=== PATIENT | female | born 1955 | race Caucasian/White ===

== ENCOUNTER → 2017-11-23 10:21 | Outpatient (CLI) | payer BC, SELFPAY ==
--- NOTE | 2017-11-23 10:35 | CT_ITS ---
CT chest w con HISTORY: Follow-up adenopathy ITS.REASON: 6 MO FU ENLARGED LYMPH NODES ORDERING PHYSICIAN: Deniz Mathew PATIENT AGE: 61 years TECHNIQUE: Helical acquisition obtained following the bolus administration of 75 mL of Isovue 370 followed by a saline bolus. Axial, sagittal, and coronal reformatted images are generated and reviewed. COMPARISON: 02/21/2017 FINDINGS: There is gas present in the upper esophagus which may be seen with reflux. Pneumobilia also noted consistent with patent sphincter of the. Mildly enlarged mediastinal lymph nodes are once again noted and are somewhat less bulky compared to the previous study. Largest janet area is in the right anterior paratracheal region measuring approximately 1.7 x 1.2 cm previously 2 x 1.7 cm. No mediastinal or hilar mass evident. There are coronary artery calcifications. Normal heart size. No pericardial effusion. Centrilobular emphysema with scattered areas of pulmonary fibrosis along with obstructive chronic bronchitis once again noted. No suspicious pulmonary nodules. The previously noted 3 mm nodular opacity in the left upper lobe is less apparent. No effusions or infiltrates. Upper abdominal images show pneumobilia. Has the patient had an interval cholecystectomy or biliary intervention since previous exam? IMPRESSION: 1. Slight decrease in size in the mildly bulky mediastinal lymph nodes. 2. Centrilobular emphysema/COPD. 3. Pneumobilia
[2017-11-23 10:45] LABS: Blood Urea Nitrogen 14 mg/dL (7-18); Creatinine,Serum 0.55 mg/dL (0.55-1.02); Estimated Glomerular Filt Rate > 60 ml/min (>60); GFR (African American) > 60 ML/MIN (>60)
--- NOTE | 2017-11-23 12:51 | HMH.ITSHM ---
KATHY ZOCOR KIYA ASPIRIN
== END ==
PROVIDERS: Family Provider Family Medicine; PCP Family Medicine; Visit Provider Family Medicine
DX: R59.0 Localized enlarged lymph nodes (principal)
CPT/HCPCS: 36415; 71260; 82565; 84520; Q9967

== ENCOUNTER → 2018-04-03 12:39 | Outpatient (POV) | payer BC, SELFPAY | PROVIDERS: Family Provider Family Medicine; PCP Family Medicine; Visit Provider Internal Medicine | DX: Z00.00 Encounter for general adult medical examination without abnormal findings (principal) ==

== ENCOUNTER → 2018-05-07 09:41 | Outpatient (CLI) | payer BC, SELFPAY | PROVIDERS: Family Provider Family Medicine; PCP Family Medicine; Visit Provider Internal Medicine | DX: R59.0 Localized enlarged lymph nodes (principal) | CPT/HCPCS: 94010 ==

== ENCOUNTER → 2018-11-29 13:30 | Outpatient (CLI) | payer MEDICARE, SELFPAY ==
--- NOTE | 2018-11-29 13:33 | CT_ITS ---
CT chest wo con HISTORY: ITS.REASON: MULTIPLE LUNG NODULES, MEDIASTINAL ADENOPATHY ORDERING PHYSICIAN: Michael Hui MD PATIENT AGE: 63 years COMPARISON: 11/23/2017 Technique: Axial images obtained with sagittal and coronal reformats. All CT scans at the facility use one or more dose reduction, viz: automated exposure control, ma/kV adjustment per patient size (including targeted exams where dose is matched to indication, i.e. head), or iterative reconstruction technique. FINDINGS: There are scattered small mediastinal lymph nodes the largest in the precarinal region at 1.6 x 1.3 cm not significant changed. Coronary artery calcifications are present. There are small axillary nodes unchanged There are irregular opacities in both lung apices not significant changed on the right. Granular shaped opacity is present in the left apex medially somewhat more prominent on today's exam at 12 x 10 mm previously 9 x 9 mm. Atelectatic or fibrotic changes are present in the right middle lobe medially. No lobar consolidation or collapse. No acute bony abnormalities. IMPRESSION: 1. No significant change in the mild mediastinal and axillary adenopathy. 2. Biapical fibrotic change. The opacity in the left apex is somewhat more prominent compared to the previous exam and could be related to ongoing fibrosis. Consider 6 month follow-up to confirm stability.
== END ==
PROVIDERS: PCP Family Medicine; Visit Provider Internal Medicine
DX: R91.8 Other nonspecific abnormal finding of lung field (principal); R59.0 Localized enlarged lymph nodes
CPT/HCPCS: 71250

== ENCOUNTER → 2018-12-04 10:02 | Outpatient (POV) | payer MEDICARE, SELFPAY | PROVIDERS: Visit Provider Internal Medicine | DX: Z00.00 Encounter for general adult medical examination without abnormal findings (principal) ==

== ENCOUNTER → 2019-10-07 08:26 | Outpatient (CLI) | payer MEDICARE, SELFPAY ==
[2019-10-07 10:26] LABS: Alanine Aminotransferase 34 U/L (12-78); Aspartate Amino Transferase 20 U/L (15-37); Chol/HDL Ratio 2.8 (1-3.5); Cholesterol 133 mg/dL (140-200); HDL Cholesterol 48 mg/dL (29-89); LDL Cholesterol 74 mg/dL (0-130); Thyroid Stimulating Hormone 2.38 uIU/ml (0.358-3.740); Triglycerides 55 mg/dL (30-200); VLDL Cholesterol 11 mg/dL (0-40)
== END ==
PROVIDERS: Visit Provider Family Medicine
DX: E78.5 Hyperlipidemia, unspecified (principal)
CPT/HCPCS: 36415; 80061; 84439; 84443; 84450; 84460

== ENCOUNTER 2020-02-06 17:30 | Outpatient (RCR) | payer MEDICARE, SELFPAY | END 2020-02-06 17:35 | disposition home or self-care (01) | LOC: PT 17:30 | PROVIDERS: PCP Family Medicine | DX: G95.9 Disease of spinal cord, unspecified (principal) | CPT/HCPCS: 97010; 97014; 97035; 97110; 97140; 97163; G0283 ==

== ENCOUNTER → 2020-02-28 09:49 | Outpatient (CLI) | payer MEDICARE, SELFPAY ==
[2020-02-28 10:02] LABS: Microscopic, Urine URINE MICROSCOPIC (MICROSCOPIC)
[2020-02-28 11:04] LABS: Basophils % 0.5 % (0.1-2.0); Eosinophils # 0.1 K/mm3 (0.0-0.4); Eosinophils % 2.3 % (0.1-12.0); Hematocrit 42.1 % (37.0-47.0); Hemoglobin 13.3 g/dL (12.2-16.2); Lymphocytes # 1.4 K/mm3 (0.7-4.5); Lymphocytes % 22.7 % (10-50); Mean Corpuscular HGB Conc 31.5 g/dL (31.8-35.4); Mean Corpuscular Hemoglobin 29.3 pg (27.0-31.2); Mean Corpuscular Volume 93.1 fl (81-99); Mean Platelet Volume 7.6 fl (7.4-10.4); Monocytes # 0.4 K/mm3 (0.1-1.0); Monocytes % 6.1 % (1.7-9.3); Neutrophils # 4.1 K/mm3 (1.8-7.8); Neutrophils % 68.4 % (37.0-80.0); Platelet Count 264 K/mm3 (142-424); Red Blood Count 4.53 M/mm3 (4.20-5.40); Red Cell Distribution Width 13.6 % (11.5-17.5)
[2020-02-28 11:09] LABS: Appearance,Urine CLEAR (Clear); Bilirubin,Urine Negative (Negative); Blood, Urine Negative (Negative); Color,Urine YELLOW (Yellow); Glucose,Urine (UA) Negative (Negative); Ketones,Urine Negative (Negative); Leukocyte Esterase,Urine Negative (Negative); Nitrate,Urine Negative (Negative); PH,Urine 5.5 (5.0-8.5); Protein,Urine Negative (Negative); Specific Gravity, Urine >= 1.030 (1.005-1.030); Urobilinogen,Urine 0.2 EU/dl (0.2)
[2020-02-28 11:35] LABS: Erythrocyte Sedimentation Rate 13 mm/hr (0-30)
[2020-02-28 12:21] LABS: Chloride 106 mmol/L (98-107); Sodium 140 mmol/L (136-145)
[2020-02-28 12:22] LABS: Potassium 4.3 mmoL/L (3.5-5.1)
[2020-02-28 12:24] LABS: Alanine Aminotransferase 31 U/L (12-78); Alkaline Phosphatase 107 U/L (38-126); Anion Gap 11.3 mEq/L (5-15); Aspartate Amino Transferase 30 U/L (14-36); Bilirubin,Total 0.4 mg/dl (0.2-1.3); Blood Urea Nitrogen 11 mg/dl (7-17); Calcium 9.8 mg/dl (8.4-10.2); Carbon Dioxide 27 mmol/L (22.0-30.0); Cholesterol 130 mg/dl (140-200); Estimated Glomerular Filt Rate 100 ml/min (>60); GFR (African American) 121 ML/MIN (>60); Glucose 86 mg/dl (74-100); Triglycerides 50 mg/dl (30-150); VLDL Cholesterol 10 mg/dL (0-40)
[2020-02-28 12:25] LABS: Albumin Level 4.1 g/dl (3.5-5.0); Albumin/Globulin Ratio 1.6 (1.1-1.8); Chol/HDL Ratio 2.2 (1-3.5); Globulin 2.5 g/dL (1.3-3.2); HDL Cholesterol 60 mg/dl (40-60); Magnesium 2.1 mg/dl (1.6-2.3); Total Protein,Serum 6.6 g/dl (6.3-8.2)
[2020-02-28 12:36] LABS: Direct LDL Cholesterol 64.54 mg/dL (100-129)
[2020-02-28 12:41] LABS: Free T4 (Free Thyroxine) 1.07 ng/dl (0.78-2.19)
[2020-02-28 14:57] LABS: Bacteria,Urine Trace /lpf; RBC,Urine Occasional #/hpf (0-3); Squamous Epithelial Cell,Urine Occasional #/hpf (0-5)
[2020-02-29 08:18] LABS: Folate 10.9 ng/mL (>3.0); Vitamin B12 479 pg/mL (232-1245)
== END ==
PROVIDERS: Visit Provider Family Medicine
DX: Z00.00 Encounter for general adult medical examination without abnormal findings (principal); R53.83 Other fatigue; E78.5 Hyperlipidemia, unspecified; N39.0 Urinary tract infection, site not specified; R20.2 Paresthesia of skin; R25.2 Cramp and spasm
CPT/HCPCS: 36415; 80053; 80061; 81001; 82607; 82746; 83735; 84439; 84443; 85025; 85651

== ENCOUNTER → 2020-03-12 08:21 | Outpatient (CLI) | payer MEDICARE, SELFPAY ==
--- NOTE | 2020-03-12 08:26 | CT_ITS ---
PROCEDURE: CT LUNG SCREENING CLINICAL INDICATION: H/O NICOTINE DEPENDENCE COMPARISON: CHESTWO CT chest wo con from 11/29/2018 TECHNIQUE: The exam was performed on a GE Light Speed [address] scanner using 2.90 mGy CTDI. A low dose helical CT CHEST was performed on a multi-detector scanner. All CT scans at the facility use one or more dose reduction, viz: automated exposure control, ma/kV adjustment per patient size (including targeted exams where dose is matched to indication, i.e. head), or iterative reconstruction technique. The LDCT was performed in a facility that meets the criteria for the screening program. Data regarding this exam was submitted to ACR which is an approved registry. The order for this exam indicates that it came as a result of a lung cancer screening counseling shard decision-making visit that included all the elements required of such a visit including smoking cessation. The radiologist interpreting this exam meets the CMS criteria for the LDCT lung cancer screening program. The exam is reported using the Lung-RADS classification scale and reported to the ACR registry. NOTE: This study was performed for the specific purposes of lung cancer screening and is not an alternative to diagnostic chest CT. RADIATION DOSE: CTDI vol(CT dose Index-volume) = 2.90mG DLP (Dose Length Product) = 110.46 mGcm Lung Rads Category: FINDINGS: Changes of COPD with scattered areas of scarring 4 mm noncalcified nodule left upper lobe centrally image 37. 4 mm nodule left lower lobe laterally image 44. OTHER FINDINGS: Scattered small mediastinal and axillary lymph nodes measuring up to 1.4 x 1 cm in the precarinal region not significantly changed. Coronary artery calcifications. Pneumobilia is present. There has been prior cholecystectomy. Mild right hydronephrosis IMPRESSION: Lung rads category 3 probably benign. Recommend six-month CT follow-up Mild right hydronephrosis Coronary artery calcifications Dictated by: Link Saha MD 03/15/2020 12:50 Electronically signed by Link Saha MD in [place] 03/15/2020 12:50
--- NOTE | 2020-03-12 08:27 | MM_ITS ---
PROCEDURE: MM DIG SCREENING MAMM BI W/CAD Digital Breast Tomosynthesis Included CLINICAL INDICATION: SCREENING There is no personal or family history of breast cancer. COMPARISON: DIG MAMMO BILAT SCREENING from 01/21/2010 [facility] DIG MAMM-SCREEN DALI from 09/04/2014 [facility] DIG MAMM-SCREEN DALI W/CAD from 02/17/2017 TECHNIQUE: Standard CC and MLO images and 3D Tomosynthesis was obtained. R2 CAD reviewed. FINDINGS: Scattered fibroglandular densities are seen in each breast. There is faint arterial calcification in each breast. There is a stable small benign-appearing nodular density near the axillary tail right breast likely a low-lying node. There are 2 new benign-appearing nodular densities left breast which were present previously but are better seen on today's study with didier images. There is no suspicious lesion in either breast and no suspicious microcalcifications. IMPRESSION: Fibrofatty parenchyma with no suspicious lesions seen BI-RAD Category: 2 Benign Finding(s) FOLLOW-UP: 1YR 1 Year Follow-up (A letter has been sent to the patient regarding results of the study.) Dictated by: Dr. Walter Meza MD 03/27/2020 08:[address] Walter Meza MD in [place] 03/27/2020 08:49
== END ==
PROVIDERS: PCP Family Medicine; Visit Provider Family Medicine
DX: Z12.31 Encounter for screening mammogram for malignant neoplasm of breast (principal); Z87.891 Personal history of nicotine dependence; Z12.2 Encounter for screening for malignant neoplasm of respiratory organs
CPT/HCPCS: 77063; 77067

== ENCOUNTER → 2020-06-12 10:28 | Outpatient (CLI) | payer MEDICARE, SELFPAY ==
[2020-06-12 12:09] LABS: Anion Gap 13.5 mEq/L (5-15); Blood Urea Nitrogen 16 mg/dl (7-17); Calcium 9.9 mg/dl (8.4-10.2); Carbon Dioxide 27 mmol/L (22.0-30.0); Chloride 107 mmol/L (98-107); Estimated Glomerular Filt Rate 100 ml/min (>60); GFR (African American) 121 ML/MIN (>60); Glucose 88 mg/dl (74-100); Potassium 4.5 mmoL/L (3.5-5.1); Sodium 143 mmol/L (136-145)
== END ==
PROVIDERS: Visit Provider Family Medicine
DX: I10 Essential (primary) hypertension (principal)
CPT/HCPCS: 36415; 80048

== ENCOUNTER → 2021-03-24 12:45 | Outpatient (CLI) | payer MEDICARE, SELFPAY ==
--- NOTE | 2021-03-24 12:50 | MR_ITS ---
PROCEDURE: MR CERVICAL SPINE WO CON CLINICAL INDICATION: CERVICAL MYELOPATHY Pt c/o cervical myelopathy with lt arm pain, numbness, and tingling. Pt is s/p cervical fusion Aug 2020. COMPARISON: No exams were available for comparison TECHNIQUE: Standard multiplanar multiecho sequences are performed without contrast. 3-D MIP and myelographic images are also rendered and reviewed FINDINGS: The craniocervical junction has an unremarkable appearance. There is normal alignment. C2-C3: Unremarkable. C3-C4: There is mild asymmetric endplate hypertrophic change toward the left causing mild left lateral recess and foraminal narrowing. C4-C5: There has been anterior cervical disc fusion at C4-C5 and C6 with significant artifact. There does appear to be some endplate and uncovertebral hypertrophic change at C4-C5 with mild bilateral lateral recess and foraminal narrowing. C5-C6: Artifact from anterior bone plate and screws. There is endplate hypertrophic change and uncovertebral hypertrophy with bilateral lateral recess and foraminal narrowing greater on the left. Canal stenosis is present at this level at 10 mm. C6-C7: Degenerative disc disease. Mild left-sided foraminal narrowing. C7-T1: Degenerative disc disease. There is a small central disc protrusion very slightly eccentric toward the left causing narrowing of the canal at 10 mm but does not appear to be impinging upon the cord. IMPRESSION: 1. C3-C4: There is mild asymmetric endplate hypertrophic change toward the left causing mild left lateral recess and foraminal narrowing. 2. C4-C5: There has been anterior cervical disc fusion at C4-C5 and C6 with significant artifact. There does appear to be some endplate and uncovertebral hypertrophic change at C4-C5 with mild bilateral lateral recess and foraminal narrowing. 3. C5-C6: Artifact from anterior bone plate and screws. There is endplate hypertrophic change and uncovertebral hypertrophy with bilateral lateral recess and foraminal narrowing greater on the left. Canal stenosis is present at this level at 10 mm. 4. C6-C7: Degenerative disc disease. Mild left-sided foraminal narrowing. 5. C7-T1: Degenerative disc disease. There is a small central disc protrusion very slightly eccentric toward the left causing narrowing of the canal at 10 mm but does not appear to be impinging upon the cord Dictated by: Link Saha MD 03/25/2021 09:58 Link Saha MD in [place] 03/25/2021 09:58
== END ==
PROVIDERS: PCP Family Medicine; Visit Provider Neurological Surgery
DX: M54.12 Radiculopathy, cervical region (principal); G95.9 Disease of spinal cord, unspecified
CPT/HCPCS: 72141; 76376

== ENCOUNTER 2021-05-03 11:07 | Emergency (ER) | payer MEDICARE, SELFPAY ==
[2021-05-03 11:27] VITALS: BP 155/73; PULSE 69; RESP 16; TEMP 36.8; O2SAT 99; BMI 18.2
[2021-05-03 11:42] VITALS: BP 155/73; PULSE 69; RESP 16; TEMP 36.8; O2SAT 99
--- NOTE | 2021-05-03 11:42 | HMH.EDUTC ---
[facility] [place] Clinical Impression: UTI (urinary tract infection) Qualifiers: Urinary tract infection type: site unspecified Hematuria presence: with hematuria Qualified Code(s): N39.0 - Urinary tract infection, site not specified Disposition: Home, Self-Care Condition on Discharge: Good Instructions: DI for Urinary Tract Infection (UTI), DI for Urinary Tract Infection in Children Additional Instructions: Drink plenty of fluids. Take tylenol or ibuprofen for pain or fever. Take the medications as directed. Follow up with your regular doctor. GO TO THE ER FOR ANY WORSENING SYMPTOMS The pyridium will make your urine turn orange, this is an expected side effect. It will stain your clothes if it comes into contact with them. Prescriptions: Ondansetron [Zofran 4mg ODT] 4 mg PO Q8HP PRN #9 tab.rapdis PRN Reason: Nausea Transmission Status: Received by [facility] #[id number] Sulfamethoxazole/Trimethoprim [Bactrim DS tablet] 1 each PO BID 7 Days #14 tab Transmission Status: Received by [facility] #[id number] Phenazopyridine HCl [Pyridium 200mg Tablet] 200 pow PO TID #6 tab Transmission Status: Received by [facility] #[id number] Referrals: Deniz Mathew [Primary Care Provider] - Time of Disposition: 11:49 Medical Decision Making - Medical Records Medical records reviewed: No: I reviewed the patient's medical records. - Jose Inquiry Pt receiving controlled substance: No Vital Signs: 05/03/21 11:27 05/03/21 11:42 Temperature 98.2 F 98.2 F Temperature Source Oral Pulse Rate 69 Pulse Rate [Left] 69 Respiratory Rate 16 16 Blood Pressure 155/73 H Blood Pressure [Right Arm] 155/73 H Blood Pressure Mean [Right Arm] 100 02 Sat by Pulse Oximetry 99 - Lab Data Lab results reviewed: Yes: I reviewed the patient's lab results. Lab Results 05/03/21 11:41: Urine Color Yellow, Urine Appearance Clear, Urine pH 5.5, Ur Specific [place] 1.010, Urine Protein Negative, Urine Glucose (UA) Negative, Urine Ketones Negative, Urine Blood Negative, Urine Nitrate Positive A, Urine Bilirubin Negative, Urine Urobilinogen 0.2, Ur Leukocyte Esterase 1+ A Orders (Tests/Meds): ORDERS Category Date Time Status Urine Culture Stat Micro 05/03/21 11:20 Results [facility] [place] - General Stated complaint: possible UTI Time Seen by Provider: 05/03/21 11:42 Source of Information: Patient, Parent(s) Limitations: No Limitations Description of Symptoms (Recalled from Triage Doc. by RN): Pt states that she has had lower pelvic and back pain, urgency and burning while urinating for 3 days. HEENT Symptoms (Recalled from RN notes): No Resp Symptoms (Recalled from RN notes): No Skin Symptoms (Recalled from RN notes): No MS Symptoms (Recalled from RN notes): No Functional Status (Recalled from RN notes): wnl - History of Present Illness Provider Complaint: She states that she has had burning with urinating, low back pain and nausea for the past 2 days. She gets uti's kind of frequently and she thinks that she has one now. She denies any fever or chills. - Related Data Home Medications Medication Instructions Recorded Confirmed aspirin 81 mg tablet,delayed 81 mg PO DAILY 12/15/18 11/19/19 release Atorvastatin Calcium [Lipitor 40mg 80 mg PO HS 10/09/19 11/19/19 Tab] Clopidogrel Bisulfate [Plavix 75mg 75 mg PO DAILY 10/09/19 11/19/19 Tab] Zonisamide 50 mg PO DAILY 11/02/19 11/19/19 Previous Rx's Medication Instructions Recorded Cefdinir [Omnicef 300mg Capsule] 300 mg PO BID #20 cap 11/19/19 Promethazine/Dextromethorphan 5 ml PO Q6HP PRN #240 syrup 11/19/19 [Promethazine-Dm Syrup] methylPREDNISolone [Medrol] 4 mg PO DIRECTED 6 Days #21 11/19/19 tab.ds.pk Ciprofloxacin [Cipro 500mg/5ml 500 mg PO BID 7 Days #14 ml 12/30/19 Oral Susp] Ondansetron [Zofran 4mg ODT] 4 mg PO Q8HP PRN #10 tab.rapdis 12/30/19 Phenazopyridine HCl [Pyridium 200 pow PO TI
[2021-05-03 11:43] LABS: Apearance,Urine Clear (Clear); Color,Urine Yellow (Yellow)
[2021-05-03 11:44] LABS: Bilirubin,Urine Negative (Negative); Blood, Urine Negative (Negative); Glucose,Urine (UA) Negative (Negative); Ketones,Urine Negative (Negative); PH,Urine 5.5 (5.0-8.5); Protein,Urine Negative (Negative); Urobilinogen,Urine 0.2 EU/dl (0.2)
[2021-05-03 11:45] LABS: UTC Leukocyte Esterase,Urine 1+ (Negative); UTC Nitrate,Urine Positive (Negative)
== END 2021-05-03 11:53 | disposition home or self-care (01) ==
PROVIDERS: Emergency Provider Nurse Practitioner Family; PCP Family Medicine
DX: N30.00 Acute cystitis without hematuria (principal)
CPT/HCPCS: G0463; 81003; 87086; 87088; 87186; 99202

== ENCOUNTER → 2021-07-17 08:23 | Outpatient (CLI) | payer MEDICARE, SELFPAY ==
[2021-07-17 08:46] LABS: Microscopic, Urine URINE MICROSCOPIC (MICROSCOPIC)
[2021-07-17 11:17] LABS: Basophils % 0.5 % (0.1-2.0); Eosinophils # 0.2 K/mm3 (0.0-0.4); Hematocrit 42.8 % (37.0-47.0); Hemoglobin 13.7 g/dL (12.2-16.2); Lymphocytes # 1.7 K/mm3 (0.7-4.5); Lymphocytes % 28.4 % (10-50); Mean Corpuscular HGB Conc 31.9 g/dL (31.8-35.4); Mean Corpuscular Hemoglobin 30.3 pg (27.0-31.2); Mean Corpuscular Volume 94.9 fl (81-99); Mean Platelet Volume 8.3 fl (7.4-10.4); Monocytes # 0.4 K/mm3 (0.1-1.0); Monocytes % 6.3 % (1.7-9.3); Neutrophils # 3.6 K/mm3 (1.8-7.8); Neutrophils % 61.8 % (37.0-80.0); Platelet Count 312 K/mm3 (142-424); Red Blood Count 4.51 M/mm3 (4.20-5.40); Red Cell Distribution Width 13.6 % (11.5-17.5); White Blood Count 5.8 K/mm3 (4.8-10.8)
[2021-07-17 11:32] LABS: Appearance,Urine CLEAR (Clear); Bilirubin,Urine Negative (Negative); Blood, Urine Negative (Negative); Color,Urine YELLOW (Yellow); Glucose,Urine (UA) Negative (Negative); Ketones,Urine Negative (Negative); Leukocyte Esterase,Urine TRACE (Negative); Nitrate,Urine Negative (Negative); Protein,Urine Negative (Negative); Specific Gravity, Urine 1.025 (1.005-1.030); Urobilinogen,Urine 0.2 EU/dl (0.2)
[2021-07-17 12:48] LABS: Free T4 (Free Thyroxine) 0.95 ng/dl (0.78-2.19)
[2021-07-17 14:18] LABS: Chloride 105 mmol/L (98-107); Potassium 4.7 mmoL/L (3.5-5.1); Sodium 140 mmol/L (136-145)
[2021-07-17 14:21] LABS: Alanine Aminotransferase 23 U/L (12-78); Albumin/Globulin Ratio 1.4 (1.1-1.8); Alkaline Phosphatase 112 U/L (38-126); Anion Gap 13.7 mEq/L (5-15); Aspartate Amino Transferase 30 U/L (14-36); Bilirubin,Total 0.3 mg/dl (0.2-1.3); Blood Urea Nitrogen 12 mg/dl (7-17); Calcium 9.5 mg/dl (8.4-10.2); Carbon Dioxide 26 mmol/L (22.0-30.0); Cholesterol 173 mg/dl (140-200); Creatine Kinase 39 U/L (30-135); Estimated Glomerular Filt Rate 100 ml/min (>60); GFR (African American) 121 ML/MIN (>60); Globulin 2.8 g/dL (1.3-3.2); Glucose 81 mg/dl (74-100); Total Protein,Serum 6.8 g/dl (6.3-8.2); Triglycerides 61 mg/dl (30-150); VLDL Cholesterol 12 mg/dL (0-40)
[2021-07-17 14:22] LABS: Chol/HDL Ratio 2.3 (1-3.5); HDL Cholesterol 74 mg/dl (40-60)
[2021-07-17 14:28] LABS: C-Reactive Protein 0.4 mg/L (0-4)
[2021-07-17 14:29] LABS: Hemoglobin A1C 5.8 % (4.0-6.0)
[2021-07-17 14:33] LABS: Direct LDL Cholesterol 74.39 mg/dL (100-129)
[2021-07-17 14:47] LABS: Squamous Epithelial Cell,Urine Occasional #/hpf (0-5); WBC,Urine Occasional #/hpf (0-3)
[2021-07-17 14:52] LABS: Thyroid Stimulating Hormone 2.11 uIU/mL (0.465-4.68)
[2021-07-17 15:08] LABS: Uric Acid 2.4 mg/dl (2.5-6.2)
[2021-07-17 16:15] LABS: Vitamin B12 399 pg/mL (239-931)
[2021-07-17 16:24] LABS: Folate 8.52 ng/mL
[2021-07-17 20:20] LABS: Erythrocyte Sedimentation Rate 13 mm/hr (0-30)
[2021-07-18 14:33] LABS: Homocyst(e)ine 10.8 umol/L (0.0-17.2); RA Latex Turbid. <10.0 IU/mL (0.0-13.9)
[2021-07-19 18:47] LABS: Antinuclear Antibodies, IFA Positive (.)
[2021-07-20 19:34] LABS: Arsenic, Blood 3 ug/L (2-23); Lead, Blood 1 ug/dL (0-4); Mercury, Blood <1.0 ug/L (0.0-14.9); Methylmalonic Acid 180 nmol/L (0-378)
[2021-07-21 17:45] LABS: Vitamin B6 15.9 ug/L (2.0-32.8)
[2021-07-23 16:13] LABS: Vitamin B1 175.7 nmol/L (66.5-200.0)
[2021-07-29 11:00] LABS: Antinuclear Antibodies (ANA) Positive
== END ==
PROVIDERS: Visit Provider Family Medicine
DX: I10 Essential (primary) hypertension (principal); E78.5 Hyperlipidemia, unspecified; R53.83 Other fatigue; G62.9 Polyneuropathy, unspecified; Z79.899 Other long term (current) drug therapy
CPT/HCPCS: 36415; 80053; 80061; 81001; 82131; 82175; 82550; 82607; 82746; 83036; 83090; 83655; 83825; 84207; 84425; 84439; 84443; 84550; 85025; 85651; 86038; 86140; 86431

== ENCOUNTER 2021-07-29 17:13 | Emergency (ER) | payer MEDICARE, SELFPAY ==
[2021-07-29 19:06] VITALS: BP 130/78; PULSE 72; RESP 18; TEMP 36.8; O2SAT 96; BMI 18.2
--- NOTE | 2021-07-29 19:14 | HMH.EDUTC ---
[facility] [place] Impression: Exposure to COVID-19 virus Disposition: Home, Self-Care Condition on Discharge: Good Instructions: DI for COVID-19 (Suspected or Confirmed ), Preventing the Spread of Coronavirus Discharge Instructions Additional Instructions: *Monitor Temp, Over the counter Motrin or Tylenol as directed/as needed Tylenol every 4 hours and Motrin every 6 hours (as long as your family doctor has told you that you can take it) for fever or pain. and straight to ER if unable to lower temp less than 101.0 after medication given Follow up IMMEDIATELY for new or worsening symptoms or no Noticeable improvement over the next 48-72 hours. 911 for difficulty breathing or swallowing You were tested for today for COVID19 your test result should be back in the next 24-48 hours, you was given handout on [facility] portal where you can review your results if you do not have internet access you may call the [facility] You was given a handout with instructions for Self Quarantine and Self isolation for while you wait on test results and what to do if they are positive If you are positive the Health Dept will be contacting you also Make sure to take your Vitamins Vit. C Vit D and Zinc if you can take them Referrals: Deniz Mathew [Primary Care Provider] - As needed Forms: Work/School Release Medical Decision Making - Jose Inquiry Pt receiving controlled substance: No Jose was queried for this patient: No Vital Signs: 07/29/21 19:06 Temperature 98.2 F Temperature Source Oral Pulse Rate [Right] 72 Respiratory Rate 18 Blood Pressure [Right Arm] 130/78 Blood Pressure Mean [Right Arm] 95 Blood Pressure Source [Right Arm] Automatic Cuff Blood Pressure Position [Right Arm] Sitting 02 Sat by Pulse Oximetry 96 Oxygen Delivery Method Room Air Orders (Tests/Meds): ORDERS Category Date Time Status Covid-19 Nasal PCR ([facility]) Routine Lab 07/29/21 19:08 Ordered [facility] [place] - General Stated complaint: covid test Time Seen by Provider: 07/29/21 19:14 Mode of Arrival: Ambulatory Source of Information: Patient Limitations: No Limitations Description of Symptoms (Recalled from Triage Doc. by RN): COVID TEST D/T EXPOSURE, NO SYMPTOMS HEENT Symptoms (Recalled from RN notes): No Resp Symptoms (Recalled from RN notes): No Skin Symptoms (Recalled from RN notes): No MS Symptoms (Recalled from RN notes): No Functional Status (Recalled from RN notes): WNL - History of Present Illness Provider Complaint: Patient state that they was around someone on Monday that tested positive for COVID state that she is not having any symptoms but wanted to get tested due to exposure - Related Data Home Medications Medication Instructions Recorded Confirmed aspirin 81 mg tablet,delayed 81 mg PO DAILY 12/15/18 11/19/19 release Atorvastatin Calcium [Lipitor 40mg 80 mg PO HS 10/09/19 11/19/19 Tab] Clopidogrel Bisulfate [Plavix 75mg 75 mg PO DAILY 10/09/19 11/19/19 Tab] Zonisamide 50 mg PO DAILY 11/02/19 11/19/19 Previous Rx's Medication Instructions Recorded Cefdinir [Omnicef 300mg Capsule] 300 mg PO BID #20 cap 11/19/19 Promethazine/Dextromethorphan 5 ml PO Q6HP PRN #240 syrup 11/19/19 [Promethazine-Dm Syrup] methylPREDNISolone [Medrol] 4 mg PO DIRECTED 6 Days #21 11/19/19 tab.ds.pk Ciprofloxacin [Cipro 500mg/5ml 500 mg PO BID 7 Days #14 ml 12/30/19 Oral Susp] Ondansetron [Zofran 4mg ODT] 4 mg PO Q8HP PRN #10 tab.rapdis 12/30/19 Phenazopyridine HCl [Pyridium 200 pow PO TID #6 tab 12/30/19 200mg Tablet] Ondansetron [Zofran 4mg ODT] 4 mg PO Q8HP PRN #9 tab.rapdis 05/03/21 Phenazopyridine HCl [Pyridium 200 pow PO TID #6 tab 05/03/21 200mg Tablet] Sulfamethoxazole/Trimethoprim 1 each PO BID 7 Days #14 tab 05/03/21 [Bactrim DS tablet] Allergies Allergy/AdvReac Type Severity Reaction Status Date / Time No Known Allergies Allergy Verified 05/03/21 11:31 - Work
[2021-07-29 19:39] VITALS: BP 130/78; PULSE 72; RESP 18; TEMP 36.8; O2SAT 96
== END 2021-07-29 19:42 | disposition home or self-care (01) ==
PROVIDERS: Emergency Provider Nurse Practitioner; PCP Family Medicine
DX: Z20.822 Contact with and (suspected) exposure to COVID-19 (principal)
CPT/HCPCS: G0463; 99202; U0003

== ENCOUNTER → 2021-08-05 13:58 | Outpatient (CLI) | payer MEDICARE, SELFPAY ==
--- NOTE | 2021-08-05 | US_ITS ---
APPROVED REPORT Exam Type: Ankle to Brachial Index Post Acute Care Nurse: RT Dilip(R) Indications Claudication: Bilaterally Rest Pain: Bilaterally History of Smoking Risk Factors Hyperlipidemia TIA/CVA History Pressures/Indices Right Indices Left Indices Brachial 146.00 mmHg Brachial 145.00 mmHg Low Thigh 133.00 mmHg 0.91 Low Thigh 134.00 mmHg 0.92 Calf 137.00 mmHg 0.94 Calf 133.00 mmHg 0.91 Ankle(PT) 136.00 mmHg 0.93 Ankle(PT) 147.00 mmHg 1.01 Ankle(DP) 146.00 mmHg 1.00 Ankle(DP) 149.00 mmHg 1.02 Digit 102.00 mmHg 0.70 Digit 102.00 mmHg 0.70 Findings RT STEVAN=1.00 LT STEVAN=1.02 RT TBI=0.70 LT TBI=0.70 Normal pulses Normal waveforms Conclusion RT STEVAN=1.00 LT STEVAN=1.02 RT TBI=0.70 LT TBI=0.70 Normal pulses Normal waveforms Normal appearing resting noninvasive lower extremity arterial study. Electronically signed by : Link Saha MD 08/05/2021 15:57:16
--- NOTE | 2021-08-05 14:02 | CT_ITS ---
PROCEDURE: CT LUNG SCREENING CLINICAL INDICATION: 6MONTH FOLLOW UP COMPARISON: CT CT LUNG SCREENING from 03/12/2020 TECHNIQUE: The exam was performed on a GE Light Speed [address] scanner using 2.90 mGy CTDI. A low dose helical CT CHEST was performed on a multi-detector scanner. All CT scans at the facility use one or more dose reduction, viz: automated exposure control, ma/kV adjustment per patient size (including targeted exams where dose is matched to indication, i.e. head), or iterative reconstruction technique. The LDCT was performed in a facility that meets the criteria for the screening program. Data regarding this exam was submitted to ACR which is an approved registry. The order for this exam indicates that it came as a result of a lung cancer screening counseling shard decision-making visit that included all the elements required of such a visit including smoking cessation. The radiologist interpreting this exam meets the [facility] criteria for the LDCT lung cancer screening program. The exam is reported using the Lung-RADS classification scale and reported to the ACR registry. NOTE: This study was performed for the specific purposes of lung cancer screening and is not an alternative to diagnostic chest CT. RADIATION DOSE: CTDI vol(CT dose Index-volume) = 2.90mG DLP (Dose Length Product) = 106.3 mGcm FINDINGS: COPD changes with scattered areas of scarring. There is a 4 x 2 mm rectangular shaped nodule in the right upper lobe centrally series 3, image 36 not readily apparent on the previous exam. Scarring is present in the left upper lobe medially unchanged. There is a stable 4 mm nodule in left upper lobe anteriorly series 3, image 30 stable 3 mm left upper lobe nodule centrally series 3, image 42 OTHER FINDINGS: Scattered small nodes are present in the axilla and mediastinum not significantly changed. Coronary artery calcifications. Loop recorder device noted in the left precordial region. IMPRESSION: Lung-RADS Category 2 Benign Appearance or Behavior Follow-up: Continue annual screening with LDCT in 12 months Dictated by: Link Saha MD 08/21/2021 15:11 Link Saha MD in [place] 08/21/2021 15:11
--- NOTE | 2021-08-05 14:03 | MM_ITS ---
PROCEDURE: MM DIG SCREENING MAMM BI W/CAD Digital Breast Tomosynthesis Included CLINICAL INDICATION: SCREENING COMPARISON: MG [facility]MSB DIG MAMM-SCREEN DALI from 09/04/2014 MG [facility]MSB DIG MAMM-SCREEN DALI W/CAD from 02/17/2017 MG MM DIG SCREENING MAMM BI W/CAD from 03/12/2020 TECHNIQUE: Standard CC and MLO images and 3D Tomosynthesis was obtained. R2 CAD reviewed. FINDINGS: The breasts are heterogeneously dense which may obscure small masses. Bilateral benign-appearing calcification. Benign-appearing nodules left breast unchanged. No suspicious appearing mass, malignant-appearing microcalcification, architectural distortion, or skin thickening. No significant change in IMPRESSION: Benign findings. No evidence of malignancy BI-RAD Category: 2 Benign Finding FOLLOW-UP: 1 YR 1 Year Follow-up (A letter has been sent to the patient regarding results of the study.) Dictated by: Link Saha MD 08/23/2021 09:37 Link Saha MD in [place] 08/23/2021 09:37
== END ==
PROVIDERS: PCP Family Medicine; Visit Provider Family Medicine
DX: Z12.31 Encounter for screening mammogram for malignant neoplasm of breast (principal); Z87.891 Personal history of nicotine dependence; Z12.2 Encounter for screening for malignant neoplasm of respiratory organs; M79.605 Pain in left leg; M79.604 Pain in right leg; R09.89 Other specified symptoms and signs involving the circulatory and respiratory systems
CPT/HCPCS: 71271; 77063; 77067; 93923

== ENCOUNTER → 2021-08-10 09:34 | Outpatient (POV) | payer MEDICARE, SELFPAY | PROVIDERS: Visit Provider Otolaryngology | DX: Z00.00 Encounter for general adult medical examination without abnormal findings (principal) ==

== ENCOUNTER → 2021-08-25 08:40 | Outpatient (CLI) | payer MEDICARE, SELFPAY ==
--- NOTE | 2021-08-25 08:43 | FL_ITS ---
PROCEDURE: FL BARIUM SWALLOW CLINICAL INDICATION: DYSPHAGIA,LARYNGOPHARYNGEAL REFLUX COMPARISON: No exams were available for comparison FINDINGS: There is a bone plate anteriorly at the C5-C6 and C7 level. This does abut the posterior aspect of the esophagus without obvious indentation. No annular constricting lesions or filling defects evident. No hiatal hernia. There was some esophageal dysmotility. IMPRESSION: Mild esophageal dysmotility otherwise negative. The patient reports dysphagia with different types of food hanging in her throat. Perhaps a modified barium swallow would aid in further evaluation. Dictated by: Link Saha MD 08/25/2021 10:09 Link Saha MD in [place] 08/25/2021 10:09
== END ==
PROVIDERS: PCP Family Medicine; Visit Provider Otolaryngology
DX: R13.10 Dysphagia, unspecified (principal); J38.7 Other diseases of larynx
CPT/HCPCS: 74220

== ENCOUNTER 2021-10-06 14:45 | Outpatient (RCR) | payer MEDICARE, SELFPAY ==
--- NOTE | 2021-10-06 16:45 | HMH.SLDYSPHA ---
Speech & Language Evaluation Speech/Language Dysphagia Evaluation Start: 10/06/21 15:59 Freq: ONCE Status: Active Protocol: Document 10/06/21 15:59 CMAY (Rec: 10/06/21 16:44 CMAY [id number]) Dysphagia Assess/Goals/Plan Assessment Date of Evaluation: 10/06/21 Evaluation Type Initial Certification Assessment/Problems Dysphagia Does Patient Qualify for Service No Qualify/Failure Comment Based on the results of today' s evaluation, it is recommended that Mrs. Burrell receive a Modified Barium Swallow Study (MBSS) to rule out penetration or aspiration during intake. If the MBSS reveals penetration, aspiration, muscular weakness, etc. outpatient speech therapy services may be warranted. Recommendations PHYSICIAN CERTIFICATION: The specified therapy services are required, authorized, and reviewed every 30 days. Diet Recommendations Normal with modifications for grainy/sticky/dry foods Liquid Type Recommendations Normal/Thin SL Swallow Guidelines Alt bite w/sip thru meal, Standard Aspiration Prec.,Eat at slow rate,Oral Care Education,Reflux precautions Crush Meds Crush all meds Dysphagia Swallow Precautions/Strategies Sitting Upright (90 deg), Double Swallow,Small Bites and Sips,Alternate Liquids/Solids Additional Consults Recommended Other Comment ST recommends a Modified Barium Swallow Study to further evaluate the swallow. Plan Pt/Guardian verbally ack understanding Yes of dx/prognosis/goals G -code Required No Education Instructions provided Education provided to patient regarding swallowing safety strategies to implement such as sitting upright during intake, sitting upright for at least 45 minutes following intake, taking small bites/ sips, alternating between bites/sips (liquid wash), taking extra time to eat, and adding gravy/sauces, etc. to sticky/grainy/dry consistencies before
== END 2021-10-06 14:50 | disposition home or self-care (01) ==
LOC: ST 14:45
PROVIDERS: PCP Family Medicine; Visit Provider Family Medicine
DX: R13.10 Dysphagia, unspecified (principal)
CPT/HCPCS: 92610

== ENCOUNTER 2021-10-19 16:39 | Emergency (ER) | payer MEDICARE, SELFPAY ==
[2021-10-19 17:21] VITALS: BP 162/80; PULSE 80; RESP 19; TEMP 37.7; O2SAT 98; BMI 19.0
--- NOTE | 2021-10-19 17:51 | HMH.EDUTC ---
[facility] [place] Disposition Clinical Impression: COPD exacerbation, Exposure to COVID-19 virus Disposition: Home, Self-Care Condition on Discharge: Good Instructions: Chronic Obstructive Pulmonary Disease, Physical Activity for People with COPD, DI for COVID-19 (Suspected or Confirmed ) Additional Instructions: Drink plenty of fluids. Take tylenol or ibuprofen for pain or fever. Take the medications as directed. Follow up with your regular doctor. GO TO THE ER FOR ANY WORSENING SYMPTOMS Quarantine until you know the results of your covid-19 test. If it is positive, the health department should call you and give you further instructions about your length of Quarantine and other things. Notify your school or workplace of your results and follow their instructions regarding return to work/school. Prescriptions: Benzonatate [Benzonatate 100mg cap] 100 mg PO TIDP PRN #30 cap PRN Reason: Cough Transmission Status: Received by [facility] #[id number] methylPREDNISolone [Medrol] 4 mg PO DIRECTED 6 Days #21 packet Transmission Status: Received by [facility] # guaiFENesin [Mucinex 600mg tablet] 1 - 2 tab PO BIDP PRN #30 tab PRN Reason: Congestion Transmission Status: Received by [facility] # Azithromycin [Z-Juan José 250mg Tab*] 250 mg PO UD DOSE PK #6 tab Transmission Status: Received by [facility] #[id number] Referrals: Deniz Mathew [Primary Care Provider] - Time of Disposition: 18:13 Medical Decision Making - Medical Records Medical records reviewed: No: I reviewed the patient's medical records. - Jose Inquiry Pt receiving controlled substance: No Vital Signs: 10/19/21 17:21 10/19/21 18:14 Temperature 99.8 F H 99.8 F H Temperature Source Oral Pulse Rate 80 Pulse Rate [Left] 80 Respiratory Rate 19 19 Blood Pressure 162/80 H Blood Pressure [Right Arm] 162/80 H Blood Pressure Mean [Right Arm] 107 02 Sat by Pulse Oximetry 98 - Lab Data Lab results reviewed: Yes: I reviewed the patient's lab results. Orders (Tests/Meds): ORDERS Category Date Time Status Covid-19 Nasal PCR ([facility]) Routine Lab 10/19/21 17:24 Received [facility] [place] HPI - General Stated complaint: cough, runny nose, covid exp Time Seen by Provider: 10/19/21 17:51 Mode of Arrival: Ambulatory Source of Information: Patient Limitations: No Limitations Description of Symptoms (Recalled from Triage Doc. by RN): pt was exposed to covid on 10/15. pt c/o cough and sore throat. HEENT Symptoms (Recalled from RN notes): Yes (sore throat) Resp Symptoms (Recalled from RN notes): Yes (cough) Skin Symptoms (Recalled from RN notes): No MS Symptoms (Recalled from RN notes): No Functional Status (Recalled from RN notes): wnl - History of Present Illness Provider Complaint: She states that for the past 2 days she has had a worsening cough and chest congestion. She has a history of copd. She was exposed to covid-19 3 days ago. She denies any fever or chills. - Related Data Home Medications Medication Instructions Recorded Confirmed aspirin 81 mg tablet,delayed 81 mg PO DAILY 12/15/18 11/19/19 release Atorvastatin Calcium [Lipitor 40mg 80 mg PO HS 10/09/19 11/19/19 Tab] Clopidogrel Bisulfate [Plavix 75mg 75 mg PO DAILY 10/09/19 11/19/19 Tab] Zonisamide 50 mg PO DAILY 11/02/19 11/19/19 Previous Rx's Medication Instructions Recorded Cefdinir [Omnicef 300mg Capsule] 300 mg PO BID #20 cap 11/19/19 Promethazine/Dextromethorphan 5 ml PO Q6HP PRN #240 syrup 11/19/19 [Promethazine-Dm Syrup] methylPREDNISolone [Medrol] 4 mg PO DIRECTED 6 Days #21 11/19/19 tab.ds.pk Ciprofloxacin [Cipro 500mg/5ml 500 mg PO BID 7 Days #14 ml 12/30/19 Oral Susp] Ondansetron [Zofran 4mg ODT] 4 mg PO Q8HP PRN #10 tab.rapdis 12/30/19 Phenazopyridine HCl [Pyridium 200 pow PO TID #6 tab 12/30/19 200mg Tablet] Ondansetron [Zofran 4mg ODT] 4 mg PO Q8HP PRN #9 tab.rapdis 05/03
[2021-10-19 18:14] VITALS: BP 162/80; PULSE 80; RESP 19; TEMP 37.7
--- NOTE | 2021-10-20 10:47 | PC.NURSE ---
notified pt of positive covid swab result
--- NOTE | 2021-10-20 12:39 | PC.NURSE ---
notified pt of positive covid result at this time
== END 2021-10-19 18:21 | disposition home or self-care (01) ==
PROVIDERS: Emergency Provider Nurse Practitioner Family; PCP Family Medicine
DX: J44.1 Chronic obstructive pulmonary disease with (acute) exacerbation (principal); U07.1 COVID-19
CPT/HCPCS: G0463; 99202; C9803; U0003; U0005

== ENCOUNTER 2021-10-23 10:03 | Outpatient (CLI) | payer MEDICARE, SELFPAY ==
[2021-10-23] VITALS (9 sets, daily range): BP systolic 106–147; BP diastolic 62–77; PULSE 51–96; RESP 16; TEMP 36.6–36.9; O2SAT 94–98
== END 2021-10-23 13:05 | disposition home or self-care (01) ==
LOC: INF 10:05
PROVIDERS: PCP Family Medicine; Visit Provider Family Medicine
DX: U07.1 COVID-19 (principal); Z23 Encounter for immunization
CPT/HCPCS: 96365

== ENCOUNTER 2021-11-05 14:16 | Emergency (ER) | payer MEDICARE, SELFPAY ==
[2021-11-05 15:17] VITALS: BP 160/79; PULSE 67; RESP 18; TEMP 37.1; O2SAT 98; BMI 19.0
--- NOTE | 2021-11-05 15:43 | CA_ITS ---
APPROVED REPORT Right Lower Extremity Venous Study for DVT. S[employer] Stitcher: [facility] Indications Lower Extremity Pain: Right Unilateral leg swelling and pain x approximately 8 weeks. No known trauma or recent surgeries. Risk Factors HLD, loop recorder, hx of CVA Medications Plavix daily, lipitor daily. Vein Imaging CFV (R): compressive, spontaneous, phasic, augmentation FEM (R): compressive, spontaneous, phasic, augmentation POP (R): compressive, spontaneous, phasic, augmentation PTV (R): Compressible GSV (R): compressive, spontaneous, phasic, augmentation Peroneals (R):Compressible GAS (R): Compressible Findings No evidence of DVT or superficial thrombophlebitis in the veins scanned of the right lower extremity. Conclusion No evidence of DVT or superficial thrombophlebitis in the veins scanned of the right lower extremity. Electronically signed by : Link Saha MD 11/05/2021 16:57:00
--- NOTE | 2021-11-05 16:04 | PC.NURSE ---
pt is with vascular
--- NOTE | 2021-11-05 16:16 | PC.NURSE ---
Spoke with [employer] stated that she is negative.
[2021-11-05 18:30] LABS: Basophils % 0.7 % (0.1-2.0); Eosinophils # 0.1 K/mm3 (0.0-0.4); Eosinophils % 1.9 % (0.1-12.0); Hematocrit 36.1 % (37.0-47.0); Hemoglobin 11.9 g/dL (12.2-16.2); Lymphocytes # 1.7 K/mm3 (0.7-4.5); Lymphocytes % 32.4 % (10-50); Mean Corpuscular Hemoglobin 29.9 pg (27.0-31.2); Mean Corpuscular Volume 90.6 fl (81-99); Mean Platelet Volume 7.9 fl (7.4-10.4); Monocytes # 0.4 K/mm3 (0.1-1.0); Monocytes % 6.5 % (1.7-9.3); Neutrophils # 3.1 K/mm3 (1.8-7.8); Neutrophils % 58.5 % (37.0-80.0); Platelet Count 441 K/mm3 (142-424); Red Blood Count 3.99 M/mm3 (4.20-5.40); Red Cell Distribution Width 13.5 % (11.5-17.5); White Blood Count 5.3 K/mm3 (4.8-10.8)
[2021-11-05 18:44] LABS: Alanine Aminotransferase 14 U/L (12-78); Albumin Level 3.9 g/dl (3.5-5.0); Albumin/Globulin Ratio 1.3 (1.1-1.8); Alkaline Phosphatase 81 U/L (38-126); Anion Gap 12.1 mEq/L (5-15); Aspartate Amino Transferase 26 U/L (14-36); Bilirubin,Total 0.3 mg/dl (0.2-1.3); Blood Urea Nitrogen 14 mg/dl (7-17); Calcium 9.4 mg/dl (8.4-10.2); Carbon Dioxide 26 mmol/L (22.0-30.0); Chloride 108 mmol/L (98-107); Creatinine Clearance Estimated 49 mL/min (50-200); Estimated Glomerular Filt Rate 100 ml/min (>60); GFR (African American) 121 ML/MIN (>60); Globulin 3.1 g/dL (1.3-3.2); Glucose 95 mg/dl (74-100); Potassium 4.1 mmoL/L (3.5-5.1); Sodium 142 mmol/L (136-145)
[2021-11-05 18:49] LABS: C-Reactive Protein 3.5 mg/L (0-4)
[2021-11-05 19:02] LABS: Erythrocyte Sedimentation Rate 64 mm/hr (0-30)
--- NOTE | 2021-11-05 19:27 | XR_ITS ---
PROCEDURE INFORMATION: Exam: XR Right Knee Exam date and time: 11/05/2021 7:27 PM Age: 65 years old Clinical indication: Pain; Knee; Right; Additional info: Pain/swelling TECHNIQUE: Imaging protocol: XR Right knee. Views: 3 views. Total images: 3 COMPARISON: CA VENOUS DOPPLER LE RT 11/05/2021 3:57 PM FINDINGS: Bones/joints: Chondrocalcinosis suggesting possible CPPD. Osteopenia. No fracture. No blastic or lytic lesions. Moderate joint effusion distending the suprapatellar bursa. Mild joint space narrowing in the medial tibiofemoral compartment. Soft tissues: Moderate soft tissue swelling in the medial and posterior knee, nonspecific. No periostitis or osteolysis. No foreign bodies. Other findings: Normal alignment. IMPRESSION: 1. No acute osseous abnormalities. 2. Osteopenia. 3. Moderate joint effusion. 4. Chondrocalcinosis suggesting possible CPPD with mild osteoarthritic changes in the medial compartment. 5. Nonspecific soft tissue swelling in the medial and posterior knee.
--- NOTE | 2021-11-05 20:43 | HMH.EDGENADL ---
ED Disposition Clinical Impression: Swelling of right knee joint Disposition: Home, Self-Care Condition on Discharge: Good Additional Instructions: Please continue to monitor your symptoms at home. If your condition worsens or any other concerns arise, please return promptly to the emergency department for reevaluation. Please take 400 mg of ibuprofen 6 times a day along with Tylenol and use ice packs and elevate your extremity as much as possible. Please follow-up with Dr. Walsh next week. Please call his clinic on Monday to schedule an appointment Address: [address] [place] [address] [place] [address] Referrals: Deniz Mathew [Primary Care Provider] - - Critical Care Critical Care Time: No Attestation: On 11/05/21, the high probability of a clinically significant, sudden or life threatening deterioration of the following system(s) required my full and direct attention, intervention and personal management. The time I documented below is in addition to time spent performing reported procedures but includes the following listed in this critical care notation. Medical Decision Making - Medical Records Medical records reviewed: Yes: I reviewed the patient's medical records. - Jose Inquiry Pt receiving controlled substance: No Vital Signs: 11/05/21 15:17 Temperature 98.8 F Temperature Source Oral Pulse Rate [Left Radial] 67 Respiratory Rate 18 Blood Pressure [Right Arm] 160/79 H Blood Pressure Mean [Right Arm] 106 Blood Pressure Source [Right Arm] Automatic Cuff Blood Pressure Position [Right Arm] Sitting 02 Sat by Pulse Oximetry 98 Oxygen Delivery Method Room Air - Lab Data Lab Results 11/05/21 18:20: WBC 5.3, RBC 3.99 L, Hgb 11.9 L, Hct 36.1 L, MCV 90.6, MCH 29.9, MCHC 33.0, RDW 13.5, Plt Count 441 H, MPV 7.9, Neut % (Auto) 58.5, Lymph % (Auto) 32.4, Bell % (Auto) 6.5, Eos % (Auto) 1.9, Baso % (Auto) 0.7, Neut # (Auto) 3.1, Lymph # (Auto) 1.7, Bell # (Auto) 0.4, Eos # (Auto) 0.1, Baso # (Auto) 0.0, ESR 64 H 11/05/21 18:20: Sodium 142, Potassium 4.1, Chloride 108 H, Carbon Dioxide 26, Anion Gap 12.1, BUN 14, Creatinine 0.60, Estimated Creat Clear 49, Estimated GFR 100, Est GFR ( Amer) 121, Glucose 95, Calcium 9.4, Total Bilirubin 0.3, AST 26, ALT 14, Alkaline Phosphatase 81, C-Reactive Protein 3.5, Total Protein 7.0, Albumin 3.9, Globulin 3.1, Albumin/Globulin Ratio 1.3 Result diagrams: 11/05/21 18:20 11/05/21 18:20 Orders (Tests/Meds): ED MEDICATIONS Discontinued Medications Generic Name Dose Route Start Last Admin Trade Name Freq PRN Reason Stop Dose Admin Ibuprofen 400 mg 11/05/21 20:30 Ibuprofen 400 Mg Tablet PO 11/05/21 20:31 ONCE ONE ORDERS Category Date Time Status Cell Ct. Synovial w/ Crystals Routine Lab 11/05/21 20:32 Received Body Fluid Culture, Sterile Routine Micro 11/05/21 20:32 Received - Radiology Data #1 XR Right knee: IMPRESSION: 1. No acute osseous abnormalities. 2. Osteopenia. 3. Moderate joint effusion. 4. Chondrocalcinosis suggesting possible CPPD with mild osteoarthritic changes in the medial compartment. 5. Nonspecific soft tissue swelling in the medial and posterior knee. - US Data Findings Narrative: Venous Doppler US: Findings No evidence of DVT or superficial thrombophlebitis in the veins scanned of the right lower extremity. Conclusion No evidence of DVT or superficial thrombophlebitis in the veins scanned of the right lower extremity. Medical Decision Narrative: Patient is a 65-year-old female presenting with chief complaint of right knee and lower extremity swelling for 8 weeks. Initial exam, patient is hemodynamically stable nontoxic-appearing. Differential diagnosis includes, but is not limited to, DVT, septic arthritis, ruptured popliteal cyst, other. Exam is significant for right knee swelling and it is mildly warmer than the left knee. No erythema. Patient kim
[2021-11-05 21:28] VITALS: BP 151/78; PULSE 59; RESP 16; TEMP 36.6; O2SAT 99
[2021-11-08 13:25] LABS: Clarity,Fluid Hazy (Clear); Color,Fluid Straw (Yellow); Eosinophils,Fluid 0 % (Not Estab.); Lymphocytes,Fluid 9 % (Not Estab.); Macrophages,Fluid 5 % (Not Estab.); Nucleated cells, Syn. Fluid 1730 cells/uL (0-200); Polys,Fluid 86 % (Not Estab.); RBC,Fluid 2000 /uL (Not Estab.)
[2021-11-09 12:49] LABS: Glucose, Body Fluid 47 mg/dL (.); LD, Body Fluid 853 IU/L (.)
== END 2021-11-05 21:33 | disposition home or self-care (01) ==
PROVIDERS: Emergency Provider Emergency Medicine; PCP Family Medicine
DX: M25.461 Effusion, right knee (principal); E78.5 Hyperlipidemia, unspecified
CPT/HCPCS: 20610; 36415; 73562; 80053; 82945; 83615; 85025; 85651; 86140; 87070; 87205; 89051; 89060; 93971; 99283

== ENCOUNTER → 2022-08-25 14:50 | Outpatient (CLI) | payer MEDICARE, SELFPAY ==
--- NOTE | 2022-08-25 15:00 | CT_ITS ---
FINAL REPORT CLINICAL HISTORY: H/O NICOTINE DEPENDENCE, quit smoking 20 years ago, smoked for 20 years and smoked 1ppd COMPARISON: March 12, 2020; August 05, 2021 FINDINGS: Low-Dose Chest CT CTDI vol (mGy): 2.90 DLP (mGy-cm): 106.55 Axial images were obtained from the lung apex to the mid abdomen by computed tomography. Low-dose protocol was utilized. FINDINGS: CHEST: There is no axillary adenopathy. There are multiple mildly enlarged mediastinal lymph nodes that are stable and nonspecific. There is moderate coronary artery calcification. The heart is proper size. There is no pericardial or pleural effusion. Limited images of the upper abdomen are unremarkable. Lung window images demonstrate mild scarring. There are 2 small left upper lobe nodules measuring up to 3 mm on images 34 and 35 that are stable. A 2 mm right upper lobe nodule on image 38 is stable. There are several other small less than 5 mm pulmonary nodules that are stable. There is no new mass or pulmonary nodule. IMPRESSION: Lung RADS category 2. Recommend 12 month follow-up low-dose chest CT. Reviewed, Interpreted and Dictated by Presley Sanders III, MD Transcribed by Marck Castaneda Authenticated and [facility]
[2022-08-30 17:13] LABS: Pancreatic Elastase, Fecal 167 (>200)
== END ==
PROVIDERS: Internal Medicine Gastroenterology; PCP Family Medicine; Visit Provider Internal Medicine
DX: Z87.891 Personal history of nicotine dependence (principal); Z12.2 Encounter for screening for malignant neoplasm of respiratory organs; R10.11 Right upper quadrant pain
CPT/HCPCS: 71271; 82656

== ENCOUNTER 2022-10-14 11:17 | Emergency (ER) | payer MEDICARE, SELFPAY ==
[2022-10-14 14:35] VITALS: BP 119/80; PULSE 80; RESP 18; TEMP 36.7; O2SAT 98; BMI 22.9
--- NOTE | 2022-10-14 14:41 | EXP.UTC ---
Discharge Plan Disposition Patient Disposition: Home, Self-Care Condition: Good Prescriptions Prescriptions: New triamcinolone acetonide 0.025 % cream 1 applic topical DAILY Qty: 80 0RF methylprednisolone 4 mg Tablets,Dose Pack 4 mg PO DIRECTED Qty: 21 0RF No Action aspirin [Adult Low Dose Aspirin] 81 mg tablet,delayed release (DR/EC) 81 mg PO DAILY zonisamide 25 MG capsule 50 mg PO DAILY Label Comments: TAKE 1 CAPSULE BY MOUTH TWICE DAILY FOR 7 DAYS THEN INCREASE AND ...(REFER TO PRESCRIPTION NOTES). methylprednisolone 4 MG tablets,dose pack 4 mg PO DIRECTED 6 Days Qty: 21 0RF cefdinir 300 MG capsule 300 mg PO BID Qty: 20 0RF promethazine-DM 120 ML syrup 5 ml PO Q6HP PRN (Reason: Cough) Qty: 240 0RF phenazopyridine 200 MG tablet 200 pow PO TID Qty: 6 0RF sulfamethoxazole-trimethoprim 1 EACH tablet 1 each PO BID 7 Days Qty: 14 0RF ondansetron 4 MG tablet,disintegrating 4 mg PO Q8HP PRN (Reason: Nausea) Qty: 9 0RF atorvastatin 40 MG tablet 80 mg PO HS Label Comments: TAKE 1 TABLET BY MOUTH ONCE DAILY AT BEDTIME clopidogrel 75 MG tablet 75 mg PO DAILY ciprofloxacin 500 MG/5 ML suspension,microcapsule recon 500 mg PO BID 7 Days Qty: 14 0RF phenazopyridine 200 MG tablet 200 pow PO TID Qty: 6 0RF ondansetron 4 MG tablet,disintegrating 4 mg PO Q8HP PRN (Reason: Nausea) Qty: 10 0RF azithromycin 250 MG tablet 250 mg PO UD DOSE PK Qty: 6 0RF Rx Instructions: Take two (2) tablets today, then one (1) tablet days #2 thru #5 benzonatate 100 MG capsule 100 mg PO TIDP PRN (Reason: Cough) Qty: 30 0RF methylprednisolone 4 MG tablets,dose pack 4 mg PO DIRECTED 6 Days Qty: 21 0RF guaifenesin 600 MG tablet extended release 12hr 1 - 2 tab PO BIDP PRN (Reason: Congestion) Qty: 30 0RF Referrals Follow up/Referrals: Flavia Azar APRN [Primary Care Provider] - See instructions Activity Restrictions/Add. Instructions Additional Instructions/Restrictions: Try to identify and avoid contact with the offending substance. Don't start the oral steroids until tomorrow. Don't put the topical steroids (triamcinolone) on your face or your groin. Follow up with your regular doctor. GO TO THE ER FOR ANY WORSENING SYMPTOMS OR CONCERNS Clinical Impressions Clinical Impression: Contact dermatitis Instructions Patient Instructions: DI for Contact Dermatitis Discharge ED Provider: Michael Blanc [facility] [place] General Stated complaint: rash all over Time Seen by Provider: 10/14/22 14:41 History of Present Illness Provider Complaint: She states that for the past 2 days she has had itching and rash on her face and her most of her body. She was exposed to poison [id number] when she was bringing in fire wood. She denies any shortness of breath. Related Data Home Medications Medication Instructions Recorded Confirmed aspirin 81 mg tablet,delayed 81 mg PO DAILY Blood thinner 12/15/18 11/19/19 release (Adult Low Dose Aspirin) atorvastatin 40 mg tablet 80 mg PO HS Cholesterol 10/09/19 11/19/19 clopidogrel 75 mg tablet 75 mg PO DAILY Blood thinner 10/09/19 11/19/19 zonisamide 25 mg capsule 50 mg PO DAILY SEIZURES 11/02/19 11/19/19 Previous Rx's Medication Instructions Recorded cefdinir 300 mg capsule 300 mg PO BID #20 caps 11/19/19 methylprednisolone 4 mg tablets in 4 mg PO DIRECTED 6 days ##21 11/19/19 a dose pack promethazine-DM 6.25 mg-15 mg/5 mL 5 ml PO Q6HP PRN Cough ##240 11/19/19 oral syrup ciprofloxacin 500 mg/5 mL oral 500 mg (5 mL) PO BID 7 days #14 mL 12/30/19 suspension ondansetron 4 mg disintegrating 4 mg PO Q8HP PRN Nausea ##10 12/30/19 tablet phenazopyridine 200 mg tablet 200 pow PO TID #6 tabs 12/30/19 ondansetron 4 mg disintegrating 4 mg PO Q8HP PRN Nausea ##9 05/03/21 tablet phenazopyridine 200 mg tablet 200 pow PO TID #6 tabs 05/03/21 sulfamethoxazole 800 1 each P
[2022-10-14 14:54] VITALS: BP 119/80; PULSE 80; RESP 18; TEMP 36.7; O2SAT 98
== END 2022-10-14 14:59 | disposition home or self-care (01) ==
PROVIDERS: Emergency Provider Nurse Practitioner Family; PCP Nurse Practitioner
DX: L25.9 Unspecified contact dermatitis, unspecified cause (principal)
CPT/HCPCS: 96372; 99212; G0463

== ENCOUNTER 2022-11-04 08:14 | Emergency (ER) | payer MEDICARE, SELFPAY ==
[2022-11-04] VITALS (12 sets, daily range): BP systolic 127–179; BP diastolic 53–81; PULSE 51–80; RESP 16–20; TEMP -8.8–36.9; O2SAT 96–99; BMI 19.8
--- NOTE | 2022-11-04 08:20 | PC.NURSE ---
visual acuity L 20/25 R 20/40
--- NOTE | 2022-11-04 08:32 | HMH.EDGENADL ---
Discharge Plan Disposition Patient Disposition: Xfer Short-Term Hosp Chief Complaint: Eye Problems Prescriptions Prescriptions: No Action aspirin [Adult Low Dose Aspirin] 81 mg tablet,delayed release (DR/EC) 81 mg PO DAILY zonisamide 25 MG capsule 50 mg PO DAILY Label Comments: TAKE 1 CAPSULE BY MOUTH TWICE DAILY FOR 7 DAYS THEN INCREASE AND ...(REFER TO PRESCRIPTION NOTES). methylprednisolone 4 MG tablets,dose pack 4 mg PO DIRECTED 6 Days Qty: 21 0RF cefdinir 300 MG capsule 300 mg PO BID Qty: 20 0RF promethazine-DM 120 ML syrup 5 ml PO Q6HP PRN (Reason: Cough) Qty: 240 0RF phenazopyridine 200 MG tablet 200 pow PO TID Qty: 6 0RF sulfamethoxazole-trimethoprim 1 EACH tablet 1 each PO BID 7 Days Qty: 14 0RF ondansetron 4 MG tablet,disintegrating 4 mg PO Q8HP PRN (Reason: Nausea) Qty: 9 0RF atorvastatin 40 MG tablet 80 mg PO HS Label Comments: TAKE 1 TABLET BY MOUTH ONCE DAILY AT BEDTIME clopidogrel 75 MG tablet 75 mg PO DAILY ciprofloxacin 500 MG/5 ML suspension,microcapsule recon 500 mg PO BID 7 Days Qty: 14 0RF phenazopyridine 200 MG tablet 200 pow PO TID Qty: 6 0RF ondansetron 4 MG tablet,disintegrating 4 mg PO Q8HP PRN (Reason: Nausea) Qty: 10 0RF azithromycin 250 MG tablet 250 mg PO UD DOSE PK Qty: 6 0RF Rx Instructions: Take two (2) tablets today, then one (1) tablet days #2 thru #5 benzonatate 100 MG capsule 100 mg PO TIDP PRN (Reason: Cough) Qty: 30 0RF methylprednisolone 4 MG tablets,dose pack 4 mg PO DIRECTED 6 Days Qty: 21 0RF guaifenesin 600 MG tablet extended release 12hr 1 - 2 tab PO BIDP PRN (Reason: Congestion) Qty: 30 0RF triamcinolone acetonide 0.025 % cream 1 applic topical DAILY Qty: 80 0RF methylprednisolone 4 mg Tablets,Dose Pack 4 mg PO DIRECTED Qty: 21 0RF Referrals Follow up/Referrals: Flavia Azar, [employer] [Primary Care Provider] - See instructions Clinical Impressions Clinical Impression: Cellulitis of right orbit, Chemosis Discharge ED Provider: Jerald Munson General Adult HPI General Chief complaint: Eye Problems Stated complaint: RT eye pain redness w/ inflammation Time Seen by Provider: 11/04/22 08:33 History of Present Illness HPI narrative: Patient is a 66-year-old female with past medical history of CVA on Plavix without neuro residual, previous cataract surgery who presents emergency department for evaluation of eye pain. Onset was acute, occurring at 07 100 this morning. Patient was sitting still when she felt painful visual blurriness. No other acute complaints at this time. Symptoms are moderate in intensity. Patient does not wear glasses or contacts. Related Data Home Medications Medication Instructions Recorded Confirmed aspirin 81 mg tablet,delayed 81 mg PO DAILY Blood thinner 12/15/18 11/19/19 release (Adult Low Dose Aspirin) atorvastatin 40 mg tablet 80 mg PO HS Cholesterol 10/09/19 11/19/19 clopidogrel 75 mg tablet 75 mg PO DAILY Blood thinner 10/09/19 11/19/19 zonisamide 25 mg capsule 50 mg PO DAILY SEIZURES 11/02/19 11/19/19 Previous Rx's Medication Instructions Recorded cefdinir 300 mg capsule 300 mg PO BID #20 caps 11/19/19 methylprednisolone 4 mg tablets in 4 mg PO DIRECTED 6 days ##21 11/19/19 a dose pack promethazine-DM 6.25 mg-15 mg/5 mL 5 ml PO Q6HP PRN Cough ##240 11/19/19 oral syrup ciprofloxacin 500 mg/5 mL oral 500 mg (5 mL) PO BID 7 days #14 mL 12/30/19 suspension ondansetron 4 mg disintegrating 4 mg PO Q8HP PRN Nausea ##10 12/30/19 tablet phenazopyridine 200 mg tablet 200 pow PO TID #6 tabs 12/30/19 ondansetron 4 mg disintegrating 4 mg PO Q8HP PRN Nausea ##9 05/03/21 tablet phenazopyridine 200 mg tablet 200 pow PO TID #6 tabs 05/03/21 sulfamethoxazole 800 1 each PO BID 7 days #14 tabs 05/03/21 mg-trimethoprim 160 mg tablet azithromycin 250 mg tablet 250 mg PO UD DOSE PK #6 tabs 11
--- NOTE | 2022-11-04 08:39 | PC.NURSE ---
waiting technical professional back from Dr. Carpenter
--- NOTE | 2022-11-04 08:46 | PC.NURSE ---
[facility] called for opthamology
--- NOTE | 2022-11-04 09:27 | PC.NURSE ---
YARED CHAIDEZ speaking with Dr. Dunne at
--- NOTE | 2022-11-04 09:31 | CT_ITS ---
FINAL REPORT CLINICAL HISTORY: R retroocular pain. redness in right eye with blurred vision. COMPARISON: 10/14/2019 FINDINGS: Axial images of the head were obtained without contrast. Coronal reformatted images were also obtained.This study was performed with techniques to keep radiation doses as low as reasonably achievable (ALARA). Individualized dose reduction techniques using automated exposure control or adjustment of mA and/or kV according to the patient''s size were employed. There is no evidence of intracranial hemorrhage or mass. The ventricular size is within normal limits. There is no evidence of shift of the midline structures. No abnormal extra axial fluid collection is identified. No skull abnormality is seen on the bone window images. IMPRESSION: No acute intracranial abnormality. Reviewed, Interpreted and Dictated by Presley Sanders III, MD Transcribed by Roxane Osorio Authenticated and [facility]
--- NOTE | 2022-11-04 09:31 | CT_ITS ---
FINAL REPORT TECHNIQUE: Axial imaging of the orbits was obtained after the intravenous administration of contrast. Reformatted images were also obtained and reviewed. This study was performed with techniques to keep radiation doses as low as reasonably achievable (ALARA). Individualized dose reduction techniques using automated exposure control or adjustment of mA and/or kV according to the patient's size were employed. CLINICAL HISTORY: R retroocular pain. redness in right eye with blurred vision. FINDINGS: Globes are intact. There is no acute bony abnormality. Abnormal attenuation is seen lateral to the right globe measuring 12 x 5 mm in maximum axial dimension. The center of this demonstrates slight decreased attenuation within appearance worrisome for cellulitis and possible abscess. Neoplasm felt less likely but not entirely excluded. There is mild peripheral contrast enhancement. IMPRESSION: Abnormal attenuation lateral to the right globe with mild peripheral contrast enhancement and slight decreased attenuation at the center. Appearance is worrisome for cellulitis and possible abscess. Neoplasm felt less likely but not entirely excluded. Reviewed, Interpreted and Dictated by Presley Sanders III, MD Transcribed by Roxane Osorio Authenticated and [facility]
--- NOTE | 2022-11-04 09:59 | PC.NURSE ---
YARED CHAIDEZ Speaking with dr. mancini
[2022-11-04 10:04] LABS: Basophils % 0.6 % (0.1-2.0); Eosinophils # 0.1 K/mm3 (0.0-0.4); Eosinophils % 1.4 % (0.1-12.0); Hematocrit 39.7 % (37.0-47.0); Hemoglobin 12.7 g/dL (12.2-16.2); Lymphocytes # 1.1 K/mm3 (0.7-4.5); Lymphocytes % 18.3 % (10-50); Mean Corpuscular HGB Conc 32.1 g/dL (31.8-35.4); Mean Corpuscular Hemoglobin 29.1 pg (27.0-31.2); Mean Corpuscular Volume 90.7 fl (81-99); Monocytes # 0.2 K/mm3 (0.1-1.0); Monocytes % 4.1 % (1.7-9.3); Neutrophils # 4.4 K/mm3 (1.8-7.8); Neutrophils % 75.5 % (37.0-80.0); Platelet Count 273 K/mm3 (142-424); Red Blood Count 4.37 M/mm3 (4.20-5.40); Red Cell Distribution Width 14.2 % (11.5-17.5); White Blood Count 5.8 K/mm3 (4.8-10.8)
[2022-11-04 10:08] LABS: Chloride 107 mmol/L (98-107); Potassium 4.8 mmoL/L (3.5-5.1); Sodium 139 mmol/L (136-145)
[2022-11-04 10:11] LABS: Alanine Aminotransferase 18 U/L (12-78); Albumin Level 4.1 g/dl (3.5-5.0); Albumin/Globulin Ratio 1.5 (1.1-1.8); Alkaline Phosphatase 72 U/L (38-126); Anion Gap 10.8 mEq/L (5-15); Aspartate Amino Transferase 31 U/L (14-36); Bilirubin,Total 0.4 mg/dl (0.2-1.3); Blood Urea Nitrogen 11 mg/dl (7-17); Calcium 9.6 mg/dl (8.4-10.2); Carbon Dioxide 26 mmol/L (22.0-30.0); Creatinine Clearance Estimated 50 mL/min (50-200); Estimated Glomerular Filt Rate 123 ml/min (>60); GFR (African American) 148 ML/MIN (>60); Globulin 2.8 g/dL (1.3-3.2); Glucose 87 mg/dl (74-100); Total Protein,Serum 6.9 g/dl (6.3-8.2)
--- NOTE | 2022-11-04 12:52 | PC.NURSE ---
contacted [facility] per ER MD request
--- NOTE | 2022-11-04 12:53 | PC.NURSE ---
Notified pharmacy of vanc consult
--- NOTE | 2022-11-04 12:57 | EXP.PHA.CONS ---
Pharmacy Consult Date: 11/04/22 Time: 12:57 Referring provider: DR RODRIGUEZ Reason for Consult:: VANCOMYCIN DOSING CONSULT Allergies Allergy/AdvReac Type Severity Reaction Status Date / Time No Known Allergies Allergy Verified 05/03/21 11:31 Home Medications Medication Instructions Recorded Confirmed Type aspirin 81 mg tablet,delayed 81 mg PO DAILY Blood thinner 12/15/18 11/19/19 History release (Adult Low Dose Aspirin) atorvastatin 40 mg tablet 80 mg PO HS Cholesterol 10/09/19 11/19/19 History clopidogrel 75 mg tablet 75 mg PO DAILY Blood thinner 10/09/19 11/19/19 History zonisamide 25 mg capsule 50 mg PO DAILY SEIZURES 11/02/19 11/19/19 History cefdinir 300 mg capsule 300 mg PO BID #20 caps 11/19/19 Rx methylprednisolone 4 mg tablets in 4 mg PO DIRECTED 6 days ##21 11/19/19 Rx a dose pack promethazine-DM 6.25 mg-15 mg/5 mL 5 ml PO Q6HP PRN Cough ##240 11/19/19 Rx oral syrup ciprofloxacin 500 mg/5 mL oral 500 mg (5 mL) PO BID 7 days #14 mL 12/30/19 Rx suspension ondansetron 4 mg disintegrating 4 mg PO Q8HP PRN Nausea ##10 12/30/19 Rx tablet phenazopyridine 200 mg tablet 200 pow PO TID #6 tabs 12/30/19 Rx ondansetron 4 mg disintegrating 4 mg PO Q8HP PRN Nausea ##9 05/03/21 Rx tablet phenazopyridine 200 mg tablet 200 pow PO TID #6 tabs 05/03/21 Rx sulfamethoxazole 800 1 each PO BID 7 days #14 tabs 05/03/21 Rx mg-trimethoprim 160 mg tablet azithromycin 250 mg tablet 250 mg PO UD DOSE PK #6 tabs 10/19/21 Rx benzonatate 100 mg capsule 100 mg PO TIDP PRN Cough #30 caps 10/19/21 Rx guaifenesin 600 mg tablet, 1 - 2 tab PO BIDP PRN Congestion 10/19/21 Rx extended release 12 hr #30 tabs methylprednisolone 4 mg tablets in 4 mg PO DIRECTED 6 days #21 10/19/21 Rx a dose pack packets methylprednisolone 4 mg tablets in 4 mg PO DIRECTED #21 tabs 10/14/22 Rx a dose pack triamcinolone acetonide 0.025 % 1 applic topical DAILY #80 grams 10/14/22 Rx topical cream New Prescriptions to Start Prescriptions: Height: 1.73 m Weight: 58.967 kg Laboratory Results:: Laboratory Results - last 24 hr 11/04/22 09:25: WBC 5.8, RBC 4.37, Hgb 12.7, Hct 39.7, MCV 90.7, MCH 29.1, MCHC 32.1, RDW 14.2, Plt Count 273, MPV 8.0, Neut % (Auto) 75.5, Lymph % (Auto) 18.3, [place] % (Auto) 4.1, Eos % (Auto) 1.4, Baso % (Auto) 0.6, Neut # (Auto) 4.4, Lymph # (Auto) 1.1, [place] # (Auto) 0.2, Eos # (Auto) 0.1, Baso # (Auto) 0.0 11/04/22 09:25: Sodium 139, Potassium 4.8, Chloride 107, Carbon Dioxide 26, Anion Gap 10.8, BUN 11, Creatinine 0.50 L, Estimated Creat Clear 50, Estimated GFR 123, Est GFR ( Amer) 148, Glucose 87, Calcium 9.6, Total Bilirubin 0.4, AST 31, ALT 18, Alkaline Phosphatase 72, Total Protein 6.9, Albumin 4.1, Globulin 2.8, Albumin/Globulin Ratio 1.5 Medical History: Medical History (Updated 10/14/22 @ 14:49 by Nieves Torres RN) COPD (chronic obstructive pulmonary disease) History of stroke Hyperlipidemia Seizures Urinary tract infection Assessment and Plan Assessment and plan all Dx Assessment and Plan for all problems:: Pharmacokinetic dosing service Objective: Age: 66 yo Serum creatinine: 1.0 mg/dL Height: 68.0 Inches Weight (kg): 58.967 Assessment: IBW (kg): 63.90 Dosing wt(kg): 58.967 Estimated Creatinine clearance (ml/min): 50.1 CRCL method: Cockcroft and Gault using ibw(default). Drug selected: Vancomycin Loading dose (mg): Vd (liters): 41.3 (factor used: 0.7 L/kg) Max (hr-1): 0.046 Half life (hrs): 15.07 CLvanco=?? 1.900 L/hr Recommended dose: 1000 mg Interval: 24 hrs Infusion time (hrs): 2.0 Predicted peak (mcg/mL): 34.6 Predicted trough (mcg/mL): 12.58 Total body weight is being used for vancomycin dosing. Recommendations: Give Vancomycin 1000 mg q 24 h
--- NOTE | 2022-11-04 13:00 | PC.NURSE ---
YARED CHAIDEZ speaking with DR. Dunne at
--- NOTE | 2022-11-04 13:10 | PC.NURSE ---
contacted radiology for a disc pt accepted pt to ER per Dr. irby
[2022-11-04 13:28] LABS: Lactic Acid 0.6 mmol/L (0.7-2.1)
--- NOTE | 2022-11-04 13:31 | PC.NURSE ---
report called to Edilma Richard RN at ER at this time.
--- NOTE | 2022-11-04 13:37 | PC.NURSE ---
notified [facility] of transport needed to ER, per [facility] pt needs to have preauthorization
--- NOTE | 2022-11-04 13:40 | PC.NURSE ---
Called care management to complete PA for transfer
[2022-11-04 13:43] LABS: Erythrocyte Sedimentation Rate 18 mm/hr (0-30)
--- NOTE | 2022-11-04 13:51 | PC.NURSE ---
ER at discussion mode of transport with pt and
--- NOTE | 2022-11-04 14:00 | PC.NURSE ---
report given to [facility]
--- NOTE | 2022-11-04 14:05 | PC.NURSE ---
[facility] HERE FOR TRANSPORT TO [facility]
== END 2022-11-04 14:04 | disposition short-term general hospital (02) ==
PROVIDERS: Emergency Provider Emergency Medicine; PCP Nurse Practitioner
DX: H11.421 Conjunctival edema, right eye (principal); R42 Dizziness and giddiness; R05.9 Cough, unspecified; E78.5 Hyperlipidemia, unspecified; G40.909 Epilepsy, unspecified, not intractable, without status epilepticus; Z79.02 Long term (current) use of antithrombotics/antiplatelets; Z79.52 Long term (current) use of systemic steroids; Z79.82 Long term (current) use of aspirin; Z79.899 Other long term (current) drug therapy; Z86.73 Personal history of transient ischemic attack (TIA), and cerebral infarction without residual deficits
CPT/HCPCS: 70450; 70481; 80053; 83605; 85025; 85651; 87040; 96374; 96375; 99284; J0696; Q9967

== ENCOUNTER 2023-02-01 16:37 | Emergency (ER) | payer MEDICARE, SELFPAY ==
[2023-02-01 17:30] VITALS: BP 143/74; PULSE 63; RESP 20; TEMP 36.9; O2SAT 97; BMI 19.8
--- NOTE | 2023-02-01 17:42 | EXP.UTC ---
Discharge Plan Disposition Patient Disposition: Home, Self-Care Condition: Good Prescriptions Prescriptions: New amoxicillin [amoxicillin] 875 mg tablet 875 mg PO Q12H Qty: 20 0RF benzonatate [benzonatate] 100 mg capsule 100 mg PO TIDP PRN (Reason: Cough) Qty: 30 0RF methylprednisolone 4 mg Tablets,Dose Pack 4 mg PO DIRECTED Qty: 21 0RF No Action aspirin [Adult Low Dose Aspirin] 81 mg tablet,delayed release (DR/EC) 81 mg PO DAILY zonisamide 25 MG capsule 50 mg PO DAILY Label Comments: TAKE 1 CAPSULE BY MOUTH TWICE DAILY FOR 7 DAYS THEN INCREASE AND ...(REFER TO PRESCRIPTION NOTES). atorvastatin 40 MG tablet 80 mg PO HS Label Comments: TAKE 1 TABLET BY MOUTH ONCE DAILY AT BEDTIME clopidogrel 75 MG tablet 75 mg PO DAILY guaifenesin 600 MG tablet extended release 12hr 1 - 2 tab PO BIDP PRN (Reason: Congestion) Qty: 30 0RF triamcinolone acetonide 0.025 % cream 1 applic topical DAILY Qty: 80 0RF Referrals Follow up/Referrals: Provider,Referral, MD [Primary Care Provider] - See instructions Activity Restrictions/Add. Instructions Additional Instructions/Restrictions: Drink plenty of fluids. Take tylenol or ibuprofen for pain or fever. Take the medications as directed. Follow up with your regular doctor. GO TO THE ER FOR ANY WORSENING SYMPTOMS Clinical Impressions Clinical Impression: Sinusitis Instructions Patient Instructions: Sinusitis, DI for Sinusitis Discharge ED Provider: Michael Blanc [facility] General Stated complaint: sore throat,cough runny nose Mode of Arrival: Ambulatory Source of Information: Patient Limitations: No Limitations Time Seen by Provider: 02/01/23 17:42 Description of Symptoms (Recalled from Triage Doc. by RN): sinus/ cough HEENT Symptoms (Recalled from RN notes): Yes Resp Symptoms (Recalled from RN notes): No Skin Symptoms (Recalled from RN notes): No MS Symptoms (Recalled from RN notes): No Functional Status (Recalled from RN notes): n/a History of Present Illness Provider Complaint: She states that for the past 5 days she has had sinus congestion, chills, body aches and low grade fever. Related Data Home Medications Medication Instructions Recorded Confirmed aspirin 81 mg tablet,delayed 81 mg PO DAILY Blood thinner 12/15/18 11/19/19 release (Adult Low Dose Aspirin) atorvastatin 40 mg tablet 80 mg PO HS Cholesterol 10/09/19 11/19/19 clopidogrel 75 mg tablet 75 mg PO DAILY Blood thinner 10/09/19 02/01/23 zonisamide 25 mg capsule 50 mg PO DAILY SEIZURES 11/02/19 02/01/23 Previous Rx's Medication Instructions Recorded guaifenesin 600 mg tablet, 1 - 2 tab PO BIDP PRN Congestion 10/19/21 extended release 12 hr #30 tabs triamcinolone acetonide 0.025 % 1 applic topical DAILY #80 grams 10/14/22 topical cream amoxicillin 875 mg tablet 875 mg PO Q12H #20 tabs 02/01/23 benzonatate 100 mg capsule 100 mg PO TIDP PRN Cough #30 caps 02/01/23 methylprednisolone 4 mg tablets in 4 mg PO DIRECTED #21 tabs 02/01/23 a dose pack Allergies Allergy/AdvReac Type Severity Reaction Status Date / Time No Known Allergies Allergy Verified 02/01/23 17:40 Worker's Comp Is this a Worker's Comp case?: No [facility] Disclaimer: The information contained in this section may have been updated after the patient was seen, as this information can be updated by other users. Medical History COPD (chronic obstructive pulmonary disease) History of stroke Hyperlipidemia Seizures Urinary tract infection Surgical History History of cardiac catheterization Social History Smoking Status: Never smoker second hand exposure: No alcohol intake: never substance use type: denies use current occupational status: other Travel in the last 8 weeks:
[2023-02-01 18:09] VITALS: BP 143/74; PULSE 63; RESP 20; TEMP 36.9; O2SAT 97
== END 2023-02-01 18:08 | disposition home or self-care (01) ==
PROVIDERS: Emergency Provider Nurse Practitioner Family
DX: J01.90 Acute sinusitis, unspecified (principal); R05.1 Acute cough; R50.9 Fever, unspecified; J44.9 Chronic obstructive pulmonary disease, unspecified
CPT/HCPCS: 99212; 99214; G0463

== ENCOUNTER 2023-03-23 12:58 | Emergency (ER) | payer MEDICARE, SELFPAY ==
[2023-03-23 13:17] VITALS: BP 130/53; PULSE 59; RESP 14; TEMP 36.9; O2SAT 97; BMI 21.2
[2023-03-23 13:18] LABS: Apearance,Urine Clear (Clear); Bilirubin,Urine Negative (Negative); Blood, Urine Negative (Negative); Color,Urine Yellow (Yellow); Glucose,Urine (UA) Negative (Negative); Ketones,Urine Negative (Negative); Protein,Urine Negative (Negative); UTC Leukocyte Esterase,Urine Trace (Negative); UTC Nitrate,Urine Negative (Negative); Urobilinogen,Urine 0.2 EU/dl (0.2)
--- NOTE | 2023-03-23 13:21 | EXP.UTC ---
Discharge Plan Disposition Patient Disposition: Home, Self-Care Condition: Good Prescriptions Prescriptions: New nitrofurantoin monohyd/m-cryst [Macrobid] 100 mg capsule 100 mg PO Q12H 7 Days Qty: 14 0RF Rx Instructions: must administer with a meal/food phenazopyridine [Pyridium] 200 mg tablet 200 mg PO Q8H 2 Days Qty: 6 0RF ondansetron 4 mg tablet,disintegrating 4 mg PO Q8H PRN (Reason: nausea and vomiting) Qty: 10 0RF No Action aspirin [Adult Low Dose Aspirin] 81 mg tablet,delayed release (DR/EC) 81 mg PO DAILY zonisamide 25 MG capsule 50 mg PO DAILY Label Comments: TAKE 1 CAPSULE BY MOUTH TWICE DAILY FOR 7 DAYS THEN INCREASE AND ...(REFER TO PRESCRIPTION NOTES). amoxicillin [amoxicillin] 875 mg tablet 875 mg PO Q12H Qty: 20 0RF benzonatate [benzonatate] 100 mg capsule 100 mg PO TIDP PRN (Reason: Cough) Qty: 30 0RF methylprednisolone 4 mg Tablets,Dose Pack 4 mg PO DIRECTED Qty: 21 0RF atorvastatin 40 MG tablet 80 mg PO HS Label Comments: TAKE 1 TABLET BY MOUTH ONCE DAILY AT BEDTIME clopidogrel 75 MG tablet 75 mg PO DAILY guaifenesin 600 MG tablet extended release 12hr 1 - 2 tab PO BIDP PRN (Reason: Congestion) Qty: 30 0RF triamcinolone acetonide 0.025 % cream 1 applic topical DAILY Qty: 80 0RF Referrals Follow up/Referrals: Flavia Azar APRN [Primary Care Provider] - See instructions Activity Restrictions/Add. Instructions Additional Instructions/Restrictions: *Increase fluids. Water not Soda or Tea *Start antibiotic immediately and be sure to take as ordered for the FULL length of time although you should start to see improvement over the next 48 hours *Pyridium as needed Remember this medication will turn your urine . This is normal but it will stain what ever it gets on *You should not use Pyridium for more than 48 hours. If so , follow up with your primary physician to review urine culture and ensure that antibiotic is adequate for infection *Be SURE to follow up anytime for new or worsening symptoms with your family doctor. AND in 48 hours for urine culture results with your family doctor, if you do not have a doctor then you may call back to the [facility] for urine culture results and further treatment. We do recommend that you choose and establish care with a Primary Care Physician. ?AND follow up with them ?in 10-14 days to repeat UA to ensure infection is resolved and blood no longer present *Be sure to let your PCP know that we sent urine cultures from the [facility] so they can follow up to ensure that you area the on the correct antibiotic Call your doctor office and make appointment for 48 hours (2 days from today) ?to follow up and get the results of your urine culture and further treatment Clinical Impressions Clinical Impression: UTI (urinary tract infection) Instructions Patient Instructions: DI for Urinary Tract Infection (UTI), Urinary Tract Infection Discharge ED Provider: Marisela Sunshine [place] HPI General Stated complaint: Possible UTI Time Seen by Provider: 03/23/23 13:26 History of Present Illness Provider Complaint: Patient states that she feels like she has a UTI States that she has been having burning and pressure when she urinates States that she did have some nausea but she usually has it when she gets a UTI States that this feels like other UTI's she has had in the past so she came in to get something before it got too bad Related Data Home Medications Medication Instructions Recorded Confirmed aspirin 81 mg tablet,delayed 81 mg PO DAILY Blood thinner 12/15/18 11/19/19 release (Adult Low Dose Aspirin) atorvastatin 40 mg tablet 80 mg PO HS Cholesterol 10/09/19 11/19/19 clopidogrel 75 mg tablet 75 mg PO DAILY Blood thinner 10/09/19 02/01/23 zonisamide 25 mg capsule 50 mg PO DAILY SEIZURES 11/02/19 02/01/23 Previous Rx's Medication Instructions Recorded guaifenesin 600 mg tablet, 1 - 2 tab PO B
[2023-03-23 13:57] VITALS: BP 130/53; PULSE 59; RESP 14; TEMP 36.9
== END 2023-03-23 13:58 | disposition home or self-care (01) ==
PROVIDERS: Emergency Provider Nurse Practitioner; PCP Nurse Practitioner
DX: N39.0 Urinary tract infection, site not specified (principal); J44.9 Chronic obstructive pulmonary disease, unspecified; E78.5 Hyperlipidemia, unspecified; G40.909 Epilepsy, unspecified, not intractable, without status epilepticus; Z86.73 Personal history of transient ischemic attack (TIA), and cerebral infarction without residual deficits
CPT/HCPCS: 81003; 87086; 99212; 99214; G0463

== ENCOUNTER 2023-06-11 12:48 | Emergency (ER) | payer MEDICARE, SELFPAY ==
[2023-06-11 13:05] VITALS: BP 155/79; PULSE 62; RESP 20; TEMP 37; O2SAT 97; BMI 21.0
[2023-06-11 13:15] LABS: Microscopic, Urine URINE MICROSCOPIC (MICROSCOPIC)
[2023-06-11 13:20] LABS: Appearance,Urine CLEAR (Clear); Blood, Urine Negative (Negative); Color,Urine ORANGE (Yellow); Glucose,Urine (UA) TRACE (Negative); Ketones,Urine TRACE (Negative); Leukocyte Esterase,Urine 2+ (Negative); Nitrate,Urine POSITIVE (Negative); PH,Urine 6.5 (5.0-8.5); Protein,Urine 1+ (Negative)
--- NOTE | 2023-06-11 13:23 | EXP.UTC ---
Discharge Plan Disposition Patient Disposition: Home, Self-Care Condition: Good Prescriptions Prescriptions: New cefdinir 300 mg capsule 300 mg PO BID Qty: 20 0RF phenazopyridine [Pyridium] 200 mg tablet 200 mg PO Q8H 2 Days Qty: 6 0RF No Action aspirin [Adult Low Dose Aspirin] 81 mg tablet,delayed release (DR/EC) 81 mg PO DAILY zonisamide 25 MG capsule 50 mg PO DAILY Patient Comments: TAKE 1 CAPSULE BY MOUTH TWICE DAILY FOR 7 DAYS THEN INCREASE AND ...(REFER TO PRESCRIPTION NOTES). amoxicillin [amoxicillin] 875 mg tablet 875 mg PO Q12H Qty: 20 0RF benzonatate [benzonatate] 100 mg capsule 100 mg PO TIDP PRN (Reason: Cough) Qty: 30 0RF methylprednisolone 4 mg Tablets,Dose Pack 4 mg PO DIRECTED Qty: 21 0RF atorvastatin 40 MG tablet 80 mg PO HS Patient Comments: TAKE 1 TABLET BY MOUTH ONCE DAILY AT BEDTIME clopidogrel 75 MG tablet 75 mg PO DAILY guaifenesin 600 MG tablet extended release 12hr 1 - 2 tab PO BIDP PRN (Reason: Congestion) Qty: 30 0RF triamcinolone acetonide 0.025 % cream 1 applic topical DAILY Qty: 80 0RF nitrofurantoin monohyd/m-cryst [Macrobid] 100 mg capsule 100 mg PO Q12H 7 Days Qty: 14 0RF Rx Instructions: must administer with a meal/food phenazopyridine [Pyridium] 200 mg tablet 200 mg PO Q8H 2 Days Qty: 6 0RF ondansetron 4 mg tablet,disintegrating 4 mg PO Q8H PRN (Reason: nausea and vomiting) Qty: 10 0RF Referrals Follow up/Referrals: Provider,Referral, MD [Primary Care Provider] - See instructions Activity Restrictions/Add. Instructions Additional Instructions/Restrictions: *Increase fluids. Water not Soda or Tea *Start antibiotic immediately and be sure to take as ordered for the FULL length of time although you should start to see improvement over the next 48 hours *Pyridium as needed Remember this medication will turn your urine . This is normal but it will stain what ever it gets on *You should not use Pyridium for more than 48 hours. If so , follow up with your primary physician to review urine culture and ensure that antibiotic is adequate for infection *Be SURE to follow up anytime for new or worsening symptoms with your family doctor. AND in 48 hours for urine culture results with your family doctor, if you do not have a doctor then you may call back to the [facility] for urine culture results and further treatment. We do recommend that you choose and establish care with a Primary Care Physician. ?AND follow up with them ?in 10-14 days to repeat UA to ensure infection is resolved and blood no longer present *Be sure to let your PCP know that we sent urine cultures from the [facility] so they can follow up to ensure that you area the on the correct antibiotic Call your doctor office and make appointment for 48 hours (2 days from today) ?to follow up and get the results of your urine culture and further treatment GO straight to ER if any worsening of symptoms Clinical Impressions Clinical Impression: UTI (urinary tract infection) Qualifiers: Urinary tract infection type: site unspecified Hematuria presence: with hematuria Qualified Code(s): N39.0 - Urinary tract infection, site not specified; R31.9 - Hematuria, unspecified Instructions Patient Instructions: DI for Urinary Tract Infection (UTI), Urinary Tract Infection, Cefdinir Discharge ED Provider: Marisela Sunshine [facility] General Stated complaint: Possible UTI Mode of Arrival: Ambulatory Source of Information: Patient Limitations: No Limitations Time Seen by Provider: 06/11/23 13:23 Description of Symptoms (Recalled from Triage Doc. by RN): PATIENT C/O PELVIC PAIN, LOWER BACK PAIN, AND URINARY FREQUENCY/URGENCY HEENT Symptoms (Recalled from RN notes): No Resp Symptoms (Recalled from RN notes): No Skin Symptoms (Recalled from RN notes): No MS Symptoms (Recalled from RN notes): No Functional Status (Recalled from RN notes): WNL History of P
[2023-06-11 13:32] LABS: Bilirubin,Urine Negative (Negative)
[2023-06-11 13:50] VITALS: BP 155/79; PULSE 62; RESP 20; TEMP 37; O2SAT 97
[2023-06-11 14:32] LABS: Bacteria,Urine 1+ /lpf
== END 2023-06-11 14:28 | disposition home or self-care (01) ==
PROVIDERS: Emergency Provider Nurse Practitioner
DX: N39.0 Urinary tract infection, site not specified (principal); B96.89 Other specified bacterial agents as the cause of diseases classified elsewhere; R31.9 Hematuria, unspecified; M54.59 Other low back pain; J44.9 Chronic obstructive pulmonary disease, unspecified; E78.5 Hyperlipidemia, unspecified
CPT/HCPCS: 81001; 87086; 87088; 87186; 96372; 99212; 99214; G0463; J0696

== ENCOUNTER 2023-08-10 08:04 | Emergency (ER) | payer MEDICARE, SELFPAY ==
[2023-08-10 08:10] VITALS: BP 185/77; PULSE 60; RESP 21; TEMP 36.6; O2SAT 99; BMI 19.8
[2023-08-10 08:26] LABS: Microscopic, Urine URINE MICROSCOPIC (MICROSCOPIC)
--- NOTE | 2023-08-10 08:30 | EXP.UTC ---
Discharge Plan Disposition Patient Disposition: Home, Self-Care Condition: Good Prescriptions Prescriptions: New cephalexin 500 mg capsule 500 mg PO BID 7 Days Qty: 14 0RF phenazopyridine [Pyridium] 200 mg tablet 200 mg PO Q8H 2 Days Qty: 6 0RF ondansetron 4 mg tablet,disintegrating 4 mg PO Q8H PRN (Reason: nausea and vomiting) Qty: 10 0RF No Action zonisamide 25 MG capsule 50 mg PO DAILY Patient Comments: TAKE 1 CAPSULE BY MOUTH TWICE DAILY FOR 7 DAYS THEN INCREASE AND ...(REFER TO PRESCRIPTION NOTES). clopidogrel 75 MG tablet 75 mg PO DAILY Referrals Follow up/Referrals: Flavia Azar APRN [Primary Care Provider] - See instructions Activity Restrictions/Add. Instructions Additional Instructions/Restrictions: *Increase fluids. Water not Soda or Tea *Start antibiotic immediately and be sure to take as ordered for the FULL length of time although you should start to see improvement over the next 48 hours *Pyridium as needed Remember this medication will turn your urine . This is normal but it will stain what ever it gets on *You should not use Pyridium for more than 48 hours. If so , follow up with your primary physician to review urine culture and ensure that antibiotic is adequate for infection *Be SURE to follow up anytime for new or worsening symptoms with your family doctor. AND in 48 hours for urine culture results with your family doctor, if you do not have a doctor then you may call back to the [facility] for urine culture results and further treatment. We do recommend that you choose and establish care with a Primary Care Physician. ?AND follow up with them ?in 10-14 days to repeat UA to ensure infection is resolved and blood no longer present *Be sure to let your PCP know that we sent urine cultures from the [facility] so they can follow up to ensure that you area the on the correct antibiotic Call your doctor office and make appointment for 48 hours (2 days from today) ?to follow up and get the results of your urine culture and further treatment Clinical Impressions Clinical Impression: UTI (urinary tract infection) Qualifiers: Urinary tract infection type: site unspecified Hematuria presence: without hematuria Qualified Code(s): N39.0 - Urinary tract infection, site not specified Instructions Patient Instructions: Urinary Tract Infection, DI for Urinary Tract Infection (UTI) Discharge ED Provider: Marisela Sunshine [facility] HPI General Stated complaint: suspected UTI Mode of Arrival: Ambulatory Source of Information: Patient Limitations: No Limitations Time Seen by Provider: 08/10/23 08:30 Description of Symptoms (Recalled from Triage Doc. by RN): PATIENT C/O BURNING AND PRESSURE WITH URINATION SINCE MONDAY HEENT Symptoms (Recalled from RN notes): No Resp Symptoms (Recalled from RN notes): No Skin Symptoms (Recalled from RN notes): No MS Symptoms (Recalled from RN notes): No Functional Status (Recalled from RN notes): WNL History of Present Illness Provider Complaint: Patient states that she has been having burning with urination, pressure like feeling in her lower abdomen like she has to go all the time and feeling of urgency States that she has been getting UTI every few months it seems like and this one is like others she has had Related Data Home Medications Medication Instructions Recorded Confirmed clopidogrel 75 mg tablet 75 mg PO DAILY STROKE 10/09/19 08/10/23 zonisamide 25 mg capsule 50 mg PO DAILY SEIZURES 11/02/19 08/10/23 Previous Rx's Medication Instructions Recorded cephalexin 500 mg capsule 500 mg PO BID 7 days #14 caps 08/10/23 ondansetron 4 mg disintegrating 4 mg PO Q8H PRN nausea and 08/10/23 tablet vomiting #10 tabs phenazopyridine 200 mg tablet 200 mg PO Q8H pain 2 days #6 tabs 08/10/23 (Pyridium) Allergies Allergy/AdvReac Type Severity Reaction Status Date / Time No Known Allergies Allergy Verified 02/01/23 17:40 Worker's Comp Is
[2023-08-10 08:35] LABS: Appearance,Urine CLEAR (Clear); Bilirubin,Urine Negative (Negative); Blood, Urine Negative (Negative); Color,Urine YELLOW (Yellow); Glucose,Urine (UA) Negative (Negative); Ketones,Urine Negative (Negative); Leukocyte Esterase,Urine 1+ (Negative); Nitrate,Urine Negative (Negative); Protein,Urine Negative (Negative); Urobilinogen,Urine 0.2 EU/dl (0.2)
[2023-08-10 08:46] LABS: Bacteria,Urine Trace /lpf
[2023-08-10 08:50] VITALS: BP 185/77; PULSE 60; RESP 21; TEMP 36.6; O2SAT 99
== END 2023-08-10 08:54 | disposition home or self-care (01) ==
PROVIDERS: Emergency Provider Nurse Practitioner; PCP Nurse Practitioner
DX: N39.0 Urinary tract infection, site not specified (principal); B96.89 Other specified bacterial agents as the cause of diseases classified elsewhere; R10.30 Lower abdominal pain, unspecified; J44.9 Chronic obstructive pulmonary disease, unspecified; E78.5 Hyperlipidemia, unspecified; G40.909 Epilepsy, unspecified, not intractable, without status epilepticus
CPT/HCPCS: 81001; 87086; 87088; 87186; 99212; 99214; G0463

== ENCOUNTER 2023-08-27 21:14 | Emergency (ER) | payer MEDICARE, SELFPAY ==
[2023-08-27 21:16] VITALS: BP 174/72; PULSE 75; RESP 16; TEMP 36.6; O2SAT 96; BMI 20.9
--- NOTE | 2023-08-27 22:03 | HMH.EDGENADL ---
Discharge Plan Disposition Patient Disposition: Home, Self-Care Prescriptions Prescriptions: New sulfamethoxazole-trimethoprim [Bactrim DS] 800-160 mg tablet 1 tab PO BID 14 Days Qty: 28 0RF No Action zonisamide 25 MG capsule 50 mg PO DAILY Patient Comments: TAKE 1 CAPSULE BY MOUTH TWICE DAILY FOR 7 DAYS THEN INCREASE AND ...(REFER TO PRESCRIPTION NOTES). clopidogrel 75 MG tablet 75 mg PO DAILY cephalexin 500 mg capsule 500 mg PO BID 7 Days Qty: 14 0RF phenazopyridine [Pyridium] 200 mg tablet 200 mg PO Q8H 2 Days Qty: 6 0RF ondansetron 4 mg tablet,disintegrating 4 mg PO Q8H PRN (Reason: nausea and vomiting) Qty: 10 0RF Referrals Follow up/Referrals: Flavia Azar APRN [Primary Care Provider] - See instructions Activity Restrictions/Add. Instructions Additional Instructions/Restrictions: Given your chronic intermittent and recurrent urinary tract infections and the fact that you have been told you have anatomic abnormalities of your bladder in the past I would recommend that you follow-up with a urologist or a monorail charger operator/urologist. You may call make an appointment with your preferred urologist. Return with high fevers worsening abdominal pain or other concerns. Clinical Impressions Clinical Impression: Acute pyelonephritis Instructions Patient Instructions: DI for Urinary Tract Infection (UTI), DI for Urinary Tract Infection in Children Discharge ED Provider: Rishi Marr General Adult HPI General Chief complaint: Urogenital-Female Stated complaint: poss kidney inf, back pain Time Seen by Provider: 08/27/23 21:51 Mode of Arrival: Ambulatory Source of Information: Patient Limitations: No Limitations Description of Symptoms (Recalled from ER Triage Doc. by RN): pt reports issues with frequent UTIs, most recent 2 weeks ago. pt reports taking Keflex and seemed to get better. Pt reports that since this am, has had right flank pain that radiates to right lower abd. reports frequency and pain around bladder, spells of nausea and chills. History of Present Illness HPI narrative: Patient is a 67-year-old female here with what she believes is a urinary tract infection. States she is been dealing with these since she was 15 years old intermittently will have urinary tract infections which improved with oral antibiotics. Most recently 2 weeks ago she was seen in urgent treatment clinic was started on Keflex and did not have significant improvement. Her urine culture grew Enterobacter and was resistant to cefazolin. She denies any fevers she does have some back pain associated with this. No fevers or chills. She states she is now still having some dysuria urgency and frequency and some pressure. Additionally she states she saw urologist years ago and they told her that she had a herniated bladder where she had an anatomic abnormality that allowed some urinary stasis and she did not pursue any type of surgical intervention because she cannot take pain medicine she states. Related Data Home Medications Medication Instructions Recorded Confirmed clopidogrel 75 mg tablet 75 mg PO DAILY STROKE 10/09/19 08/10/23 zonisamide 25 mg capsule 50 mg PO DAILY SEIZURES 11/02/19 08/10/23 Previous Rx's Medication Instructions Recorded cephalexin 500 mg capsule 500 mg PO BID 7 days #14 caps 08/10/23 ondansetron 4 mg disintegrating 4 mg PO Q8H PRN nausea and 08/10/23 tablet vomiting #10 tabs phenazopyridine 200 mg tablet 200 mg PO Q8H pain 2 days #6 tabs 08/10/23 (Pyridium) sulfamethoxazole 800 1 tab PO BID 14 days #28 tabs 08/27/23 mg-trimethoprim 160 mg tablet (Bactrim DS) Allergies Allergy/AdvReac Type Severity Reaction Status Date / Time No Known Allergies Allergy Verified 02/01/23 17:40 [facility] Disclaimer: The information contained in this section may have been updated after the patient was seen, as this information can be updated by other users. [facility]
[2023-08-27 22:14] LABS: Microscopic, Urine URINE MICROSCOPIC (MICROSCOPIC)
[2023-08-27 22:24] LABS: Appearance,Urine CLEAR (Clear); Bilirubin,Urine Negative (Negative); Blood, Urine Negative (Negative); Color,Urine YELLOW (Yellow); Glucose,Urine (UA) Negative (Negative); Ketones,Urine Negative (Negative); Leukocyte Esterase,Urine 1+ (Negative); Nitrate,Urine Negative (Negative); PH,Urine 6.5 (5.0-8.5); Protein,Urine Negative (Negative); Specific Gravity, Urine 1.015 (1.005-1.030); Urobilinogen,Urine 0.2 EU/dl (0.2)
[2023-08-27 22:46] VITALS: BP 147/64; PULSE 54; RESP 16; TEMP 36.6; O2SAT 97
[2023-08-27 23:03] LABS: Squamous Epithelial Cell,Urine Occasional #/hpf (0-5)
== END 2023-08-27 22:47 | disposition home or self-care (01) ==
PROVIDERS: Emergency Provider Student in an Organized Health Care Education/Training Program; PCP Nurse Practitioner
DX: N10 Acute pyelonephritis (principal); M54.59 Other low back pain; J44.9 Chronic obstructive pulmonary disease, unspecified; E78.5 Hyperlipidemia, unspecified; G40.909 Epilepsy, unspecified, not intractable, without status epilepticus; Z86.73 Personal history of transient ischemic attack (TIA), and cerebral infarction without residual deficits
CPT/HCPCS: 81001; 87086; 99283

== ENCOUNTER 2023-09-01 01:49 | Emergency (ER) | payer MEDICARE, SELFPAY ==
[2023-09-01 01:52] VITALS: BP 172/86; PULSE 68; RESP 20; TEMP 36.8; O2SAT 98; BMI 20.9
--- NOTE | 2023-09-01 01:59 | ECG_ITS ---
APPROVED REPORT Exam: Resting ECG HR:68 bpm ECG Measurements Heart Rate 68 AXES OR 146 P 70 QRSd 102 QRS 66 QT 416 T 72 QTc 434 Conclusion SINUS RHYTHM INCOMPLETE RIGHT BUNDLE BRANCH BLOCK [90+ ms QRS DURATION, TERMINAL R IN V1/V2, 40+ ms S IN I/aVL/V4/V5/V6] BORDERLINE ECG UNCONFIRMED REPORT Electronically signed by : Rodrigo Bowman MD 09/02/2023 11:03:14
--- NOTE | 2023-09-01 02:17 | CT_ITS ---
PROCEDURE INFORMATION: Exam: CT Head Without Contrast Exam date and time: 09/01/2023 2:37 AM Age: 67 years old Clinical indication: Injury or trauma; Fall; Additional info: Fall on blood thinners 08/28, states she fit her head on the wall. C/O headache TECHNIQUE: Imaging protocol: Computed tomography of the head without contrast. Total images: 253 Radiation optimization: All CT scans at this facility use at least one of these dose optimization techniques: automated exposure control; mA and/or kV adjustment per patient size (includes targeted exams where dose is matched to clinical indication); or iterative reconstruction. REPORTING DATA: Count of CT and Cardiac NM exams in prior 12 months: This patient has received 2 known CTs and 0 known cardiac nuclear medicine studies in the 12 months prior to the current study. COMPARISON: CT HEAD/BRAIN WO CON 11/04/2022 10:48 AM FINDINGS: Brain: Age-appropriate cortical involution. No hemorrhage. Unremarkable white matter. No mass effect. The cox-white interface is maintained. Cerebral ventricles: No ventriculomegaly. Paranasal sinuses: Minor mucosal thickening ethmoid air cells. Mastoid air cells: Visualized mastoid air cells are well aerated. Orbital cavities: Status post bilateral orbital lens replacement. Bones/joints: Osteopenia. No skull fracture. No concerning bone lesions. Soft tissues: No scalp hematoma. Vasculature: Moderate calcifications bilateral intracranial internal carotid arteries. IMPRESSION: No acute intracranial process.
--- NOTE | 2023-09-01 02:17 | CT_ITS ---
PROCEDURE INFORMATION: Exam: CT Cervical Spine Without Contrast Exam date and time: 09/01/2023 2:37 AM Age: 67 years old Clinical indication: Injury or trauma; Prior surgery; Surgery date: 6+ months; Surgery type: Acdf x2 years; Patient HX: Fall 08/28, C/O tingling radiating down left arm; Additional info: Fall, left arm symptoms, prior cervical surgery TECHNIQUE: Imaging protocol: Computed tomography of the cervical spine without contrast. Total images: 183 Radiation optimization: All CT scans at this facility use at least one of these dose optimization techniques: automated exposure control; mA and/or kV adjustment per patient size (includes targeted exams where dose is matched to clinical indication); or iterative reconstruction. REPORTING DATA: Count of CT and Cardiac NM exams in prior 12 months: This patient has received 2 known CTs and 0 known cardiac nuclear medicine studies in the 12 months prior to the current study. COMPARISON: MR CERVICAL SPINE WO CON 03/24/2021 1:05 PM FINDINGS: Bones/joints: Status post anterior cervical fusion C4, C5, and C6 with fixation plate and screws. No hardware loosening or failure. Bones are osteopenic. Base of the dens and the C1 and C2 articulations are preserved with moderate degenerative changes. The cervicooccipital junction is intact. The facet joints are appropriately aligned with mild to moderate degenerative facet joint spondylosis greatest on the left. Moderate degenerative disc disease C3-C4 and C6-C7 with small posterior projecting disc osteophyte complex. Mild left neural foraminal encroachment C3-C4 and C6-C7. Mild degenerative disc disease C7-T1 and upper thoracic levels. Minor anterolisthesis C7-T1 most likely degenerative. No concerning bone lesions. Spinal canal contents obscured by metal artifact. No large disc herniations. Prevertebral and retropharyngeal spaces: No prevertebral soft tissue swelling. Lungs: Biapical pleuroparenchymal fibrotic scarring. Vasculature: Mild calcifications bilateral carotid artery bifurcations. Soft tissues: Unremarkable soft tissues of the neck. IMPRESSION: 1. No acute cervical fracture or traumatic subluxation. 2. Status post anterior cervical fusion C4 through C6. 3. Moderate degenerative disc disease C3-C4 and C6-C7.
[2023-09-01 02:30] LABS: Basophils % 0.7 % (0.1-2.0); Eosinophils # 0.2 K/mm3 (0.0-0.4); Hematocrit 42.2 % (37.0-47.0); Hemoglobin 13.9 g/dL (12.2-16.2); Lymphocytes # 3.3 K/mm3 (0.7-4.5); Lymphocytes % 49.3 % (10-50); Mean Corpuscular Hemoglobin 30.2 pg (27.0-31.2); Mean Corpuscular Volume 91.4 fl (81-99); Mean Platelet Volume 7.8 fl (7.4-10.4); Monocytes # 0.4 K/mm3 (0.1-1.0); Monocytes % 5.9 % (1.7-9.3); Neutrophils # 2.7 K/mm3 (1.8-7.8); Neutrophils % 41.1 % (37.0-80.0); Platelet Count 285 K/mm3 (142-424); Red Blood Count 4.62 M/mm3 (4.20-5.40); Red Cell Distribution Width 14.2 % (11.5-17.5); White Blood Count 6.6 K/mm3 (4.8-10.8)
[2023-09-01 02:33] LABS: Alanine Aminotransferase 27 U/L (12-78); Albumin Level 4.4 g/dl (3.5-5.0); Albumin/Globulin Ratio 1.3 (1.1-1.8); Alkaline Phosphatase 108 U/L (38-126); Anion Gap 12.1 mEq/L (5-15); Aspartate Amino Transferase 42 U/L (14-36); Bilirubin,Total 0.3 mg/dl (0.2-1.3); Blood Urea Nitrogen 16 mg/dl (7-17); Calcium 9.5 mg/dl (8.4-10.2); Carbon Dioxide 25 mmol/L (22.0-30.0); Chloride 107 mmol/L (98-107); Creatinine Clearance Estimated 52 mL/min (50-200); Estimated Glomerular Filt Rate 83 ml/min (>60); GFR (African American) 100 ML/MIN (>60); Globulin 3.4 g/dL (1.3-3.2); Glucose 104 mg/dl (74-100); Potassium 4.1 mmoL/L (3.5-5.1); Sodium 140 mmol/L (136-145); Total Protein,Serum 7.8 g/dl (6.3-8.2)
--- NOTE | 2023-09-01 02:33 | HMH.EDGENADL ---
Discharge Plan Disposition Patient Disposition: Home, Self-Care Prescriptions Prescriptions: No Action zonisamide 25 MG capsule 50 mg PO DAILY Patient Comments: TAKE 1 CAPSULE BY MOUTH TWICE DAILY FOR 7 DAYS THEN INCREASE AND ...(REFER TO PRESCRIPTION NOTES). sulfamethoxazole-trimethoprim [Bactrim DS] 800-160 mg tablet 1 tab PO BID 14 Days Qty: 28 0RF clopidogrel 75 MG tablet 75 mg PO DAILY Referrals Follow up/Referrals: Flavia Azar APRN [Primary Care Provider] - See instructions Activity Restrictions/Add. Instructions Additional Instructions/Restrictions: Please follow-up with your primary care provider. Please return to the emergency department if you develop any new or worsening symptoms or become concerned for your health. Clinical Impressions Clinical Impression: Abdominal pain, chronic, right upper quadrant, Fall, Tingling of left upper extremity Discharge ED Provider: Ronaldo Figueroa Adult HPI General Chief complaint: PAIN Stated complaint: nausea, tingling in left arm, dizziness Time Seen by Provider: 09/01/23 01:54 Mode of Arrival: Ambulatory Source of Information: Patient Limitations: No Limitations Description of Symptoms (Recalled from ER Triage Doc. by RN): Pt present to ED with complaints of intermittent left arm tingling, nausea, abdominal pain and headache. Pt reports she has not felt good over the past week after having some dental work done. Reported she felt dizzy and took a fall, no LOC and was taken to [place] [facility]. Dx with UTI has been on bactrium since monday. Hx of TIA in [facility] today 0 History of Present Illness HPI narrative: 67-year-old female, reported history of prior TIA, seizure activity on EEG currently on zonisamide, prior cholecystectomy, presents with multiple complaints. She reports that she is currently on Bactrim and being treated for UTI. She reports that she had a fall few days ago at the dentist office after having dental work done. She was seen at another hospital but was not CT scanned at that time. She reports that she felt dizzy at that time and fell, striking her left shoulder against the wall. Denies loss of consciousness. Has history of prior cervical surgery. She reports that she is having intermittent tingling of the left arm for the last few days, worse tonight prompting presentation. Denies any weakness. She reports that during her TIA in the past she had similar left upper extremity tingling. She has been dealing with this symptom on and off since 2019 . Patient also reports right upper quadrant pain. 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 She has had prior cholecystectomy. She has some nausea and abdominal pain that is worse than normal tonight. Patient also reports a chest warmth but denies specific chest pain or shortness of breath. When asked what changed/why she came tonight, she reports that she just feels off. Related Data Home Medications Medication Instructions Recorded Confirmed clopidogrel 75 mg tablet 75 mg PO DAILY STROKE 10/09/19 08/10/23 zonisamide 25 mg capsule 50 mg PO DAILY SEIZURES 11/02/19 08/10/23 Previous Rx's Medication Instructions Recorded sulfamethoxazole 800 1 tab PO BID 14 days #28 tabs 08/27/23 mg-trimethoprim 160 mg tablet (Bactrim DS) Allergies Allergy/AdvReac Type Severity Reaction Status Date / Time No Known Allergies Allergy Verified 02/01/23 17:40 [facility] Disclaimer: The information contained in this section may have been updated after the patient was seen, as this information can be updated by other users. Medical History COPD (chronic obstructive pulmonary disease) History of stroke Hyperlipidemia Seizures Urinary tract infection Surgical History History of cardiac catheterization Social History (Re
--- NOTE | 2023-09-01 02:39 | PC.NURSE ---
patient back in room from CT at this time.
[2023-09-01 02:41] VITALS: BP 142/62; PULSE 49; RESP 16; O2SAT 94
[2023-09-01 02:47] LABS: Troponin I < 0.01 ng/ml (0.00-0.034)
[2023-09-01 03:00] VITALS: BP 133/56; PULSE 60; RESP 20; O2SAT 96
[2023-09-01 03:02] LABS: Appearance,Urine CLEAR (Clear); Bilirubin,Urine Negative (Negative); Blood, Urine Negative (Negative); Color,Urine YELLOW (Yellow); Glucose,Urine (UA) Negative (Negative); Ketones,Urine Negative (Negative); Leukocyte Esterase,Urine TRACE (Negative); Microscopic, Urine URINE MICROSCOPIC (MICROSCOPIC); Nitrate,Urine Negative (Negative); PH,Urine 6.5 (5.0-8.5); Protein,Urine Negative (Negative); Urobilinogen,Urine 0.2 EU/dl (0.2)
[2023-09-01 03:04] LABS: Thyroid Stimulating Hormone 4.79 uIU/mL (0.465-4.68)
[2023-09-01 03:08] LABS: Squamous Epithelial Cell,Urine Occasional #/hpf (0-5); WBC,Urine Occasional #/hpf (0-3)
--- NOTE | 2023-09-01 03:21 | PC.NURSE ---
in room talking with patient at this time.
[2023-09-01 03:40] VITALS: BP 156/71; PULSE 63; RESP 16; TEMP 36.8; O2SAT 98
== END 2023-09-01 03:48 | disposition home or self-care (01) ==
PROVIDERS: Emergency Provider Emergency Medicine; PCP Nurse Practitioner
DX: R10.11 Right upper quadrant pain (principal); R20.2 Paresthesia of skin; J44.9 Chronic obstructive pulmonary disease, unspecified; G40.909 Epilepsy, unspecified, not intractable, without status epilepticus; E78.5 Hyperlipidemia, unspecified; Z86.73 Personal history of transient ischemic attack (TIA), and cerebral infarction without residual deficits; W19.XXXA Unspecified fall, initial encounter
CPT/HCPCS: 70450; 72125; 80053; 81001; 84443; 84484; 85025; 93005; 99284

== ENCOUNTER → 2023-11-16 08:57 | Outpatient (CLI) | payer MEDICARE, SELFPAY ==
--- NOTE | 2023-11-16 09:01 | MM_ITS ---
PROCEDURE INFORMATION: Exam: MG Bilateral Screening 3D Mammography Exam date and time: 11/16/2023 9:00 AM Age: 67 years old Clinical indication: Screening mammogram TECHNIQUE: Imaging protocol: Bilateral Screening tomosynthesis and 2D mammography including computer-aided detection (CAD) when performed. COMPARISON: 1. MG MM DIG SCREENING MAMM BI W/CAD 08/05/2021 2:07 PM 2. MG MM DIG SCREENING MAMM BI W/CAD 03/12/2020 8:37 AM 3. MG DMSB DIG MAMM-SCREEN DALI W/CAD 02/17/2017 10:30 AM 4. MG DMSB DIG MAMM-SCREEN DALI 09/04/2014 8:34 AM FINDINGS: MAMMOGRAPHY: Breast composition: There are scattered areas of fibroglandular density. Mass: Stable benign-appearing subcentimeter nodules are present in the left breast. No new or morphologically suspicious nodule has developed to suggest malignancy. Architectural distortion: No new or suspicious architectural distortion. Calcifications: No new or suspicious calcifications are present Asymmetric density: No new or suspicious asymmetric density is present Skin thickening: None. Axillary adenopathy: None. IMPRESSION: No mammographic evidence of malignancy. Recommend annual screening mammography unless otherwise clinically indicated. ASSESSMENT: BI-RADS category 2: Benign
--- NOTE | 2023-11-16 09:40 | XR_ITS ---
FINAL REPORT TECHNIQUE: Bone densitometry calculations of the lumbar spine and left hip were obtained. CLINICAL HISTORY: SCREENING FINDINGS: Using L1-4, the bone mineral density of the spine is 1.018 g/cm2, corresponding to T-score of -0.3 but may be artificially elevated secondary to hypertrophic changes. Using the left hip, the bone mineral density of the femoral neck is 0.598 g/cm2, corresponding to a T-score of -2.8. Using the right hip, the bone mineral density of the femoral neck is 0.582 g/cm2, corresponding to a T-score of -2.4. NOTE: T-score: Standard deviation compared with peak bone mass of young adult mean. *Following the recommendations of the International Society of Bone densitometry, classification of hip BMD is based on the lower of two T-scores; total hip or femoral neck. IMPRESSION: Diminished bone mineral density consistent with osteoporosis. FRAX was not reported because some of the T-scores are at or below -2.5 Reviewed, Interpreted and Dictated by Anibal Lyons MD Transcribed by Lilian Ramírez Authenticated and [facility]
== END ==
LOC: RAD 08:57
PROVIDERS: PCP Nurse Practitioner; Visit Provider Nurse Practitioner
DX: Z12.31 Encounter for screening mammogram for malignant neoplasm of breast; Z13.820 Encounter for screening for osteoporosis; Z78.0 Asymptomatic menopausal state
CPT/HCPCS: 77063; 77067; 77080

== ENCOUNTER 2024-01-16 14:52 | Emergency (ER) | payer MEDICARE, SELFPAY ==
[2024-01-16] VITALS (8 sets, daily range): BP systolic 126–170; BP diastolic 65–79; PULSE 51–66; RESP 15–21; TEMP 36.6–36.7; O2SAT 96–98; BMI 21.2
--- NOTE | 2024-01-16 14:53 | ECG_ITS ---
APPROVED REPORT Exam: Resting ECG HR:60 bpm ECG Measurements Heart Rate 60 AXES UT 151 P 70 QRSd 99 QRS 48 QT 437 T 70 QTc 437 Conclusion SINUS RHYTHM NORMAL ECG UNCONFIRMED REPORT Electronically signed by : Rodrigo Bowman MD 01/16/2024 19:01:41
--- NOTE | 2024-01-16 15:09 | CT_ITS ---
FINAL REPORT CLINICAL HISTORY: Headache, R facial numb/tingling, R facial pressure. r/o stroke FINDINGS: CTA NECK Thin section axial CT with contrast with multiplanar reconstruction NASCET criteria and technique was utilized during interpretation. Aortic arch: Arch shows no significant narrowing. Great vessel origins are widely patent . Right carotid: There is a very small amount of calcified plaque at the carotid bulb without evidence of stenosis. Left carotid: There is a very small amount of calcified plaque at the carotid bulb without evidence of stenosis. Vertebrals: The left vertebral artery is small throughout its entire course. At the level of the C1 vertebral body, the left vertebral artery appears occluded. This could be chronic the right vertebral artery is large and widely patent without stenosis. IMPRESSION: No evidence of carotid stenosis. 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 Reviewed, Interpreted and Dictated by Luann Chua MD Transcribed by Lilian Ramírez Authenticated and [facility]
--- NOTE | 2024-01-16 15:09 | CT_ITS ---
FINAL REPORT TECHNIQUE: Thin section axial images were obtained from skull base to vertex without contrast. Coronal reconstruction images were obtained from the axial data. Exam was performed using dose reduction technique. CLINICAL HISTORY: Headache, R facial numb/tingling, R facial pressur COMPARISON: 09/01/2023 FINDINGS: There is mild atrophy. There is no mass effect or midline shift. There is no hydrocephalus. There is no intracranial hemorrhage. The posterior fossa is without acute abnormality. The basilar cisterns are preserved. The soft tissues are without acute abnormality. No acute osseous abnormality is identified. IMPRESSION: No acute intracranial abnormality. Reviewed, Interpreted and Dictated by Luann Chua MD Transcribed by Lilian Ramírez Authenticated and [facility]
--- NOTE | 2024-01-16 15:09 | CT_ITS ---
FINAL REPORT TECHNIQUE: Thin section axial images are obtained through the brain after intravenous contrast injection. Multiplanar reconstructions were obtained from the axial data. Exam was performed using dose reduction technique per the ALARA principal. CLINICAL HISTORY: Headache, R facial numb/tingling, R facial pressur FINDINGS: The intracerebral portions of the carotid arteries are patent. The anterior and middle cerebral arteries are patent. The basilar and right vertebral arteries are patent. The posterior cerebral arteries arise from the basilar artery. [place] is intact. There is no significant stenosis, aneurysm, or AVM. IMPRESSION: No evidence of large vessel occlusion. Reviewed, Interpreted and Dictated by Luann Chua MD Transcribed by Lilian Ramírez Authenticated and [facility]
[2024-01-16 15:23] LABS: Basophils % 0.5 % (0.1-2.0); Eosinophils # 0.1 K/mm3 (0.0-0.4); Hematocrit 40.4 % (37.0-47.0); Hemoglobin 13.5 g/dL (12.2-16.2); Lymphocytes # 2.6 K/mm3 (0.7-4.5); Lymphocytes % 37.3 % (10-50); Mean Corpuscular HGB Conc 33.5 g/dL (31.8-35.4); Mean Corpuscular Hemoglobin 31.6 pg (27.0-31.2); Mean Corpuscular Volume 94.4 fl (81-99); Mean Platelet Volume 7.8 fl (7.4-10.4); Monocytes # 0.5 K/mm3 (0.1-1.0); Monocytes % 6.4 % (1.7-9.3); Neutrophils # 3.8 K/mm3 (1.8-7.8); Neutrophils % 53.8 % (37.0-80.0); Platelet Count 242 K/mm3 (142-424); Red Blood Count 4.28 M/mm3 (4.20-5.40); Red Cell Distribution Width 13.7 % (11.5-17.5); White Blood Count 7.1 K/mm3 (4.8-10.8)
--- NOTE | 2024-01-16 15:29 | ED_ITS ---
Discharge Plan Disposition Patient Disposition: Home, Self-Care Condition: Good Prescriptions Prescriptions: New aspirin 81 mg capsule 81 mg PO DAILY Qty: 30 0RF No Action zonisamide 25 MG capsule 50 mg PO DAILY Patient Comments: TAKE 1 CAPSULE BY MOUTH TWICE DAILY FOR 7 DAYS THEN INCREASE AND ...(REFER TO PRESCRIPTION NOTES). sulfamethoxazole-trimethoprim [Bactrim DS] 800-160 mg tablet 1 tab PO BID 14 Days Qty: 28 0RF clopidogrel 75 MG tablet 75 mg PO DAILY Referrals Follow up/Referrals: Provider,Referral, MD [Referring] - See instructions Activity Restrictions/Add. Instructions Additional Instructions/Restrictions: You were evaluated in the emergency department today. I recommend starting aspirin to optimize dual antiplatelet therapy. I have prescribed this for you. Follow-up with your primary care provider and your neurologist over the next 3 days. Return to the emergency department for any new or worsening symptoms. Clinical Impressions Clinical Impression: Migraine, Transient neurological symptoms Instructions Patient Instructions: DI for Migraine, DI for Transient Ischemic Attack Discharge ED Provider: Jacqueline Montejo General Adult HPI General Chief complaint: Weakness Stated complaint: neuro symptoms Time Seen by Provider: 01/16/24 15:02 Mode of Arrival: Ambulatory Source of Information: Patient Limitations: No Limitations Description of Symptoms (Recalled from ER Triage Doc. by RN): patient ambulatory to ED with complaints of oral tingling, pressure behind right eye, left are numbness/tingling, and weakness. Patient with hx of TIA and on plavix for prophylaxis. FSBS 87. NIH 0 on initial assessment. 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 History of Present Illness HPI narrative: This patient is a 68-year-old female with a history of prior CVA, TIA, hyperlipidemia, who was managed on Plavix and a statin presenting to the emergency department for evaluation with concern for right-sided facial pressure, headache, and left arm heaviness and numbness. Patient reports that this started approximately 2 hours ago and has been waxing and waning since. Last known normal effectively 1300. She notes that she has had a headache as well as pressure behind her right eye. She feels like the inside of her nose is numb on the right side, and she feels like her tongue and lips are thick and difficult to move. She also states that her left arm feels heavy and numb, but she has no motor deficits. She denies any visual changes, balance issues, gait abnormality, or other neurologic symptoms. She denies any recent trauma or infectious symptoms. She was well prior to onset of the symptoms. Related Data Home Medications Medication Instructions Recorded Confirmed clopidogrel 75 mg tablet 75 mg PO DAILY STROKE 10/09/19 08/10/23 zonisamide 25 mg capsule 50 mg PO DAILY SEIZURES 11/02/19 08/10/23 Previous Rx's Medication Instructions Recorded sulfamethoxazole 800 1 tab PO BID 14 days #28 tabs 08/27/23 mg-trimethoprim 160 mg tablet (Bactrim DS) aspirin 81 mg capsule 81 mg PO DAILY #30 caps 01/16/24 Allergies Allergy/AdvReac Type Severity Reaction Status Date / Time No Known Allergies Allergy Verified 02/01/23 17:40 [facility] Disclaimer: The information contained in this section may have been updated after the pat ient was seen, as this information can be updated by other users. Medical History COPD (chronic obstructive pulmonary disease) History of stroke Hyperlipidemia Seizures Urinary tract infection Surgical History History of cardiac catheterization Social History Smoking Status: Never smoker second hand exposure: No alcohol intake: never substance use type: denies use current occupational status: other Travel in the last 8 weeks: None household members: spouse housing: house ROS Obtained: Yes All systems reviewed & no additional complaints except as documented Physical Exam General General appearance: alert and in no apparent distress Head Head exam: atraumatic and normocephalic Eye Eye exam: Present normal appearance, PERRL and EOMI ENT ENT exam: Present normal exam, normal oropharynx, mucous membranes moist and normal external ear exam Neck Neck exam: Present normal inspection, full ROM and trachea midline; Absent tenderness Chest Chest inspection: Present normal inspection and symmetric chest wall rise; Absent tenderness Respiratory Respiratory exam: Present normal lung sounds bilaterally; Absent respiratory distress, wheezes, stridor or accessory muscle use Cardiovascular Cardiovascular exam: Present regular rate and normal rhythm Abdominal Exam Abdominal exam: Present soft; Absent distention, tenderness or guarding Extremities Exam Extremities exam: Present normal inspection, full ROM and normal capillary refill; Absent tenderness or edema Back Exam Back exam: Present normal inspection and full ROM; Absent tenderness Neurological Exam Neurological exam: Present alert, oriented X3, CN II-XII intact and normal gait; Absent motor sensory deficit Expanded Neurological Exam Patient oriented to: Present person, place and time Speech: Present fluid speech Cranial nerves: Normal: EOM function (II, III, IV, ), facial sensation (V), facial palsy (VII), spinal accessory function (XI) and tongue deviation (XII) Cerebellar function: Normal: finger to nose and heel to garcias Cerebellar function: normal gait Motor strength - LUE: 5/5 Motor strength - RUE: 5/5 Motor strength - LLE: 5/5 Motor strength - RLE: 5/5 Upper motor neuron exam: Normal: selene neglect and pronator drift Sensory exam upper extremity: Normal: light touch Sensory exam lower extremity: Normal: light touch Coma scale eye opening: Spontaneous Coma scale motor response: Obeys commands Coma scale verbal response: Oriented Coma scale total: 15 Psychiatric Psychiatric exam: Present normal affect and normal mood Skin Skin exam: Present warm and dry Medical Decision Making Medical Records Medical records reviewed: Yes I reviewed the patient's medical records. Jose Inquiry Pt receiving controlled substance: No Vital Signs: 01/16/24 14:52 01/16/24 15:00 01/16/24 15:30 Temperature 97.9 F Temperature Source Oral Pulse Rate 59 L 63 Pulse Rate [Left] 60 Respiratory Rate 21 21 20 Blood Pressure 162/77 H 170/79 H Blood Pressure [Right Arm] 162/77 H Blood Pressure Mean [Right Arm] 105 Blood Pressure Source [Right Arm] Automatic Cuff Blood Pressure Position [Right Arm] Sitting 02 Sat by Pulse Oximetry 97 98 96 Oxygen Delivery Method Room Air Room Air 01/16/24 15:44 01/16/24 16:01 01/16/24 17:48 Temperature 98.1 F Temperature Source Pulse Rate 66 59 L 51 L Pulse Rate [Left] Respiratory Rate 15 18 Blood Pressure 155/73 H 144/67 H 130/69 Blood Pressure [Right Arm] Blood Pressure Mean [Right Arm] Blood Pressure Source [Right Arm] Blood Pressure Position [Right Arm] 02 Sat by Pulse Oximetry 96 98 Oxygen Delivery Method Room Air Room Air 01/16/24 16:30 01/16/24 17:29 Temperature Temperature Source Pulse Rate 60 53 L Pulse Rate [Left] Respiratory Rate 17 Blood Pressure 133/65 126/70 Blood Pressure [Right Arm] Blood Pressure Mean [Right Arm] Blood Pressure Source [Right Arm] Blood Pressure Position [Right Arm] 02 Sat by Pulse Oximetry 97 Oxygen Delivery Method Lab Data Lab results reviewed: Yes I reviewed the patient's lab results. Lab Results 01/16/24 14:52: WBC 7.1, RBC 4.28, Hgb 13.5, Hct 40.4, MCV 94.4, MCH 31.6 H, MCHC 33.5, RDW 13.7, Plt Count 242, MPV 7.8, Neut % (Auto) 53.8, Lymph % (Auto) 37.3, [place] % (Auto) 6.4, Eos % (Auto) 2.0, Baso % (Auto) 0.5, Neut # (Auto) 3.8, Lymph # (Auto) 2.6, [place] # (Auto) 0.5, Eos # (Auto) 0.1, Baso # (Auto) 0.0, Sodium 139, Potassium 4.0, Chloride 104, Carbon Dioxide 28, Anion Gap 11.0, BUN 14, Creatinine 0.60, Estimated Creat Clear 52, Estimated GFR 99, Est GFR ( Amer) 120, Glucose 94, Calcium 10.0, Magnesium 2.0, Total Bilirubin 0.5, AST 42 H, ALT 30, Alkaline Phosphatase 105, Troponin I < 0.01, Total Protein 7.3, Albumin 4.3, Globulin 3.0, Albumin/Globulin Ratio 1.4, TSH 3.64, Thyroxine (T4) 9.5 01/16/24 14:52 01/16/24 14:52 Orders (Tests/Meds): ED MEDICATIONS Discontinued Medications Generic Name Dose Route Start Last Admin Trade Name Freq PRN Reason Stop Dose Admin Acetaminophen 1,000 mg 01/16/24 15:11 01/16/24 15:40 Acetaminophen 1,000mg/100ml Vial IV 01/16/24 15:12 1,000 mg ONCE ONE Administration Lactated Ringer's 1,000 mls @ 999 mls/hr 01/16/24 15:11 01/16/24 15:41 Lactated Ringer's 1000 Ml Bag IV 01/16/24 16:11 999 mls/hr .Q1H1M ONE Administration Iopamidol 100 ml 01/16/24 15:37 01/16/24 15:37 Iopamidol-370 (76%);100ml Bottle IV 01/16/24 15:38 100 ml ONCE ONE Administration Ketorolac Tromethamine 15 mg 01/16/24 15:11 01/16/24 15:40 Ketorolac 30mg/Ml Vial IV 01/16/24 15:12 15 mg ONCE ONE Administration Metoclopramide HCl 5 mg 01/16/24 15:11 01/16/24 15:40 Metoclopramide Hcl 10mg/2ml Vial IVP 01/16/24 15:12 5 mg ONCE ONE Administration Sodium Chloride 10 ml 01/16/24 15:37 01/16/24 15:37 Sodium Chloride 0.9% 10ml Syr (Rad Only) IV 01/16/24 15:38 10 ml ONCE ONE Administration Sodium Chloride 50 ml 01/16/24 15:37 01/16/24 15:37 0.9 % Sodium Chloride 50 Ml Vial IV 01/16/24 15:38 50 ml ONCE ONE Administration ORDERS Category Date Time Status CT angio head Stat Cat Scan 01/16/24 15:[address] angio neck Stat Cat Scan 01/16/24 15:[address] head/brain wo con Stat Cat Scan 01/16/24 15:09 Completed CBC w/Auto Diff [Complete Blood Count Auto Diff] Stat Lab 01/16/24 14:52 Completed Calcium, Ionized Stat Lab 01/16/24 15:40 Received Comprehensive Metabolic Panel Stat Lab 01/16/24 14:52 Completed Magnesium Stat Lab 01/16/24 14:52 Completed T4 (Thyroxine) Stat Lab 01/16/24 14:52 Completed Thyroid Stimulating Hormone Stat Lab 01/16/24 14:52 Completed Troponin I Stat Lab 01/16/24 14:52 Completed ECG initial Besson Routine Y 01/16/24 14:53 Completed ECG Data Tracing #1: I reviewed this ECG and interpreted as documented below: Normal sinus rhythm with a ventricular rate of [address] changes concerning for ischemia. Normal axis and intervals. ECG initial impression date: 01/16/24 ECG initial impression time: 14:55 Medical Decision Narrative: In summary, this patient is a 68 year old female presenting to the Emergency Department for evaluation of headache, right-sided facial pressure and numbness, and left-sided arm heaviness and numbness. Differential diagnoses considered include but are not limited to CVA, TIA, intracranial mass, intracranial hemorrhage, electrolyte derangements, ACS, complex migraine, other stroke mimic. Ruling out the most morbid conditions drove assessment. On exam, the patient is alert and neurologically intact. NIH stroke scale is effectively 0 as despite feeling the sensation of numbness and pressure, she has no sensory deficits on exam. Last known normal was 1300. Workup included str maulik protocol CT scans as well as labs including CBC, CMP, troponin, TSH, T4, magnesium, calcium, and an EKG. I independently interpreted CT scans prior to the radiologist read and noted obvious acute ischemic stroke or large vessel occlusion. Please see their read for final interpretation. I also had an interactive discussion with [facility] stroke intervention team who advised no large vessel occlusion. On reassessment, the patient had resolution of symptoms by 1630. She is completely neurologically intact with no persistent symptoms at this time. She states that they improved after migraine cocktail. Labs were obtained that demonstrated no acute concerning abnormalities. On reassessment, patient had great improvement after administration of migraine cocktail. She had complete resolution of symptoms and remained neurologically intact with an NIH stroke scale of 0. She was observed in the emergency department for an hour with no recurrence of symptoms. Given this, she was seen to be appropriate for discharge with close follow-up with her neurologist, who she is already established with, and her primary care provider. I did advise that I would initiate aspirin to optimize dual antiplatelet therapy given that she is already on Plavix. I prescribed her baby aspirin. She was discharged in stable condition after all questions were answered. Critical Care Critical Care Time Critical Care Time: No
[2024-01-16 15:33] LABS: Alanine Aminotransferase 30 U/L (12-78); Albumin Level 4.3 g/dl (3.5-5.0); Albumin/Globulin Ratio 1.4 (1.1-1.8); Alkaline Phosphatase 105 U/L (38-126); Aspartate Amino Transferase 42 U/L (14-36); Bilirubin,Total 0.5 mg/dl (0.2-1.3); Blood Urea Nitrogen 14 mg/dl (7-17); Carbon Dioxide 28 mmol/L (22.0-30.0); Chloride 104 mmol/L (98-107); Creatinine Clearance Estimated 52 mL/min (50-200); Estimated Glomerular Filt Rate 99 ml/min (>60); GFR (African American) 120 ML/MIN (>60); Glucose 94 mg/dl (74-100); Sodium 139 mmol/L (136-145); Total Protein,Serum 7.3 g/dl (6.3-8.2)
[2024-01-16] MEDS: SODIUM CHLORIDE 0.9% 10ML SYR (RAD ONLY) 10 ML IV (15:37)
[2024-01-16] MEDS: 0.9 % SODIUM CHLORIDE 50 ML VIAL IV (15:37)
[2024-01-16] MEDS: IOPAMIDOL-370 (76%);100ML BOTTLE 100 ML IV (15:37)
[2024-01-16] MEDS: ACETAMINOPHEN 1,000MG/100ML VIAL 1000 MG IV (15:40)
[2024-01-16] MEDS: METOCLOPRAMIDE HCL 10MG/2ML VIAL 5 MG IVP (15:40)
[2024-01-16] MEDS: KETOROLAC 30MG/ML VIAL 15 MG IV (15:40)
[2024-01-16] MEDS: LACTATED RINGERS 1000ML 1,000 ML 999 ML IV (15:41)
[2024-01-16 15:47] LABS: Troponin I < 0.01 ng/ml (0.00-0.034)
[2024-01-16 15:49] LABS: T4 (Thyroxine) 9.5 ug/dl (5.53-11.0)
[2024-01-16 16:03] LABS: Thyroid Stimulating Hormone 3.64 uIU/mL (0.465-4.68)
== END 2024-01-16 17:51 | disposition home or self-care (01) ==
PROVIDERS: Emergency Provider Emergency Medicine; PCP Nurse Practitioner
DX: G43.909 Migraine, unspecified, not intractable, without status migrainosus (principal); R20.0 Anesthesia of skin; R53.1 Weakness; E78.5 Hyperlipidemia, unspecified; J44.9 Chronic obstructive pulmonary disease, unspecified; Z86.73 Personal history of transient ischemic attack (TIA), and cerebral infarction without residual deficits
CPT/HCPCS: 70450; 70496; 70498; 80053; 82330; 83735; 84436; 84443; 84484; 85025; 93005; 96361; 96374; 96375; 99285; J0131; Q9967

== ENCOUNTER 2024-05-06 08:44 | Outpatient (CLI) | payer MEDICARE, SELFPAY ==
[2024-05-06 12:02] LABS: Alanine Aminotransferase 20 U/L (12-78); Albumin/Globulin Ratio 1.4 (1.1-1.8); Alkaline Phosphatase 80 U/L (38-126); Anion Gap 11.2 mEq/L (5-15); Aspartate Amino Transferase 28 U/L (14-36); Bilirubin,Total 0.5 mg/dl (0.2-1.3); Blood Urea Nitrogen 15 mg/dl (7-17); Calcium 9.4 mg/dl (8.4-10.2); Carbon Dioxide 27 mmol/L (22.0-30.0); Chloride 106 mmol/L (98-107); Chol/HDL Ratio 2.6 (1-3.5); Cholesterol 175 mg/dl (140-200); Direct LDL Cholesterol 77.63 mg/dL (100-129); Estimated Glomerular Filt Rate 99 ml/min (>60); GFR (African American) 120 ML/MIN (>60); Globulin 2.9 g/dL (1.3-3.2); Glucose 88 mg/dl (74-100); HDL Cholesterol 67 mg/dl (40-60); Potassium 4.2 mmoL/L (3.5-5.1); Sodium 140 mmol/L (136-145); Total Protein,Serum 6.9 g/dl (6.3-8.2); Triglycerides 53 mg/dl (30-150); VLDL Cholesterol 11 mg/dL (0-40)
== END 2024-05-06 23:59 | disposition home or self-care (01) ==
PROVIDERS: Nurse Practitioner Acute Care; PCP Nurse Practitioner; Visit Provider Internal Medicine
DX: R07.9 Chest pain, unspecified (principal); E78.5 Hyperlipidemia, unspecified
CPT/HCPCS: 36415; 80053; 80061

== ENCOUNTER 2024-07-25 10:40 | Emergency (ER) | payer MEDICARE, SELFPAY ==
[2024-07-25 11:00] VITALS: BP 163/77; PULSE 56; RESP 20; TEMP 36.4; O2SAT 98; BMI 22.8
[2024-07-25 11:04] LABS: Apearance,Urine Clear (Clear); Bilirubin,Urine Negative (Negative); Blood, Urine 3+ (Negative); Color,Urine Yellow (Yellow); Glucose,Urine (UA) Negative (Negative); Ketones,Urine Negative (Negative); Protein,Urine Negative (Negative); Specific Gravity, Urine 1.015 (1.005-1.030); UTC Leukocyte Esterase,Urine 3+ (Negative); UTC Nitrate,Urine Negative (Negative); Urobilinogen,Urine 0.2 EU/dl (0.2)
--- NOTE | 2024-07-25 11:19 | ED_ITS ---
Discharge Plan Disposition Patient Disposition: Home, Self-Care Prescriptions Prescriptions: New cefdinir 300 mg capsule 300 mg PO BID 10 Days Qty: 20 0RF phenazopyridine [Pyridium] 100 mg tablet 100 mg PO Q8H PRN (Reason: pain) Qty: 15 0RF cefdinir 300 mg capsule 300 mg PO BID 10 Days Qty: 20 0RF phenazopyridine [Pyridium] 100 mg tablet 100 mg PO TID PRN (Reason: pain) Qty: 14 0RF No Action clopidogrel 75 MG tablet 75 mg PO DAILY rosuvastatin 20 mg tablet 20 mg PO DAILY Referrals Follow up/Referrals: Flavia Azar APRN [Primary Care Provider] - See instructions Activity Restrictions/Add. Instructions Additional Instructions/Restrictions: Call your family doctor to establish care for this visit to the emergency department and schedule follow-up within 48 hours to ensure improvement. If you have any worsening of your condition or any other concerning signs or symptoms, return to the emergency department or your primary care doctor for further evaluation. Cefdinir twice daily for 10 days Clinical Impressions Clinical Impression: Acute pyelonephritis Instructions Patient Instructions: DI for Acute Abdominal Pain Print Language Print Language: Citizen Of [place] Discharge ED Provider: Brennon Raymundo [facility] [place] HPI General Chief complaint: Abdominal Pain Stated complaint: poss uti Mode of Arrival: Ambulatory Source of Information: Patient Limitations: No Limitations Time Seen by Provider: 07/25/24 11:19 Description of Symptoms (Recalled from Triage Doc. by RN): PATIENT C/O BLADDER PRESSURE AND RIGHT-SIDED BACK PAIN SINCE YESTERDAY HEENT Symptoms (Recalled from RN notes): No Resp Symptoms (Recalled from RN notes): No Skin Symptoms (Recalled from RN notes): No MS Symptoms (Recalled from RN notes): No Functional Status (Recalled from RN notes): WNL History of Present Illness Provider Complaint: Patient states that she has a history of recurring UTI's States she started yesterday with achy like feeling in her right kidney area that feels like it moving around her side into her lower abdomen, urinary frequency and urgency and feeling pressure like she has to go, states that she has has not had the achy like feeling in her side before with her previous UTI's, Denies fever, denies chills, Denies vomiting denies hx of kidney stones Related Data Home Medications ?Medication ?Instructions ?Recorded ?Confirmed clopidogrel 75 mg tablet 75 mg PO DAILY STROKE 10/09/19 07/25/24 rosuvastatin 20 mg tablet 20 mg PO DAILY 07/25/24 07/25/24 Previous Rx's ?Medication ?Instructions ?Recorded cefdinir 300 mg capsule 300 mg PO BID 10 days #20 caps 07/25/24 cefdinir 300 mg capsule 300 mg PO BID 10 days #20 caps 07/25/24 phenazopyridine 100 mg tablet 100 mg PO Q8H PRN pain 6 doses #15 07/25/24 (Pyridium) tabs phenazopyridine 100 mg tablet 100 mg PO TID PRN pain 6 doses #14 07/25/24 (Pyridium) tabs Allergies Allergy/AdvReac Type Severity Reaction Status Date / Time No Known Allergies Allergy Verified 02/01/23 17:40 Worker's Comp Is this a Worker's Comp case?: No [facility] Disclaimer: The information contained in this section may have been updated after the patient was seen, as this information can be updated by other users. Medical History COPD (chronic obstructive pulmonary disease) History of stroke Hyperlipidemia Seizures Urinary tract infection Surgical History History of cardiac catheterization Social History Smoking Status: Never smoker second hand exposure: No alcohol intake: never substance use type: denies use current occupational status: other Travel in the last 8 weeks: None household members: spouse housing: house ROS Obtained: Yes All systems reviewed & no additional complaints except as documented and Yes Systems reviewed as appropriate & no additional complaints except as documented Constitutional Constitutional: Reports system reviewed and no additional complaints, except as documented, Reports as per HPI, Denies body ache, Denies chills, Denies fever(s) and Denies headache(s) ENT Ears, Nose, Mouth, and Throat: Reports system reviewed and no additional complaints, except as documented, Reports as per HPI and Denies headache(s) Cardiovascular Cardiovascular: Reports system reviewed and no additional complaints, except as documented and Reports as per HPI Respiratory Respiratory: Reports system reviewed and no additional complaints, except as documented and Reports as per HPI Gastrointestinal Gastrointestingal: Reports system reviewed and no additional complaints, except as documented, as per HPI and other (report pressure like feeling in lower abdomen); Denies abdominal pain Genitourinary Female Genitourinary: Reports system reviewed and no additional complaints, except as documented, Reports as per HPI, Reports dysuria, Reports flank pain (right side radiating around side into lower abdomen), Reports urinary frequency and Reports urinary urgency Neurologic Neurologic: Denies headache(s) Physical Exam General General appearance: alert and in no apparent distress ENT ENT exam: Present mucous membranes moist Respiratory Respiratory exam: Present normal lung sounds bilaterally; Absent respiratory distress or wheezes Cardiovascular Cardiovascular exam: Present regular rate, normal rhythm and normal heart sounds Abdominal Exam Abdominal exam: Present soft and normal bowel sounds; Absent distention or tenderness Back Exam Back 1 view image: 2 1. reports achy like feeling in right flank area that radiates around right side into abdomen, denies hx of kidney stones Neurological Exam Neurological exam: Present alert, oriented X3 and normal gait Medical Decision Making Jose Inquiry Pt receiving controlled substance: No Jose was queried for this patient: No Vital Signs: 07/25/24 11:00 Temperature 97.5 F L Temperature Source Oral Pulse Rate [Left Brachial] 56 L Respiratory Rate 20 Blood Pressure [Left Arm] 163/77 H Blood Pressure Mean [Left Arm] 105 Blood Pressure Source [Left Arm] Automatic Cuff Blood Pressure Position [Left Arm] Sitting 02 Sat by Pulse Oximetry 98 Oxygen Delivery Method Room Air Lab Data Lab results reviewed: Yes I reviewed the patient's lab results. Lab Results 07/25/24 11:03: Urine Color Yellow, Urine Appearance Clear, Urine pH 6.0, Ur Specific [place] 1.015, Urine Protein Negative, Urine Glucose (UA) Negative, Urine Ketones Negative, Urine Blood 3+, Urine Nitrate Negative, Urine Bilirubin Negative, Urine Urobilinogen 0.2, Ur Leukocyte Esterase 3+ A 07/25/24 12:50 07/25/24 12:50 Orders (Tests/Meds): ORDERS Category Date Time Status Urine Culture Stat Micro 07/25/24 11:03 Ordered Medical Decision Narrative: Patient having right side flank pain has hx of recurring UTI's but advised she does not normally have flank pain that radiates around her side into her lower abdomen, states started last night, reports that she has still had good urine flow but concerned that she may have a Kidney stone or something 3+ blood noted in urine and her previous urinalysis was negative for blood discussed with patient and will transfer to the ED for furhter work up and evaluation and pateint agreed patient was moved to room 12
--- NOTE | 2024-07-25 12:09 | PC.NURSE ---
pt arrived to ed from [facility]
--- NOTE | 2024-07-25 12:16 | CT_ITS ---
FINAL REPORT CLINICAL HISTORY: concern for R sided stone vs other COMPARISON: None FINDINGS: CT OF THE ABDOMEN AND PELVIS WITH CONTRAST Axial CT images of the abdomen and pelvis were obtained after the administration of IV contrast. Coronal and sagittal reformatted images were also obtained and reviewed. This study was performed with techniques to keep radiation doses as low as reasonably achievable (ALARA). Individualized dose reduction techniques using automated exposure control or adjustment of mA and/or kV according to the patient's size were employed. Abdomen: Mild bibasilar atelectasis is present.. The heart is normal in size. The liver has an unremarkable appearance, without evidence of mass or biliary ductal dilatation. The gallbladder has been surgically resected. The spleen is unremarkable. No adrenal mass is present. The pancreas has an unremarkable appearance. There is mild right renal scarring present. There is a nonobstructing lower pole stone in the right kidney measuring 5 mm in size. The aorta is normal in caliber. There is no free fluid or adenopathy. No mass or abnormal fluid collection is seen. Pelvis: The appendix is normal in appearance. The urinary bladder is remarkable for diffuse wall thickening, likely inflammatory. There is a small umbilical hernia containing fat. There is no evidence of mass or adenopathy. There is no evidence of bowel obstruction. Prominent pelvic veins are present, that may represent pelvic congestion syndrome. IMPRESSION: 5 mm nonobstructing lower pole right renal stone. Diffuse bladder wall thickening, likely inflammatory. Prominent pelvic veins, that may represent pelvic congestion syndrome. Reviewed, Interpreted and Dictated by Presley Sanders III, MD Transcribed by Belinda Dawn Authenticated and [facility]
[2024-07-25 12:20] LABS: Microscopic, Urine URINE MICROSCOPIC (MICROSCOPIC)
[2024-07-25 12:22] VITALS: BP 174/61; PULSE 61; RESP 18; TEMP 36.9; O2SAT 99; BMI 22.8
[2024-07-25 12:23] LABS: Appearance,Urine CLEAR (Clear); Bilirubin,Urine Negative (Negative); Blood, Urine 3+ (Negative); Color,Urine YELLOW (Yellow); Glucose,Urine (UA) Negative (Negative); Ketones,Urine Negative (Negative); Leukocyte Esterase,Urine 3+ (Negative); Nitrate,Urine POSITIVE (Negative); Protein,Urine Negative (Negative); Urobilinogen,Urine 0.2 EU/dl (0.2)
[2024-07-25 12:45] LABS: Bacteria,Urine 1+ /lpf; WBC,Urine 50-100 #/hpf (0-3)
[2024-07-25 13:06] LABS: Basophils # 0.1 K/mm3 (0-0.2); Basophils % 0.5 % (0.1-2.0); Eosinophils # 0.1 K/mm3 (0.0-0.4); Eosinophils % 1.4 % (0.1-12.0); Hematocrit 43.5 % (37.0-47.0); Hemoglobin 13.7 g/dL (12.2-16.2); Lymphocytes # 1.6 K/mm3 (0.7-4.5); Lymphocytes % 17.7 % (10-50); Mean Corpuscular HGB Conc 31.5 g/dL (31.8-35.4); Mean Corpuscular Hemoglobin 29.2 pg (27.0-31.2); Mean Corpuscular Volume 92.7 fl (81-99); Mean Platelet Volume 7.9 fl (7.4-10.4); Monocytes # 0.4 K/mm3 (0.1-1.0); Monocytes % 4.6 % (1.7-9.3); Neutrophils # 6.9 K/mm3 (1.8-7.8); Neutrophils % 75.8 % (37.0-80.0); Platelet Count 272 K/mm3 (142-424); Red Blood Count 4.69 M/mm3 (4.20-5.40); Red Cell Distribution Width 14.7 % (11.5-17.5); White Blood Count 9.2 K/mm3 (4.8-10.8)
[2024-07-25 13:10] LABS: Albumin Level 4.5 g/dl (3.5-5.0); Chloride 108 mmol/L (98-107); Potassium 4.3 mmoL/L (3.5-5.1); Sodium 140 mmol/L (136-145)
[2024-07-25 13:12] LABS: Lactic Acid 0.7 mmol/L (0.7-2.1)
[2024-07-25 13:13] LABS: Alanine Aminotransferase 35 U/L (12-78); Albumin/Globulin Ratio 1.4 (1.1-1.8); Alkaline Phosphatase 115 U/L (38-126); Anion Gap 7.3 mEq/L (5-15); Aspartate Amino Transferase 40 U/L (14-36); Bilirubin,Total 0.7 mg/dl (0.2-1.3); Blood Urea Nitrogen 9 mg/dl (7-17); Calcium 9.5 mg/dl (8.4-10.2); Carbon Dioxide 29 mmol/L (22.0-30.0); Creatinine Clearance Estimated 56 mL/min (50-200); Estimated Glomerular Filt Rate 122 ml/min (>60); GFR (African American) 148 ML/MIN (>60); Globulin 3.3 g/dL (1.3-3.2); Glucose 88 mg/dl (74-100); Total Protein,Serum 7.8 g/dl (6.3-8.2)
[2024-07-25] MEDS: CEFTRIAXONE 1 GM 1 GM in 0.9 % SODIUM CHLORIDE 50 ML IV (13:31)
[2024-07-25] MEDS: SODIUM CHLORIDE 0.9% 10ML SYR (RAD ONLY) 10 ML IV (13:37)
[2024-07-25] MEDS: IOPAMIDOL-370 (76%);100ML BOTTLE 75 ML IV (13:37)
--- NOTE | 2024-07-25 13:45 | ED_ITS ---
Discharge Plan Disposition Patient Disposition: Home, Self-Care Prescriptions Prescriptions: New cefdinir 300 mg capsule 300 mg PO BID 10 Days Qty: 20 0RF No Action clopidogrel 75 MG tablet 75 mg PO DAILY rosuvastatin 20 mg tablet 20 mg PO DAILY Referrals Follow up/Referrals: Flavia Azar APRN [Primary Care Provider] - See instructions Activity Restrictions/Add. Instructions Additional Instructions/Restrictions: Call your family doctor to establish care for this visit to the emergency department and schedule follow-up within 48 hours to ensure improvement. If you have any worsening of your condition or any other concerning signs or symptoms, return to the emergency department or your primary care doctor for further evaluation. Cefdinir twice daily for 10 days Clinical Impressions Clinical Impression: Acute pyelonephritis Instructions Patient Instructions: DI for Acute Abdominal Pain Print Language Print Language: Botswan[place] Discharge ED Provider: Brennon Raymundo General Adult HPI General Chief complaint: Abdominal Pain Stated complaint: poss uti Time Seen by Provider: 07/25/24 11:19 Mode of Arrival: Ambulatory Source of Information: Patient Limitations: No Limitations Description of Symptoms (Recalled from ER Triage Doc. by RN): pt was brought over from the [facility], they dx her with a UTI and concern for a kidney stone. pt c/o R flank pain that is constant, 5/10, aches and dull. pt also reports some nausea. last normal BM 07/25. History of Present Illness HPI narrative: Please note that above description of symptoms, in this electronic medical record under categorization of recalled from ER triage doctor by RN are reflective of an initial nursing assessment, however, is not reflective of my full history and physical exam that was personally taken and clarified. Consequentially, this preceding description of symptoms, which may include the patient's categorized chief complaint in the EMR, do not reflect my personal clinical impression, and the ultimate description of history of present illness and patient stated complaints should be deferred to this section of the note. Unless stated otherwise or congruent with this section of the note, additional signs, symptoms, or incongruence should be interpreted as inaccurate with my clinical impression. Related Data Home Medications ?Medication ?Instructions ?Recorded ?Confirmed clopidogrel 75 mg tablet 75 mg PO DAILY STROKE 10/09/19 07/25/24 rosuvastatin 20 mg tablet 20 mg PO DAILY 07/25/24 07/25/24 Previous Rx's ?Medication ?Instructions ?Recorded cefdinir 300 mg capsule 300 mg PO BID 10 days #20 caps 07/25/24 Allergies Allergy/AdvReac Type Severity Reaction Status Date / Time No Known Allergies Allergy Verified 02/01/23 17:40 [facility] Disclaimer: The information contained in this section may have been updated after the patient was seen, as this information can be updated by other users. Medical History COPD (chronic obstructive pulmonary disease) History of stroke Hyperlipidemia Seizures Urinary tract infection Surgical History History of cardiac catheterization Social History Smoking Status: Never smoker second hand exposure: No alcohol intake: never substance use type: denies use current occupational status: other Travel in the last 8 weeks: None household members: spouse housing: house ROS Obtained: Yes All systems reviewed & no additional complaints except as documented Physical Exam General General appearance: alert and in no apparent distress Head Head exam: atraumatic and normocephalic Eye Eye exam: Present normal appearance, PERRL and EOMI Neck Neck exam: Present normal inspection, full ROM and trachea midline Respiratory Respiratory exam: Absent respiratory distress, wheezes, stridor, accessory muscle use or prolonged expiratory phase Cardiovascular Cardiovascular exam: Present other (Pulses equal symmetric in upper and lower extremities) Abdominal Exam Abdominal exam: Present soft; Absent distention, tenderness or pulsatile mass Extremities Exam Extremities exam: Absent edema Back Exam Back exam: Present CVA tenderness (R); Absent CVA tenderness (L) Neurological Exam Neurological exam: Present alert, oriented X3 and CN II-XII intact; Absent motor sensory deficit Skin Skin exam: Present warm and dry; Absent diaphoresis or erythema Medical Decision Making Medical Records Medical records reviewed: Yes I reviewed the patient's medical records. Jose Inquiry Pt receiving controlled substance: No Jose was queried for this patient: No Vital Signs: 07/25/24 11:00 07/25/24 12:22 07/25/24 13:57 Temperature 97.5 F L 98.4 F Temperature Source Oral Oral Pulse Rate 58 L Pulse Rate [Left Brachial] 56 L 61 Respiratory Rate 20 18 18 Blood Pressure 150/65 H Blood Pressure [Left Arm] 163/77 H 174/61 H Blood Pressure Mean [Left Arm] 105 98 Blood Pressure Source [Left Arm] Automatic Cuff Blood Pressure Position [Left Arm] Sitting 02 Sat by Pulse Oximetry 98 99 99 Oxygen Delivery Method Room Air Room Air Room Air Lab Data Lab Results 07/25/24 10:51: Urine Color Yellow, Urine Appearance Clear, Urine pH 6.0, Ur Specific [place] 1.010, Urine Protein Negative, Urine Glucose (UA) Negative, Urine Ketones Negative, Urine Blood 3+ A, Urine Nitrate Positive, Urine Bilirubin Negative, Urine Urobilinogen 0.2, Ur Leukocyte Esterase 3+ A, Urine RBC 10-20, Urine WBC 50-100, Ur Squamous Epith Cells 5-10, Urine Bacteria 1+ 07/25/24 11:03: Urine Color Yellow, Urine Appearance Clear, Urine pH 6.0, Ur Specific [place] 1.015, Urine Protein Negative, Urine Glucose (UA) Negative, Urine Ketones Negative, Urine Blood 3+, Urine Nitrate Negative, Urine Bilirubin Negative, Urine Urobilinogen 0.2, Ur Leukocyte Esterase 3+ A 07/25/24 12:50: WBC 9.2, RBC 4.69, Hgb 13.7, Hct 43.5, MCV 92.7, MCH 29.2, MCHC 31.5 L, RDW 14.7, Plt Count 272, MPV 7.9, Neut % (Auto) 75.8, Lymph % (Auto) 17.7, [place] % (Auto) 4.6, Eos % (Auto) 1.4, Baso % (Auto) 0.5, Neut # (Auto) 6.9, Lymph # (Auto) 1.6, [place] # (Auto) 0.4, Eos # (Auto) 0.1, Baso # (Auto) 0.1, Sodium 140, Potassium 4.3, Chloride 108 H, Carbon Dioxide 29, Anion Gap 7.3, BUN 9, Creatinine 0.50 L, Estimated Creat Clear 56, Estimated GFR 122, Est GFR ( Amer) 148, Glucose 88, Lactate 0.7, Calcium 9.5, Total Bilirubin 0.7, A ST 40 H, ALT 35, Alkaline Phosphatase 115, Total Protein 7.8, Albumin 4.5, G lobulin 3.3 H, Albumin/Globulin Ratio 1.4 07/25/24 12:50 07/25/24 12:50 Orders (Tests/Meds): ED MEDICATIONS Discontinued Medications Generic Name Dose Route Start Last Admin Trade Name Oswaldo PRN Reason Stop Dose Admin Ceftriaxone Sodium 1 gm/ 50 mls @ 100 mls/hr 07/25/24 13:30 07/25/24 13:31 Sodium Chloride IV 07/25/24 13:59 100 mls/hr ONCE ONE Administration Iopamidol 75 ml 07/25/24 13:36 07/25/24 13:37 Iopamidol-370 (76%);100ml Bottle IV 07/25/24 13:37 75 ml ONCE ONE Administration Ketorolac Tromethamine 15 mg 07/25/24 13:48 07/25/24 13:54 Ketorolac 30mg/Ml Vial IV 07/25/24 13:49 15 mg ONCE ONE Administration Ondansetron HCl 4 mg 07/25/24 13:48 07/25/24 13:54 Ondansetron 4mg/2ml Vial IV 07/25/24 13:49 4 mg ONCE ONE Administration Sodium Chloride 10 ml 07/25/24 13:36 07/25/24 13:37 Sodium Chloride 0.9% 10ml Syr (Rad Only) IV 07/25/24 13:37 10 ml ONCE ONE Administration ORDERS Category Date Time Status CT abdomen pelvis w con Stat Cat Scan 07/25/24 12:16 Completed CBC w/Auto Diff [Complete Blood Count Auto Diff] Stat Lab 07/25/24 12:50 Completed CMP [Comprehensive Metabolic Panel] Stat Lab 07/25/24 12:50 Completed Lactic Acid Stat Lab 07/25/24 12:50 Completed UA [Urinalysis and Microscopic] Stat Lab 07/25/24 10:51 Completed Urine Culture Stat Micro 07/25/24 10:51 Received Medical Decision Narrative: 68-year-old female no relevant medical history presenting with flank pain. Patient states that she thought she was having UTI starting yesterday, 07/24. She started having fullness in the right flank, lower pelvis. Had frequency, urgency without hematuria. No fevers or chills, nausea or vomiting. States that the last time she had this, it was a UTI. Pain is mild, starts in her right flank, radiates through into her right groin. No superficial skin tenderness or rash. History was obtained via conversation with patient. On arrival, patient hemodynamically stable, alert, oriented x4, appropriate, GCS 15, moving all extremities spontaneously, pupils equal and reactive to light. Full physical exam performed and significant for very well-appearing female who is in no acute distress. Right flank is red from being massaged, but no superficial skin tenderness concerning for developing zoster. Tender to percussion. Abdomen is soft, nontender, nondistended. Mildly hypertensive, nontachycardic and very well-appearing overall. Differential includes nephrolithiasis, pyelonephritis, pancreatitis, cholecystitis, colitis, mesenteric ischemia, among others. Patient placed on continuous cardiac monitoring and continuous pulse ox with initial blood pressure 162/77, heart rate 56, saturation 98% on room air. Patient was given fluids, Toradol, Zofran for symptomatic management and correction of underlying abnormalities. Workup independently interpreted and significant for nonactionable hematologic labs. Urinalysis concerning for pyelonephritis. On independent interpretation of imaging, patient has concern for pyelonephritis and cystitis. See radiology read for full review of final results. On reevaluation, patient states she is feel much better. Given patient presentation, workup, history, this most likely represents acute pyelonephritis. Because patient at baseline without signs or symptoms of clinical decompensation, deemed appropriate for discharge. Results were relayed to patient who voiced understanding and were agreeable to outpatient management and follow up. I discussed my clinical impression with patient and answered all questions. At this time, the evidence for any other entities in the differential is insufficient to warrant any further testing or ED observation. This was explained as well. Advisory was given that persistent or worsening symptoms require further evaluation. I confirmed the understanding of this discussion. Grinder Set Up Operator Centerless disclaimer Much of this encounter note is an electronic bottom turner spoken language to printed text. Electronic bottom turner of the spoken language may permit errors. Although I have reviewed the note, some errors may still exist. Critical Care Critical Care Time Critical Care Time: No
[2024-07-25] MEDS: ONDANSETRON 4MG/2ML VIAL 4 MG IV (13:54)
[2024-07-25] MEDS: KETOROLAC 30MG/ML VIAL 15 MG IV (13:54)
[2024-07-25 13:57] VITALS: BP 150/65; PULSE 58; RESP 18; O2SAT 99
--- NOTE | 2024-07-25 14:21 | PC.NURSE ---
Rounded on pt. No needs voiced at this time. Call light within reach.
[2024-07-25 15:11] VITALS: BP 144/77; PULSE 81; RESP 20; TEMP 36.7; O2SAT 96
--- NOTE | 2024-07-27 10:58 | PC.NURSE ---
REVIEWED URINE CULTURE RESULTS WITH Danielle ESQUIVEL APRN, NO CHANGE NEEDED AT THIS TIME
--- NOTE | 2024-07-29 13:02 | PC.NURSE ---
URINE CULTURE RESULTS REVIEWED BY Connie PAINTING APRN, NO CHANGES NEEDED AT THIS TIME
== END 2024-07-25 15:57 | disposition home or self-care (01) ==
LOC: UTC 10:44 → ER 12:08
PROVIDERS: Nurse Practitioner; Emergency Provider Emergency Medicine; PCP Nurse Practitioner
DX: N10 Acute pyelonephritis (principal); R11.0 Nausea; J44.9 Chronic obstructive pulmonary disease, unspecified; E78.5 Hyperlipidemia, unspecified
CPT/HCPCS: 74177; 80053; 81001; 81003; 83605; 85025; 87086; 87088; 87186; 96365; 96375; 99285; J0696; J1885; J2405; Q9967

== ENCOUNTER 2024-12-23 09:55 | Outpatient (CLI) | payer MEDICARE, SELFPAY ==
--- NOTE | 2024-12-23 | XR_ITS ---
FINAL REPORT TECHNIQUE: Four views CLINICAL HISTORY: CHRONIC RT-SIDE T-SPINE PAIN COMPARISON: None FINDINGS: THORACIC SPINE: 4 views of the thoracic spine were obtained. There is mild scoliosis present, with a 15 degree curvature, with the apex directed to the patient's right. A loop recording device is noted. There are mild multilevel anterior osteophytes noted in the mid and upper thoracic region. No acute bony abnormality is identified. IMPRESSION: Mild degenerative change as described, without acute bony abnormality. Reviewed, Interpreted and Dictated by Anibal Lyons MD Transcribed by Belinda Dawn Authenticated and . [facility]
--- NOTE | 2024-12-23 09:57 | CT_ITS ---
FINAL REPORT CLINICAL HISTORY: SCREENING former smoker quit 20 yrs ago 1 ppd x 15+ yrs DLP 99.25 COMPARISON: 08/25/2022 FINDINGS: CTDI vol (mGy): 2.90 DLP: 99.[address] images of the chest were obtained using the low-dose protocol for screening. There is a loop recorder device overlying the left anterior chest. A few scattered mediastinal lymph nodes are present. No axillary mass or adenopathy is identified. On the lung window images, no new mass or nodule is identified. Previously seen small nodules in the left upper lobe are not well-visualized. There is biapical pleural and parenchymal scarring. IMPRESSION: Previously seen nodules not well-visualized. No new mass or nodule. Lung RADS category 2. Recommend 12 month followup low-dose CT for further evaluation. Reviewed, Interpreted and Dictated by Anibal Lyons MD Transcribed by Roxane Osorio Authenticated and [facility]
== END 2024-12-23 23:59 | disposition home or self-care (01) ==
LOC: RAD 09:56
PROVIDERS: PCP Nurse Practitioner; Visit Provider Nurse Practitioner
DX: M54.6 Pain in thoracic spine (principal); G89.29 Other chronic pain; Z87.891 Personal history of nicotine dependence
CPT/HCPCS: 71271; 72072

== ENCOUNTER 2025-03-12 11:40 | Outpatient (CLI) | payer MEDICARE, SELFPAY ==
--- OUTSIDE RECORDS SUMMARY | 2025-03-13 09:50 | XMS_ITS | Data Portability ---
Author Organization [facility] IV[facility]T Clemens DONNELLSON CLOSED Address [address] [place] [address] Care Team Providers Care Mold Carpenter Name Role Phone BRAVO STROUD Primary Care Provider Assessment Encounter Date Assessment Date Assessment LastModified by Organization Details LastModified Time 08/31/2023 08/31/2023 We discussed UTI prevention with adequate hydration, timed and double voids, [id number] er suppressive medications such as cranberry tablets and d-mannose. Medical management lower urinary symptoms and UTI prevention with suppressive methenamine and treatment of atrophic vaginitis with topical vaginal estrogen creams. We discussed need for adequate hydration with timed and double voids. [email or web address] Not available 09/06/2023 19:10:05 Plan of Treatment Reminders Order Date Submit Date Provider Last Modified By Organization Details Last Modified Time Details Appointments None recorded. Lab urinalysis panel, auto 2022 023 [email or web address] 14 [facility], [address] [place] [address] [address], [place], [address], 14:55:59 culture, urine 2022 023 [facility] [[email or web address] Laboratory, [address], [place], [address], 11:46:28 Referral None recorded. Procedures None recorded. Surgeries None recorded. Imaging None recorded. Medication Orders estradiol 0.01% (0.1 mg/gram) vaginal cream 2022 023 ANA ROSA [id number], [address] [place] [place], [id number], 14:56:10 methenamine hippurate 1 gram tablet 2022 023 ANA ROSA [id number], [address] [place], [id number], 14:56:07 Patient TargetsNo targets recorded. Patient InstructionsNo instructions recorded. Reason for Referral None Reported. Results Created Date Observation Date Name Description Value Unit Range Abnormal Flag Note LastModifiedBy Organization Detail LastModifiedTime 08/31/2009/04/2023 URINE CULTU RE urine culture No growth day 4. Not Available [facility] [address] [place], [address], 09/04/2023 08:34:57 08/31/2008/31/2023 urina lysis panel , auto Unknown Analyte Clean Catch Not Available [facility] With [address], [place], [address], 08/31/2023 14:52:45 08/31/2008/31/2023 urina lysis panel , auto Unknown Analyte Yellow Not Available [facility] With [address], [place], [address], 08/31/2023 14:52:45 08/31/2008/31/2023 urina lysis panel , auto Unknown Analyte Clear Not Available [facility] With [address], [place], [address], 08/31/2023 14:52:45 08/31/2008/31/2023 urina lysis panel , auto Unknown Analyte 1.020 Not Available [facility] With [address], [place], [address], 08/31/2023 14:52:45 08/31/2008/31/2023 urina lysis panel , auto Unknown Analyte 1.003- 1.035 Not Available [facility] With [address], [place], [address], 08/31/2023 14:52:45 08/31/2008/31/2023 urina lysis panel , auto Unknown Analyte 6.0 Not Available [facility] With [address], [place], [address], 08/31/2023 14:52:45 08/31/2008/31/2023 urina lysis panel , auto Unknown Analyte 5.0-8. 0 Not Available [facility] With [address], [place], [address], 08/31/2023 14:52:45 08/31/2008/31/2023 urina lysis panel , auto Unknown Analyte 25 Ekaterina/ul Trace Not Available [facility] With [address], [place], [address], 08/31/2023 14:52:45 08/31/2008/31/2023 urina lysis panel , auto Unknown Analyte Negati ve Not Available [facility] With [address], [place], [address], 08/31/2023 14:52:45 08/31/2008/31/2023 urina lysis panel , auto Unknown Analyte Negati ve Not Available [facility] With [address], [place], [address], 08/31/2023 14:52:45 08/31/2008/31/2023 urina lysis panel , auto Unknown Analyte Negati ve Not Available [facility] With [address], [place], [address], 08/31/2023 14:52:45 08/31/2008/31/2023 urina lysis panel , auto Unknown Analyte Trace Not Available [facility] With [address] [place], [address], 08/31/2023 14:52:45 08/31/2008/31/2023 urina lysis panel , auto Unknown Analyte Negati ve Not Available [facility] With [address] [place], [address], 08/31/2023 14:52:45 08/31/2008/31/2023 urina lysis panel , auto Unknown Analyte Normal Not Available [facility] With [address] [place], [address], 08/31/2023 14:52:45 08/31/2008/31/2023 urina lysis panel , auto Unknown Analyte Normal Not Available [facility] With [address] [place], [address], 08/31/2023 14:52:45 08/31/2008/31/2023 urina lysis panel , auto Unknown Analyte 15 mg/dl (Sm) Not Available [facility] With [address] [place], [address], 08/31/2023 14:52:45 08/31/2008/31/2023 urina lysis panel , auto Unknown Analyte Negati ve Not Available [facility] With [address] [place], [address], 08/31/2023 14:52:45 08/31/2008/31/2023 urina lysis panel , auto Unknown Analyte 1 mg/dl Not Available [facility] With [address], [place], [address], 08/31/2023 14:52:45 08/31/2008/31/2023 urina lysis panel , auto Unknown Analyte Normal 1 mg/dl Not Available [facility] With [address], [place], [address], 08/31/2023 14:52:45 08/31/2008/31/2023 urina lysis panel , auto Unknown Analyte 1 mg/dl (+) Not Available [facility] With [address], [place], [address], 08/31/2023 14:52:45 08/31/2008/31/2023 urina lysis panel , auto Unknown Analyte Negati ve Not Available [facility] With [address], [place], [address], 08/31/2023 14:52:45 08/31/2008/31/2023 urina lysis panel , auto Unknown Analyte Negati ve Not Available [facility] With [address], [place], [address], 08/31/2023 14:52:45 08/31/2008/31/2023 urina lysis panel , auto Unknown Analyte Negati ve Not Available [facility] With [address], [place], [address], 08/31/2023 14:52:45 Result Notes None recorded. Medical Equipment None Reported. Allergies No known drug allergies Medications Name Sig Start Date Stop Date Status Note LastModified by Organization Details LastModified Time methenamine hippurate 1 gram tablet Take 1 tablet twice a day by oral route for 90 days. 2022 active Not Available Not Available Not Avai lable estradiol 0.01% (0.1 mg/gram) vaginal cream Apply fingertip amount to urethral meatus nightly 2022 active Not Available Not Available Not Avai lable Plavix active Not Available Not Availa ble Not Available Zonegran active Not Available Not Avai lable Not Available D3-2000 active Not Available Not Avail able Not Available zinc (glycinate) 20 mg capsule Take by oral route. active Not Available Not Available No t Available Vitals Date Recorded Body height Body mass index (BMI) Body weight Provider Name and Address Organization Details Last Updated DateTime 08/31/2023 172.72 cm 21 kg/m2 83615.75 g Batsheva Gutierrez [facility] 08/31/2023 14:39:06 Social History Question Answer Notes LastModified by Organizat ion Details LastModified Time Tobacco Smoking Status Former [facility] 14:50:21 What Is Your Level Of Alcohol Consumption? None Information not available 08/31/2023 What Was The Date Of Your Most Recent Tobacco Screening? 08/31/2023 Information not available 08/31/2023 Sex: Unknown Functional Status None recorded. Mental Status None recorded. Family History Relationship Description Onset Age of this Age Resolved Age Notes LastModified by Organization Details LastModified Time Brother Kidney disease Not available 2022 14:49:49 Sister Family history of malignant neoplasm Not available 2022 14:49:55 Medical History Condition Response Arthritis Y Seizures/Epilepsy Y Stroke Y Chronic Obstructive Pulmonary Disease Y High Cholesterol Y Gynecological HistoryNo gynecological history recorded. Obstetrics History GPAL:G 0 P 0 0 0 0 Past Encounters Encounter ID Performer Location Encounter Start Date Encounter Closed Date Diagnosis/Indication Diagnosis SNOMED-CT Code Diagnosis ICD10 Code Diagnosis Note [id number] MD [facility] [address] [place] [address] ,[address] [place] [address] 08/31/2023 13:48:34 08/31/2023 15:08:18 Urinary tract infectious disease 85670414 N39.0 Recurrent urinary tract infection 666421838 N39.0 Atrophic vaginitis 52529 000 N95.2 Health Concerns Section Related Observation LastModified by Organization Detai ls LastModified Time None Recorded Concern Status LastModified by Organization Details LastModified Time None Recorded Advance Directives Directive None Recorded Payers Encounter Date Sequence Insurance Name Policy Number Policy Landers Covered Member ID Landers Member ID Guarantor Name 08/31/2023 1 [facility] RE [facility] [id number] Howard Burrell [id number] Lisandra Indra Notes Date Note Type Note Provider Name and Address Organization Details Recorded Time 08/31/2023 text/html 67-year-old frank le in the office for my initial evaluation and for discussion of recurring urinary tract infections. She has dealt with this problem all of her life, but she reports is worsened after menopause. She has been having recurrent UTIs every few weeks since January.No hesitancy. Occasional urgency. Daytime frequency every hour. Nocturia 1-3 times. No gross hematuria. Occasional dysuria. She denies history of kidney stones. She states she was treated with Keflex approximately 3 weeks ago and Bactrim now. ANAYELI GOULD [place], [address], [facility] 09/06/2023 19:10:20 OBGyn Episode No OBEpisode recorded.
== END 2025-03-12 23:59 | disposition home or self-care (01) ==
LOC: LAB.DROPOF 03-13 09:48
PROVIDERS: PCP Student in an Organized Health Care Education/Training Program; Visit Provider Student in an Organized Health Care Education/Training Program
DX: R30.0 Dysuria (principal); N39.0 Urinary tract infection, site not specified; B96.20 Unspecified Escherichia coli [E. coli] as the cause of diseases classified elsewhere
CPT/HCPCS: 87086; 87088; 87186

== ENCOUNTER 2025-03-25 11:40 | Outpatient (CLI) | payer MEDICARE, SELFPAY ==
--- NOTE | 2025-03-25 11:45 | XR_ITS ---
FINAL REPORT CLINICAL HISTORY: cough hx of loop recorder COMPARISON: 09/26/2019 FINDINGS: PA and lateral views of the chest were obtained. The cardiac and mediastinal silhouettes are within normal limits. The lungs are clear. There is no pleural effusion or pneumothorax. No acute osseous abnormality is identified. IMPRESSION: No radiographic evidence of acute cardiac or pulmonary disease. Reviewed, Interpreted and Dictated by Luann Chua MD Transcribed by Belinda Dawn Authenticated and [facility]
== END 2025-03-25 23:59 | disposition home or self-care (01) ==
LOC: RAD 11:42
PROVIDERS: PCP Nurse Practitioner; Visit Provider Student in an Organized Health Care Education/Training Program
DX: R05.9 Cough, unspecified (principal)
CPT/HCPCS: 71046

== ENCOUNTER 2025-05-15 10:49 | Outpatient (CLI) | payer MEDICARE, SELFPAY ==
--- OUTSIDE RECORDS SUMMARY | 2025-04-22 13:00 | XMS_ITS | Encounter Summary ---
Author Organization [facility] Address [address] [place] [address] Care Team Providers Care Cra Name Role Phone Cherelle Mitchell MD Unavailable Flavia Azar APRN Primary Care Provider Paddy Morales MD Unavailable [phone] Reason for Visit * Reason Comments Follow-up Encounter Details Date Type Department Care Team (Late st Contact Info) Description 04/22/2025 1:00 PM EDT Office Visit [place] [facility] [address], [address] [place] [address] Paddy Morales MD [address] [place] [address] Status post cervical spinal fusion [...] Exam GCS(EMV): 465 Strength: Delt Bi Tri Cupola Liner Helper Intrinsics RUE: 5/5 5/5 5/5 5/5 5/5 [...] see her back in 1 year. Salima Faith MD Resident Physician, PGY-1 Department of Neurosurgery [facility]' [1] [2] [3] Cosigned by Paddy Morales [...] Visit [place] [facility] [address], [address] [place] [address] Paddy Morales MD [address] [place] [address] documented as of this encounter [...] on 04/22/2025 4:02 PM us Sonia Frazier CHASSIS DRIVER, DNP IMG XR PROCEDURES Jackie l Result [...] documented as of this encounter Care Teams Cra Relationship Specialty Start Date End Date Flavia Azar, CHASSIS DRIVER [address] [place] [address] PCP - General 10/28/22 Cherelle Mitchell MD [address] [address] Service Attending Neurology 03/02/22 Paddy Morales MD [address] [address] Surgeon Neurosurgery 10/28/22 documented as of this encounter
--- OUTSIDE RECORDS SUMMARY | 2025-04-22 13:03 | XMS_ITS | Encounter Summary ---
Author Organization [facility] Address [address] [place] [address] Care Team Providers Care Z Os Mainframe Systems Programmer Name Role Phone Cherelle Mitchell MD Unavailable [phone] Flavia Azar APRN Primary Care Provider [phone] Paddy Morales MD Unavailable [phone] Encounter Details Date Type Department Care Team (Latest Contact Info) Description 04/22/2025 1:03 PM EDT - 04/22/2025 11:59 PM EDT Hospital Encounter [place] [facility] [address] [place] [phone] Status post cervical spinal fusion Discharge Disposition: [...] mouth daily. 90 tablet 01/30/2025 sodium chloride ([place]) 0.65 % nasal spray Administer 1 spray [...] Visit [place] [facility] [address] [place] [address] Paddy Morales MD [address] [facility] [address] [place] [address] documented as of this encounter [...] on 04/22/2025 4:02 PM us Sonia Frazier IRONING WORKER, DNP IMG XR PROCEDURES Jackie l Result [...] documented as of this encounter Care Teams Z [employer] Mainframe Systems Programmer Relationship Specialty Start Date End Date Flavia Azar APRN [address] [place] [address] PCP - General 10/28/22 Cherelle Mitchell MD [address] [address] Service Attending Neurology 03/02/22 Paddy Morales MD [address] [address] Surgeon Neurosurgery 10/28/22 documented as of this encounter
--- NOTE | 2025-05-15 | CA_ITS ---
FINAL REPORT CLINICAL HISTORY: Left vertebral artery occlusion per CT COMPARISON: None FINDINGS: RIGHT CAROTID: CCA PSV -102 cm/sec ICA PSV -137 cm/sec ICA/CCA PSV ratio -1.4. Comments: Moderate plaque disease is noted. LEFTCAROTID: CCA PSV -112. cm/sec ICA PSV -124. cm/sec ICA/CCA PSV ratio -1.4. Comments: Moderate plaque disease is noted. Antegrade flow is seen within the right vertebral artery. No definite flow is seen in the left vertebral artery. IMPRESSION: Carotid stenosis classified less than 50% Antegrade flow is present in the right vertebral artery. No definite flow is visualized in the left vertebral artery, however this is better assessed with either CTA or MRA if relevant. Reviewed, Interpreted and Dictated by Jackie Camacho MD Transcribed by Belinda Dawn Authenticated and [facility]
--- OUTSIDE RECORDS SUMMARY | 2025-05-15 11:06 | XMS_ITS | Clinical Summary ---
Author Organization [facility] [employer] Address [address] [place] [address] Care Team Providers Care Edge Trimming Machine Operator Name Role Phone Flavia Azar NP Primary Care Provider [phone] Allergies Active Allergy Reactions Criticality Noted Date Comments Benzodiazepines Other (See Comments) Low 08/25/2020 excruciating pain and upset stomach Cyclobenzaprine Nausea Only,Other (S ee Comments) Low 08/11/2020 Other reaction(s): Myalgia, Unknown excruciating pain and nausea s/p gallbladder removal Lamotrigine Rash Low 11/01/2019 Other reaction(s): Unknown Other Low 09/10/2021 Other reaction(s): Other Controlled substances Medications zinc gluconate 100 mg Tab Active cholecalciferol (VITAMIN D3) 25 mcg (1,000 unit) tablet Active clopidogreL (PLAVIX) 75 mg tablet Take 1 tablet (75 mg total) by mouth daily. 02/24/2023 Active rosuvastatin (CRESTOR) 20 MG tablet Take 1 tablet (20 mg total) by mouth daily. Active Active Problems Problem Noted Date Diagnosed Date Encounter for general adult medical examination without abnormal findings 03/07/2023 Asymptomatic varicose veins of both lower extrem ities 10/18/2022 Overview (03/07/2023): Last Assessment & Plan: Patient with complaints of worsening spider veins particularly in her lower extremities below the knee. Denies any pain associated with these veins. Pulses palpable. Adequate cap refill on exam. Discussed use of compression hose and surgical intervention. We discussed that given she is asymptomatic use of compression hose would be the best option at this time Cerebral arterial aneurysm 10/18/2022 Overview (03/07/2023): Last Assessment & Plan: 2 mm involving supraclinoid segment of the left internal carotid artery; followed by Dr. Nolen, neurosurgeon at the [facility], with no recommendations for intervention Nocturnal leg movements 10/18/2022 Overview (03/07/2023): Last Assessment & Plan: She reports new onset leg cramping, generalized leg discomfort and calf fluttering for approximately one month now. She reports this sensation only from knee to foot, she has to get out of bed to walk and sometimes apply warm compress to achieve comfort. It is now disturbing her sleep to a point she is not well rested. -Check electrolytes, iron and folic acid -Will trial ropinerole as written -RTC 4 weeks for follow up Paresthesia of bilateral legs 10/18/2022 Overview (03/07/2023): Last Assessment & Plan: Paresthesias involving lower extremities. Etiology uncertain. Extensive investigations were undertaken with no specific etiology found for paresthesias. Abnormal EEG 11/30/2020 Status post placement of implantable loop record er 08/12/2020 Burning sensation of feet 03/23/2020 Tingling of both upper extremities 03/23/2020 Weakness of left arm 03/23/2020 Hypercoagulopathy 03/23/2020 Tingling of face 03/23/2020 Arthritis 01/10/2020 Spinal stenosis of cervical region 01/10/2020 Overview (03/07/2023): Last Assessment & Plan: Underwent C4-7 ACDF, 08/26/2020, Dr. Tolliver. Per patient, minimal improvement if any at all, with persisting left upper extremity paresthesias, fine motor incoordination. Patient did have a cervical MRI performed as ordered by Dr. 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 Hyperlipidemia 09/02/2019 Overview (03/07/2023): Last Assessment & Plan: Previously on lipitor changed to crestor by neurology due to ongoing myalgia Stroke 09/02/2019 Acid reflux 12/04/2018 Lung nodule, solitary 04/03/2018 Mediastinal adenopathy 04/03/2018 Immunizations Name Administration Dates Next Due Influenza Four-qiv Pf 08/24/2019 Influenza, Unspecified Pf 08/25/2017,10/03/2016 Pneumococcal Conjugate (Prevnar) 13-Valent 10/23 SHINGLES VARICELLA (ZOSTAVAX) ZOSTER 11/01/2015 Tdap 09/16/2018,08/20/2018 Social History Tobacco Use Types Packs/Day Years Used Date Smoking Tobacco: Former Cigarettes 1 20 1 983 - 2002 Smokeless Tobacco: Never Tobacco Cessation:Counseling Given: Not Answered Alcohol Use Standard Drinks/Week Comments Not Currently 0 (1 standard drink = 0.6 oz pur e alcohol) Interpersonal Safety Answer Date Record ed Family or friends hurt you Not on file 12/02 Family or friends insult you Not on file Family or friends threaten you Not on file 0 12/02/2023 Family or friends scream or curse at you Not on file 12/02/2023 Housing Stability Answer Date Recorded Living situation today Not on file Living situation problems Not on file 2023 Employment Answer Date Recorded Help finding and keeping a job Not on file 0 12/02/2023 Family and Community Support Answer Tremayne e Recorded Help with Day to Day Activities Not on file 12/02/2023 Feeling Lonely or Isolated Not on file 12/02 Educational Attainment Answer Date Jose Carlos rded Speak language other than Portuguese at home Not on file 12/02/2023 Want help with school or training Not on file 12/02/2023 Depression Answer Date Recorded PHQ-2 Risk Not on file 12/02/2023 Disabilities Answer Date Recorded Difficulty concentrating Not on file 024 Difficulty doing errands alone Not on file 0 12/02/2023 Substance Use Answer Date Recorded Used prescription meds for non-medical reasons N ot on file 12/02/2023 Used illegal drugs past 12 months Not on file 12/02/2023 Comments Unknown Sex and Gender Information Value Date Recorded Sex Assigned at Not on file Legal Sex Female 5:19 PM CDT Gender Identity Not on file Sexual Orientation Not on file Last Filed Vital Signs Vital Sign Reading Time Taken Comments Blood Pressure 122/68 11/07/2024 10:25 AM EST Pulse 67 11/07/2024 10:25 AM EST Temperature - - Respiratory Rate 16 05/07/2024 2:52 PM EDT Oxygen Saturation 98% 11/07/2024 10:25 AM EST Inhaled Oxygen Concentration - - Weight 68.9 kg (152 lb) 11/07/2024 10:25 AM EST Height 172.7 cm (5' 8 ) 11/07/2024 10:25 AM EST Body Mass Index 23.11 11/07/2024 10:25 AM EST Plan of Treatment Upcoming Encounters Date Type Department Care Team (Late st Contact Info) Description 06/18/2025 2:30 PM EDT Office Visit [facility] Cardiology [address] [place] [address] Janet Olvera, CASEWORK SPECIALIST [address] [facility] [address] [place] [address] Health Maintenance Due Date Last Done Comments CT Colonography 1955 Colonoscopy 1953 Colorectal Cancer Screening 1953 DXA SCAN 1953 FOBT/FIT 1953 Fit-DNA (Cologuard) 1955 Sigmoidoscopy 1953 Depression Screening (12+) 1965 Hepatitis C Screening 1971 Breast Cancer Screening 1993 Respiratory Syncytial Virus (RSV) Adult or (1 - Risk 60-74 years 1-dose series) 2013 Shingles Vaccine (Zoster) (2 of 2) 12/27/20152014 Pneumococcal 50+ years (2 of 2 - PPSV23) 10/23/2016 10/23/2015 Medicare Initial AWV [id number] 11/21/2022 COVID-19 VACCINE ( season) 2024 Tobacco Cessation Counseling and Screening (12+) 09/21/2024 09/21/2023 Falls Risk Screening 11/20/2024 Influenza Vaccine (Season Ended) 2025 DTAP/TDAP/TD VACCINES (3 - Td or Tdap) 09/16/2028, 08/20/2018 Insurance [employer] M[employer] ADV Care Teams Edge Trimming Machine Operator Relationship Specialty Start Date End Date Flavia Azar NP [address] [address] PCP - General Family Medicine 02/27/23
--- OUTSIDE RECORDS SUMMARY | 2025-05-15 11:06 | XMS_ITS | Encounter Summary ---
Author Organization [facility] Address [address] [place] [address] Care Team Providers Care Memory Care Program Director Name Role Phone Cherelle Mitchell MD Unavailable Flavia Azar APRN Primary Care Provider Paddy Morales MD Unavailable [phone] Reason for Visit * Reason Comments Med Refill Encounter Details Date Type Department Care Team (Late st Contact Info) Description 12/17/2023 Refill [place] [facility] [address] [place] [address] Cherelle Mitchell MD [address] [place] [address] Abnormal EEG Social History Tobacco Use Types Packs/Day Years [...] on file documented as of this encounter Functional Status * Calculated C-SSRS Risk Score (Lifetime/Recent) Answer Date of Assessment Author No Risk Indicated 12/17/2023 8:00 AM Lin Rothman RN * Question Answer Date of Assessment Author 1. Wish to be (Past 1 Month) No 12/17/2023 8:00 AM Lin Rothman RN 2. Non-Specific Active Suici zoe Thoughts (Past 1 Month) No 12/17/2023 8:00 AM Melissa Rothman RN 6. Suicidal Behavior (Lifetime) No 8:00 AM Lin Rothman RN documented as of this encounter Plan of Treatment Upcoming Encounters Date Type Department Care Team (Late st Contact Info) Description 05/05/2026 1:00 PM EDT Office Visit [place] [facility] [address] [place] [address] Paddy Morales MD [address] [address] documented as of this encounter Visit Diagnoses Diagnosis Abnormal EEG documented in this encounter Additional Health Concerns Assessment Noted Time A fall risk assessment has been complete d for the patient 04/25/2023 10:45 AM EDT A Body Mass Index follow-up plan has been documented for the patient 12/17/2023 12:35 PM EST documented as of this encounter Care Teams Memory Care Program Director Relationship Specialty Start Date End Date Flavia Azar APRN [address] [place] [address] PCP - General 10/28/22 Cherelle Mitchell MD [address] [facility] [address] [place] [address] Service Attending Neurology 03/02/22 Paddy Morales MD [address] [address] Surgeon Neurosurgery 10/28/22 documented as of this encounter
--- OUTSIDE RECORDS SUMMARY | 2025-05-15 11:06 | XMS_ITS | Referral Summary ---
Author Organization [facility] [employer] Address [address] [place] [address] Care Team Providers Care Category Director Name Role Phone Flavia Azar NP Primary Care Provider [phone] Allergies Active Allergy Reactions Criticality Noted Date [...] followed by Dr. Nolen, neurosurgeon at the [facility], with no recommendations for intervention Nocturnal [...] performed as ordered by Dr. Tolliver at [facility] for follow-up evaluation Anxiety 01/01/2020 [...] Jose Carlos rded Speak language other than Irish at home Not on file 12/02/2023 Want [...] Description 06/18/2025 2:30 PM EDT Office Visit [facility] Cardiology [address] [place] [address] Janet Olvera, JARRELL [address] [facility] [address] [place] [address] Insurance AETNA [facility] ADV Care Teams Category Director Relationship Specialty Start Date End Date Flavia Azar, INVENTORY PLANNER [address] [facility] [place] [address] PCP - General Family Medicine 02/27/23
--- OUTSIDE RECORDS SUMMARY | 2025-05-15 11:06 | XMS_ITS | Encounter Summary ---
Author Organization [facility] Address [address] [place] [address] Care Team Providers Care Structural Steel Worker Helper Name Role Phone Chreelle Mitchell MD Unavailable Flavia Azar APRN Primary Care Provider Paddy Morales MD Unavailable [phone] Reason for Visit * Reason Comments Med Refill Encounter Details Date Type Department Care Team (Late st Contact Info) Description 04/25/2025 Refill [place] [facility] [address], [address] [place] [address] Cherelle Mitchell MD [address] [place] [address] Social History Tobacco Use Types Packs/Day Years [...] on file documented as of this encounter Plan of Treatment Upcoming Encounters Date Type Department Care Team (Late st Contact Info) Description 05/05/2026 1:00 PM EDT Office Visit [place] [facility] [address] [place] [address] Paddy Morales MD [address] [place] [address] documented as of this encounter Visit Diagnoses Not on filedocumented in this encounter Additional Health Concerns Assessment Noted Time A fall risk assessment has been complete d for the patient 01/30/2025 8:26 AM EDT A Body Mass Index follow-up plan has been documented for the patient 04/24/2025 4:27 PM EDT documented as of this encounter Care Teams Structural Steel Worker Helper Relationship Specialty Start Date End Date Flavia Azar APRN [address] [phone] PCP - General 10/28/22 Cherelle Mitchell MD [address] [place] [address] Service Attending Neurology 03/02/22 Paddy Morales MD [address] [place] [address] Surgeon Neurosurgery 10/28/22 documented as of this encounter
--- OUTSIDE RECORDS SUMMARY | 2025-05-15 11:06 | XMS_ITS | Encounter Summary ---
Author Organization [facility] Address [address] [place] [address] Care Team Providers Care Unified Communications Engineer Name Role Phone Cherelle Mitchell MD Unavailable Flavia Azar APRN Primary Care Provider Paddy Morales MD Unavailable [phone] Encounter Details Date Type Department Care Team (Late st Contact Info) Description 11/04/2022 Ophth Exam [facility] [address] [place] [address] Brad Piña MD [address] [place], [place] [id number] Social History Tobacco Use Types Packs/Day Years Used Date Smoking Tobacco: Former Cigarettes Q uit: 08/20/2001 Smokeless Tobacco: Never Alcohol Use Standard Drinks/Week Comments No 0 (1 standard drink = 0.6 oz pur e alcohol) Comments Unknown Sex and Gender Information Value Date Recorded Sex Assigned at Not on file Legal Sex Female 8:52 PM EDT Gender Identity Not on file Sexual Orientation Not on file COVID-19 Exposure Response Date Recorded In the last 10 days, have yo u been in contact with someone who was confirmed or suspected to have Coronavirus/COVID-19? No / Unsure 11/04/2022 3:28 PM EST documented as of this encounter Functional Status * Calculated C-SSRS Risk Score (Lifetime/Recent) Answer Date of Assessment Author No Risk Indicated 11/04/2022 3:35 PM Bee Schafer, RN * Question Answer Date of Assessment Author 1. Wish to be (Past 1 Month) No 022 3:35 PM Bee Schafer, RN 2. Non-Specific Active Suici zoe Thoughts (Past 1 Month) No 11/04/2022 3:35 PM Bee Schafer , RN 6. Suicidal Behavior (Lifetime) No 3:35 PM Bee Schafer, RN documented as of this encounter Plan of Treatment Upcoming Encounters Date Type Department Care Team (Late st Contact Info) Description 05/05/2026 1:00 PM EDT Office Visit [facility] [address] [place] [address] Paddy Morales MD [address] [facility] [place] [address] documented as of this encounter Visit Diagnoses Not on filedocumented in this encounter Additional Health Concerns Assessment Noted Time A fall risk assessment has been complete d for the patient 10/28/2022 1:23 PM EST documented as of this encounter Care Teams Unified Communications Engineer Relationship Specialty Start Date End Date lFavia Azar APRN [address] [phone] PCP - General 10/28/22 Cherelle Mitchell MD [address] [place] [address] Service Attending Neurology 03/02/22 Paddy Morales MD [address] [place] [address] Surgeon Neurosurgery 10/28/22 documented as of this encounter
--- OUTSIDE RECORDS SUMMARY | 2025-05-15 11:06 | XMS_ITS | Clinical Summary ---
Author Organization [facility] Address [address] [place] [address] Care Team Providers Care Top Closer Name Role Phone Cherelle Mitchell MD Unavailable [phone] Flavia Azar APRN Primary Care Provider [phone] Paddy Morales MD Unavailable [phone]- [phone] Allergies Active Allergy Reactions Criticality Noted Date Comments Benzodiazepines Other - please document in the comment field,Unknown - Patient states they do not know rxn details Low 08/25/2020 excruciating pain and upset stomach excruciating pain and upset stomach gallbladder removal Cyclobenzaprine Nausea,Other - pleas e document in the comment field,Unknown - Patient states they do not know rxn details Low 08/11/2020 excruciating pain and nausea s/p gallbladder removal Other reaction(s): Myalgia, Unknown excruciating pain and nausea s/p gallbladder removal Lamotrigine Rash,Unknown - Patie nt states they do not know rxn details Low 11/01/2019 Other reaction(s): Unknown gallbladder removal Other Other - please document in the comment field Low 09/10/2021 Controlled substances gallbladder removal Medications cholecalciferol (Vitamin D-3) 25 MCG (1000 UT) tablet Take 1 tablet (1,000 Units) by mouth 1 (one) time each day. Active Zinc 100 MG tablet Active zinc gluconate 50 MG tablet Take 1 tablet (50 mg) by mouth 2 (two) times a day. Active loratadine (Claritin) 10 MG tablet Take 1 tablet (10 mg) by mouth 1 (one) time each day. 5 Active sodium chloride ([place]) 0.65 % nasal spray Administer 1 spray into affected nostril(s). 5 Active clopidogrel (Plavix) 75 MG tablet Take 1 tablet (75 mg) by mouth daily. 90 tablet 5 Active rosuvastatin (Crestor) 20 MG tablet Take 1 tablet (20 mg) by mouth daily. 90 tablet 5 01/31/20 26 Active phenazopyridine (Pyridium) 100 MG tablet TAKE 1 TABLET BY MOUTH 3 TIMES A DAY NEEDED FOR PAIN FOR 6 DOSES 5 Active Active Problems Problem Noted Date Diagnosed Date Alteration in sensory perception 12/15/2023 Cerebral arterial aneurysm 11/01/2022 Dysphagia 12/11/2020 Abnormal EEG 11/30/2020 Status post cervical spinal fusion 09/09/2020 Status post placement of implantable loop record er 08/12/2020 Muscle spasms of neck 07/08/2020 Burning sensation of feet 03/23/2020 Hypercoagulopathy 03/23/2020 Tingling of both upper extremities 03/23/2020 Tingling of face 03/23/2020 Weakness of left arm 03/23/2020 Arthritis 01/10/2020 Stenosis, cervical spine 01/10/2020 Anxiety 01/01/2020 Muscle spasms of lower extremity 01/01/2020 Stiffness of neck 01/01/2020 Seizure 01/01/2020 Sensation disturbance of skin 01/01/2020 Vertebral artery occlusion 01/01/2020 Stroke 09/02/2019 Hyperlipidemia 09/02/2019 Acid reflux 12/04/2018 Lung nodule, solitary 04/03/2018 Mediastinal adenopathy 04/03/2018 Encounters Date Type Department Care Team Description 04/25/2025 Refill [place] [facility] [address], [address] [place] [address] Cherelle Mitchell MD 04/22/2025 1:03 PM EDT - 04/22/2025 11:59 PM EDT [facility] [address], [address] [place] [address] Status post cervical spinal fusion Discharge Disposition: Home or Self Care 04/22/2025 1:00 PM EDT Office Visit [place] [facility] [address], [address] [place] [address] Paddy Morales MD Status post cervical spinal fusion (Primary Dx) 04/22/2025 Travel from Last 3 Months Immunizations Immunization Administration Dates Next Due Influenza Vaccine, Quadrivalent, Adjuvanted 01/2020 Influenza, Unspecified 08/24/2019 Influenza, injectable, quadrivalent, preservativ e free 08/24/2019,08/25/2017 Influenza, seasonal, injectable, preservative fr ee 10/03/2016 Pneumococcal Conjugate PCV 13 10/23/2015 Tdap 09/16/2018,08/20/2018 Zoster, live 11/01/2015 Family History Medical History Relation Name Comments Coronary artery disease Father Hypertension Father Diabetes Other Relation Name Status Comments Father Other Social History Tobacco Use Types Packs/Day Years Used Date Smoking Tobacco: Former Cigarettes Q uit: 08/20/2001 Passive Smoke Exposure: Past Smokeless Tobacco: Never Tobacco Cessation:Counseling Given: Not Answered Alcohol Use Standard Drinks/Week Comments No 0 [...] Pressure 157/77 04/22/2025 1:47 PM EDT Pulse 55 01/30/2025 8:26 AM EDT Temperature 36.7 C (98 F) 12/17/2023 7:28 AM EST Respiratory Rate 13 12/17/2023 7:28 AM EST Oxygen Saturation 95% 01/30/2025 8:26 AM EDT Inhaled Oxygen Concentration - - Weight 69.6 kg (153 lb 7 oz) 04/22/2025 1:47 PM EDT Height 172.7 cm (5' 8 ) 04/22/2025 1:47 PM EDT Body Mass Index 23.33 04/22/2025 1:47 PM EDT Plan of Treatment Upcoming Encounters Date Type Department Care Team (Late st Contact Info) Description 05/05/2026 1:00 PM EDT Office Visit [place] [facility] [address], [address] [place] [address] Paddy Morales MD [address] [place] [address] Health Maintenance Due Date Last Done Comments [facility]-Bone Density Scan 1955 [facility]-Depression Screening 1953 [facility]-/Child/Adol SDOH Screenings 1953 [facility]- SDOH Screenings 1971 [facility]-Adult SDOH Screenings 1971 CT Colonography 1998 Colonoscopy 1998 FIT-DNA 1998 FIT 1998 FOBT 1998 Sigmoidoscopy 1998 [facility]-Colorectal Cancer Screening 1998 [facility]-Breast Cancer Screening 2003 [facility]-Zoster Vaccines (2 of 3) 12/27/2015 11/01/2015 [facility]-Pneumococcal Vaccine: 50+ Years (2 of 2 - PPSV23) 10/23/2016 10/23/2015 [id number] Vaccine ( - season) 2024 [facility]-Medicare Annual Wellness (AWV) 09/13/2024 09/13/2023, 10/18/2022 [facility]-Influenza Vaccine (Season Ended) 2025 09/22/2020, 08/24/2019, 08/24/2019, Additional history exists [facility]-DTaP,Tdap,and Td Vaccines (3 - Td or Tdap) 09/16/2028 09/16/2018, 08/20/2018 [facility]-RSV Vaccine: 60+ Years or (1 - 1-dose 75+ series) 2028 [facility]-Diabetes: Hemoglobin A1C Discontinued 07/06/2020, 09/28/2019, 08/23/2019 [facility]-Hepatitis C Screening Completed 2022, 08/26/2020, 08/22/2019 HPV Vaccines Aged Out No longer eligi ble based on patient's age to complete this topic [facility]-HIB Vaccines Aged Out No longer e ligible based on patient's age to complete this topic [facility]-Hepatitis A Vaccines Aged Out No longer eligible based on patient's age to complete this topic [facility]-IPV Vaccines Aged Out No longer e ligible based on patient's age to complete this topic [facility]-Rotavirus Vaccines Aged Out No lo nger eligible based on patient's age to complete this topic Procedures Procedure Name Priority Date/Time Associated Diagnosis Comments XR CERVICAL SPINE COMPLETE 4 TO 5 VIEWS Routine 04/22/2025 1:14 PM EDT Status post cervical spinal fusion ACUTE HEPATITIS PANEL STAT 08/26/2020 12:29 PM EDT HEMOGLOBIN A1C Routine 07/06/2020 9:25 AM EDT from Last 3 Months or Most Recently Relevant to Health Maintenance Results * XR Cervical Spine Complete 4 [...] normal. Left carotid artery calcification. Procedure Note Grgeorio Nicholas MD - 04/22/2025 CLINICAL INDICATION: assess [...] Gregorio Nicholas MD on 04/22/2025 4:02 PM Sonia Frazier SHANK PINNER, DNP IMG XR PROCEDURES Jackie l Result * Acute Hepatitis Panel (08/26/2020 12:29 PM EDT) Pathologist [facility] Hepatitis B Surf Antigen NEGATIVE Reference Value: Negative [facility] Hepatitis C Antibody NEGATIVE Reference Range: Negative [facility] Hepatitis A Antibody IgM NEGATIVE Reference Value: Negative [facility] External Hepatitis B Core IgM (HBCM) NEGATIVE Reference Value: Negative [facility] 08/26/2020 12:2 9 PM EDT 08/26/2020 12:53 PM EDT Fidel Briones MD LAB BLOOD ORDERABLES Fi nal Result [facility] * Hemoglobin A1c (07/06/2020 9:25 AM EDT) Hemoglobin A1c 5.7 4.7 - 6.0 % [facility] Comment: Glycohemoglobin Reference Range, 0 years and up: 4.7 to 6.0% . HA1C Interpretive Data: Diagnosis of Diabetes: Diabetic > or = 6.5% Pre-diabetic 5.7 to 6.4% Non-diabetic < or = 5.6% . Glycemic Targets for Type I and Type II Diabetics: Non- Adults <7.0% Adults <6.0% Children and Adolescents <7.5% . Source: [place] [employer]. Standards of medical care in diabetes, 2017. Diabetes Care.2017:40 (suppl 1):S1-S135. . HbA1c assay performed by an ion-exchange chromatography method that is certified traceable to the DCCT. 07/06/2020 9:25 AM EDT 07/06/2020 12:32 PM EDT us Cherelle Mitchell MD LAB BLOOD ORDERABLES Final Re sult [facility] from Last 3 Months or Most Recently Relevant to Health Maintenance Insurance Advance Directives * Full Code (Latest Code Status on File) Date Activated Date Inactivated Comments 12/15/2023 9:23 AM 12/17/2023 2:51 PM Question Answer Comments Patient has decision-making capacity? Yes Care Teams Top Closer Relationship Specialty Start Date End Date Flavia Azar APRN [address] [phone] PCP - General 10/28/22 Cherelle Mitchell MD [address] [address] Service Attending Neurology 03/02/22 Paddy Morales MD [address] [address] Surgeon Neurosurgery 10/28/22
--- OUTSIDE RECORDS SUMMARY | 2025-05-15 11:06 | XMS_ITS | Data Portability ---
Author Organization [facility] BROOK [place] CLOSED Address [address] [facility] [address] [place] [address] Care Team Providers Care College Archivist Name Role Phone BRAVO STROUD Primary Care Provider Assessment Encounter Date Assessment Date Assessment LastModified by Organization Details LastModified Time 08/31/2023 08/31/2023 We discussed UTI prevention with adequate hydration, timed and double voids, [id number] er suppressive medications such as cranberry tablets and d-mannose. Medical management lower urinary symptoms and UTI prevention with suppressive methenamine and treatment of atrophic vaginitis with topical vaginal estrogen creams. We discussed need for adequate hydration with timed and double voids. [email or web address] Not available 09/06/2023 19:10:05 Plan of Treatment Reminders Order Date Submit Date Provider Last Modified By Organization Details Last Modified Time Details Appointments None recorded. Lab urinalysis panel, auto 2022 023 [email or web address] 14 [facility] [place] Extended Services With [facility], [address] [place] [address] Dr [address], [place], [address], 14:55:59 culture, urine [address], [address] [place], [address], 11:46:28 Referral None recorded. Procedures None recorded. Surgeries None recorded. Imaging None recorded. Medication Orders estradiol 0.01% (0.1 mg/gram) vaginal cream 2022 023 [id number], [address] [facility] [address] [place], [id number], 14:56:10 methenamine hippurate 1 gram tablet 2022 023 ANA ROSA [facility][id number], [address] [facility] [address] [place] [place], [id number], 14:56:07 Patient TargetsNo targets recorded. Patient InstructionsNo instructions recorded. Reason for Referral None Reported. Results Created Date Observation Date Name Description Value Unit Range Abnormal Flag Note LastModifiedBy Organization Detail LastModifiedTime 08/31/2009/04/2023 URINE CULTU RE urine culture No growth day 4. Not Available [facility] [address] [place], [address], 09/04/2023 08:34:57 08/31/2008/31/2023 urina lysis panel , auto Unknown Analyte Clean Catch Not Available [facility]rology [place] Extended Services With [address], [place], [address], 08/31/2023 14:52:45 08/31/2008/31/2023 urina lysis panel , auto Unknown Analyte Yellow Not Available [facility] Extended Services With [address] Franklin, [place], [address], 08/31/2023 14:52:45 08/31/2008/31/2023 urina lysis panel , auto Unknown Analyte Clear Not Available [facility] Urology [place] Extended Services With [address], [place], [address], 08/31/2023 14:52:45 08/31/2008/31/2023 urina lysis panel , auto Unknown Analyte 1.020 Not Available [facility]rology [place] Extended Services With [address], [place], [address], 08/31/2023 14:52:45 08/31/2008/31/2023 urina lysis panel , auto Unknown Analyte 1.003- 1.035 Not Available [facility] Extended Services With [address], [place], [address], 08/31/2023 14:52:45 08/31/2008/31/2023 urina lysis panel , auto Unknown Analyte 6.0 Not Available [facility] Extended Services With [address], [place], [address], 08/31/2023 14:52:45 08/31/2008/31/2023 urina lysis panel , auto Unknown Analyte 5.0-8. 0 Not Available [facility] Extended Services With [address], [place], [address], 08/31/2023 14:52:45 08/31/2008/31/2023 urina lysis panel , auto Unknown Analyte 25 Ekaterina/ul Trace Not Available [facility] Extended Services With [address] Franklin, [place], [address], 08/31/2023 14:52:45 08/31/2008/31/2023 urina lysis panel , auto Unknown Analyte Negati ve Not Available [facility] Extended Services With [address], [place], [address], 08/31/2023 14:52:45 08/31/2008/31/2023 urina lysis panel , auto Unknown Analyte Negati ve Not Available [facility] Extended Services With [address], [place], [address], 08/31/2023 14:52:45 08/31/2008/31/2023 urina lysis panel , auto Unknown Analyte Negati ve Not Available [facility] Extended Services With [address] Franklin, [place], [address], 08/31/2023 14:52:45 08/31/2008/31/2023 urina lysis panel , auto Unknown Analyte Trace Not Available [facility] Extended Services With [address] [place], [address], 08/31/2023 14:52:45 08/31/2008/31/2023 urina lysis panel , auto Unknown Analyte Negati ve Not Available [facility] Extended Services With [address] [place], [address], 08/31/2023 14:52:45 08/31/2008/31/2023 urina lysis panel , auto Unknown Analyte Normal Not Available [facility] Extended Services With [address] [place], [address], 08/31/2023 14:52:45 08/31/2008/31/2023 urina lysis panel , auto Unknown Analyte Normal Not Available [facility] Extended Services With [address] [place], [address], 08/31/2023 14:52:45 08/31/2008/31/2023 urina lysis panel , auto Unknown Analyte 15 mg/dl (Sm) Not Available [facility] Extended Services With [address] [place], [address], 08/31/2023 14:52:45 08/31/2008/31/2023 urina lysis panel , auto Unknown Analyte Negati ve Not Available [facility] Extended Services With [address] [place], [address], 08/31/2023 14:52:45 08/31/2008/31/2023 urina lysis panel , auto Unknown Analyte 1 mg/dl Not Available [facility] Extended Services With [address], [place], [address], 08/31/2023 14:52:45 08/31/2008/31/2023 urina lysis panel , auto Unknown Analyte Normal 1 mg/dl Not Available [facility] Extended Services With [address], [place], [address], 08/31/2023 14:52:45 08/31/2008/31/2023 urina lysis panel , auto Unknown Analyte 1 mg/dl (+) Not Available [facility] Extended Services With [address], [place], [address], 08/31/2023 14:52:45 08/31/2008/31/2023 urina lysis panel , auto Unknown Analyte Negati ve Not Available [facility] Extended Services With [address], [place], [address], 08/31/2023 14:52:45 08/31/2008/31/2023 urina lysis panel , auto Unknown Analyte Negati ve Not Available [facility] Extended Services With [address], [place], [address], 08/31/2023 14:52:45 08/31/2008/31/2023 urina lysis panel , auto Unknown Analyte Negati ve Not Available [facility] Extended Services With [address], [place], [address], 08/31/2023 14:52:45 Result Notes None recorded. Medical [...] Updated DateTime 08/31/2023 172.72 cm 21 kg/m2 30002.75 g Batsheva Gutierrez [facility] 08/31/2023 14:39:06 Social History Question Answer Notes LastModified by Organizat ion Details LastModified Time Tobacco Smoking Status Former Smoker Batsheva Gutierrez [facility] 08/31/2023 14:50:21 What Was The Date Of Your Most Recent Tobacco Screening? 08/31/2023 Information not available 08/31/2023 Sex: Unknown Functional Status Question Answer Note LastModified by Organization D etails LastModified Time What is your level of alcohol consumption? None Information not available 08/31/2023 Mental Status None recorded. Family History Relationship Description Onset Age of this Age Resolved Age Notes LastModified by Organization Details LastModified Time Brother Kidney disease Not available 2022 14:49:49 Sister Family history of malignant neoplasm Not available 2022 14:49:55 Medical History Condition Response Seizures/Epilepsy Y Arthritis Y Stroke Y Chronic Obstructive Pulmonary Disease Y High Cholesterol Y Gynecological HistoryNo gynecological history recorded. Obstetrics History GPAL:G 0 P 0 0 0 0 Past Encounters Encounter ID Performer Location Encounter Start Date Encounter Closed Date Diagnosis/Indication Diagnosis SNOMED-CT Code Diagnosis ICD10 Code Diagnosis Note [id number] ANAYELI GOULD MD [facility] EXTENDED SERVICES [address] [place] [address] ,[address] [place] [address] 08/31/2023 13:48:34 08/31/2023 15:08:18 Urinary tract infectious disease 48170082 N39.0 Recurrent urinary tract infection 573471815 N39.0 Atrophic vaginitis 45812 000 N95.2 Health Concerns Section Related Observation LastModified by Organization Detai ls LastModified Time None Recorded Concern Status LastModified by Organization Details LastModified Time None Recorded Advance Directives Directive None Recorded Payers Insurance Date Sequence Insurance Name Policy Number Policy Landers Covered Member ID Landers Member ID Guarantor Name 09/04/2023 1 [facility] [id number] Howard Indra [id number] Lisandra [place] 09/05/2023 GENERIC INSURANCE - MOVED-HOLD Lisandra [place]rell 10/23/2023 1 [employer] (MEDICARE REPLACEMENT /ADVANTAGE - PPO) [id number] Lisandra [place] [id number] Lisandra [place] Notes Date Note Type Note Provider Name and Address Organization Details Recorded Time 08/31/2023 text/html 67-year-old femjuan le in the office for my initial [...] ago and Bactrim now. ANAYELI GOULD MD [facility] [place], [address], [facility] 09/06/2023 19:10:20 OBGyn Episode No OBEpisode recorded.
--- OUTSIDE RECORDS SUMMARY | 2025-05-15 11:06 | XMS_ITS | Encounter Summary ---
Author Organization [facility] Address [address] [place] [address] Care Team Providers Care Unit Manager Convenience Stores Name Role Phone Deniz Mathew MD Primary Care Provider [phone] Cherelle Mitchell MD Unavailable [phone] Flavia Azar APRN Primary Care Provider [phone] Paddy Morales MD Unavailable + [phone] Encounter Details Date Type Department Care Team (Late st Contact Info) Description 06/08/2021 [facility]medicine [place] [facility] [address], [address] [place] [address] Willy Gonzalez [facility] [address] [place] [address] Social History Tobacco Use Types Packs/Day Years Used Date Smoking Tobacco: Former Smokeless Tobacco: Never Alcohol Use Standard Drinks/Week Comments No 0 (1 standard drink = 0.6 oz pur e alcohol) Comments Unknown Sex and Gender Information Value Date Recorded Sex Assigned at Not on file Legal Sex Female 8:52 PM EDT Gender Identity Not on file Sexual Orientation Not on file COVID-19 Exposure Response Date Recorded In the last month, have you been in contact with someone who was confirmed or suspected to have Coronavirus / COVID-19? No / Unsure 06/09/2021 10:49 AM EDT documented as of this encounter Last Filed Vital Signs Vital Sign Reading Time Taken Comments Blood Pressure - - Pulse - - Temperature - - Respiratory Rate - - Oxygen Saturation - - Inhaled Oxygen Concentration - - Weight 54.4 kg (120 lb) 06/08/2021 2:17 PM EDT Height 172.7 cm (5' 8 ) 06/08/2021 2:17 PM EDT Body Mass Index 18.25 06/08/2021 2:17 PM EDT documented in this encounter Plan of Treatment Upcoming Encounters Date Type Department Care Team (Late st Contact Info) Description 05/05/2026 1:00 PM EDT [facility] Visit [facility] [address], [address] [place] [address] Paddy Morales MD [address] [place] [address] documented as of this encounter Visit Diagnoses Not on filedocumented in this encounter Care Teams Unit Manager Convenience Stores Relationship Specialty Start Date End Date Deniz Mathew MD [address] [place] [address] PCP - General 04/02/21 10/27/22 Flavia Azar APRN [address] [place] [address] PCP - General 10/28/22 Cherelle Mitchell MD [address] [place] [address] Service Attending Neurology 03/02/22 Paddy Morales MD [address] [place] [address] Surgeon Neurosurgery 10/28/22 documented as of this encounter
--- OUTSIDE RECORDS SUMMARY | 2025-05-15 11:06 | XMS_ITS | Encounter Summary ---
Author Organization [facility] Address [address] [place] [address] Care Team Providers Care Web Development Manager Name Role Phone Cherelle Mitchell MD Unavailable [phone] Flavia Azar APRN Primary Care Provider [phone] Paddy Morales MD Unavailable [phone] Encounter Details Date Type Department Care Team (Latest Contact Info) Description 04/22/2025 Travel Social History Tobacco Use Types Packs/Day Years [...] [address], [address] [place] [address] Paddy Morales MD [address] [address] documented as of this encounter Visit Diagnoses Not on filedocumented in this encounter Additional Health Concerns Assessment Noted Time A fall risk assessment has been complete d for the patient 01/30/2025 8:26 AM EDT A Body Mass Index follow-up plan has been documented for the patient 04/24/2025 4:27 PM EDT documented as of this encounter Care Teams Web Development Manager Relationship Specialty Start Date End Date Flavia Azar APRN [address] [place], [place] [id number] PCP - General 10/28/22 Cherelle Mitchell MD [address] [address] Service Attending Neurology 03/02/22 Paddy Morales MD [address] [address] Surgeon Neurosurgery 10/28/22 documented as of this encounter
== END 2025-05-15 23:59 | disposition home or self-care (01) ==
LOC: RT 10:50
PROVIDERS: PCP Nurse Practitioner; Visit Provider Nurse Practitioner
DX: I65.23 Occlusion and stenosis of bilateral carotid arteries (principal); I65.02 Occlusion and stenosis of left vertebral artery; Z86.73 Personal history of transient ischemic attack (TIA), and cerebral infarction without residual deficits
CPT/HCPCS: 93880

== ENCOUNTER 2025-05-26 09:06 | Outpatient (CLI) | payer MEDICARE, SELFPAY ==
--- OUTSIDE RECORDS SUMMARY | 2025-04-22 13:00 | XMS_ITS | Encounter Summary ---
Author Organization [facility] Address [address] [place] [address] Care Team Providers Care Process Expert Name Role Phone Cherelle Mitchell MD Unavailable Flavia Azar APRN Primary Care Provider Paddy Morales MD Unavailable [phone] Reason for Visit * Reason Comments Follow-up Encounter Details Date Type Department Care Team (Late st Contact Info) Description 04/22/2025 1:00 PM EDT Office Visit [place] [facility] [address], [address] [place] [address] Paddy Morales MD [address] [place] [address] Status post cervical spinal fusion (Primary Dx) Social History Tobacco Use Types Packs/Day Years Used Date Smoking Tobacco: Former Cigarettes Q uit: 08/20/2001 Passive Smoke Exposure: Past Smokeless Tobacco: Never Alcohol Use Standard Drinks/Week Comments No 0 (1 standard drink = 0.6 oz pur e alcohol) AUDIT-C Answer Date Recorded Q1: How often do you have a drink containing alcohol? Never 12/15/2023 Q2: How many drinks containi ng alcohol do you have on a typical day when you are drinking? Patient does not drink Q3: How often do you have si x or more drinks on one occasion? Never 12/15/2023 Comments Unknown Sex and Gender Information Value Date Recorded Sex Assigned at Not on file Legal Sex Female 8:52 PM EDT Gender Identity Not on file Sexual Orientation Not on file documented as of this encounter Last Filed Vital Signs Vital Sign Reading Time Taken Comments Blood Pressure 157/77 04/22/2025 1:47 PM EDT Pulse - - Temperature - - Respiratory Rate - - Oxygen Saturation - - Inhaled Oxygen Concentration - - Weight 69.6 kg (153 lb 7 oz) 04/22/2025 1:47 PM EDT Height 172.7 cm (5' 8 ) 04/22/2025 1:47 PM EDT Body Mass Index 23.33 04/22/2025 1:47 PM EDT documented in this encounter Miscellaneous Notes * Progress Notes - Salima Faith MD - 04/22/2025 1:00 PM EDT We had the pleasure of seeing your patient in our clinic today for continued Neurosurgical evaluation. Chief Complaint: 1 yr postop fu History Of Present Illness: The patient is a pleasant 69-year-old woman who presents neurosurgery clinic today for follow-up regarding a C4-6 ACDF performed in August of 2020. She was subsequently lost to follow and last seen in 2021. She states she is doing well today and denies new pain, weakness, numbness, or other concerns. Social History, Medications, and Allergies reviewed and noted below or in HPI Current Scheduled Medications[1] Current Continuous Medications[2] Current PRN Medications[3] Benzodiazepines, Cyclobenzaprine, Lamotrigine, and Other Physical Exam GEN: well developed, no acute distress HEENT: normocephalic, atraumatic, no scleral icterus, oropharynx clear PULM: no increased work of breathing, normal effort CV: normal rate and regular rhythm ABD: non-distended MSK: no joint swelling SKIN: warm and dry, capillary refill <2 seconds PSYCH: normal mood and affect Neuro Exam GCS(EMV): 465 Strength: Delt Bi Tri Nuclear Plant Construction Worker Intrinsics RUE: 5/5 5/5 5/5 5/5 5/5 LUE: 5/5 5/5 5/5 5/5 5/5 HF KE KF DF EHL PF RLE: 5/5 5/5 5/5 5/5 5/5 5/5 LLE: 5/5 5/5 5/5 5/5 5/5 5/5 Sensation intact throughout bilateral upper and lower extremities Imaging I personally reviewed cervical flex ex demonstrating stable C4-6 instrumentation with fusion at these levels and without hardware complication Assessment and Plan The patient is a pleasant 69-year-old woman who presents neurosurgery clinic today for follow-up regarding a C4-6 ACDF performed in August of 2020. She was subsequently lost to follow and last seen in 2021. She is doing since last followup. We will plan to see her back in 1 year. Salima Fiath MD Resident Physician, PGY-1 Department of Neurosurgery [facility]' [1] [2] [3] Cosigned by Paddy Morales MD at 04/24/2025 4:27 PM EDT Associated attestation - Paddy Morales MD - 04/24/2025 4:27 PM EDT I saw and evaluated the patient with the resident/fellow. I discussed the case with the resident/fellow and agree with the findings and plan as documented. Quality of life indexes: VAS = /10 NDI/VALERIA = 2/50 mJOA = 15/18 EQ-5D = 0/20 documented in this encounter Plan of Treatment Upcoming Encounters Date Type Department Care Team (Late st Contact Info) Description 05/05/2026 1:00 PM EDT Office Visit [place] [facility] [address] [place] [address] Paddy Morales MD [address] [place] [address] documented as of this encounter Results * XR Cervical Spine Complete 4 To 5 Views (04/22/2025 1:14 PM EDT) Anatomical Region Laterality Modality Spine, C-spine Digital Radiogra phy Impressions 04/22/2025 4:02 PM EDT 1. Anterior cervical discectomy and fusion from C4 to C6 without complication. 2. Moderate degenerative disc changes at C3-C4 and C6-C7. CRITICAL RESULT: No. COMMUNICATION: Per this written report. Drafted by Gregorio Nicholas MD on 04/22/2025 4:00 PM Final report signed by Gregorio Nicholas MD on 04/22/2025 4:02 PM Narrative 04/22/2025 4:02 PM EDT CLINICAL INDICATION: assess hardware TECHNIQUE: XR CERVICAL SPINE COMPLETE 4 TO 5 VIEWS COMPARISON: October 28, 2022 FINDINGS: 4 views of the cervical spine show anterior cervical discectomy and fusion from C4 to C6. Moderate degenerative disc changes at C3-C4 and C6-C7. Vertebral alignment is normal. No instability in flexion or extension. No fracture or bone destruction. Prevertebral soft tissues and lung apices are normal. Left carotid artery calcification. Procedure Note Gregorio Nicholas MD - 04/22/2025 CLINICAL INDICATION: assess hardware TECHNIQUE: XR CERVICAL SPINE COMPLETE 4 TO 5 VIEWS COMPARISON: October 28, 2022 FINDINGS: 4 views of the cervical spine show anterior cervical discectomy and fusionfrom C4 to C6. Moderate degenerative disc changes at C3-C4 and C6-C7.Vertebral alignment is normal. No instability in flexion or extension. Nofracture or bone destruction. Prevertebral soft tissues and lung apicesare normal. Left carotid artery calcification. IMPRESSION: 1.Anterior cervical discectomy and fusion from C4 to C6 withoutcomplication. 2.Moderate degenerative disc changes at C3-C4 and C6-C7. CRITICAL RESULT: No. COMMUNICATION: Per this written report. Drafted by Gregorio Nicholas MD on 04/22/2025 4:00 PM Final report signed by Gregorio Nicholas MD on 04/22/2025 4:02 PM us Sonia Frazier CRANKSHAFT STRAIGHTENER, DNP IMG XR PROCEDURES Jackie l Result documented in this encounter Visit Diagnoses Diagnosis Status post cervical spinal fusion- Primary Arthrodesis status Status post cervical spinal fusion Arthrodesis status documented in this encounter Additional Health Concerns Assessment Noted Time A fall risk assessment has been complete d for the patient 01/30/2025 8:26 AM EDT A Body Mass Index follow-up plan has been documented for the patient 04/24/2025 4:27 PM EDT documented as of this encounter Care Teams Process Expert Relationship Specialty Start Date End Date Flavia Azar, CRANKSHAFT STRAIGHTENER [address] [place] [id number] PCP - General 10/28/22 Cherelle Mitchell MD [address] [address] Service Attending Neurology 03/02/22 Paddy Morales MD [address] [address] Surgeon Neurosurgery 10/28/22 documented as of this encounter
--- OUTSIDE RECORDS SUMMARY | 2025-04-22 13:03 | XMS_ITS | Encounter Summary ---
Author Organization [facility] Address [address] [place] [address] Care Team Providers Care Admissions Representative Name Role Phone Cherelle Mitchell MD Unavailable Flavia Azar APRN Primary Care Provider Paddy Morales MD Unavailable [phone] Encounter Details Date Type Department Care Team (Latest Contact Info) Description 04/22/2025 1:03 PM EDT - 04/22/2025 11:59 PM EDT Hospital Encounter [place] [facility] [address], [address] [place] [phone] Status post cervical spinal fusion Discharge Disposition: [...] mouth daily. 90 tablet 01/30/2025 sodium chloride ([place]) 0.65 % nasal spray Administer 1 spray [...] Visit [place] [facility] [address], [address] [place] [address] Paddy Morales MD [address] [facility] [address] [place] [address] documented as of this encounter [...] on 04/22/2025 4:02 PM us Sonia Frazier RETAIL ACCOUNT MANAGER, DNP IMG XR PROCEDURES Jackie l Result [...] documented as of this encounter Care Teams Admissions Representative Relationship Specialty Start Date End Date Flavia Azar APRN [address] [place] [address] PCP - General 10/28/22 Cherelle Mitchell MD [address] [address] Service Attending Neurology 03/02/22 Paddy Morales MD [address] [address] Surgeon Neurosurgery 10/28/22 documented as of this encounter
--- NOTE | 2025-05-26 09:09 | XR_ITS ---
FINAL REPORT CLINICAL HISTORY: SCREENING COMPARISON: 11/16/2023 FINDINGS: Using L1-4, the bone mineral density of the spine is 0.988 g/cm2, corresponding to T-score of -0.5, within normal limits but likely falsely elevated secondary to hypertrophic changes. Previously was 1.018 with a T-score of -0.3. Using the left hip, the bone mineral density of the femoral neck is 0.659 g/cm2, corresponding to a T-score of -2.3, consistent with osteopenia. Previously was 0.598 with a T-score of -2.8. Using the right hip, the bone mineral density of the femoral neck is 0.584 g/cm2, corresponding to a T-score of -2.4, consistent with osteopenia. Previously was 0.582 with a T-score of -2.4. FRAX 10 year fracture risk is 5.3% for a hip fracture and 21% for a major osteoporotic fracture. NOTE: T-score: Standard deviation compared with peak bone mass of young adult mean. *Following the recommendations of the International Society of Bone densitometry, classification of hip BMD is based on the lower of two T-scores; total hip or femoral neck. IMPRESSION: Diminished bone mineral density consistent with osteopenia. Reviewed, Interpreted and Dictated by Anibal Lyons MD Transcribed by Bee Kauffman Authenticated and [facility]
--- OUTSIDE RECORDS SUMMARY | 2025-05-26 09:12 | XMS_ITS | Referral Summary ---
Author Organization [employer] ([place], [place], [place], [place]) Address [address] [place] [address] Care Team Providers Care Axle Bearing Polisher Name Role Phone Flavia Azar NP Primary Care Provider [phone] Allergies Active Allergy Reactions Criticality Noted Date [...] followed by Dr. Nolen, neurosurgeon at the [facility], with no recommendations for intervention Nocturnal [...] performed as ordered by Dr. Tolliver at [facility] for follow-up evaluation Anxiety [...] drink = 0.6 oz pur e alcohol) Employment Answer Date Recorded Help finding and keeping a job Not on file 0 12/02/2023 Family and Community Support Answer Tremayne e Recorded Help with Day to Day Activities Not on file 12/02/2023 Feeling Lonely or Isolated Not on file 12/02 Educational Attainment Answer Date Jose Carlos rded Speak language other than Tuvaluan at home Not on file 12/02/2023 Want help with school or training Not on file 12/02/2023 Substance Use Answer Date Recorded Used [...] Description 06/18/2025 2:30 PM EDT Office Visit [facility] Cardiology [address] [place] [address] Janet Olvera, EYELET ROW MARKER [address] [facility] [address] [place] [address] Insurance [employer] [facility] AD[facility] Care Teams Axle Bearing Polisher Relationship Specialty Start Date End Date Flavia Azar NP [address] [facility] [address] [place] [address] PCP - General Family Medicine 02/27/23
--- OUTSIDE RECORDS SUMMARY | 2025-05-26 09:12 | XMS_ITS | Clinical Summary ---
Author Organization [employer] ([place], [place], [place], [place]) Address [address] [place] [address] Care Team Providers Care Gasoline Plant Operator Name Role Phone Flavia Azar NP Primary Care Provider [phone] Allergies Active Allergy Reactions Criticality Noted Date [...] followed by Dr. Nolen, neurosurgeon at the [facility], with no recommendations for intervention Nocturnal [...] performed as ordered by Dr. Tolliver at [facility] for follow-up evaluation Anxiety 01/01/2020 [...] Jose Carlos rded Speak language other than Bhutanese at home Not on file 12/02/2023 Want [...] Description 06/18/2025 2:30 PM EDT Office Visit [facility] Cardiology [address] [place] [address] Janet Olvera, DRAFTING LAYOUT WORKER [address] [facility] [address] [place] [phone] Health Maintenance Due Date Last Done Comments [...] Initial AWV [id number] 11/21/2022 COVID-19 VACCINE ( - season) 2024 Tobacco Cessation Counseling and Screening (12+) 09/21/2024 09/21/2023 Falls Risk Screening 11/20/2024 Influenza Vaccine (#1) 2025 DTAP/TDAP/TD VACCINES (3 - Td or Tdap) 09/16/2028, 08/20/2018 Insurance [employer] MCR ADV Care Teams Gasoline Plant Operator Relationship Specialty Start Date End Date Flavia Azar, TERENCE [address] [address] PCP - General Family Medicine 02/27/23
--- OUTSIDE RECORDS SUMMARY | 2025-05-26 09:12 | XMS_ITS | Encounter Summary ---
Author Organization [facility] Address [address] [place] [address] Care Team Providers Care Rolling Mill Plugger Name Role Phone Cherelle Mitchell MD Unavailable [phone] Flavia Azar APRN Primary Care Provider [phone] Paddy Morales MD Unavailable [phone] Reason for Visit * Reason Comments Med Refill Encounter Details Date Type Department Care Team (Late st Contact Info) Description 04/25/2025 Refill [place] [facility] [address], [address] [place] [address] Cherelle Mitchell MD [address] [place] [address] Social History Tobacco Use Types [...] Description 05/05/2026 1:00 PM EDT Office Visit [place] [facility] [address], [address] [place] [address] Paddy Morales MD [address] [place] [address] documented as of this encounter Visit Diagnoses Not on filedocumented in this encounter Additional Health Concerns Assessment Noted Time A fall risk assessment has been complete d for the patient 01/30/2025 8:26 AM EDT A Body Mass Index follow-up plan has been documented for the patient 04/24/2025 4:27 PM EDT documented as of this encounter Care Teams Rolling Mill Plugger Relationship Specialty Start Date End Date Flavia Azar APRN [address] [place] [id number] PCP - General 10/28/22 Cherelle Mitchell MD [address] [place] [address] Service Attending Neurology 03/02/22 Paddy Morales MD [address] [place] [address] Surgeon Neurosurgery 10/28/22 documented as of this encounter
--- OUTSIDE RECORDS SUMMARY | 2025-05-26 09:12 | XMS_ITS | Encounter Summary ---
Author Organization [facility] Address [address] [place] [address] Care Team Providers Care Power Shovel Mechanic Name Role Phone Cherelle Mitchell MD Unavailable Flavia Azar APRN Primary Care Provider Paddy Morales MD Unavailable [phone] Reason for Visit * Reason Comments Med Refill Encounter Details Date Type Department Care Team (Late st Contact Info) Description 12/17/2023 Refill [place] [facility] [address], [address] [place] [address] Cherelle Mitchell MD [address] [place] [address] Abnormal EEG Social History Tobacco [...] [facility] [address] [place] [address] Paddy Morales MD [address] [address] documented as of this encounter Visit Diagnoses Diagnosis Abnormal EEG documented in this encounter Additional Health Concerns Assessment Noted Time A fall risk assessment has been complete d for the patient 04/25/2023 10:45 AM EDT A Body Mass Index follow-up plan has been documented for the patient 12/17/2023 12:35 PM EST documented as of this encounter Care Teams Power Shovel Mechanic Relationship Specialty Start Date End Date Flavia Azar APRN [address] [place] [address] PCP - General 10/28/22 Cherelle Mitchell MD [address] [facility] [address] [place] [address] Service Attending Neurology 03/02/22 Paddy Morales MD [address] [address] Surgeon Neurosurgery 10/28/22 documented as of this encounter
--- OUTSIDE RECORDS SUMMARY | 2025-05-26 09:12 | XMS_ITS | Encounter Summary ---
Author Organization [facility] Address [address] [place] [address] Care Team Providers Care Classroom Coordinator Name Role Phone Deniz Mathew MD Primary Care Provider [phone] Cherelle Mitchell MD Unavailable [phone] Flavia Azar APRN Primary Care Provider [phone] Paddy Morales MD Unavailable + [phone] Encounter Details Date Type Department Care Team (Late st Contact Info) Description 06/08/2021 Telemedicine [place] [facility] [address], [address] [place] [address] Willy [facility] [address] [place] [address] Social History Tobacco Use Types Packs/Day Years [...] Description 05/05/2026 1:00 PM EDT Office Visit [facility] [address] [place] [address] Paddy Morales MD [address] [place] [address] documented as of this encounter Visit Diagnoses Not on filedocumented in this encounter Care Teams Classroom Coordinator Relationship Specialty Start Date End Date Deniz Mathew MD [address] [place] [address] PCP - General 04/02/21 10/27/22 Flavia Azar APRN [address] [place] [address] PCP - General 10/28/22 Cherelle Mitchell MD [address] [place] [address] Service Attending Neurology 03/02/22 Paddy Morales MD [address] [place] [address] Surgeon Neurosurgery 10/28/22 documented as of this encounter
--- OUTSIDE RECORDS SUMMARY | 2025-05-26 09:12 | XMS_ITS | Encounter Summary ---
Author Organization Healthcare Address [address] [place] [address] Care Team Providers Care Auto Winder Name Role Phone Cherelle Mitchell MD Unavailable Flavia Azar APRN Primary Care Provider Paddy Morales MD Unavailable +1- [phone] Encounter Details Date Type Department Care Team (Late st Contact Info) Description 11/04/2022 Ophth Exam [facility] [address] [place] [address] Brad Piña MD [address], [place] [id number] Social History Tobacco Use Types Packs/Day Years [...] Description 05/05/2026 1:00 PM EDT [facility] [address], 1st [place] [address] Paddy Morales MD [address] [facility] [place] [address] documented as of this encounter Visit Diagnoses Not on filedocumented in this encounter Additional Health Concerns Assessment Noted Time A fall risk assessment has been complete d for the patient 10/28/2022 1:23 PM EST documented as of this encounter Care Teams Auto Winder Relationship Specialty Start Date End Date Flavia Azar APRN [address] [id number] PCP - General 10/28/22 Cherelle Mitchell MD [address] [place] [address] Service Attending Neurology 03/02/22 Paddy Morales MD [address] [place] [address] Surgeon Neurosurgery 10/28/22 documented as of this encounter"
--- OUTSIDE RECORDS SUMMARY | 2025-05-26 09:12 | XMS_ITS | Encounter Summary ---
Author Organization [facility] Address [address] [place] [address] Care Team Providers Care Senior Microsoft Net Developer Name Role Phone Cherelle Mitchell MD Unavailable [phone] Flavia Azar APRN Primary Care Provider +[phone] Paddy Morales MD Unavailable +[phone]- [phone] Encounter Details Date Type Department Care Team [...] [address], 1[address] [place] [address] Paddy Morales MD [address] [address] documented as of this encounter Visit Diagnoses Not on filedocumented in this encounter Additional Health Concerns Assessment Noted Time A fall risk assessment has been complete d for the patient 01/30/2025 8:26 AM EDT A Body Mass Index follow-up plan has been documented for the patient 04/24/2025 4:27 PM EDT documented as of this encounter Care Teams Senior Microsoft Net Developer Relationship Specialty Start Date End Date Flavia Azar APRN [address] [place], [place] [phone] PCP - General 10/28/22 Cherelle Mitchell MD [address] [address] Service Attending Neurology 03/02/22 Paddy Morales MD [address] [address] Surgeon Neurosurgery 10/28/22 documented as of this encounter
--- OUTSIDE RECORDS SUMMARY | 2025-05-26 09:13 | XMS_ITS | Data Portability ---
Author Organization [facility] LITHIA CLOSED Address [address] [place] [address] Care Team Providers Care Network Support Specialist Name Role Phone BRAVO STROUD Primary Care Provider Assessment Encounter Date Assessment Date Assessment LastModified by Organization Details LastModified Time 08/31/2023 08/31/2023 We discussed UTI prevention with adequate hydration, timed and double voids, vunt-evm-tjlzp er suppressive medications such as cranberry tablets and d-mannose. Medical management lower urinary symptoms and UTI prevention with suppressive methenamine and treatment of atrophic vaginitis with topical vaginal estrogen creams. We discussed need for adequate hydration with timed and double voids. Not available 09/06/2023 19:10:05 Plan of Treatment Reminders Order Date Submit Date Provider Last Modified By Organization Details Last Modified Time Details Appointments None recorded. Lab urinalysis panel, auto 2022 023 [email or web address] 14 [facility] [place] [facility] With [facility], [address] [place] [address] [address], [place], [address], 14:55:59 culture, urine 2022 023 [facility], [address] [place], [address], 11:46:28 Referral None recorded. Procedures None recorded. Surgeries None recorded. Imaging None recorded. Medication Orders estradiol 0.01% (0.1 mg/gram) vaginal cream 2022 023 [id number], [address] [facility] [address] [place], [id number], 14:56:10 methenamine hippurate 1 gram tablet 2022 023 [id number], [address] [facility] [address] [place], [id number], 14:56:07 Patient TargetsNo targets recorded. Patient InstructionsNo instructions recorded. Reason for Referral None Reported. Results Created Date Observation Date Name Description Value Unit Range Abnormal Flag Note LastModifiedBy Organization Detail LastModifiedTime 08/31/2009/04/2023 URINE CULTU RE urine culture No growth day 4. Not Available [facility] [address] [place], [address], 09/04/2023 08:34:57 08/31/2008/31/2023 urina lysis panel , auto Unknown Analyte Clean Catch Not Available [facility] [place] [facility] With [address], [place], [address], 08/31/2023 14:52:45 08/31/2008/31/2023 urina lysis panel , auto Unknown Analyte Yellow Not Available [facility] With [address], [place], [address], 08/31/2023 14:52:45 08/31/2008/31/2023 urina lysis panel , auto Unknown Analyte Clear Not Available [facility] [place] [facility] With [address], [place], [address], 08/31/2023 14:52:45 08/31/2008/31/2023 urina lysis panel , auto Unknown Analyte 1.020 Not Available [facility] [place] [facility] With [address], [place], [address], 08/31/2023 14:52:45 08/31/2008/31/2023 urina lysis panel , auto Unknown Analyte 1.003- 1.035 Not Available [facility] With [address], [place], [address], 08/31/2023 14:52:45 08/31/2008/31/2023 urina lysis panel , auto Unknown Analyte 6.0 Not Available [facility] With [address], [place], [address], 08/31/2023 14:52:45 08/31/2008/31/2023 urina lysis panel , auto Unknown Analyte 5.0-8. 0 Not Available [facility] With [address], [place], [address], 08/31/2023 14:52:45 08/31/2008/31/2023 urina lysis panel , auto Unknown Analyte 25 Ekaterina/ul Trace Not Available [facility] With [address], [place], [address], 08/31/2023 14:52:45 08/31/2008/31/2023 urina lysis panel , auto Unknown Analyte Negati ve Not Available [facility] With [address], [place], [address], 08/31/2023 14:52:45 08/31/2008/31/2023 urina lysis panel , auto Unknown Analyte Negati ve Not Available [facility] With [address], [place], [address], 08/31/2023 14:52:45 08/31/2008/31/2023 urina lysis panel , auto Unknown Analyte Negati ve Not Available [facility] With [address], [place], [address], 08/31/2023 14:52:45 08/31/2008/31/2023 urina lysis panel , auto Unknown Analyte Trace Not Available [facility] With [address] [place], [address], 08/31/2023 14:52:45 08/31/2008/31/2023 urina lysis panel , auto Unknown Analyte Negati ve Not Available [facility] With [address] [place], [address], 08/31/2023 14:52:45 08/31/2008/31/2023 urina lysis panel , auto Unknown Analyte Normal Not Available [facility] With [address] [place], [address], 08/31/2023 14:52:45 08/31/2008/31/2023 urina lysis panel , auto Unknown Analyte Normal Not Available [facility] With [address] [place], [address], 08/31/2023 14:52:45 08/31/2008/31/2023 urina lysis panel , auto Unknown Analyte 15 mg/dl (Sm) Not Available [facility] With [address] [place], [address], 08/31/2023 14:52:45 08/31/2008/31/2023 urina lysis panel , auto Unknown Analyte Negati ve Not Available [facility] With [address] [place], [address], 08/31/2023 14:52:45 08/31/2008/31/2023 urina lysis panel , auto Unknown Analyte 1 mg/dl Not Available [facility] With [address], [place], [address], 08/31/2023 14:52:45 08/31/2008/31/2023 urina lysis panel , auto Unknown Analyte Normal 1 mg/dl Not Available [facility] With [address], [place], [address], 08/31/2023 14:52:45 08/31/2008/31/2023 urina lysis panel , auto Unknown Analyte 1 mg/dl (+) Not Available [facility] With [address], [place], [address], 08/31/2023 14:52:45 08/31/2008/31/2023 urina lysis panel , auto Unknown Analyte Negati ve Not Available [facility] With [address], [place], [address], 08/31/2023 14:52:45 08/31/2008/31/2023 urina lysis panel , auto Unknown Analyte Negati ve Not Available [facility] With [address], [place], [address], 08/31/2023 14:52:45 08/31/2008/31/2023 urina lysis panel , auto Unknown Analyte Negati ve Not Available [facility] With [address], [place], [address], 08/31/2023 14:52:45 Result Notes None recorded. Medical [...] Updated DateTime 08/31/2023 172.72 cm 21 kg/m2 83602.75 g Batsheva Gutierrez [facility] 08/31/2023 14:39:06 Social History Question Answer Notes LastModified by Organizat ion Details LastModified Time Tobacco Smoking Status Former Smoker Batsheva Gutierrez [facility] 08/31/2023 14:50:21 What Was The Date Of [...] 14:49:55 Medical History Condition Response Arthritis Y Stroke Y High Cholesterol Y Chronic Obstructive Pulmonary Disease Y Seizures/Epilepsy Y Gynecological HistoryNo gynecological history recorded. Obstetrics History GPAL:G 0 P 0 0 0 0 Past Encounters Encounter ID Performer Location Encounter Start Date Encounter Closed Date Diagnosis/Indication Diagnosis SNOMED-CT Code Diagnosis ICD10 Code Diagnosis Note [id number] ANAYELI GOULD MD [facility] [address] [place] [address] ,[place] [address] 08/31/2023 13:48:34 08/31/2023 15:08:18 Urinary tract infectious disease 63139307 N39.0 Recurrent urinary tract infection 792842300 N39.0 Atrophic vaginitis 25293 000 N95.2 Health Concerns Section Related Observation LastModified by Organization Detai ls LastModified Time None Recorded Concern Status LastModified by Organization Details LastModified Time None Recorded Advance Directives Directive None Recorded Payers Insurance Date Sequence Insurance Name Policy Number Policy Landers Covered Member ID Landers Member ID Guarantor Name 09/04/[address] [facility] [id number] Howard Indra [id number] Lisandra Burrell 09/05/2023 GENERIC INSURANCE - MOVED-HOLD Lisandra Burrell 10/23/2023 1 [employer] (MEDICARE REPLACEMENT /ADVANTAGE - PPO) [id number] Lisandra Burrell [id number] Lisandra Burrell Notes Date Note Type Note [...] ago and Bactrim now. ANAYELI GOULD MD [facility] [place], [address], [facility] 09/06/2023 19:10:20 OBGyn Episode No OBEpisode recorded.
--- OUTSIDE RECORDS SUMMARY | 2025-05-26 09:13 | XMS_ITS | Clinical Summary ---
Author Organization [facility] Address [address] [place] [address] Care Team Providers Care Mechanics Supervisor Name Role Phone Cherelle Mitchell MD Unavailable [phone] Flavia Azar APRN Primary Care Provider [phone] Paddy Morales MD Unavailable +- [phone] Allergies Active Allergy Reactions Criticality Noted Date [...] time each day. 5 Active sodium chloride ([place]) 0.65 % nasal spray Administer 1 spray [...] Type Department Care Team Description 04/25/2025 Refill [place] [facility] [address], [address] [place] [address] Cherelle Mitchell MD 04/22/2025 1:03 PM EDT - 04/22/2025 11:59 PM EDT Hospital Encounter [facility] [address], 1[address] [place] [address] Status post cervical spinal fusion Discharge Disposition: Home or Self Care 04/22/2025 1:00 PM EDT Office Visit [place] [facility] [address], [address] [place] [address] Paddy Morales MD Status post cervical spinal [...] Visit [place] [facility] [address], [address] [place] [address] Paddy Morales MD [address] [place] [address] Health Maintenance Due Date Last [...] (2 of 2 - PPSV23) 10/23/2016 10/23/2015 [id number] Vaccine (1 - season) 2024 [facility]-Medicare Annual Wellness (AWV) 09/13/2024 09/13/2023, 10/18/2022 [facility]Y-Influenza Vaccine (#1) 07/21/202509/22, 08/24/2019, 08/24/2019, Additional history exists [facility]Y-DTaP,Tdap,and Td [...] 4:00 PM Final report signed by Gregorio Nicholsa MD on 04/22/2025 4:02 PM Narrative 04/22/2025 [...] MD on 04/22/2025 4:02 PM Sonia Frazier FLAKE MILLER HELPER, DNP IMG XR PROCEDURES Jackie l Result * Acute Hepatitis Panel (08/26/2020 12:29 PM EDT) Pathologist [facility] Hepatitis B Surf Antigen NEGATIVE Reference Value: [...] <6.0% Children and Adolescents <7.5% . Source: [place] [employer]. Standards of medical care in [...] Patient has decision-making capacity? Yes Care Teams Mechanics Supervisor Relationship Specialty Start Date End Date Flavia Azar APRN [address] [phone] PCP - General 10/28/22 Cherelle Mitchell MD [address] [place] [address] [address] Service Attending Neurology 03/02/22 Paddy Morales MD [address] [address] Surgeon Neurosurgery 10/28/22
== END 2025-05-26 23:59 | disposition home or self-care (01) ==
LOC: RAD 09:07
PROVIDERS: PCP Nurse Practitioner; Visit Provider Nurse Practitioner
DX: M85.80 Other specified disorders of bone density and structure, unspecified site (principal); Z13.820 Encounter for screening for osteoporosis
CPT/HCPCS: 77080

== ENCOUNTER 2025-06-16 08:09 | Outpatient (CLI) | payer MEDICARE, SELFPAY ==
--- OUTSIDE RECORDS SUMMARY | 2025-04-22 13:00 | XMS_ITS | Encounter Summary ---
Author Organization [facility] Address [address] [place] [address] Care Team Providers Care Forging Dies Final Finisher Name Role Phone Cherelle Mitchell MD Unavailable Flavia Azar APRN Primary Care Provider Paddy Morales MD Unavailable [phone] Reason for Visit * Reason Comments Follow-up Encounter Details Date Type Department Care Team (Late st Contact Info) Description 04/22/2025 1:00 PM EDT Office Visit [place] [facility] [address], [address] [place] [address] Paddy Morales MD [address] [place] [address] Status post cervical spinal fusion [...] Exam GCS(EMV): 465 Strength: Delt Bi Tri Theatrical Variety Agent Intrinsics RUE: 5/5 5/5 5/5 5/5 5/5 [...] MD Resident Physician, PGY-1 Department of Neurosurgery [facility]' [1] [2] [3] Cosigned by Paddy [...] Visit [place] [facility] [address], [address] [place] [address] Paddy Morales MD [address] [place] [address] documented as of this encounter [...] on 04/22/2025 4:02 PM us Sonia Frazier INVESTMENT DIRECTOR, DNP IMG XR PROCEDURES Jackie l Result [...] documented as of this encounter Care Teams Forging Dies Final Finisher Relationship Specialty Start Date End Date Flavia Azar, INVESTMENT DIRECTOR [address] [place] [address] PCP - General 10/28/22 Cherelle Mitchell MD [address] [address] Service Attending Neurology 03/02/22 Paddy Morales MD [address] [address] Surgeon Neurosurgery 10/28/22 documented as of this encounter
--- OUTSIDE RECORDS SUMMARY | 2025-04-22 13:03 | XMS_ITS | Encounter Summary ---
Author Organization [facility] Address [address] [place] [address] Care Team Providers Care Unix Analyst Name Role Phone Cherelle Mitchell MD Unavailable [phone] Flavia Azar APRN Primary Care Provider Paddy Morales MD Unavailable [phone] Encounter Details Date Type Department Care Team (Latest Contact Info) Description 04/22/2025 1:03 PM EDT - 04/22/2025 11:59 PM EDT Hospital Encounter [place] [facility] [address] [place] [phone] Status post cervical spinal fusion Discharge Disposition: Home or Self Care Social History Tobacco Use Types Packs/Day Years [...] on file documented as of this encounter Medications at Time of Discharge cholecalciferol (Vitamin D-3) 25 MCG (1000 UT) tablet Take 1 tablet (1,000 Units) by mouth 1 (one) time each day. clopidogrel (Plavix) 75 MG tablet Take 1 tablet (75 mg) by mouth daily. 90 tablet 01/30/2025 loratadine (Claritin) 10 MG tablet Take 1 tablet (10 mg) by mouth 1 (one) time each day. 12/16/2024 phenazopyridine (Pyridium) 100 MG tablet TAKE 1 TABLET BY MOUTH 3 TIMES A DAY NEEDED FOR PAIN FOR 6 DOSES 03/12/2025 rosuvastatin (Crestor) 20 MG tablet Take 1 tablet (20 mg) by mouth daily. 90 tablet 01/30/2025 sodium chloride ([place]) 0.65 % nasal spray Administer 1 spray into affected nostril(s). 12/16/2024 Zinc 100 MG tablet zinc gluconate 50 MG tablet Take 1 tablet (50 mg) by mouth 2 (two) times a day. documented as of this encounter Plan of Treatment Upcoming Encounters Date Type Department Care Team (Late st Contact Info) Description 05/05/2026 1:00 PM EDT Office Visit [place] [facility] [address] [place] [address] Paddy Morales MD [address] [facility] [address] [place] [address] documented as of this encounter Procedures Procedure Name Priority Date/Time Associated Diagnosis Comments XR CERVICAL SPINE COMPLETE 4 TO 5 VIEWS Routine 04/22/2025 1:14 PM EDT Status post cervical spinal fusion documented in this encounter Results * XR Cervical Spine [...] on 04/22/2025 4:02 PM us Sonia Frazier BLIND AIDE, DNP IMG XR PROCEDURES Jackie l Result documented in this encounter Visit Diagnoses Diagnosis Status post cervical spinal fusion Arthrodesis status documented in this encounter Additional Health Concerns Assessment Noted Time A fall risk assessment has been complete d for the patient 01/30/2025 8:26 AM EDT A Body Mass Index follow-up plan has been documented for the patient 04/24/2025 4:27 PM EDT documented as of this encounter Care Teams Unix Analyst Relationship Specialty Start Date End Date Flavia Azar APRN [address] [place] [address] PCP - General 10/28/22 Cherelle Mitchell MD [address] [address] Service Attending Neurology 03/02/22 Paddy Morales MD [address] [address] Surgeon Neurosurgery 10/28/22 documented as of this encounter
--- OUTSIDE RECORDS SUMMARY | 2025-04-23 08:15 | XMS_ITS | Encounter Summary ---
[facility] Address [address] [place] [address] Care Team Providers Care Java Portal Developer Name Role Phone Flavia Azar APRN Primary Care Provider Reason for Referral * Consultation (Routine) - Authorized - Pending Scheduling Specialty Diagnoses / Procedures Referred By Mara t Referred To Contact Gastroenterology Diagnoses Generalized abdominal pain Procedures [place] OFFICE/OUTPATIENT NEW MODERATE MDM 45 MINUTES Flavia Azar APRN [address] [place] [address] Phone: tel: fax: Clemente Lal MD [address] [facility] [address] [place] [address] Phone: tel: fax: Referral ID Status Reason Start Date Expiration Date Visits Requested Visits Authorized [id number] Authorized - Pending Scheduling Specialty Services Required 04/23/2025 07/23/2026 1 1 Reason for Visit * Reason Comments Abdominal Pain Happening for couple weeks now Encounter Details Date Type Department Care Team (Late st Contact Info) Description 04/23/2025 8:15 AM EDT Office Visit [facility] [address] [place] [phone] Flavia Azar, W[employer]ER [address] [place] [address] History of recurrent TIAs (Primary Dx); Cervical spinal stenosis; Generalized abdominal pain; Cerebral aneurysm Social History Tobacco Use Types Packs/Day Years Used Date Smoking Tobacco: Never Smokeless Tobacco: Never Alcohol Use Standard Drinks/Week Comments Not Currently 0 (1 standard drink = 0.6 oz pur e alcohol) PHQ-2 Answer Date Recorded Retired PHQ-9: Brief Depression Severity Measure Score 0 09/13/2023 PHQ-2 Answer Date Recorded Patient Health Questionnaire-2 Score 0 12/16/2024 Comments Unknown Sex and Gender Information Value Date Recorded Sex Assigned at Female 04/22/2025 4:48 PM EDT Legal Sex Female 10:40 AM EDT Gender Identity Not on file Sexual Orientation Not on file documented as of this encounter Last Filed Vital Signs Vital Sign Reading Time Taken Comments Blood Pressure 122/74 04/23/2025 8:03 AM EDT Pulse 64 04/23/2025 8:03 AM EDT Temperature 36.6 C (97.9 F) 04/23/2025 8:03 AM EDT Respiratory Rate - - Oxygen Saturation 96% 04/23/2025 8:03 AM EDT Inhaled Oxygen Concentration - - Weight 70.5 kg (155 lb 6.4 oz) 04/23/2025 8:03 A M EDT Height 172.7 cm (5' 8 ) 04/23/2025 8:03 AM EDT Body Mass Index 23.63 04/23/2025 8:03 AM EDT documented in this encounter Progress Notes * Flavia Azar, W[employer] - 04/27/2025 8:41 PM EDTAssociated Problem(s): Generalized abdominal pain presents today for complaints of right upper quadrant upper pain. She describes as a dull ache. Starting in right upper quadrant and radiate across the epigastric area. She also noted aching pain around her belly button. She noted feeling bloated which would temporarily respond to gas-x. She noted it was sore to touch as well. Her normal pattern is not having daily bowel movements so no changes there. Denies blood in stool, no belching. This has been an intermittent pattern for several years after having her gallbladder removed. She does note a globus sensation in her throat. She feels like food gets hung in her throat as well. -Refer to Dr. Lal for further evaluation and treatment * Flavia Azar APRN - 04/27/2025 8:39 PM EDTAssociated Problem(s): Cerebral aneurysm 2 mm involving supraclinoid segment of the left internal carotid artery; followed by Dr. Nolen, neurosurgeon at the [facility], with no recommendations for intervention * Flavia Azar APRN - 04/27/2025 8:39 PM EDTAssociated Problem(s): Cervical spinal stenosis Underwent C4-7 ACDF, 08/26/2020, Dr. Tolliver. Per patient, minimal improvement if any at all, with persisting left upper extremity paresthesias, fine motor incoordination. Patient did have a cervical MRI performed as ordered by Dr. 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 She has chronic symptoms including vague sense of unsteadiness, paresthesias of left upper extremity as well as bilateral lower extremities with some fine motor incoordination. She is followed by Dr. Sevilla and Dr. Hernandez at [facility]. Current plan per neurology is risk factor modification in the form of daily Plavix 75 mg. Last MRI obtained inD showing stability of 1.7 and 1.2 mm inferiorly projecting left terminal internal carotid artery aneurysms. Patient has now been Released by neuro * Flavia Azar APRN - 04/23/2025 8:15 AM EDT Images from the original note were not included. Office Note Name: Lisandra Burrell : 1955 Chief Complaint Abdominal Pain (Happening for couple weeks now) Subjective History of Present Illness: Lisandra Burrell is a 69 y.o. female who presents today for complaints of right upper quadrant upper pain. She describes as a dull ache. Starting in right upper quadrant and radiate across the epigastric area. She also noted aching pain around her belly button. She noted feeling bloated which would temporarily respond to gas-x. She noted it was sore to touch as well. Her normal pattern is not having daily bowel movements so no changes there. Denies blood in stool, no belching. This has been an intermittent pattern for several years after having her gallbladder removed. She does note a globus sensation in her throat. She feels like food gets hung in her throat as well. Patient with history of r ecurrent TIAs involving posterior circulation. She has chronic symptoms including vague sense of unsteadiness, paresthesias of left upper extremity as well as bilateral lower extremities with some fine motor incoordination. She is followed by Dr. Sevilla and Dr. Hernandez at [facility]. Current plan per neurology is risk factor modification in the form of daily Plavix 75 mg. Last MRI obtained in November 10 showing stability of 1.7 and 1.2 mm inferiorly projecting left terminal internal carotidartery aneurysms. Patient tells me today she has now been released by neuro . No further complaintsor concerns. Review of Systems Constitutional: Negative for fatigue. HENT: Negative for trouble swallowing. Respiratory: Negative for cough and shortness of breath. Gastrointestinal: Positive for abdominal pain. Negative for constipation, diarrhea, nausea and vomiting. Musculoskeletal: Negative for arthralgias. Neurological: Negative for dizziness, weakness, light-headedness and headache. Objective Past Medical History: Diagnosis Date Cerebral aneurysm, nonruptured Cerebral infarction Dysphagia Fibrocystic breast disease Hx of colonic polyps Hyperlipidemia Occlusion and stenosis of left vertebral artery Osteoporosis Other disorders of lung Paresthesia of skin Polyneuropathy Psoriasis Recurrent low back pain Recurrent right upper quadrant abdominal pain suspicious for sphincter of Oddi dysfunction Spinal stenosis, cervical region Tobacco abuse Cigarette abuse, discontinued approximately 12 years ago Vertebro-basilar artery syndrome Past Surgical History: Procedure Laterality Date CHOLECYSTECTOMY 01/19/2010 Family History Problem Relation Age of Onset Heart disease Father ashd Colon cancer Sister Heart disease Other ashd Vital Signs BP 122/74 (BP Location: Left arm, Patient Position: Sitting, Cuff Size: Adult) Pulse 64 Temp 97.9 ??F (36.6 ??C) (Temporal) Ht 172.7 cm (68 ) Wt 70.5 kg (155 lb 6.4 oz) SpO2 96% BMI 23.63kg/m?? Estimated body mass index is 23.63 kg/m?? as calculated from the following: Height as of this encounter: 172.7 cm (68 ). Weight as of this encounter: 70.5 kg (155 lb 6.4 oz). Facility age limit for growth %smitha is 20 years. Physical Exam Vitals reviewed. Constitutional: Appearance: Normal appearance. HENT: Head: Normocephalic. Right Ear: Tympanic membrane, ear canal and external ear normal. Left Ear: Tympanic membrane, ear canal and external ear normal. Nose: Nose normal. Mouth/Throat: Mouth: Mucous membranes are moist. Pharynx: Oropharynx is clear. Eyes: Pupils: Pupils are equal, round, and reactive to light. Neck: Vascular: No carotid bruit. Cardiovascular: Rate and Rhythm: Normal rate and regular rhythm. Pulses: Normal pulses. Heart sounds: Normal heart sounds. Pulmonary: Effort: Pulmonary effort is normal. Breath sounds: Normal breath sounds. Abdominal: General: Bowel sounds are normal. There is no distension. Palpations: Abdomen is soft. There is no mass. Tenderness: There is no abdominal tenderness. There is no guarding or rebound. Hernia: No hernia is present. Musculoskeletal: Cervical back: Normal range of motion and neck supple. Skin: General: Skin is warm and dry. Neurological: Mental Status: She is oriented to person, place, and time. POCT Results (if applicable): Results for orders placed or performed in visit on 12/16/24 POC Glycosylated Hemoglobin (Hb A1C) Collection Time: 12/16/24 2:08 PM Specimen: Blood Result Value Ref Range Hemoglobin A1C 5.9 (A) 4.5 - 5.7 % Lot Number [id number] Expiration Date Assessment and Plan Diagnoses and all orders for this visit: 1. History of recurrent TIAs (Primary) Assessment & Plan: Recurrent TIAs involving posterior circulation. She has chronic symptoms including vague sense of unsteadiness, paresthesias of left upper extremity as well as bilateral lower extremities with some fine motor incoordination. She is followed by Dr. Sevilla and Dr. Hernandez at neurology. Current plan per neurology is risk factor modification in the form of daily Plavix 75 mg. Last MRI obtained inD showing stability of 1.7 and 1.2 mm inferiorly projecting left terminal internal carotid artery aneurysms. Patient has now been Released by neuro 2. Cervical spinal stenosis Assessment & Plan: Underwent C4-7 ACDF, 08/26/2020, Dr. Tolliver. Per patient, minimal improvement if any at all, with persisting left upper extremity paresthesias, fine motor incoordination. Patient did have a cervical MRI performed as ordered by Dr. Tolliver at [facility] for follow-up evaluation 3. Generalized abdominal pain Assessment & Plan: presents today for complaints of right upper quadrant upper pain. She describes as a dull ache. Starting in right upper quadrant and radiate across the epigastric area. She also noted aching pain around her belly button. She noted feeling bloated which would temporarily respond to gas-x. She noted it was sore to touch as well. Her normal pattern is not having daily bowel movements so no changes there. Denies blood in stool, no belching. This has been an intermittent pattern for several years after having her gallbladder removed. She does note a globus sensation in her throat. She feels like food gets hung in her throat as well. -Refer to Dr. Lal for further evaluation and treatment Orders: - Ambulatory Referral to Gastroenterology 4. Cerebral aneurysm Assessment & Plan: 2 mm involving supraclinoid segment of the left internal carotid artery; followed by Dr. Nolen, neurosurgeon at the [facility], with no recommendations for intervention BMI is within normal parameters. No other follow-up for BMI required. Follow Up Return in about 3 months (around 07/24/2025) for Medicare Wellness. Flavia Azar APRN documented in this encounter Plan of Treatment Not on file documented as of this encounter Visit Diagnoses Diagnosis History of recurrent TIAs- Primary Cervical spinal stenosis Spinal stenosis in cervical region Generalized abdominal pain Abdominal pain, generalized Cerebral aneurysm Cerebral aneurysm, nonruptured documented in this encounter Care Teams Java Portal Developer Relationship Specialty Start Date End Date Flavia Azar APRN [address] [place], [place] [id number] PCP - General Family Medicine 10/18/22 documented as of this encounter
--- OUTSIDE RECORDS SUMMARY | 2025-05-12 08:30 | XMS_ITS | Encounter Summary ---
Author Organization [facility] Address [address] [place] [address] Care Team Providers Care Math Interventionist Name Role Phone Flavia Azar APRN Primary Care Provider [phone] Reason for Referral * Diagnostic Imaging (Routine) - Closed Specialty Diagnoses / Procedures Referred By Mara stokes Referred To Contact Diagnoses Osteoporosis screening Encounter for follow-up examination after completed treatment for conditions other than malignant neoplasm Procedures DEXA Bone Density Axial DEXA Bone Density Axial Flavia Azar APRN [address] [place] [address] Phone: tel: fax: [facility] [address] [place] [address] Phone: tel: fax: Referral ID Status Reason Start Date Expiration Date Visits Re quested Visits Authorized [id number] Closed 05/12/2025 08/11/2026 1 1 * Diagnostic Imaging (Routine) - Closed Specialty Diagnoses / Procedures Referred By Mara stokes Referred To Contact Diagnoses History of recurrent TIAs Procedures Duplex Carotid Ultrasound CAR Flavia Azar APRN [address] [place] [address] Phone: tel: fax: [facility] [address] [place] [address] Phone: tel: fax: Referral ID Status Reason Start Date Expiration Date Visits Re quested Visits Authorized [id number] Closed 05/12/2025 08/11/2026 1 1 Reason for Visit * Reason Comments Medicare Wellness-subsequent Encounter Details Date Type Department Care Team (Late st Contact Info) Description 05/12/2025 8:30 AM EDT Office Visit [facility] [address] [place] [phone] Flavia Azar APRN [address] [place] [phone] Medicare annual wellness visit, subsequent (Primary Dx); Cervical spinal stenosis; Generalized abdominal pain; History of recurrent TIAs; History of smoking; Hyperlipidemia, unspecified hyperlipidemia type; Paresthesia of bilateral legs; Vitamin D deficiency; Rhomboid muscle pain; Osteoporosis screening; Encounter for follow-up examination after completed treatment for conditions other than malignant neoplasm; Annual physical exam Social History Tobacco Use Types Packs/Day Years Used Date Smoking Tobacco: Never Smokeless Tobacco: Never Alcohol Use Standard Drinks/Week Comments Not Currently 0 (1 standard drink = 0.6 oz pur e alcohol) PHQ-2 Answer Date Recorded Retired PHQ-9: Brief Depression Severity Measure Score 0 09/13/2023 PHQ-2 Answer Date Recorded Patient Health Questionnaire-2 Score 0 05/12/2025 Comments Unknown Sex and Gender Information Value Date Recorded Sex Assigned at Female 04/22/2025 4:48 PM EDT Legal Sex Female 10:40 AM EDT Gender Identity Not on file Sexual Orientation Not on file documented as of this encounter Last Filed Vital Signs Vital Sign Reading Time Taken Comments Blood Pressure 110/62 05/12/2025 8:21 AM EDT Pulse 62 05/12/2025 8:21 AM EDT Temperature 36.1 C (97 F) 05/12/2025 8:21 AM EDT Respiratory Rate 16 05/12/2025 8:21 AM EDT Oxygen Saturation 98% 05/12/2025 8:21 AM EDT Inhaled Oxygen Concentration - - Weight 68.9 kg (152 lb) 05/12/2025 8:21 AM EDT Height 172.7 cm (5' 8 ) 05/12/2025 8:21 AM EDT Body Mass Index 23.11 05/12/2025 8:21 AM EDT documented in this encounter Functional Status documented as of this encounter Progress Notes * Flavia Azar APRN - 05/12/2025 12:32 PM EDTAssociated Problem(s): Rhomboid muscle pain Patient complains of 1 week of right sided neck tenderness, stiffness and pain. Physical exam findings confirm extreme rhomboid muscle tightness. Patient unable to tolerate muscle relaxants, will treat with 40 mg daily prednisone for 5 days, also advised benefits of massage therapy as well as heating pad use. Patient also instructed on gentle stretching exercises. * Flavia Azar APRN - 05/12/2025 12:31 PM EDTAssociated Problem(s): Paresthesia of bilateral legs Patient with longstanding history of bilateral leg paresthesia. She has undergone extensive investigations with no specific etiology found. Notes in the middle of the night she often has to get up and apply warm compresses to her legs. * Flavia Azar APRN - 05/12/2025 12:31 PM EDTAssociated Problem(s): Hyperlipidemia Patient currently utilizing rosuvastatin 10 mg once daily. She does have history of significant myalgias in the past with statin use but has tolerated well this time. Rechecking lipid panel today. * Flavia Azar APRN - 05/12/2025 12:30 PM EDTAssociated Problem(s): History of smoking Patient with [id number] cigarette history. * Flavia Azar APRN - 05/12/2025 12:30 PM EDTAssociated Problem(s): History of recurrent TIAs Recurrent [...] Patient has now been Released by neuro - Repeat carotid duplex has been ordered today. * Flavia Azar APRN - 05/12/2025 12:30 PM EDTAssociated Problem(s): Generalized abdominal pain complaints of right upper quadrant upper pain. [...] gets hung in her throat as well. * Flavia Azar APRN - 05/12/2025 12:29 PM EDTAssociated Problem(s): Cervical spinal stenosis Underwent C4-7 ACDF, 08/26/2020, Dr. Tolliver. Per patient, minimal improvement if any at all, with persisting left upper extremity paresthesias, fine motor incoordination. Patient did have a cervical MRI performed as ordered by Dr. Tolliver at [facility] for follow-up evaluation * Flavia Azar APRN - 05/12/2025 8:30 AM EDT The ABCs of the Annual Wellness Visit Subsequent Medicare Wellness Visit Chief Complaint Patient presents with Medicare Wellness-subsequent Subjective History of Present Illness: Lisandra Burrell is a 69 y.o. female who presents for a Subsequent Medicare Wellness Visit and annualphysical exam. The following portions of the patient's history were reviewed and updated as appropriate: allergies, current medications, past family history, past medical history, past social history, past surgical history, and problem list. Compared to one year ago, the patient feels her physical health is the same. Compared to one year ago, the patient feels her mental health is the same. Recent Hospitalizations: She was not admitted to the hospital during the last year. Current Medical Providers: Patient Care Team: Flavia Azar APRN as PCP - General (Family Medicine) Cherelle Mitchell MD (Neurology) Janet Olvera APRN (Nurse Practitioner) Barney Castro MD as Consulting Physician (Urology) Clemente Lal MD as Consulting Physician (Gastroenterology) Outpatient Medications Prior to Visit Medication Sig Dispense Refill Cholecalciferol (D3 1999) 50 MCG (1999) capsule clopidogrel (PLAVIX) 75 MG tablet TAKE 1 TABLET BY MOUTH DAILY 90 tablet 1 loratadine (Claritin) 10 MG tablet Take 1 tablet by mouth Daily. 30 tablet 1 rosuvastatin (CRESTOR) 20 MG tablet Take 1 tablet by mouth Daily. 90 tablet 1 sodium chloride (Fisher Nasal [place]) 0.65 % nasal spray Administer 1 spray into the nostril(s) as directed by provider As Needed for Congestion. 30 mL 12 Zinc 100 MG tablet No facility-administered medications prior to visit. No opioid medication identified on active medication list. I have reviewed chart for other potential high risk medication/s and harmful drug interactions in the elderly. Aspirin is not on active medication list. Aspirin use is not indicated based on review of current medical condition/s. Risk of harm outweighs potential benefits. . Patient Active Problem List Diagnosis Hyperlipidemia Cervical spinal stenosis History of recurrent TIAs Cerebral aneurysm History of smoking Paresthesia of bilateral legs Muscle cramp Asymptomatic varicose veins of both lower extremities Nocturnal leg movements Acute cystitis with hematuria Recurrent UTI Elevated blood pressure reading Dyspepsia Medicare annual wellness visit, subsequent Chronic right-sided thoracic back pain Weakness Generalized abdominal pain Rhomboid muscle pain Annual physical exam Advance Care Planning Advance Directive is not on file. ACP discussion was held with the patient during this visit. Patient does not have an advance directive, information provided. Review of Systems Constitutional: Negative for chills, fatigue and fever. Eyes: Negative for visual disturbance. Respiratory: Negative for cough, chest tightness, shortness of breath and wheezing. Cardiovascular: Negative for chest pain, palpitations and leg swelling. Gastrointestinal: Positive for abdominal pain, nausea and vomiting. Negative for blood in stool, constipation and diarrhea. Endocrine: Negative for polydipsia and polyuria. Genitourinary: Negative for difficulty urinating, frequency, hematuria and urgency. Musculoskeletal: Positive for neck pain and neck stiffness. Neurological: Negative for dizziness, weakness and light-headedness. Psychiatric/Behavioral: Positive for sleep disturbance. Negative for agitation, self-injury and suicidal ideas. The patient is nervous/anxious. Objective Vitals: 05/12/25 0821 BP: 110/62 BP Location: Left arm Patient Position: Sitting Cuff Size: Adult Pulse: 62 Resp: 16 Temp: 97 ??F (36.1 ??C) TempSrc: Temporal SpO2: 98% Weight: 68.9 kg (152 lb) Height: 172.7 cm (68 ) PainSc: 3 Estimated body mass index is 23.11 kg/m?? as calculated from the following: Height as of this encounter: 172.7 cm (68 ). Weight as of this encounter: 68.9 kg (152 lb). BMI is within normal parameters. No other follow-up for BMI required. Does the patient have evidence of cognitive impairment? No Physical Exam Vitals reviewed. HENT: Head: Normocephalic and atraumatic. Right Ear: Tympanic membrane, ear canal and external ear normal. Left Ear: Tympanic membrane, ear canal and external ear normal. Nose: Nose normal. Mouth/Throat: Mouth: Mucous membranes are moist. Pharynx: Oropharynx is clear. Eyes: Conjunctiva/sclera: Conjunctivae normal. Pupils: Pupils are equal, round, and reactive to light. Neck: Thyroid: No thyroid mass. Vascular: Normal carotid pulses. No carotid bruit or JVD. Trachea: Trachea normal. Cardiovascular: Rate and Rhythm: Normal rate and regular rhythm. Pulses: Normal pulses. Heart sounds: Normal heart sounds. Pulmonary: Effort: Pulmonary effort is normal. Breath sounds: Normal breath sounds. Abdominal: General: Bowel sounds are normal. Palpations: Abdomen is soft. Genitourinary: Comments: defer Musculoskeletal: Cervical back: Neck supple. No signs of trauma or rigidity. Muscular tenderness present. Normal range of motion. Lymphadenopathy: Cervical: No cervical adenopathy. Skin: General: Skin is warm and dry. Neurological: Mental Status: She is alert and oriented to person, place, and time. HEALTH RISK ASSESSMENT Smoking Status: Social History Tobacco Use Smoking Status Never Smokeless Tobacco Never Alcohol Consumption: Social History Substance and Sexual Activity Alcohol Use Not Currently Fall Risk Screen: STEADI Fall Risk Assessment was completed, and patient is at LOW risk for falls.Assessment completed on:05/12/2025 Depression Screenin05/12/2025 8:22 AM PHQ-2/PHQ-9 Depression Screening Little interest or pleasure in doing things Not at all Feeling down, depressed, or hopeless Not at all How difficult have these problems made it for you to do your work, take care of things at home, or get along with other people? Not difficult at all Health Habits and Functional and Cognitive Screenin05/12/2025 8:22 AM Functional & Cognitive Status Do you have difficulty preparing food and eating? No Do you have difficulty bathing yourself, getting dressed or grooming yourself? No Do you have difficulty using the toilet? No Do you have difficulty moving around from place to place? No Do you have trouble with steps or getting out of a bed or a chair? No Current Diet Other Dental Exam Up to date Eye Exam Up to date Exercise (times per week) 3 times per week Current Exercises Include Walking Do you need help using the phone? No Are you deaf or do you have serious difficulty hearing? No Do you need help to go to places out of walking distance? No Do you need help shopping? No Do you need help preparing meals? No Do you need help with housework? No Do you need help with laundry? No Do you need help taking your medications? No Do you need help managing money? No Do you ever drive or ride in a car without wearing a seat belt? No Have you felt unusual stress, anger or loneliness in the last month? No Who do you live with? Spouse If you need help, do you have trouble finding someone available to you? No Have you been bothered in the last four weeks by sexual problems? No Do you have difficulty concentrating, remembering or making decisions? No Age-appropriate Screening Schedule: Refer to the list below for future screening recommendations based on patient's age, sex and/or medical conditions. Orders for these recommended tests are listed in the plan section. The patient has been provided with a written plan. Health Maintenance Topic Date Due DXA SCAN Never done ANNUAL WELLNESS VISIT 09/13/2024 LIPID PANEL 09/13/2024 ZOSTER VACCINE (2 of 3) 11/08/2025 (Originally 12/27/2015) COVID-19 Vaccine ( - 2023- season) 2025 (Originally 07/21/2024) Pneumococcal Vaccine 50+ (2 of 2 - PPSV23) 12/16/2025 (Originally 10/23/2016) INFLUENZA VACCINE 05/20/2025 MAMMOGRAM 11/16/2025 TDAP/TD VACCINES (3 - Td or Tdap) 09/16/2028 COLORECTAL CANCER SCREENING 08/24/2031 HEPATITIS C SCREENING Completed Assessment & Plan CMS Preventative Services Quick Reference Risk Factors Identified During Encounter None Identified The above risks/problems have been discussed with the patient. Follow up actions/plans if indicated are seen below in the Assessment/Plan Section. Pertinent information has been shared with the patient in the After Visit Summary. Diagnoses and all orders for this visit: 1. Medicare annual wellness visit, subsequent (Primary) - Cancel: CBC (No Diff); Future - Cancel: Comprehensive Metabolic Panel; Future - Cancel: Lipid Panel; Future - Cancel: TSH; Future - Cancel: T4, Free; Future - CBC (No Diff); Future - Comprehensive Metabolic Panel; Future - Lipid Panel; Future - T4, Free; Future - TSH; Future 2. Cervical spinal stenosis Assessment & Plan: Underwent C4-7 ACDF, 08/26/2020, Dr. Tolliver. Per patient, minimal improvement if any at all, with persisting left upper extremity paresthesias, fine motor incoordination. Patient did have a cervical MRI performed as ordered by Dr. Tolliver at [facility] for follow-up evaluation 3. Generalized abdominal pain Assessment & Plan: complaints of right upper quadrant upper pain. [...] gets hung in her throat as well. 4. History of recurrent TIAs Assessment & Plan: Recurrent TIAs involving posterior [...] Patient has now been Released by neuro - Repeat carotid duplex has been ordered today. Orders: - Duplex Carotid Ultrasound CAR; Future 5. History of smoking Assessment & Plan: Patient with 49-[id number]-[id number] cigarette history. 6. Hyperlipidemia, unspecified hyperlipidemia type Assessment & Plan: Patient currently utilizing rosuvastatin 10 mg once daily. She does have history of significant myalgias in the past with statin use but has tolerated well this time. Rechecking lipid panel today. 7. Paresthesia of bilateral legs Assessment & Plan: Patient with longstanding history of bilateral leg paresthesia. She has undergone extensive investigations with no specific etiology found. Notes in the middle of the night she often has to get up and apply warm compresses to her legs. 8. Vitamin D deficiency - Cancel: Vitamin D,25-Hydroxy; Future - Vitamin D,25-Hydroxy; Future 9. Rhomboid muscle pain Assessment & Plan: Patient complains of 1 week of right sided neck tenderness, stiffness and pain. Physical exam findings confirm extreme rhomboid muscle tightness. Patient unable to tolerate muscle relaxants, will treat with 40 mg daily prednisone for 5 days, also advised benefits of massage therapy as well as heating pad use. Patient also instructed on gentle stretching exercises. Orders: - predniSONE (DELTASONE) 20 MG tablet; Take 2 tablets by mouth Daily for 7 days. Dispense: 14 tablet; Refill: 0 10. Osteoporosis screening - Cancel: DEXA Bone Density Axial - DEXA Bone Density Axial; Future 11. Encounter for follow-up examination after completed treatment for conditions other than malignant neoplasm - Cancel: DEXA Bone Density Axial - DEXA Bone Density Axial; Future 12. Annual physical exam Follow Up: Return in about 6 months (around 11/11/2025) for Next scheduled follow up. An After Visit Summary and PPPS were made available to the patient. documented in this encounter Plan of Treatment Scheduled Orders Name Type Priority Associated Diagnoses Orde r Schedule CBC (No Diff) Lab Routine Medicare annual wellness visit, subsequent Expected: 05/17/2025 (Approximate), Expires: 05/12/2026 Comprehensive Metabolic Panel Lab Routine Medicare annual wellness visit, subsequent Expected: 05/17/2025 (Approximate), Expires: 05/12/2026 Lipid Panel Lab Routine Medicare annual wellness visit, subsequent Expected: 05/17/2025 (Approximate), Expires: 05/12/2026 T4, Free Lab Routine Medicare annual wellness visit, subsequent Expected: 05/17/2025 (Approximate), Expires: 05/12/2026 TSH Lab Routine Medicare annual wellness visit, subsequent Expected: 05/17/2025 (Approximate), Expires: 05/12/2026 Vitamin D,25-Hydroxy Lab Routine Vitamin D deficiency Expected: 05/17/2025 (Approximate), Expires: 05/12/2026 documented as of this encounter Results * DEXA Bone Density Axial (05/26/2025) Anatomical Region Laterality Modality Wrist, Hip, L-spine N/A Radiographic Imaging us Flavia Azar APRN IMG DXA ORDERABLES Final Re sult * Duplex Carotid Ultrasound CAR (05/15/2025) Anatomical Region Laterality Modality Ultrasound us Flavia Azar APRN CV VASCULAR ORDERABLES Jackie l Result documented in this encounter Visit Diagnoses Diagnosis Medicare annual wellness visit, subsequent- Primary Cervical spinal stenosis Spinal stenosis in cervical region Generalized abdominal pain Abdominal pain, generalized History of recurrent TIAs History of smoking Personal history of tobacco use, presenting hazards to health Hyperlipidemia, unspecified hyperlipidemia type Paresthesia of bilateral legs Vitamin D deficiency Rhomboid muscle pain Osteoporosis screening Special screening for osteoporosis Encounter for follow-up examination after completed treatment for conditions other than malignant neoplasm Annual physical exam Routine general medical examination at a health care facility documented in this encounter Care Teams Math Interventionist Relationship Specialty Start Date End Date Flavia Azar APRN [address] [place] [phone] PCP - General Family Medicine 10/18/22 documented as of this encounter
--- OUTSIDE RECORDS SUMMARY | 2025-06-16 08:16 | XMS_ITS | Encounter Summary ---
Author Organization [facility] Address [address] [place] [address] Care Team Providers Care Shoe Cleaner Name Role Phone Flavia Azar INDUSTRY ANALYST Primary Care Provider [phone] Encounter Details Date Type Department Care Team (Latest Contact Info) Description 05/12/2025 Travel Social History Tobacco Use Types Packs/Day [...] documented as of this encounter Functional Status documented as of this encounter Plan of Treatment Not on file documented as of this encounter Visit Diagnoses Not on filedocumented in this encounter Care Teams Shoe Cleaner Relationship Specialty Start Date End Date Flavia Azar APRN [address] [place] [address] PCP - General Family Medicine 10/18/22 documented as of this encounter
--- OUTSIDE RECORDS SUMMARY | 2025-06-16 08:16 | XMS_ITS | Encounter Summary ---
Author Organization [facility] Address [address] [place] [address] Care Team Providers Care Web Page Designer Name Role Phone Cherelle Mitchell MD Unavailable Flavia Azar APRN Primary Care Provider Paddy Morales MD Unavailable [phone] Reason for Visit * Reason Comments Med Refill Encounter Details Date Type Department Care Team (Late st Contact Info) Description 04/25/2025 Refill [place] [facility] [address], [address] [place] [address] Cherelle Mitchell MD [address] [place] [address] Social History Tobacco Use Types [...] Description 05/05/2026 1:00 PM EDT Office Visit [place] [facility] [address], [address] [place] [address] Paddy Morales MD [address] [place] [address] documented as of this encounter Visit Diagnoses Not on filedocumented in this encounter Additional Health Concerns Assessment Noted Time A fall risk assessment has been complete d for the patient 01/30/2025 8:26 AM EDT A Body Mass Index follow-up plan has been documented for the patient 04/24/2025 4:27 PM EDT documented as of this encounter Care Teams Web Page Designer Relationship Specialty Start Date End Date Flavia Azar APRN [address] [phone] PCP - General 10/28/22 Cherelle Mitchell MD [address] [place] [address] Service Attending Neurology 03/02/22 Paddy Morales MD [address] [place] [address] Surgeon Neurosurgery 10/28/22 documented as of this encounter
--- OUTSIDE RECORDS SUMMARY | 2025-06-16 08:16 | XMS_ITS | Encounter Summary ---
Author Organization [facility] Address [address] [place] [address] Care Team Providers Care Bilingual Sales Assistant Name Role Phone Flavia Azar APRN Primary Care Provider [phone] Encounter Details Date Type Department Care Team (Latest Contact Info) Description 04/23/2025 Travel Social History Tobacco Use Types Packs/Day [...] on filedocumented in this encounter Care Teams Bilingual Sales Assistant Relationship Specialty Start Date End Date Flavia Azar APRN [address] [place] [address] PCP - General Family Medicine 10/18/22 documented as of this encounter
--- OUTSIDE RECORDS SUMMARY | 2025-06-16 08:16 | XMS_ITS | Encounter Summary ---
Author Organization [facility] Address [address] [place] [address] Care Team Providers Care Electric Motor And Generator Assembler Name Role Phone Flavia Azar CUSTOMER SERVICE ATTENDANT Primary Care Provider Encounter Details Date Type Department Care Team (Late st Contact Info) Description 05/22/2025 Results Follow-Up [facility] [address] [place] [address] Flavia Azar, CUSTOMER SERVICE ATTENDANT [address] [place] [address] Social History Tobacco Use Types Packs/Day Years [...] on file documented as of this encounter Miscellaneous Notes * Telephone Encounter - Arabella Odell MA - 06/12/2025 9:18 AM EDT Called and left a message for patient to return my call to the office and I sent a [employer] message documented in this encounter Plan of Treatment Not on file documented as of this encounter Visit Diagnoses Not on filedocumented in this encounter Care Teams Electric Motor And Generator Assembler Relationship Specialty Start Date End Date Flavia Azar APRN [address] [place], [place] [phone] PCP - General Family Medicine 10/18/22 documented as of this encounter
--- OUTSIDE RECORDS SUMMARY | 2025-06-16 08:16 | XMS_ITS | Encounter Summary ---
Author Organization [facility] Address [address] [place] [address] Care Team Providers Care Finance And Administration Manager Name Role Phone Flavia Azar LENS ASSORTER Primary Care Provider Reason for Visit * Reason Onset Date Comments Medication Problem 04/25/2025 Encounter Details Date Type Department Care Team (Late st Contact Info) Description 04/25/2025 Refill [facility] [address] [place] [address] Flavia Aazr, LENS ASSORTER [address] [place] [address] Social History Tobacco Use Types [...] encounter Miscellaneous Notes * Telephone Encounter - Willy Lobato RegSched Rep - 04/25/2025 11:17 AM EDT Caller: Lisandra Burrell Relationship: Self Best call back number: [phone] Requested Prescriptions: Requested Prescriptions Pending Prescriptions Disp Refills rosuvastatin (CRESTOR) 20 MG tablet 90 tablet Sig: Take 1 tablet by mouth Daily. clopidogrel (PLAVIX) 75 MG tablet 30 tablet Pharmacy where request should be sent: [id number] [place] - [address] - [phone] [facility] [phone] Last office visit with prescribing clinician: 04/23/2025 Last telemedicine visit with prescribing clinician: Visit date not found Next office visit with prescribing clinician: 05/12/2025 Additional details provided by patient: PATIENT NEEDS REFILL Does the patient have less than a 3 day supply: [] Yes [x] No Would you like a call back once the refill request has been completed: [] Yes [x] No If the office needs to give you a call back, can they leave a voicemail: [] Yes [x] No Darren Monge 04/25/25 11:17 EDT documented in this encounter Plan of Treatment Not on file documented as of this encounter Visit Diagnoses Not on filedocumented in this encounter Care Teams Finance And Administration Manager Relationship Specialty Start Date End Date Flavia Azar APRN [address] [place], [place] [phone] PCP - General Family Medicine 10/18/22 documented as of this encounter
--- OUTSIDE RECORDS SUMMARY | 2025-06-16 08:16 | XMS_ITS | Clinical Summary ---
Author Organization [facility] Address [address] [place] [address] Care Team Providers Care Ict Sales Representative Name Role Phone Cherelle Mitchell MD Unavailable [phone] Flavia Azar APRN Primary Care Provider [phone] Paddy Morales MD Unavailable +- [phone] Allergies Active Allergy Reactions Criticality Noted Date [...] time each day. 5 Active sodium chloride ([place]) 0.65 % nasal spray Administer 1 spray [...] Type Department Care Team Description 04/25/2025 Refill [place] [facility] [address], [address] [place] [address] Cherelle Mitchell MD 04/22/2025 1:03 PM EDT - 04/22/2025 11:59 PM EDT Hospital Encounter [place] [facility] [address], 1[address] [place] [address] Status post cervical spinal fusion Discharge Disposition: Home or Self Care 04/22/2025 1:00 PM EDT Office Visit [place] [facility] [address], [address] [place] [address] Paddy Morales MD Status post cervical spinal [...] Visit [place] [facility] [address], [address] [place] [address] Paddy Morales MD [address] [place] [address] Health Maintenance Due Date Last [...] (2 of 2 - PPSV23) 10/23/2016 10/23/2015 [id number] Vaccine (1 - season) 2024 [facility]-Medicare Annual [...] MD on 04/22/2025 4:02 PM Sonia Frazier EXCELSIOR MACHINE FEEDER, DNP IMG XR PROCEDURES Jackie l Result [...] <6.0% Children and Adolescents <7.5% . Source: [place] [employer]. Standards of medical care in [...] Patient has decision-making capacity? Yes Care Teams Ict Sales Representative Relationship Specialty Start Date End Date Flavia Azar APRN [address] [phone] PCP - General 10/28/22 Cherelle Mitchell MD [address] [address] Service Attending Neurology 03/02/22 Paddy Morales MD [address] [address] Surgeon Neurosurgery 10/28/22
--- OUTSIDE RECORDS SUMMARY | 2025-06-16 08:16 | XMS_ITS | Clinical Summary ---
Author Organization [facility] Address [address] [place] [address] Care Team Providers Care Administrative Staff Supervisor Name Role Phone DoeFlavia duggan Yash VIEYRA Primary Care Provider [phone] Allergies Active Allergy Reactions Criticality Noted Date Comments Benzodiazepines Other (See Comments),Unknown (See Comments) Low 08/25/2020 excruciating pain and upset stomach excruciating pain and upset stomach excruciating pain and upset stomach Cyclobenzaprine Myalgia 10/18/2022 Lamotrigine Rash,Unknown (See Comments) Low 11/01/2019 Other reaction(s): Unknown Other Other (See Comments) Low 09/10/2021 Controlled substances Other reaction(s): Other Controlled substances Medications Zinc 100 MG tablet Active sodium chloride ([place] Nasal [place]) 0.65 % nasal sprayIndication s:Non-seasonal allergic rhinitis due to other allergic trigger Administer 1 spray into the nostril(s) as directed by provider As Needed for Congestion. 30 mL 12 5 Active loratadine (Claritin) 10 MG tabletIndicatio ns:Non-seasonal allergic rhinitis due to other allergic trigger Take 1 tablet by mouth Daily. 30 tablet 1 5 Active Cholecalciferol (D3 1999) 50 MCG (1999 UT) capsule Active rosuvastatin (CRESTOR) 20 MG tablet Take 1 tablet by mouth Daily. 90 tablet 1 5 Active clopidogrel (PLAVIX) 75 MG tablet TAKE 1 TABLET BY MOUTH DAILY 90 tablet 1 5 Active predniSONE (DELTASONE) 20 MG tabletIndicatio ns:Rhomboid muscle pain Take 2 tablets by mouth Daily for 7 days. 14 tablet 5 05/19/20 25 Active Problems Problem Noted Date Diagnosed Date Rhomboid muscle pain 05/12/2025 Assessment & Plan (05/12/2025 12:32 PM EDT): Patient complains of 1 week of right sided neck tenderness, stiffness and pain. Physical exam findings confirm extreme rhomboid muscle tightness. Patient unable to tolerate muscle relaxants, will treat with 40 mg daily prednisone for 5 days, also advised benefits of massage therapy as well as heating pad use. Patient also instructed on gentle stretching exercises. Annual physical exam 05/12/2025 Generalized abdominal pain 04/23/2025 Assessment & Plan (05/12/2025 12:30 PM EDT): complaints of right upper quadrant upper pain. [...] gets hung in her throat as well. Assessment & Plan (04/27/2025 8:41 PM EDT): presents today for complaints of right upper [...] Dr. Lal for further evaluation and treatment Weakness 12/19/2024 Assessment & Plan (12/19/2024 5:52 PM EST): Patient has concern of episodes where she will suddenly become weak and feels as though she has no energy. She does not feel as though she is going to pass out, no dizziness. She states that these episodes are happening roughly every other day. In retrospect she feels like they are happening when she has not eaten. Her A1c in office today is normal. EKG without ectopy, sinus bradycardia. Will continue to monitor for now Chronic right-sided thoracic back pain Assessment & Plan (12/19/2024 5:50 PM EST): Patient with several months of right-sided thoracic back pain that radiates under her right breast, this has been a chronic issue but has worsened over the last several months. States upon awakening in the morning she has a ripping and burning sensation in her thoracic area as well. The pain has responded to ibuprofen. No particularly concerning findings on physical exam. Will obtain x-ray for further evaluation. Patient also being given prednisone therapy to evaluate response. Will call with results when available Elevated blood pressure reading 09/13/2023 Assessment & Plan (09/13/2023 11:59 AM EDT): Patient had episode approximately 3 weeks ago after some dental work that her blood pressure increased, 160s to 190s range. She also became very unsteady and dizzy postprocedure in the dental office. She was evaluated in the emergency department where she was diagnosed with a urinary tract infection. Follow-up in our office a few days after ED visit with continued hypertension, lisinopril 10 mg once daily was initiated with instructions to monitor blood pressure closely at home and hold medication for blood pressure less than 140/80. Patient notes excellent blood pressure control without any use of medication. Continue to monitor regularly Dyspepsia 09/13/2023 Assessment & Plan (09/13/2023 11:59 AM EDT): Soreness has been going on for about six months. She has had what she calls stomach attacks since she underwent cholecystectomy more than 15 years ago. She notes she has episodes that she will develop abdominal discomfort and distention, she will then have bile emesis which relieves the symptoms. She notes these attacks occur roughly every 4-6 weeks. Patient notes she does get heart burn but not regularly. She feels that she has improvement during these episodes by laying on her right side. Gas x provides some relief. She also suffers from frequent constipation, untreated. She reports history of biliary stricture with dialation with Dr. Lal many years ago. -Will trial omeprazole to see if this provides any benefit, if not we will refer to gastroenterology for further evaluation Medicare annual wellness visit, subsequent 09/13 Assessment & Plan (09/13/2023 12:03 PM EDT): Patient presents today for annual Medicare wellness visit. Follow-up for chronic conditions including recurrent TIA, hyperlipidemia, cerebral aneurysm, bilateral lower extremity paresthesia and most recently recurrent UTI. Patient is followed by specialties including [facility] and urology, Dr. Barney Castro. She is due for yearly low-dose CT lung cancer screening and DEXA scan with history of osteopenia. We will also obtain comprehensive yearly blood work, CBC, CMP, TSH, lipid panel and vitamin D level. Complaints as outlined below. Acute cystitis with hematuria 08/29/2023 Assessment & Plan (08/29/2023 5:12 PM EDT): Patient diagnosed and being treated through [facility] emergency department 2 days ago. She is now been referred to urology for further evaluation given recurrent nature of UTIs over the last several months Recurrent UTI 08/29/2023 Assessment & Plan (08/04/2024 2:30 PM EDT): Patient has a pattern of recurrent UTI and has been evaluated by urology in the past. Approximately 1 year ago she was referred to Dr. Castro by the emergency department due to recurrent UTI over the several months prior. She was initiated on daily estradiol vaginal cream as well as prophylactic daily memantine. Patient noted after doing some research on memantine she felt like it turned to formaldehyde in her body so she did not continue with the medication. She is here today after being seen at the urgent treatment center at [facility] 1 week ago. They sent her to the ER for a scan where she was found to have an obstructing renal stone and pyelonephritis. She was placed on 10-day course of cefdinir. She is here today because she continued to have lingering symptoms but did note some improvement as well. Her urinalysis in office today is clear. Will send for culture Assessment & Plan (09/13/2023 12:01 PM EDT): Patient was referred to urology by the emergency department due to recurrent UTI over the last several months. Per Dr. Castro she was initiated on daily estradiol vaginal cream as well as prophylactic daily memantine. Patient notes after doing some research on memantine she feels like it turned to formaldehyde in her body so she will not be taking. Assessment & Plan (08/29/2023 5:04 PM EDT): Patient has been referred to urology by the emergency department due to recurrent UTI over the last several months, being treated both the emergency department and [facility]. Currently being treated empirically with Bactrim. Hyperlipidemia 10/18/2022 Assessment & Plan (05/12/2025 12:31 PM EDT): Patient currently utilizing rosuvastatin 10 mg once daily. She does have history of significant myalgias in the past with statin use but has tolerated well this time. Rechecking lipid panel today. Assessment & Plan (09/13/2023 11:56 AM EDT): Patient currently utilizing rosuvastatin 10 mg once daily. She does have history of significant myalgias in the past with statin use but has tolerated well this time. Rechecking lipid panel today. Assessment & Plan (08/29/2023 5:07 PM EDT): Patient not currently utilizing statin therapy due to diffuse myalgias. Assessment & Plan (10/18/2022 3:58 PM EST): Previously on lipitor changed to crestor by neurology due to ongoing myalgia Cervical spinal stenosis 10/18/2022 Assessment & Plan (05/12/2025 12:29 PM EDT): Underwent C4-7 ACDF, 08/26/2020, Dr. Tolliver. Per patient, minimal improvement if any at all, with persisting left upper extremity paresthesias, fine motor incoordination. Patient did have a cervical MRI performed as ordered by Dr. Tolliver at [facility] for follow-up evaluation Assessment & Plan (04/27/2025 8:39 PM EDT): Underwent C4-7 ACDF, 08/26/2020, Dr. Tolliver. Per patient, minimal improvement if any at all, with persisting left upper extremity paresthesias, fine motor incoordination. Patient did have a cervical MRI performed as ordered by Dr. Tolliver at [facility] for follow-up evaluation Assessment & Plan (09/13/2023 12:00 PM EDT): Underwent C4-7 ACDF, 08/26/2020, Dr. Tolliver. Per patient, minimal improvement if any at all, with persisting left upper extremity paresthesias, fine motor incoordination. Patient did have a cervical MRI performed as ordered by Dr. Tolliver at [facility] for follow-up evaluation Assessment & Plan (10/18/2022 3:58 PM EST): Underwent C4-7 ACDF, 08/26/2020, Dr. Tolliver. Per patient, minimal improvement if any at all, with persisting left upper extremity paresthesias, fine motor incoordination. Patient did have a cervical MRI performed as ordered by Dr. Tolliver at [facility] for follow-up evaluation History of recurrent TIAs 10/18/2022 Assessment & Plan (05/12/2025 12:30 PM EDT): Recurrent TIAs involving posterior circulation. She has [...] Repeat carotid duplex has been ordered today. Assessment & Plan (04/27/2025 8:40 PM EDT): Recurrent TIAs involving posterior circulation. She has [...] Patient has now been Released by neuro Assessment & Plan (09/13/2023 11:58 AM EDT): Recurrent TIAs involving posterior circulation. 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 Assessment & Plan (08/29/2023 5:11 PM EDT): Recurrent TIA involving posterior circulation. She has chronic symptoms including vague sense of unsteadiness, paresthesias of left upper extremity as well as bilateral lower extremities with some fine motor incoordination. She is followed by Dr. Sevilla and Dr. Hernandez at neurology. Current plan per neurology as risk factor modification, daily Plavix 75 mg. 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 She reports ongoing symptoms including vague sense of unsteadiness, paresthesias left upper extremity as well as bilateral lower extremities with some fine motor incoordination. She is followed by Dr. Nolen and Dr. Mitchell and neurology Plan: 1. Risk factor modification 2. Plavix 75 mg daily to be continued 3. She was seen today by neurology and her lipitor was changed to crestor due to some ongoing complaints of myalgia 4. Continue follow-up at [facility] Cerebral aneurysm 10/18/2022 Assessment & Plan (04/27/2025 8:39 PM EDT): 2 mm involving supraclinoid segment of the left internal carotid artery; followed by Dr. Nolen, neurosurgeon at the [facility], with no recommendations for intervention Assessment & Plan (09/13/2023 12:00 PM EDT): 2 mm involving supraclinoid segment of the left internal carotid artery; followed by Dr. Nolen, neurosurgeon at the [facility], with no recommendations for intervention Assessment & Plan (10/18/2022 3:58 PM EST): 2 mm involving supraclinoid segment of the left internal carotid artery; followed by Dr. Nolen, neurosurgeon at the [facility], with no recommendations for intervention History of smoking 10/18/2022 Assessment & Plan (05/12/2025 12:30 PM EDT): Patient with 94-zvkw-bdmk cigarette history. Assessment & Plan (12/19/2024 5:51 PM EST): Patient with 22-ayph-axys cigarette history. Currently due for annual low-dose CT lung cancer screening. Order placed Assessment & Plan (09/13/2023 11:57 AM EDT): Patient with 93-abkj-kybm cigarette history. Currently due for annual low-dose CT lung cancer screening Assessment & Plan (08/29/2023 5:07 PM EDT): Past history of cigarette abuse, 29-kdii-bhnu history. Assessment & Plan (10/18/2022 3:59 PM EST): Past history of cigarette abuse, 30-bmzs-ybrz history. LDLCT scan 08/23/2021 satisfactory, 1 year follow-up recommended in August 2022 Plan: 1. LDLC to be coordinated at [facility] Paresthesia of bilateral legs 10/18/2022 Assessment & Plan (05/12/2025 12:31 PM EDT): Patient with longstanding history of bilateral leg paresthesia. She has undergone extensive investigations with no specific etiology found. Notes in the middle of the night she often has to get up and apply warm compresses to her legs. Assessment & Plan (09/13/2023 11:55 AM EDT): Patient with longstanding history of bilateral leg paresthesia. She has undergone extensive investigations with no specific etiology found. Notes in the middle of the night she often has to get up and apply warm compresses to her legs. Assessment & Plan (10/18/2022 4:08 PM EST): Paresthesias involving lower extremities. Etiology uncertain. Extensive investigations were undertaken with no specific etiology found for paresthesias. Muscle cramp 10/18/2022 Asymptomatic varicose veins of both lower extrem ities 10/18/2022 Assessment & Plan (10/18/2022 4:03 PM EST): Patient with complaints of worsening spider veins particularly in her lower extremities below the knee. Denies any pain associated with these veins. Pulses palpable. Adequate cap refill on exam. Discussed use of compression hose and surgical intervention. We discussed that given she is asymptomatic use of compression hose would be the best option at this time Nocturnal leg movements 10/18/2022 Assessment & Plan (10/18/2022 4:06 PM EST): She reports new onset leg cramping, generalized [...] written -RTC 4 weeks for follow up Resolved Problems Problem Noted Date Diagnosed Date Resolved Date Palpitation 12/19/2024 12/19/2024 Hypertension 08/29/2023 09/13/2023 Assessment & Plan (08/29/2023 5:06 PM EDT): Onset of hypertension over the last several days, while being in evaluated in the emergency department 2 days ago blood pressure was 190s on presentation. At time of discharge systolic remained in the 150s. In office today blood pressure 160/98. Patient has also been getting 160 systolic range on home readings. She denies any associated chest pain but she has experienced headache and dizziness. She also notes intermittently feeling her heartbeat in her head . She is not currently on any blood pressure medications. -Initiate lisinopril 10 mg once daily -Patient educated on signs of angioedema including lip and tongue numbness and tingling at which point if the symptoms develop she should immediately stop medication and report to emergency department -Patient asked to check blood pressure before taking medication each morning, if blood pressure less than 140/80 she is to hold lisinopril. I would like her to maintain detailed blood pressure log, checking blood pressure 1 hour after taking medication. She is reminded to rest for 15 minutes before taking blood pressure. -If blood pressure unresponsive to medications will need to pursue renal artery ultrasound given history of smoking Encounters Date Type Department Care Team Description 05/22/2025 Results Follow-Up [facility] [place] [id number] Flavia Azar, JARRELL 05/12/2025 8:30 AM EDT Office Visit [facility] [place] [phone] Flavia Azar, CAR SHAKEOUT OPERATOR Medicare annual wellness visit, subsequent (Primary Dx); Cervical spinal stenosis; Generalized abdominal pain; History of recurrent TIAs; History of smoking; Hyperlipidemia, unspecified hyperlipidemia type; Paresthesia of bilateral legs; Vitamin D deficiency; Rhomboid muscle pain; Osteoporosis screening; Encounter for follow-up examination after completed treatment for conditions other than malignant neoplasm; Annual physical exam 05/12/2025 Travel 04/25/2025 Refill [facility] [address] [place] [address] [place] [id number] Flavia Azar, CAR SHAKEOUT OPERATOR 04/25/2025 Refill [facility] [address] [place] [address] [place] [id number] Flavia Azar, CAR SHAKEOUT OPERATOR 04/23/2025 8:15 AM EDT Office Visit [facility] [address] [place] [address] [place] [phone] Flavia Azar, CAR SHAKEOUT OPERATOR History of recurrent TIAs (Primary Dx); Cervical spinal stenosis; Generalized abdominal pain; Cerebral aneurysm 04/23/2025 Travel from Last 3 Months Immunizations Immunization Administration Dates Next Due Fluad Quad 65+ 09/22/2020 Fluzone >6mos 10/03/2016 Fluzone (or Fluarix & Flulav al for VFC) >6mos 08/24/2019,08/25/2017 Influenza, Unspecified 08/24/2019,08/25/2017, Pneumococcal Conjugate 13-Valent (PCV13) 015 Tdap 09/16/2018,08/20/2018 Zostavax 11/01/2015 Family History Medical History Relation Name Comments Heart disease Father ashd Heart disease Other Grandmother &Grandfather as hd Colon cancer Sister Relation Name Status Comments Father Alive Mother Alive Other Grandmother &Grandfather Sister Social History Tobacco Use Types Packs/Day Years Used Date Smoking Tobacco: Never Smokeless Tobacco: Never Tobacco Cessation:Counseling Given: Not [...] Mass Index 23.11 05/12/2025 8:21 AM EDT Plan of Treatment Health Maintenance Due Date Last Done Comments COLOGUARD 1998 COLON CANCER SCREENING [address] COLONOGRAPHY 1998 FECAL OCCULT BLOOD TEST 1998 FIT Testing (1 year) 1998 LIPID PANEL 09/13/2024 09/13/2023 INFLUENZA VACCINE 08/20/2025 09/22/2020, , 08/24/2019, Additional history exists ZOSTER VACCINE (2 of 3) 11/08/2025 11/01/2015 Post poned from 12/27/2015 (Patient Refused) COVID-19 Vaccine ( - season) 2025 Postponed from 07/21/2024 (Patient Refused) MAMMOGRAM 11/16/2025 11/16/2023, 08/05/2021 Pneumococcal Vaccine 50+ (2 of 2 - PPSV23) 12/16/2025 10/23/2015 Postponed from 10/23/2016 (Patient Refused) ANNUAL WELLNESS VISIT 05/12/2026 05/12/2025 , 09/13/2023, 10/18/2022 DXA SCAN 05/26/2027 05/26/2025 TDAP/TD VACCINES (3 - Td or Tdap) 09/16/2028 09/16/2018, 08/20/2018 COLONOSCOPY 08/24/2031 08/24/2021 COLORECTAL CANCER SCREENING 08/24/2031 HEPATITIS C SCREENING Completed 09/13/2023 Procedures Procedure Name Priority Date/Time Associated Diagnosis Comments DEXA BONE DENSITY AXIAL Routine 05/26/2025 Osteoporosis screening Encounter for follow-up examination after completed treatment for conditions other than malignant neoplasm DUPLEX CAROTID BILATERAL CAR - PERFORMED PROCEDURE Routine 05/15/2025 History of recurrent TIAs SCANNED - MAMMO 11/16/2023 LIPID PANEL Routine 09/13/2023 11:50 AM EDT Hyperlipidemia, unspecified hyperlipidemia type HEPATITIS C ANTIBODY Routine 09/13/2023 11:50 AM EDT Need for hepatitis C screening test from Last 3 Months or Most Recently Relevant to Health Maintenance Results * DEXA Bone Density Axial (05/26/2025) Anatomical Region Laterality Modality Wrist, Hip, L-spine N/A Radiographic Imaging us Flavia Azar APRN IMG DXA ORDERABLES Final Re sult * Duplex Carotid Ultrasound CAR (05/15/2025) Anatomical Region Laterality Modality Ultrasound us Flavia Azar APRN CV VASCULAR ORDERABLES Jackie l Result * SCANNED - MAMMO (11/16/2023) Anatomical Region Laterality Modality Other us Flavia Azar APRN CHART REVIEW TABS Final Result * Hepatitis C Antibody (09/13/2023 11:50 AM EDT) Hep C Virus Ab Non Reactive Non Reactive [facility] Comment: HCV antibody alone does not differentiate between previously resolved infection and active infection. Equivocal and Reactive HCV antibody results should be followed up with an HCV RNA test to support the diagnosis of active HCV infection. Blood Structure of left upper limb / Unknown 09/13/2023 11:50 AM EDT 09/14/2023 Comment:Blood Release to [facility] i Narrative [facility] (AMBULATORY) - 09/14/2023 1:06 PM EDT Performed at: - [facility] [address] [place], [place] [id number] Laser Technician: Nabil Perez PhD, Phone: [phone] Flavia Azar APRN LAB BLOOD ORDERABLES Final Result Performing Organization Address City/[facility]/ZIP Co de Phone Number [facility] (AMBULATORY) [address] [place] [address], [place] [phone] [facility] [address] [place] [address], [place] [phone] * (ABNORMAL) Lipid Panel (09/13/2023 11:50 AM EDT) Total Cholesterol 243(H) 100 - 199 mg/dL [facility] Triglycerides 115 0 - 149 mg/dL [facility] HDL Cholesterol 61 >39 mg/dL [facility] VLDL Cholesterol Errol 20 5 - 40 mg/dL [facility] LDL Chol Calc (NIH) 162(H) 0 - 99 mg/dL [facility] Blood Structure of left upper limb / Unknown 09/13/2023 11:50 AM EDT 09/14/2023 Comment:[facility] to [facility] - 09/14/2023 1:06 PM EDT Performed at: - [facility] [address] [place] [id number] Laser Technician: Nabil Perez PhD, Phone: [phone] Flavia Azar APRN LAB BLOOD ORDERABLES Final Result Performing Organization Address City/[facility]/ZIP Co de Phone Number [facility] (AMBULATORY) [address] [place] [address], [place] [phone] [facility] [address] [place] [address], from Last 3 Months or Most Recently Relevant to Health Maintenance Insurance [employer] MED[employer]ARE [employer]VANTAGE Care Teams Administrative Staff Supervisor Relationship Specialty Start Date End Date Flavia Azar APRN [address] [place] [address] PCP - General Family Medicine 10/18/22
--- OUTSIDE RECORDS SUMMARY | 2025-06-16 08:16 | XMS_ITS | Encounter Summary ---
Author Organization [facility] Address [address] [place] [address] Care Team Providers Care Fitness Attendant Name Role Phone Cherelle Mitcehll MD Unavailable [phone] Flavia Azar APRN Primary Care Provider Paddy Morales MD Unavailable [phone] Encounter Details Date Type Department Care Team [...] [address] [place] [address] Paddy Morales MD [address] [address] documented as of this encounter Visit Diagnoses Not on filedocumented in this encounter Additional Health Concerns Assessment Noted Time A fall risk assessment has been complete d for the patient 01/30/2025 8:26 AM EDT A Body Mass Index follow-up plan has been documented for the patient 04/24/2025 4:27 PM EDT documented as of this encounter Care Teams Fitness Attendant Relationship Specialty Start Date End Date Flavia Azar APRN [address] [place], [place] [id number] PCP - General 10/28/22 Cherelle Mitchell MD [address] [address] Service Attending Neurology 03/02/22 Paddy Morales MD [address] [address] Surgeon Neurosurgery 10/28/22 documented as of this encounter
--- OUTSIDE RECORDS SUMMARY | 2025-06-16 08:16 | XMS_ITS | Encounter Summary ---
Author Organization [facility] Address [address] [place] [address] Care Team Providers Care Half Sole Fitter Name Role Phone Flavia Azar HEAD IRRIGATOR Primary Care Provider Reason for Visit * Reason Comments Med Refill Encounter Details Date Type Department Care Team (Late st Contact Info) Description 04/25/2025 Refill [facility] [address] [place] [address] Flavia Azar, HEAD IRRIGATOR [address] [place] [address] Social History Tobacco Use Types [...] on filedocumented in this encounter Care Teams Half Sole Fitter Relationship Specialty Start Date End Date Flavia Azar, HEAD IRRIGATOR [address] [place] [address] PCP - General Family Medicine 10/18/22 documented as of this encounter
--- OUTSIDE RECORDS SUMMARY | 2025-06-16 08:17 | XMS_ITS | Encounter Summary ---
Author Organization Healthcare Address [address] [place] [address] Care Team Providers Care Ssrs Developer Name Role Phone Cherelle Mitchell MD Unavailable [phone] Flavia Azar APRN Primary Care Provider Paddy Morales MD Unavailable [phone] Encounter Details Date Type Department Care Team (Late st Contact Info) Description 11/04/2022 Ophth Exam [facility] [address] [place] [address] Brad Piña MD [address] [place], [place] [id number] Social History Tobacco Use Types Packs/Day Years [...] Visit [facility] [facility] [address], [address] [place] [address] Paddy Morales MD [address] [facility] [place] [address] documented as of this encounter Visit Diagnoses Not on filedocumented in this encounter Additional Health Concerns Assessment Noted Time A fall risk assessment has been complete d for the patient 10/28/2022 1:23 PM EST documented as of this encounter Care Teams Ssrs Developer Relationship Specialty Start Date End Date Flavia Azar APRN [address] [place] [id number] PCP - General 10/28/22 Cherelle Mitchell MD [address] [place] [address] Service Attending Neurology 03/02/22 Paddy Morales MD [address] [place] [address] Surgeon Neurosurgery 10/28/22 documented as of this encounter
--- OUTSIDE RECORDS SUMMARY | 2025-06-16 08:17 | XMS_ITS | Encounter Summary ---
Author Organization [facility] Address [address] [place] [address] Care Team Providers Care Supervisor Process Testing Name Role Phone Cherelle Mitchell MD Unavailable Flavia Azar APRN Primary Care Provider Paddy Morales MD Unavailable [phone] Reason for Visit * Reason Comments Med Refill Encounter Details Date Type Department Care Team (Late st Contact Info) Description 12/17/2023 Refill [place] [facility] [address], [address] [place] [address] Cherelle Mitchell MD [address] [place] [address] Abnormal EEG Social History Tobacco [...] Description 05/05/2026 1:00 PM EDT Office Visit [place] [facility] [address], [address] [place] [address] Paddy Morales MD [address] [address] documented as of this encounter Visit Diagnoses Diagnosis Abnormal EEG documented in this encounter Additional Health Concerns Assessment Noted Time A fall risk assessment has been complete d for the patient 04/25/2023 10:45 AM EDT A Body Mass Index follow-up plan has been documented for the patient 12/17/2023 12:35 PM EST documented as of this encounter Care Teams Supervisor Process Testing Relationship Specialty Start Date End Date Flavia Azar APRN [address] [place] [address] PCP - General 10/28/22 Cherelle Mitchell MD [address] [facility] [address] [place] [address] Service Attending Neurology 03/02/22 Paddy Morales MD [address] [address] Surgeon Neurosurgery 10/28/22 documented as of this encounter
--- OUTSIDE RECORDS SUMMARY | 2025-06-16 08:19 | XMS_ITS | Referral Summary ---
Author Organization [facility] ([place], [place], [place], [place]) Address [address] [place] [address] Care Team Providers Care Shredder Operator Name Role Phone Flavia Azar NP Primary Care Provider [phone] Allergies Active Allergy Reactions Criticality Noted Date [...] by Dr. Nolen, neurosurgeon at the [facility], with no recommendations for intervention [...] performed as ordered by Dr. Tolliver at [facility] for follow-up evaluation Anxiety 01/01/2020 Seizure 01/01/2020 [...] Jose Carlos rded Speak language other than [place] at home Not on file 12/02/2023 Want [...] Description 06/18/2025 2:30 PM EDT Office Visit [facility] Cardiology [address] [place] [address] Janet Olvera, TECHNICAL SUPPORT TECHNICIAN [address] [facility] [address] [place] [address] Insurance [employer] [facility] AD[facility] Care Teams Shredder Operator Relationship Specialty Start Date End Date Flavia Azar NP [address] [facility] [address] [place] [address] PCP - General Family Medicine 02/27/23
--- OUTSIDE RECORDS SUMMARY | 2025-06-16 08:19 | XMS_ITS | Encounter Summary ---
Author Organization [facility] Address [address] [place] [address] Care Team Providers Care Licensed Psychiatric Technician Name Role Phone Deniz Mathew MD Primary Care Provider [phone] Cherelle Mitchell MD Unavailable [phone] Flavia Azar APRN Primary Care Provider [phone] Paddy Morales MD Unavailable + [phone] Encounter Details Date Type Department Care Team (Late st Contact Info) Description 06/08/2021 [facility] [address], [address] [place] [address] Willy Gonzalez [facility] [address] [place] [address] Social History Tobacco Use Types Packs/Day Years [...] Description 05/05/2026 1:00 PM EDT [facility] [address], [address] [place] [address] Paddy Morales MD [address] [place] [address] documented as of this encounter Visit Diagnoses Not on filedocumented in this encounter Care Teams Licensed Psychiatric Technician Relationship Specialty Start Date End Date Deniz Mathew MD [address] [place] [address] PCP - General 04/02/21 10/27/22 Flavia Azar APRN [address] [place] [address] PCP - General 10/28/22 Cherelle Mitchell MD [address] [place] [address] Service Attending Neurology 03/02/22 Paddy Morales MD [address] [place] [address] Surgeon Neurosurgery 10/28/22 documented as of this encounter
--- OUTSIDE RECORDS SUMMARY | 2025-06-16 08:19 | XMS_ITS | Data Portability ---
Author Organization [facility] Address [address] [facility] [address] [place] [address] Care Team Providers Care Certified Medication Technician Name Role Phone BRAVO STROUD Primary Care Provider [phone] Assessment Encounter Date Assessment Date Assessment LastModified by Organization Details LastModified Time 08/31/2023 08/31/2023 We discussed UTI prevention with adequate hydration, timed and double voids, [id number] er suppressive medications such as cranberry tablets and d-mannose. Medical management lower urinary symptoms and UTI prevention with suppressive methenamine and treatment of atrophic vaginitis with topical vaginal estrogen creams. We discussed need for adequate hydration with timed and double voids. [email or web address] Not available 09/06/2023 19:10:05 Plan of Treatment Reminders Order Date Submit Date Provider Last Modified By Organization Details Last Modified Time Details Appointments None recorded. Lab urinalysis panel, auto 2022 023 [email or web address] 14 [facility] [place] [facility], [address] [place] [address] [address], [place], [address], 14:55:59 culture, urine 2022 023 [facility], [address] [place], [address], 11:46:28 Referral None recorded. Procedures None recorded. Surgeries None recorded. Imaging None recorded. Medication Orders estradiol 0.01% (0.1 mg/gram) vaginal cream 2022 023 [id number], [address] [facility] [address] [place], [id number], 14:56:10 methenamine hippurate 1 gram tablet 2022 023 [id number], [address] [facility] [address], [id number], 14:56:07 Patient TargetsNo targets recorded. Patient InstructionsNo instructions recorded. Reason for Referral None Reported. Results Created Date Observation Date Name Description Value Unit Range Abnormal Flag Note LastModifiedBy Organization Detail LastModifiedTime 08/31/2009/04/2023 URINE CULTU RE urine culture No growth day 4. Not Available [facility] [address] [place], [address], 09/04/2023 08:34:57 08/31/2008/31/2023 urina lysis panel , auto Unknown Analyte Clean Catch Not Available [facility] [place] [facility] With [address], [place], [address], 08/31/2023 14:52:45 08/31/2008/31/2023 urina lysis panel , auto Unknown Analyte Yellow Not Available Replaced by [facility] Extended Services With [address], [place], [address], 08/31/2023 14:52:45 08/31/2008/31/2023 urina lysis panel , auto Unknown Analyte Clear Not Available [facility] [place] [facility] With [address], [place], [address], 08/31/2023 14:52:45 08/31/2008/31/2023 urina lysis panel , auto Unknown Analyte 1.020 Not Available [facility] [place] [facility] With [address], [place], [address], 08/31/2023 14:52:45 08/31/2008/31/2023 urina lysis panel , auto Unknown Analyte 1.003- 1.035 Not Available [facility] Extended Services With [address], [place], [address], 08/31/2023 14:52:45 08/31/2008/31/2023 urina lysis panel , auto Unknown Analyte 6.0 Not Available Replaced by [facility] Extended Services With [address], [place], [address], 08/31/2023 14:52:45 08/31/2008/31/2023 urina lysis panel , auto Unknown Analyte 5.0-8. 0 Not Available [facility] Extended Services With [address], [place], [address], 08/31/2023 14:52:45 08/31/2008/31/2023 urina lysis panel , auto Unknown Analyte 25 Ekaterina/ul Trace Not Available [facility] Extended Services With [address], [place], [address], 08/31/2023 14:52:45 08/31/2008/31/2023 urina lysis panel , auto Unknown Analyte Negati ve Not Available [facility] Extended Services With [address], [place], [address], 08/31/2023 14:52:45 08/31/2008/31/2023 urina lysis panel , auto Unknown Analyte Negati ve Not Available [facility] Extended Services With [address], [place], [address], 08/31/2023 14:52:45 08/31/2008/31/2023 urina lysis panel , auto Unknown Analyte Negati ve Not Available [facility] Extended Services With [address], [place], [address], 08/31/2023 14:52:45 08/31/2008/31/2023 urina lysis panel , auto Unknown Analyte Trace Not Available Replaced by [facility] Extended Services With [address] [place], [address], 08/31/2023 14:52:45 08/31/2008/31/2023 urina lysis panel , auto Unknown Analyte Negati ve Not Available [facility] Extended Services With [address] [place], [address], 08/31/2023 14:52:45 08/31/2008/31/2023 urina lysis panel , auto Unknown Analyte Normal Not Available Replaced by [facility] Extended Services With [address] [place], [address], 08/31/2023 14:52:45 08/31/2008/31/2023 urina lysis panel , auto Unknown Analyte Normal Not Available Replaced by [facility] Extended Services With [address] [place], [address], 08/31/2023 14:52:45 08/31/2008/31/2023 urina lysis panel , auto Unknown Analyte 15 mg/dl (Sm) Not Available [facility] Extended Services With [address] [place], [address], 08/31/2023 14:52:45 08/31/2008/31/2023 urina lysis panel , auto Unknown Analyte Negati ve Not Available [facility] Extended Services With [address] [place], [address], 08/31/2023 14:52:45 08/31/2008/31/2023 urina lysis panel , auto Unknown Analyte 1 mg/dl Not Available [facility] Extended Services With [address], [place], [address], 08/31/2023 14:52:45 08/31/2008/31/2023 urina lysis panel , auto Unknown Analyte Normal 1 mg/dl Not Available [facility] Extended Services With [address], [place], [address], 08/31/2023 14:52:45 08/31/2008/31/2023 urina lysis panel , auto Unknown Analyte 1 mg/dl (+) Not Available [facility] Extended Services With [address], [place], [address], 08/31/2023 14:52:45 08/31/2008/31/2023 urina lysis panel , auto Unknown Analyte Negati ve Not Available [facility] Extended Services With [address], [place], [address], 08/31/2023 14:52:45 08/31/2008/31/2023 urina lysis panel , auto Unknown Analyte Negati ve Not Available [facility] Extended Services With [address], [place], [address], 08/31/2023 14:52:45 08/31/2008/31/2023 urina lysis panel , auto Unknown Analyte Negati ve Not Available [facility] Extended Services With [address], [place], [address], 08/31/2023 14:52:45 Result Notes None recorded. Medical [...] Updated DateTime 08/31/2023 172.72 cm 21 kg/m2 70602.75 g Batsheva Gutierrez [facility] 08/31/2023 14:39:06 Social History Question Answer Notes LastModified by Organizat ion Details LastModified Time Tobacco Smoking Status Former Smoker Batsheva Gutierrez [facility] 08/31/2023 14:50:21 What Was The Date [...] SNOMED-CT Code Diagnosis ICD10 Code Diagnosis Note [id number] ANAYELI GOULD MD [facility] [address] [place] [address] ,[place] [address] 08/31/2023 13:48:34 08/31/2023 15:08:18 Urinary tract infectious disease 65652015 N39.0 Recurrent urinary tract infection [id number] N39.0 Atrophic vaginitis 84020 000 N95.2 Health Concerns Section Related Observation LastModified by Organization Detai ls LastModified Time None Recorded Concern Status LastModified by Organization Details LastModified Time None Recorded Advance Directives Directive None Recorded Payers Insurance Date Sequence Insurance Name Policy Number Policy Landers Covered Member ID Landers Member ID Guarantor Name 09/04/2023 1 [facility] [id number] Howard Burrell [id number] Lisandra Burrell 09/05/2023 GENERIC INSURANCE - MOVED-HOLD Lisandra Burrell 10/23/2023 1 [employer] (MEDICARE REPLACEMENT /ADVANTAGE - PPO) [id number] Lisandra Burrell [id number] Lisandra Burrell OBGyn Episode No OBEpisode recorded.
[2025-06-16 08:34] LABS: Hematocrit 39.1 % (37.0-47.0); Hemoglobin 12.2 g/dL (12.2-16.2); Mean Corpuscular HGB Conc 31.2 g/dL (31.8-35.4); Mean Corpuscular Hemoglobin 28.0 pg (27.0-31.2); Mean Corpuscular Volume 89.9 fl (81-99); Nucleated Red Blood Cells % 0 %; Platelet Count 279 K/mm3 (142-424); Red Blood Count 4.35 M/mm3 (4.20-5.40); Red Cell Distribution Width-SD 47.0 fL; White Blood Count 4.9 K/mm3 (4.8-10.8)
[2025-06-16 09:12] LABS: Alanine Aminotransferase 15 U/L (12-78); Albumin Level 4.0 g/dl (3.5-5.0); Albumin/Globulin Ratio 1.7 (1.1-1.8); Alkaline Phosphatase 92 U/L (38-126); Anion Gap 9.5 mEq/L (5-15); Aspartate Amino Transferase 24 U/L (14-36); Bilirubin,Total 0.4 mg/dl (0.2-1.3); Blood Urea Nitrogen 16 mg/dl (7-17); Calcium 9.8 mg/dl (8.4-10.2); Carbon Dioxide 29 mmol/L (22.0-30.0); Chloride 106 mmol/L (98-107); Cholesterol 153 mg/dl (140-200); Creatinine,Serum 0.70 mg/dl (0.52-1.04); Estimated Glomerular Filt Rate 82 ml/min (>60); GFR (African American) 100 ML/MIN (>60); Globulin 2.3 g/dL (1.3-3.2); Glucose 94 mg/dl (74-100); HDL Cholesterol 59 mg/dl (40-60); Potassium 4.5 mmoL/L (3.5-5.1); Sodium 140 mmol/L (136-145); Total Protein,Serum 6.3 g/dl (6.3-8.2); Triglycerides 58 mg/dl (30-150)
[2025-06-16 09:28] LABS: 25-OH Vitamin D, Total 61.3 ng/mL (30-100)
[2025-06-16 09:30] LABS: Free T4 (Free Thyroxine) 1.11 ng/dl (0.78-2.19)
[2025-06-16 09:42] LABS: Thyroid Stimulating Hormone 1.97 uIU/mL (0.465-4.68)
== END 2025-06-16 23:59 | disposition home or self-care (01) ==
LOC: LAB 08:10
PROVIDERS: PCP Nurse Practitioner; Visit Provider Nurse Practitioner
DX: E55.9 Vitamin D deficiency, unspecified (principal); Z00.00 Encounter for general adult medical examination without abnormal findings
CPT/HCPCS: 36415; 80053; 80061; 82306; 84439; 84443; 85027

== ENCOUNTER 2025-07-16 09:26 | Outpatient (CLI) | payer MEDICARE, SELFPAY ==
--- OUTSIDE RECORDS SUMMARY | 2025-06-18 14:30 | XMS_ITS | Encounter Summary ---
Author Organization [facility] ([place], [place], [place], [place]) Address [address] [place] [address] Care Team Providers Care Geophysical Engineer Name Role Phone Flavia Azar NP Primary Care Provider [phone] Reason for Visit * Reason Comments Follow-up Encounter Details Date Type Department Care Team (Late st Contact Info) Description 06/18/2025 2:30 PM EDT Office Visit [facility] Cardiology [address] [place] [address] MayJanet, AUTO DRIVER [address] [facility] [address] [place] [id number] Asymptomatic varicose veins of both lower extremities (Primary Dx) Social History Tobacco Use Types Packs/Day Years Used Date Smoking Tobacco: Former Cigarettes 1 20 1 3 - 2002 Smokeless Tobacco: Never Alcohol Use Standard Drinks/Week Comments Not Currently 0 (1 standard drink = 0.6 oz pur e alcohol) Family and Community Support Answer Tremayne e Recorded Help with Day to Day Activities Not on file 12/02/2023 Feeling Lonely or Isolated Not on file 12/02 Educational Attainment Answer Date Jose Carlos rded Speak language other than Upper Sorbian at home Not on file 12/02/2023 Want [...] Sign Reading Time Taken Comments Blood Pressure 110/80 06/18/2025 2:47 PM EDT Pulse 53 06/18/2025 2:47 PM EDT Temperature - - Respiratory Rate - - Oxygen Saturation - - Inhaled Oxygen Concentration - - Weight 66.9 kg (147 lb 6.4 oz) 06/18/2025 2:47 P M EDT Height 172.7 cm (5' 8 ) 06/18/2025 2:47 PM EDT Body Mass Index 22.41 06/18/2025 2:47 PM EDT documented in this encounter Progress Notes * Janet Worley May, AUTO DRIVER - 06/18/2025 2:30 PM EDT Basic Information: Name: Lisandra Burrell, :1955 PCP: Flavia Azar NP HPI: Lisandra Burrell is a 69 y.o. 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 She presents to the office today for 6 month follow up. She continues to have mild edema and heaviness in bilateral legs. This is chronic and unchanged. She wears compression stockings daily. She is compliant with her medications. She denies any chest pain, shortness of breath, palpitations, dizziness, or syncope. Review of Systems: ROS Pertinent positives as listed in the HPI. All other systems reviewed are negative. History: History Past Medical History: Diagnosis Date Anxiety Anxiety Asymptomatic varicose veins of both lower extremities Cerebral arterial aneurysm GERD (gastroesophageal reflux disease) Hypercoagulopathy (HCC) Hyperlipidemia Mediastinal adenopathy Paresthesia of bilateral legs Seizures (HCC) Status post placement of implantable loop recorder Stroke (HCC) Thyroid disease Tingling of both upper extremities Tingling of face Vertebral artery occlusion Weakness of left arm Past Surgical History: Procedure Laterality Date loop recorder implant N/A Status post placement of implantable loop recorder Social History Tobacco Use Smoking status: Former Current packs/day: 0.00 Average packs/day: 1 pack/day for 20.0 years (20.0 ttl pk-yrs) Types: Cigarettes Start date: 1982 Quit date: 2002 Years since quittin.5 Smokeless tobacco: Never Substance Use Topics Alcohol use: Not Currently Allergies Allergen Reactions Benzodiazepines Other (See Comments) excruciating pain and upset stomach Cyclobenzaprine Nausea Only and Other (See Comments) Other reaction(s): Myalgia, Unknown excruciating pain and nausea s/p gallbladder removal Lamotrigine Rash Other reaction(s): Unknown Other Other reaction(s): Other Controlled substances Medications: Scheduled Meds: Continuous Infusions: Current Outpatient Medications Medication Sig Dispense Refill cholecalciferol (VITAMIN D3) 25 mcg (1,000 unit) tablet clopidogreL (PLAVIX) 75 mg tablet Take 1 tablet (75 mg total) by mouth daily. rosuvastatin (CRESTOR) 20 MG tablet Take 1 tablet (20 mg total) by mouth daily. zinc gluconate 100 mg Tab No current facility-administered medications for this visit. PRN Meds:.@MEDSPRN@] Objective: BP 110/80 (BP Location: Left arm, Patient Position: Sitting, Cuff Size: Adult) Pulse 53 Ht 1.727 m (5' 8 ) Wt 66.9 kg (147 lb 6.4 oz) BMI 22.41 kg/m?? Physical Exam Vitals reviewed. Constitutional: Appearance: Normal appearance. HENT: Head: Normocephalic. Neck: Vascular: No carotid bruit. Cardiovascular: Rate and Rhythm: Normal rate and regular rhythm. Pulses: Normal pulses. Heart sounds: Normal heart sounds. No murmur heard. Pulmonary: Effort: Pulmonary effort is normal. Breath sounds: Normal breath sounds. Abdominal: General: There is no distension. Palpations: Abdomen is soft. Musculoskeletal: General: No swelling or deformity. Skin: General: Skin is warm and dry. Capillary Refill: Capillary refill takes less than 2 seconds. Neurological: General: No focal deficit present. Mental Status: She is alert and oriented to person, place, and time. Psychiatric: Mood and Affect: Mood normal. Behavior: Behavior normal. EKG: Sinus Rhythm, ventricular rate 53 bpm Assessment: 1. Asymptomatic varicose veins of both lower extremities ECG 12 lead * Varicose veins, symptomatic bilateral lower extremities * Hyperlipidemia- myalgia with crestor 20mg * Supraclinoid ICA aneurysm secondary to left vertebral artery occlusion-follows with [facility] - 2019 CVA -Loop recorder [facility] in 2019, no longer monitoring, still in place * Pre-operative cardiac clearance for EGD with Dr Clemente Lal scheduled on 08/06/2025. Plan: -Continue to wear compression stockings daily and to elevate legs while sitting. -Blood pressure is well-controlled without antihypertensive medications. -Labs as prescribed by PCP including lipid panel with goal LDL less than 70 -Ok to proceed with EGD with acceptable cardiac risk. Hold Plavix 5 days prior to procedure. Resumewhen ok with Dr Lal. Encouraged patient to increase physical activity for a goal of 150 minutes of moderate cardiovascular activity each week. Follow a heart healthy diet to reduce cardiovascular risk. Follow- up: 6months or sooner if needed documented in this encounter Plan of Treatment Not on file documented as of this encounter Procedures Procedure Name Priority Date/Time Associated Diagnosis Comments FS_MODEL_IP_ECG 12-LEAD Routine 06/18/2025 9:04 PM EDT Asymptomatic varicose veins of both lower extremities documented in this encounter Results * ECG 12 lead (06/18/2025 9:04 PM EDT) us Janet Olvera APRN ECG ORDERABLES Final Result documented in this encounter Visit Diagnoses Diagnosis Asymptomatic varicose veins of both lower extremities- Primary documented in this encounter Care Teams Geophysical Engineer Relationship Specialty Start Date End Date Flavia Azar, TERENCE [address] [place] [address] PCP - General Family Medicine 02/27/23 documented as of this encounter
--- OUTSIDE RECORDS SUMMARY | 2025-07-17 12:15 | XMS_ITS | Encounter Summary ---
Author Organization [facility] Address [address] [place] [address] Care Team Providers Care Optical Scientist Name Role Phone Cherelle Mitchell MD Unavailable Flavia Azar APRN Primary Care Provider Paddy Morales MD Unavailable [phone] Reason for Visit * Reason Comments Med Refill Encounter Details Date Type Department Care Team (Late st Contact Info) Description 04/25/2025 Refill [place] [facility] [address], [address] [place] [address] Cherelle Mitchell MD [address] [place] [address] Social History Tobacco Use Types [...] Description 05/05/2026 1:00 PM EDT Office Visit [place] [facility] [address], [address] [place] [address] Paddy Morales MD [address] [place] [address] documented as of this encounter Visit Diagnoses Not on filedocumented in this encounter Additional Health Concerns Assessment Noted Time A fall risk assessment has been complete d for the patient 01/30/2025 8:26 AM EDT A Body Mass Index follow-up plan has been documented for the patient 04/24/2025 4:27 PM EDT documented as of this encounter Care Teams Optical Scientist Relationship Specialty Start Date End Date Flavia Azar APRN [address] [place] [phone] PCP - General 10/28/22 Cherelle Mitchell MD [address] [place] [address] Service Attending Neurology 03/02/22 Paddy Morales MD [address] [place] [address] Surgeon Neurosurgery 10/28/22 documented as of this encounter
--- OUTSIDE RECORDS SUMMARY | 2025-07-17 12:15 | XMS_ITS | Clinical Summary ---
Author Organization [facility] Address [address] [place] [address] Care Team Providers Care Short Filler Bunch Machine Operator Name Role Phone DoeFlavia duggan Yash VIEYRA Primary Care Provider Allergies Active Allergy Reactions Criticality Noted Date [...] Zinc 100 MG tablet Active sodium chloride (Day Nasal [place]) 0.65 % nasal sprayIndication s:Non-seasonal allergic rhinitis [...] MOUTH DAILY 90 tablet 1 5 Active Active Problems Problem Noted Date [...] EDT): Patient diagnosed [facility]. [...] seen at the urgent treatment center at [facility] 1 week ago. They sent her [...] being treated both the emergency department and [facility]. Currently being treated empirically with Bactrim. [...] performed as ordered by Dr. Tolliver at [facility] for follow-up evaluation Assessment & Plan (04/27/2025 8:39 PM EDT): Underwent C4-7 ACDF, 08/26/2020, Dr. Tolliver. Per patient, minimal improvement if any at all, with persisting left upper extremity paresthesias, fine motor incoordination. Patient did have a cervical MRI performed as ordered by Dr. Tolliver at [facility] for follow-up evaluation Assessment & Plan (09/13/2023 12:00 PM EDT): Underwent C4-7 ACDF, 08/26/2020, Dr. Tolliver. Per patient, minimal improvement if any at all, with persisting left upper extremity paresthesias, fine motor incoordination. Patient did have a cervical MRI performed as ordered by Dr. Tolliver at [facility] for follow-up evaluation Assessment & Plan (10/18/2022 3:58 PM EST): Underwent C4-7 ACDF, 08/26/2020, Dr. Tolliver. Per patient, minimal improvement if any at all, with persisting left upper extremity paresthesias, fine motor incoordination. Patient did have a cervical MRI performed as ordered by Dr. Tolliver at [facility] for follow-up evaluation History of [...] complaints of myalgia 4. Continue follow-up at [facility] Cerebral aneurysm 10/18/2022 Assessment & Plan (04/27/2025 8:39 PM EDT): 2 mm involving supraclinoid segment of the left internal carotid artery; followed by Dr. Nolen, neurosurgeon at the [facility], with no recommendations for intervention Assessment & Plan (09/13/2023 12:00 PM EDT): 2 mm involving supraclinoid segment of the left internal carotid artery; followed by Dr. Nolen, neurosurgeon at the [facility], with no recommendations for intervention Assessment & Plan (10/18/2022 3:58 PM EST): 2 mm involving supraclinoid segment of the left internal carotid artery; followed by Dr. Nolen, neurosurgeon at the [facility], with no recommendations for intervention History of smoking 10/18/2022 Assessment & Plan (05/12/2025 12:30 PM EDT): Patient with 19-wavk-pqkw cigarette history. Assessment & Plan (12/19/2024 5:51 PM EST): Patient with 61-qpeh-qoad cigarette history. Currently due for annual low-dose CT lung cancer screening. Order placed Assessment & Plan (09/13/2023 11:57 AM EDT): Patient with 98-lcdu-hqle cigarette history. Currently due for annual low-dose CT lung cancer screening Assessment & Plan (08/29/2023 5:07 PM EDT): Past history of cigarette abuse, 00-cabp-flet history. Assessment & Plan (10/18/2022 3:59 PM EST): Past history of cigarette abuse, 73-lyoc-znyc history. LDLCT scan 08/23/2021 satisfactory, 1 year follow-up recommended in August 2022 Plan: 1. LDLC to be coordinated at [facility] Paresthesia of bilateral legs 10/18/2022 [...] Department Care Team Description 05/22/2025 Results Follow-Up [facility] [address] [place] [address] [place] [phone] Flavia Azar APRN 05/12/2025 8:30 AM EDT Office Visit [facility] [place] [address] Flavia Azar, JARRELL Medicare annual wellness visit, subsequent (Primary Dx); Cervical spinal stenosis; Generalized abdominal pain; History of recurrent TIAs; History of smoking; Hyperlipidemia, unspecified hyperlipidemia type; Paresthesia of bilateral legs; Vitamin D deficiency; Rhomboid muscle pain; Osteoporosis screening; Encounter for follow-up examination after completed treatment for conditions other than malignant neoplasm; Annual physical exam 05/12/2025 Travel 04/25/2025 Refill [facility] [address] [place] [address] [place] [address] Flavia Azar, BEDSPREAD SEAMER 04/25/2025 Refill [facility] [address] [place] [address] Flavia Azar, BEDSPREAD SEAMER 04/23/2025 8:15 AM EDT Office Visit [facility] [address] [place] [address] [place] [address] Flavia Azar, BEDSPREAD SEAMER History of recurrent TIAs (Primary Dx); Cervical [...] poned from 12/27/2015 (Patient Refused) COVID-19 Vaccine (1 - season) 2025 Postponed from 07/21/2024 (Patient [...] 11:50 AM EDT 09/14/2023 Comment:Blood Release to pat i Kelle [facility] (AMBULAT[facility]) - 09/14/2023 1:06 PM EDT Performed at: [address] [place] [id number] Staff Nurse: Nabil Perez PhD, Phone: [phone] Flavia Azar APRN LAB BLOOD ORDERABLES Final Result Performing Organization Address City/[facility]/ZIP Co de Phone Number [facility] (AMBULATORY) [address] [place] [address], [place] [phone] [facility] [address] [place] [address], * (ABNORMAL) Lipid Panel (09/13/2023 11:50 AM [...] 11:50 AM EDT 09/14/2023 Comment:Blood Release to cameron Nina [facility] - 09/14/2023 1:06 PM EDT Performed at: 01 - [facility] [address] [place] [id number] Staff Nurse: Nabil Perez PhD, Phone: [phone] Flavia Azar APRN LAB BLOOD ORDERABLES Final Result Performing Organization Address City/[facility]/ZIP Co de Phone Number [facility] [address] [place] [address], [place] [phone] [facility] [address] [place] [address], [place] [phone] from Last 3 Months or Most Recently Relevant to Health Maintenance Insurance A[employer]NA MEDICARE ADVANTAGE Care Teams Short Filler Bunch Machine Operator Relationship Specialty Start Date End Date Flavia Azar APRN [address] [phone] PCP - General Family Medicine 10/18/22
--- OUTSIDE RECORDS SUMMARY | 2025-07-17 12:16 | XMS_ITS | Encounter Summary ---
Author Organization Healthcare Address [address] [place] [address] Care Team Providers Care Gravity Prospecting Operator Name Role Phone Cherelle Mitchell MD Unavailable Flavia Azar APRN Primary Care Provider Paddy Morales MD Unavailable [phone] Encounter Details Date Type Department Care Team (Late st Contact Info) Description 11/04/2022 Ophth Exam [facility] [address] [place] [address] Brad Piña MD [address] [place], [place] [id number] Social History Tobacco Use Types Packs/Day Years [...] Description 05/05/2026 1:00 PM EDT Office Visit [place] [facility] [address], [address] [place] [address] Paddy Morales MD [address] [facility] [place] [address] documented as of this encounter Visit Diagnoses Not on filedocumented in this encounter Additional Health Concerns Assessment Noted Time A fall risk assessment has been complete d for the patient 10/28/2022 1:23 PM EST documented as of this encounter Care Teams Gravity Prospecting Operator Relationship Specialty Start Date End Date Flavia Azar APRN [address] [phone] PCP - General 10/28/22 Cherelle Mitchell MD [address] [place] [address] Service Attending Neurology 03/02/22 Paddy Morales MD [address] [place] [address] Surgeon Neurosurgery 10/28/22 documented as of this encounter
--- OUTSIDE RECORDS SUMMARY | 2025-07-17 12:16 | XMS_ITS | Encounter Summary ---
Author Organization [facility] Address [address] [place] [address] Care Team Providers Care Distribution Engineer Name Role Phone Deniz Mathew MD Primary Care Provider [phone] Cherelle Mitchell MD Unavailable [phone] Flavia Azar APRN Primary Care Provider [phone] Paddy Morales MD Unavailable + [phone] Encounter Details Date Type Department Care Team (Late st Contact Info) Description 06/08/2021 Telemedicine [place] [facility] [address], [address] [place] [address] Willy Gonzalez [facility] [address] [place] [address] Social History Tobacco Use Types Packs/Day Years [...] Description 05/05/2026 1:00 PM EDT Office Visit [place] [facility] [address], [address] [place] [address] Paddy Morales MD [address] [place] [address] documented as of this encounter Visit Diagnoses Not on filedocumented in this encounter Care Teams Distribution Engineer Relationship Specialty Start Date End Date Deniz Mathew MD [address] [place] [id number] PCP - General 04/02/21 10/27/22 Flavia Azar APRN [address] [place] [address] PCP - General 10/28/22 Cherelle Mitchell MD [address] [place] [address] Service Attending Neurology 03/02/22 Paddy Morales MD [address] [place] [phone] Surgeon Neurosurgery 10/28/22 documented as of this encounter
--- OUTSIDE RECORDS SUMMARY | 2025-07-17 12:16 | XMS_ITS | Referral Summary ---
Author Organization [employer] ([place], [place], [place], [place]) Address [address] [place] [address] Care Team Providers Care Sales Trader Name Role Phone Flavia Azar NP Primary Care Provider [phone] Encounters Date Type Department Care Team Description 06/18/2025 Travel 06/18/2025 2:30 PM EDT Office Visit [facility] Cardiology [address] [place] [address] Janet Olvera APRN Asymptomatic varicose veins of both lower extremities (Primary Dx) from Last 3 Months Allergies Active Allergy Reactions Criticality Noted Date [...] performed as ordered by Dr. Tolliver at [facility] for follow-up evaluation Anxiety 01/01/2020 Seizure 01/01/2020 Vertebral artery occlusion 01/01/2020 Hyperlipidemia 09/02/2019 Overview (03/07/2023): Last Assessment & Plan: Previously on lipitor changed to crestor by neurology due to ongoing myalgia Stroke 09/02/2019 Acid reflux 12/04/2018 Lung nodule, solitary 04/03/2018 Mediastinal adenopathy 04/03/2018 Immunizations Name Administration Dates Next Due Influenza Four-qiv Pf 08/24/2019 Influenza, Unspecified 08/25/2017,10/03/2016 Pneumococcal Conjugate (Prevnar) 13-Valent 10/23 SHINGLES VARICELLA (ZOSTAVAX) ZOSTER 11/01/2015 Tdap 09/16/2018,08/20/2018 Social History Tobacco Use Types Packs/Day Years Used Date Smoking Tobacco: Former Cigarettes 1 20 1 983 - 2003 Smokeless Tobacco: Never Tobacco Cessation:Counseling Given: Not Answered Alcohol Use Standard Drinks/Week Comments Not Currently 0 (1 standard drink = 0.6 oz pur e alcohol) Family and Community Support Answer Tremayne e Recorded Help with Day to Day Activities Not on file 12/02/2023 Feeling Lonely or Isolated Not on file 12/02 Educational Attainment Answer Date Jose Carlos rded Speak language other than Bolivian at home Not on file 12/02/2023 Want [...] PM EDT Temperature - - Respiratory Rate 16 05/07/2024 2:52 PM EDT Oxygen Saturation 98% 11/07/2024 10:25 AM EST Inhaled Oxygen Concentration - - Weight 66.9 kg (147 lb 6.4 oz) 06/18/2025 2:47 P M EDT Height 172.7 cm (5' 8 ) 06/18/2025 2:47 PM EDT Body Mass Index 22.41 06/18/2025 2:47 PM EDT Plan of Treatment Not on file Procedures Procedure Name Priority Date/Time Associated Diagnosis Comments FS_MODEL_IP_ECG 12-LEAD Routine 06/18/2025 9:04 PM EDT Asymptomatic varicose veins of both lower extremities from Last 3 Months Results * ECG 12 lead (06/18/2025 9:04 PM EDT) [facility] ECG ORDERABLES Final Result from Last 3 Months Insurance AETNA [facility] ADV Care Teams Sales Trader Relationship Specialty Start Date End Date Flavia Azar NP [address] [facility] [place] [address] PCP - General Family Medicine 02/27/23
--- OUTSIDE RECORDS SUMMARY | 2025-07-17 12:16 | XMS_ITS | Clinical Summary ---
Author Organization [facility] Address [address] [place] [address] Care Team Providers Care Assistant Property Manager Name Role Phone Cherelle Mitchell MD Unavailable [phone] Flavia Azar APRN Primary Care Provider Paddy Morales MD Unavailable [phone]- [phone] Allergies Active Allergy Reactions Criticality Noted Date [...] time each day. 5 Active sodium chloride ([place]) 0.65 % nasal spray Administer 1 spray [...] Type Department Care Team Description 04/25/[facility]25 [facility] [address], [address] [place] [phone] Cherelle Mitchell MD 04/22/2025 1:03 PM EDT - 04/22/2025 11:59 PM EDT [facility] [address], 1[address] [place] [address] Status post cervical spinal fusion Discharge Disposition: Home or Self Care 04/22/2025 1:00 PM EDT Office Visit [place] [facility] [address], [address] [place] [address] Paddy Morales MD Status post cervical spinal [...] Visit [place] [facility] [address], [address] [place] [address] Paddy Morales MD [address] [place] [address] Health Maintenance Due Date Last Done Comments [facility]-Bone Density Scan 1953 [facility]-Depression Screening 1953 [facility]-Infant/Child/Adol SDOH Screenings 1953 [facility]- SDOH Screenings 1971 [facility]-Adult SDOH Screenings 1971 CT Colonography 1998 Colonoscopy 1998 FIT-DNA 1998 FIT 1998 FOBT 1998 Sigmoidoscopy 1998 [facility]-Colorectal Cancer Screening 1998 [facility]-Breast Cancer Screening 2003 [facility]-Zoster Vaccines (2 of 3) 12/27/2015 11/01/2015 [facility]-Pneumococcal Vaccine: 50+ Years (2 of 2 - PPSV23) 10/23/2016 10/23/2015 [id number] Vaccine (1 - season) 2024 [facility]-Medicare Annual [...] MD on 04/22/2025 4:02 PM Sonia Frazier DIRECTOR RADIATION ONCOLOGY, DNP IMG XR PROCEDURES Jackie l Result * Acute Hepatitis Panel (08/26/2020 12:29 PM EDT) Pathologist [facility] Hepatitis B Surf Antigen NEGATIVE [...] <6.0% Children and Adolescents <7.5% . Source: [place] [employer]. Standards of medical care in [...] Patient has decision-making capacity? Yes Care Teams Assistant Property Manager Relationship Specialty Start Date End Date Flavia Azar APRN [address] [phone] PCP - General 10/28/22 Cherelle Mitchell MD [address] [place] [address] [address] Service Attending Neurology 03/02/22 Paddy Morales MD [address] [address] Surgeon Neurosurgery 10/28/22
--- OUTSIDE RECORDS SUMMARY | 2025-07-17 12:16 | XMS_ITS | Clinical Summary ---
Author Organization [employer] ([place], [place], [place], [place]) Address [address] [place] [address] Care Team Providers Care Employee Communications Intern Name Role Phone Flavia Azar NP Primary Care Provider [phone] Allergies Active Allergy Reactions Criticality Noted Date [...] followed by Dr. Nolen, neurosurgeon at the [facility], with no recommendations for intervention Nocturnal leg [...] performed as ordered by Dr. Tolliver at [facility] for follow-up evaluation Anxiety 01/01/2020 Seizure 01/01/2020 Vertebral artery occlusion 01/01/2020 Hyperlipidemia 09/02/2019 Overview (03/07/2023): Last Assessment & Plan: Previously on lipitor changed to crestor by neurology due to ongoing myalgia Stroke 09/02/2019 Acid reflux 12/04/2018 Lung nodule, solitary 04/03/2018 Mediastinal adenopathy 04/03/2018 Encounters Date Type Department Care Team Description 06/18/2025 2:30 PM EDT Office Visit [facility] [address] [place] [phone] Fountain HillJanet, TRAFFIC OPERATIONS MANAGER Asymptomatic varicose veins of both lower extremities (Primary Dx) 06/18/2025 Travel from Last 3 Months Immunizations Name Administration Dates Next Due Influenza [...] Jose Carlos rded Speak language other than Bruneian at home Not on file 12/02/2023 Want [...] 06/18/2025 2:47 PM EDT Plan of Treatment Health Maintenance Due [...] [id number] 11/21/2022 COVID-19 VACCINE ( season) 2024 Falls Risk Screening 11/20/2024 Influenza Vaccine (#1) 2025 09/22/2020 Tobacco Cessation Counseling and Screening (12+) 06/18/2026 06/18/2025 DTAP/TDAP/TD VACCINES (3 - Td or Tdap) 09/16/2028, 08/20/2018 Procedures Procedure Name Priority Date/Time Associated Diagnosis Comments FS_MODEL_IP_ECG 12-LEAD Routine 06/18/2025 9:04 PM EDT Asymptomatic varicose veins of both lower extremities from Last 3 Months Results * ECG 12 lead (06/18/2025 9:04 PM EDT) [facility] Brunilda [place] TRAFFIC OPERATIONS MANAGER ECG ORDERABLES Final Result from Last 3 Months Insurance AETNA MCR ADV Care Teams Employee Communications Intern Relationship Specialty Start Date End Date Flavia Azar NP [address] [facility] [place] [address] PCP - General Family Medicine 02/27/23
--- OUTSIDE RECORDS SUMMARY | 2025-07-17 12:16 | XMS_ITS | Encounter Summary ---
[facility] Address [address] [place] [address] Care Team Providers Care Hotel Lobby Concierge Name Role Phone Flavia Azar TYPESETTERS PRINTER Primary Care Provider Encounter Details Date Type Department Care Team (Late st Contact Info) Description 05/22/2025 Results Follow-Up [facility] [address] [place] [phone] Flavia Azar, TYPESETTERS PRINTER [address] [place] [address] Social History Tobacco Use Types [...] to the office and I sent a [employer] message documented in this encounter Plan of Treatment Not on file documented as of this encounter Visit Diagnoses Not on filedocumented in this encounter Care Teams Hotel Lobby Concierge Relationship Specialty Start Date End Date Flavia Azar APRN [address] [place], [place] [phone] PCP - General Family Medicine 10/18/22 documented as of this encounter
--- OUTSIDE RECORDS SUMMARY | 2025-07-17 12:16 | XMS_ITS | Encounter Summary ---
Author Organization [employer] ([place], [place], [place], [place]) Address [address] [place] [address] Care Team Providers Care Rough Rib Grader Name Role Phone Flavia Azar NP Primary Care Provider [phone] Encounter Details Date Type Department Care Team (Latest Contact Info) Description 06/18/2025 Travel Social History Tobacco Use Types Packs/Day Years Used Date Smoking Tobacco: Former Cigarettes 2002 Smokeless Tobacco: Never Alcohol Use Standard Drinks/Week Comments Not Currently 0 (1 standard drink = 0.6 oz pur e alcohol) Family and Community Support Answer Tremayne e Recorded Help with Day to Day Activities Not on file 12/02/2023 Feeling Lonely or Isolated Not on file 12/02 Educational Attainment Answer Date Jose Carlos rded Speak language other than Senegalese at home Not on file 12/02/2023 Want [...] on filedocumented in this encounter Care Teams Rough Rib Grader Relationship Specialty Start Date End Date Flavia Azar NP [address] [facility] [place] [address] PCP - General Family Medicine 4/10/23 documented as of this encounter
--- OUTSIDE RECORDS SUMMARY | 2025-07-17 12:16 | XMS_ITS | Encounter Summary ---
Author Organization [facility] Address [address] [place] [address] Care Team Providers Care Sharepoint Solutions Architect Name Role Phone Cherelle Mitchell MD Unavailable [phone] Flavia Azar APRN Primary Care Provider Paddy Morales MD Unavailable [phone] Reason for Visit * Reason Comments Med Refill Encounter Details Date Type Department Care Team (Late st Contact Info) Description 12/17/2023 Refill [place] [facility] [address], [address] [place] [address] Cherelle Mitchell MD [address] [place] [address] Abnormal EEG Social History Tobacco [...] Description 05/05/2026 1:00 PM EDT Office Visit [place] [facility] [address], [address] [place] [address] Paddy Morales MD [address] [address] documented as of this encounter Visit Diagnoses Diagnosis Abnormal EEG documented in this encounter Additional Health Concerns Assessment Noted Time A fall risk assessment has been complete d for the patient 04/25/2023 10:45 AM EDT A Body Mass Index follow-up plan has been documented for the patient 12/17/2023 12:35 PM EST documented as of this encounter Care Teams Sharepoint Solutions Architect Relationship Specialty Start Date End Date Flavia Azar APRN [address] [place] [address] PCP - General 10/28/22 Cherelle Mitchell MD [address] [facility] [address] [place] [address] Service Attending Neurology 03/02/22 Paddy Morales MD [address] [address] Surgeon Neurosurgery 10/28/22 documented as of this encounter
== END 2025-07-16 23:59 | disposition home or self-care (01) ==
LOC: LAB.DROPOF 07-17 12:14
PROVIDERS: PCP Student in an Organized Health Care Education/Training Program; Visit Provider Student in an Organized Health Care Education/Training Program
DX: N39.0 Urinary tract infection, site not specified (principal)
CPT/HCPCS: 87086; 87088; 87186

== ENCOUNTER 2025-07-30 09:31 | Outpatient (CLI) | payer MEDICARE, SELFPAY ==
--- OUTSIDE RECORDS SUMMARY | 2025-08-01 09:34 | XMS_ITS | Clinical Summary ---
Author Organization [facility] Address [address] [place] [address] Care Team Providers Care Electrical Supervisor Name Role Phone DoeFlavia duggan Yash [...] Zinc 100 MG tablet Active sodium chloride ([place] Nasal [place]) 0.65 % nasal sprayIndicatio ns:Non-seasona l allergic rhinitis due to other allergic trigger Administer 1 spray into the nostril(s) as directed by provider As Needed for Congestion. 30 mL 12/16/19 25 Active loratadine (Claritin) 10 MG tabletIndicati ons:Non-season al allergic rhinitis due to other allergic trigger Take 1 tablet by mouth Daily. 30 tablet 12/16/19 25 Active Cholecalcifero l (D3 1999) 50 MCG (1999) capsule Active rosuvastatin (CRESTOR) 20 MG tablet Take 1 tablet by mouth Daily. 90 tablet 1 04/25/20 25 Active clopidogrel (PLAVIX) 75 MG tablet TAKE 1 TABLET BY MOUTH DAILY 90 tablet 1 07/31/20 25 Active clopidogrel (PLAVIX) 75 MG tablet TAKE 1 TABLET BY MOUTH DAILY 90 tablet 1 04/25/20 25 025 Discontinued Active Problems Problem Noted Date Diagnosed Date [...] EDT): Patient diagnosed and being treated through [facility] emergency department 2 days ago. She is [...] seen at the urgent treatment center at [facility] 1 week ago. They sent her [...] being treated both the emergency department and [facility]. Currently being treated empirically with [...] performed as ordered by Dr. Tolliver at [facility] for follow-up evaluation Assessment & Plan (04/27/2025 8:39 PM EDT): Underwent C4-7 ACDF, 08/26/2020, Dr. Tolliver. Per patient, minimal improvement if any at all, with persisting left upper extremity paresthesias, fine motor incoordination. Patient did have a cervical MRI performed as ordered by Dr. Tolliver at [facility] for follow-up evaluation Assessment & Plan (09/13/2023 12:00 PM EDT): Underwent C4-7 ACDF, 08/26/2020, Dr. Tolliver. Per patient, minimal improvement if any at all, with persisting left upper extremity paresthesias, fine motor incoordination. Patient did have a cervical MRI performed as ordered by Dr. Tolliver at [facility] for follow-up evaluation Assessment & Plan (10/18/2022 3:58 PM EST): Underwent C4-7 ACDF, 08/26/2020, Dr. Tolliver. Per patient, minimal improvement if any at all, with persisting left upper extremity paresthesias, fine motor incoordination. Patient did have a cervical MRI performed as ordered by Dr. Tolliver at [facility] for follow-up evaluation History of recurrent TIAs [...] complaints of myalgia 4. Continue follow-up at [facility] Cerebral aneurysm 10/18/2022 Assessment & Plan (04/27/2025 8:39 PM EDT): 2 mm involving supraclinoid segment of the left internal carotid artery; followed by Dr. Nolen, neurosurgeon at the [facility], with no recommendations for intervention Assessment & Plan (09/13/2023 12:00 PM EDT): 2 mm involving supraclinoid segment of the left internal carotid artery; followed by Dr. Nolen, neurosurgeon at the [facility], with no recommendations for intervention Assessment & Plan (10/18/2022 3:58 PM EST): 2 mm involving supraclinoid segment of the left internal carotid artery; followed by Dr. Nolen, neurosurgeon at the [facility], with no recommendations for intervention History of smoking 10/18/2022 Assessment & Plan (05/12/2025 12:30 PM EDT): Patient with 83-ktla-gvpj cigarette history. Assessment & Plan (12/19/2024 5:51 PM EST): Patient with 03-oojs-zlem cigarette history. Currently due for annual low-dose CT lung cancer screening. Order placed Assessment & Plan (09/13/2023 11:57 AM EDT): Patient with 31-gpfl-ikdc cigarette history. Currently due for annual low-dose CT lung cancer screening Assessment & Plan (08/29/2023 5:07 PM EDT): Past history of cigarette abuse, 27-klhd-zlaq history. Assessment & Plan (10/18/2022 3:59 PM EST): Past history of cigarette abuse, 41-oqqw-klgq history. LDLCT scan 08/23/2021 satisfactory, 1 year follow-up recommended in August 2022 Plan: 1. LDLC to be coordinated at [facility] Paresthesia of bilateral legs 10/18/2022 Assessment & [...] Encounters Date Type Department Care Team Description 07/31/[address] [facility] [address] [place] [address] [place] [phone] Flavia Azar, JOURNEYMAN CARPENTER 05/22/2025 Results Follow-Up [facility] [address] [place] [address] [place] [phone] Flavia Azar, JOURNEYMAN CARPENTER 05/12/2025 8:30 AM EDT Office Visit [facility] [place] [id number] Flavia Azar, JARRELL Medicare annual wellness visit, subsequent (Primary Dx); Cervical spinal stenosis; Generalized abdominal pain; History of recurrent TIAs; History of smoking; Hyperlipidemia, unspecified hyperlipidemia type; Paresthesia of bilateral legs; Vitamin D deficiency; Rhomboid muscle pain; Osteoporosis screening; Encounter for follow-up examination after completed treatment for conditions other than malignant neoplasm; Annual physical exam 05/12/2025 Travel from Last 3 Months Immunizations Immunization [...] (1 year) 1998 LIPID PANEL 09/13/2024 09/13/2023 COVID-19 Vaccine ( season) 2025 INFLUENZA VACCINE 08/20/2025 09/22/2020, , 08/24/2019, Additional history exists ZOSTER VACCINE (2 of 3) 11/08/2025 11/01/2015 Post poned from 12/27/2015 (Patient Refused) MAMMOGRAM 11/16/2025 11/30/2023, 10/21, 08/05/2021 Pneumococcal Vaccine 50+ (2 of 2 [...] 11:50 AM EDT 09/14/2023 Comment:Blood Release to [facility] Narrative [facility] (AMBULATORY) - 09/14/2023 1:06 PM EDT Performed at: 01 - [facility] [address] [place] [address] [id number] Transportation Worker: Nabil Perez PhD, Phone: [phone] us Flavia Azar APRN LAB BLOOD ORDERABLES Final Result [facility] (AMBULATORY) [address] [place] [address], [place] [phone] [facility] [address] [place] [address], [place] [phone] * (ABNORMAL) Lipid Panel (09/13/2023 11:50 AM [...] EDT 09/14/2023 Comment:Blood Release to [facility] - 09/14/2023 1:06 PM EDT Performed at: 01 - [facility] [address] [place] [address] [id number] Transportation Worker: Nabil Perez PhD, Phone: [phone] Flavia Azar APRN LAB BLOOD ORDERABLES Final Result [facility] [address] [place] [address], [facility] [address] [place] [address], from Last 3 Months or Most Recently Relevant to Health Maintenance Insurance [employer] MED[employer]ARE ADVANTAGE Care Teams Electrical Supervisor Relationship Specialty Start Date End Date Flavia Azar APRN [address] [place] [address] PCP - General Family Medicine 10/18/22
--- OUTSIDE RECORDS SUMMARY | 2025-08-01 09:34 | XMS_ITS | Encounter Summary ---
Author Organization [facility] Address [address] [place] [address] Care Team Providers Care Fixed Wing Aircraft Flight Mechanic Name Role Phone Cherelle [place] MD Unavailable Flavia Azar APRN Primary Care Provider Paddy Morales MD Unavailable [phone] Reason for Visit * Reason Comments Med Refill Encounter Details Date Type Department Care Team (Late st Contact Info) Description 12/17/2023 Refill [place] [facility] [address], [address] [place] [address] Cherelle Mitchell MD [address] [place] [address] Abnormal EEG Social History Tobacco [...] Description 05/05/2026 1:00 PM EDT Office Visit [place] [facility] [address] [place] [address] Paddy Morales MD [address] [address] documented as of this encounter Visit Diagnoses Diagnosis Abnormal EEG documented in this encounter Additional Health Concerns Assessment Noted Time A fall risk assessment has been complete d for the patient 04/25/2023 10:45 AM EDT A Body Mass Index follow-up plan has been documented for the patient 12/17/2023 12:35 PM EST documented as of this encounter Care Teams Fixed Wing Aircraft Flight Mechanic Relationship Specialty Start Date End Date Flavia Azar APRN [address] [place] [address] PCP - General 10/28/22 Cherelle Mitchell MD [address] [facility] [address] [place] [address] Service Attending Neurology 03/02/22 Paddy Morales MD [address] [address] Surgeon Neurosurgery 10/28/22 documented as of this encounter
--- OUTSIDE RECORDS SUMMARY | 2025-08-01 09:34 | XMS_ITS | Encounter Summary ---
Author Organization [facility] Address [address] [place] [address] Care Team Providers Care Final Inspector Truck Trailer Name Role Phone Flavia Azar COMB MACHINE OPERATOR Primary Care Provider Reason for Visit * Reason Comments Med Refill Encounter Details Date Type Department Care Team (Late st Contact Info) Description 07/31/2025 Refill [facility] [address] [place] [phone] Flaiva Azar, COMB MACHINE OPERATOR [address] [place] [address] Social History Tobacco Use Types [...] on filedocumented in this encounter Care Teams Final Inspector Truck Trailer Relationship Specialty Start Date End Date Flavia Azar, COMB MACHINE OPERATOR [address] [place] [address] PCP - General Family Medicine 10/18/22 documented as of this encounter
--- OUTSIDE RECORDS SUMMARY | 2025-08-01 09:34 | XMS_ITS | Encounter Summary ---
Author Organization [facility] Address [address] [place] [address] Care Team Providers Care Fence Supervisor Name Role Phone Cherelle [place] MD Unavailable Flavia Azar APRN Primary Care Provider Paddy Morales MD Unavailable [phone] Encounter Details Date Type Department Care Team (Late st Contact Info) Description 11/04/2022 Ophth Exam [facility] [address] [place] [phone] Brad Piña MD [address] [place], [place] [id number] Social History Tobacco Use Types Packs/Day Years [...] Description 05/05/2026 1:00 PM EDT Office Visit [place] [facility] [address] [place] [address] Paddy Morales MD [address] [facility] [place] [address] documented as of this encounter Visit Diagnoses Not on filedocumented in this encounter Additional Health Concerns Assessment Noted Time A fall risk assessment has been complete d for the patient 10/28/2022 1:23 PM EST documented as of this encounter Care Teams Fence Supervisor Relationship Specialty Start Date End Date Flavia Azar APRN [address] [place] [phone] PCP - General 10/28/22 Cherelle Mitchell MD [address] [place] [address] Service Attending Neurology 03/02/22 Paddy Morales MD [address] [place] [address] Surgeon Neurosurgery 10/28/22 documented as of this encounter
--- OUTSIDE RECORDS SUMMARY | 2025-08-01 09:34 | XMS_ITS | Encounter Summary ---
Author Organization [facility] Address [address] [place] [address] Care Team Providers Care Cocktail Server Name Role Phone Cherelle Mitchell MD Unavailable Flavia Azar APRN Primary Care Provider [phone] Paddy Morales MD Unavailable [phone] Reason for Visit * Reason Comments Med Refill Encounter Details Date Type Department Care Team (Late st Contact Info) Description 04/25/2025 Refill [place] [facility] [address] [place] [address] Cherelle Mitchell MD [address] [place] [address] Social History Tobacco Use Types [...] Visit [place] [facility] [address] [place] [address] Paddy Morales MD [address] [place] [address] documented as of this encounter Visit Diagnoses Not on filedocumented in this encounter Additional Health Concerns Assessment Noted Time A fall risk assessment has been complete d for the patient 01/30/2025 8:26 AM EDT A Body Mass Index follow-up plan has been documented for the patient 04/24/2025 4:27 PM EDT documented as of this encounter Care Teams Cocktail Server Relationship Specialty Start Date End Date Flavia Azar APRN [address] [place] [phone] PCP - General 10/28/22 Cherelle Mitchell MD [address] [place] [address] Service Attending Neurology 03/02/22 Paddy Morales MD [address] [place] [address] Surgeon Neurosurgery 10/28/22 documented as of this encounter
--- OUTSIDE RECORDS SUMMARY | 2025-08-01 09:34 | XMS_ITS | Clinical Summary ---
Author Organization [facility] Address [address] [place] [address] Care Team Providers Care Fancy Stitcher Name Role Phone Cherelle Mitchell MD Unavailable [phone] Flavia Azar APRN Primary Care Provider Paddy Morales MD Unavailable +- [phone] Allergies Active Allergy Reactions Criticality Noted Date [...] time each day. 5 Active sodium chloride ([place]) 0.65 % nasal spray Administer 1 spray [...] nodule, solitary 04/03/2018 Mediastinal adenopathy 04/03/2018 Immunizations Immunization Administration Dates Next Due Influenza [...] Visit [place] [facility] [address] [place] [address] Paddy Morales MD [address] [place] [address] Health Maintenance Due Date Last [...] Vaccine: 50+ Years (2 of 2 - PCV20 or PCV21) 10/23/2016 10/23/2015 [facility]-Medicare Annual Wellness (AWV) 09/13/2024 09/13/2023, 10/18/2022 [id number] Vaccine (1 - season) 2025 [facility]-Influenza Vaccine (#1) 07/21/202509/22, 08/24/2019, 08/24/2019, Additional history exists [facility]-Diabetes: Hemoglobin A1C 12/16/2025, 07/06/2020, 09/28/2019, Additional history exists [facility]-DTaP,Tdap,and Td Vaccines (3 - Td or Tdap) 09/16/2028 09/16/2018, 08/20/2018 [facility]-RSV Vaccine: 60+ Years or (1 - 1-dose 75+ series) 2028 [facility]-Hepatitis C Screening Completed 2022, 08/26/2020, 08/22/2019 [...] Procedure Name Priority Date/Time Associated Diagnosis Comments ACUTE HEPATITIS PANEL STAT 08/26/2020 12:29 PM EDT HEMOGLOBIN A1C Routine 07/06/2020 9:25 AM EDT from Last 3 Months or Most Recently Relevant to Health Maintenance Results * Acute Hepatitis Panel (08/26/2020 12:29 PM EDT) Hepatitis B Surf Antigen NEGATIVE Reference Value: Negative SUNQUEST Hepatitis C Antibody NEGATIVE Reference Range: Negative [facility]QUEST Hepatitis A Antibody IgM NEGATIVE Reference Value: Negative [facility]QUEST External Hepatitis B Core IgM (HBCM) NEGATIVE Reference Value: Negative [facility]QUEST 08/26/2020 12:2 9 PM EDT 08/26/2020 12:53 PM EDT us Fidel Briones MD LAB BLOOD ORDERABLES Fi nal Result Performing Organization Address [facility] Co de Phone Number SUNQUEST * Hemoglobin A1c (07/06/2020 9:25 AM [...] <6.0% Children and Adolescents <7.5% . Source: [place] [employer]. Standards of medical care in diabetes, 2017. Diabetes Care.2017:40 (suppl 1):S1-S135. . HbA1c assay performed by an ion-exchange chromatography method that is certified traceable to the DCCT. 07/06/2020 9:25 AM EDT 07/06/2020 12:32 PM EDT us Cherelle Mitchell MD LAB BLOOD ORDERABLES Final Re sult Performing Organization Address [facility] Co de Phone Number SUNQUEST from Last 3 Months or Most Recently Relevant to Health Maintenance Insurance Advance Directives * Full Code (Latest Code Status on File) Date Activated Date Inactivated Comments 12/15/2023 9:23 AM 12/17/2023 2:51 PM Question Answer Comments Patient has decision-making capacity? Yes Care Teams Fancy Stitcher Relationship Specialty Start Date End Date Flavia Azar, SIDE SEAM ENVELOPE MACHINE OPERATOR [address] [place] [address] PCP - General 10/28/22 Cherelle Mitchell MD [address] [place] [address] Service Attending Neurology 03/02/22 Paddy Morales MD [address] [place] [address] Surgeon Neurosurgery 10/28/22
--- OUTSIDE RECORDS SUMMARY | 2025-08-01 09:34 | XMS_ITS | Encounter Summary ---
Author Organization [facility] Address [address] [place] [address] Care Team Providers Care Distribution Manager Name Role Phone Flavia Azar CREW TRUCK DRIVER Primary Care Provider Encounter Details Date Type Department Care Team (Late st Contact Info) Description 05/22/2025 Results Follow-Up [facility] [address] [place] [phone] Flavia Azar, CREW TRUCK DRIVER [address] [place] [address] Social History Tobacco Use Types [...] to the office and I sent a [employer] message documented in this encounter Plan of Treatment Not on file documented as of this encounter Visit Diagnoses Not on filedocumented in this encounter Care Teams Distribution Manager Relationship Specialty Start Date End Date Flavia Azar APRN [address] [place], [place] [phone] PCP - General Family Medicine 10/18/22 documented as of this encounter
--- OUTSIDE RECORDS SUMMARY | 2025-08-01 09:34 | XMS_ITS | Encounter Summary ---
Author Organization [facility] Address [address] [place] [address] Care Team Providers Care Environmental Analyst Name Role Phone Deniz Mathew MD Primary Care Provider [phone] Cherelle Mitchell MD Unavailable [phone] Flavia Azar APRN Primary Care Provider [phone] Paddy Morales MD Unavailable + [phone] Encounter Details Date Type Department Care Team (Late st Contact Info) Description 06/08/2021 Telemedicine [place] [facility] [address], [address] [place] [address] Willy Gonzalez [facility] [address] [place] [address] Social History Tobacco Use Types Packs/Day Years [...] Description 05/05/2026 1:00 PM EDT Office Visit [place] [facility] [address], [address] [place] [address] Paddy Morales MD [address] [place] [address] documented as of this encounter Visit Diagnoses Not on filedocumented in this encounter Care Teams Environmental Analyst Relationship Specialty Start Date End Date Deniz Mathew MD [address] [place] [address] PCP - General 04/02/21 10/27/22 Flavia Azar APRN [address] [place] [phone] PCP - General 10/28/22 Cherelle Mitchell MD [address] [place] [address] Service Attending Neurology 03/02/22 Paddy Morales MD [address] [place] [phone] Surgeon Neurosurgery 10/28/22 documented as of this encounter
== END 2025-07-30 23:59 ==
LOC: LAB.DROPOF 08-01 09:32
PROVIDERS: PCP Nurse Practitioner; Visit Provider Student in an Organized Health Care Education/Training Program
DX: N39.0 Urinary tract infection, site not specified (principal)
CPT/HCPCS: 87086

== ENCOUNTER 2025-08-06 11:22 | Day surgery (SDC) | payer MEDICARE, SELFPAY ==
[2025-07-30 15:40] VITALS: BMI 23.3
--- NOTE | 2025-08-03 11:59 | EXP.HP ---
History of Present Illness *Admission Date: 08/06/25 *History of present illness: Mrs. Burrell is a 69-year-old female who is here for diagnostic upper endoscopy secondary to a right upper quadrant abdominal pain and dysphagia. She had seen the on 06/10 2025. She has had prior cholecystectomy. She did have a former pancreatic fecal elastase of 167 consistent with exocrine pancreatic insufficiency. She does have nausea and generalized bloating. She does have a history of GERD. She had prior anterior cervical neck surgery. 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 The examination is deemed medically necessary for diagnostic EGD. The patient has been seen, interviewed and examined prior to the procedure by both myself and the anesthesia provider. [facility] Disclaimer: The information contained in this section may have been updated after the patient was seen, as this information can be updated by other users. Medical History Cervical spinal stenosis History of colon polyps CVA (cerebral vascular accident) TIA (transient ischemic attack) Transient cerebral ischemia Seizures Urinary tract infection History of stroke COPD (chronic obstructive pulmonary disease) Hyperlipidemia Surgical History History of cholecystectomy History of cardiac catheterization Family History Sister Colon cancer Social History Smoking Status: Never smoker second hand exposure: No alcohol intake: never substance use type: denies use current occupational status: retired Travel in the last 8 weeks?: None household members: spouse housing: house Have you lived/traveled outside US in past 30 days?: No Contact w/someone who lives/traveled outside US past 30 days?: No Exposure to someone with infectious disease in past 14 days?: No Do you have a fever (greater than 100.4 F or 38 C)?: No Have you tested positive for COVID-19?: No Exposed to someone with COVID-19 in past 14 days?: No Do you have a sore throat?: No Do you have a cough?: No Do you have any weakness?: No Do you have any diarrhea?: No Are you experiencing any unusual bleeding?: No Do you have any muscle aches/pain?: No Do you have any abdominal pain?: No Are you experiencing loss of taste or smell?: No Other Medical History Have you received the Flu Vaccine for this season: No Have you received the Pneumonia Vaccine: Yes Review of Systems Review of Systems Review of systems (narrative): Negative *Cardiovascular Comments: Negative *Gastrointestinal Comments: Negative *Genitourinary Comments: Negative *Musculoskeletal Comments: Negative *Neurologic Comments: Negative Meds Home Medications and Allergies Home Medications ?Medication ?Instructions ?Recorded ?Confirmed ?Type clopidogrel 75 mg tablet 75 mg PO DAILY STROKE 10/09/19 08/06/25 History rosuvastatin 20 mg tablet 20 mg PO DAILY 07/25/24 08/06/25 History Creon 36,000 unit-114,000 1 cap PO .With meals #100 caps 06/10/25 08/06/25 Rx unit-180,000 unit capsule,delayed release (voxhxk-[id number]-uvrdupx) cholecalciferol (vitamin D3) 25 25 mcg PO DAILY 06/10/25 08/06/25 History mcg (1,000 unit) capsule phenazopyridine 100 mg tablet 100 mg PO TID PRN pain 08/06/25 08/06/25 History (Pyridium) sulfamethoxazole 800 1 tab PO BID 08/06/25 08/06/25 History mg-trimethoprim 160 mg tablet (Bactrim DS) zinc 10 mg tablet 10 mg PO DAILY 08/06/25 08/06/25 History New Prescriptions to Start Prescriptions: Allergies Allergy/AdvReac Type Severity Reaction Status Date / Time No Known Allergies Allergy Verified 08/06/25 11:52 Exam *Routine HEENT Exam Head: Present normocephalic Eye: Present EOMI and PERRL ENT: Present mucous membranes moist *Routine Neck Exam Neck: Present supple *Routine Respiratory Exam Respiratory: Present CTA bilaterally *Routine Cardiovascular Exam Cardiovascular: Present RRR *Routine Abdominal Exam Abdominal: Present soft and normoactive bowel sounds; Absent tenderness *Routine Rectal Exam Rectal:: deferred *Routine Genitalia Exam Genitalia:: deferred *Routine Extremities Exam Extremities: Absent cyanosis, clubbing or edema *Routine Skin Exam Skin: Present warm; Absent rash *Routine Neurological Exam Neurological: Present alert and oriented X3 Assessment and Plan *Assessment and plan (1) Dysphagia: Status: Acute Category: Medical Code(s): R13.10 - Dysphagia, unspecified (2) GERD (gastroesophageal reflux disease): Status: Acute Category: Medical Code(s): K21.9 - Gastro-esophageal reflux disease without esophagitis Plan A/P: 1. Dysphagia and GERD is the preprocedural diagnosis. The patient will be anesthetized/sedated using MAC sedation. The patient has been seen and examined. Cardiac and lung assessment prior to the examination is stable. Proceed with planned diagnostic EGD.
[2025-08-06 12:00] VITALS: BP 177/76; PULSE 63; RESP 16; TEMP 36.3; O2SAT 97
[2025-08-06] MEDS: LACTATED RINGERS 1000ML 1,000 ML 50 ML IV (12:04)
--- NOTE | 2025-08-06 13:25 | P.PCN_ITS ---
[facility] Procedure Note Date: 08/06/25 Time: 13:44 Procedure Note:: Upper Endoscopy Procedure Report: Esophagogastroduodenoscopy with cold biopsies and TTS balloon dilation Endoscopost: Clemente Lal II, MD Referring Physician: MARIA M Krause Date of Procedure: August 06, 2025 Equipment: Olympus GIF-1100 standard upper endoscope Sedation: MAC sedation Indications: Mrs. Burrell is a 69-year-old female who is here for diagnostic upper endoscopy secondary to a right upper quadrant abdominal pain and dysphagia. The dysphagia is to breads and meats but also intermittent. She had seen the on 06/10/2025. She has had prior cholecystectomy. She did have a former pancreatic fecal elastase of 167 consistent with exocrine pancreatic insufficiency. She does have nausea and generalized bloating. She does have a history of GERD. She had prior anterior cervical neck surgery. 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 Her last EGD was more than 10 years ago. The examination is deemed medically necessary for diagnostic EGD. The patient did have a CAT scan of the abdomen and pelvis in July 2024 that did not show any biliary ductal dilation and the liver was normal in appearance. Procedure: Prior to the procedure, a history and physical exam was performed, and patient's medications and allergies were reviewed. The risks, benefits and alternatives of the sedation and procedure were discussed with the patient. All questions were answered and informed consent was obtained. The patient was brought to the procedure room. Patient identification and proposed procedure were verified by the physician and the nurse. The patient was placed in a left lateral decubitus position and the scope was passed under direct vision. Throughout the procedure, the patient's blood pressure, pulse, and oxygen saturations were monitored continuously. The upper GI endoscopy was accomplished without difficulty. The patient tolerated the procedure well. Findings: The scope was passed directly into the upper esophagus and advanced to the third portion of the duodenum. There was a duodenal diverticulum in the second portion of the duodenum. A cold biopsy was taken from the second portion of the duodenum for the disaccharidase assay. Otherwise, the post bulbar duodenum, ampulla and duodenal bulb were normal with normal mucosa and conniventes. The scope was withdrawn through a normal duodenal bulb and slightly spastic pylorus into the stomach. There was moderate to marked bile reflux with moderate linear reactive gastropathy of the antrum and body of the stomach. Cold biopsies were taken from the antrum of the stomach. The fundus of the stomach was normal. Upon retroflexion there was no hiatal hernia. The scope was then withdrawn into the esophagus. There was no evidence of reflux esophagitis or Benítez's. There were no rings, strictures, webs or corrugation. There was no candidal esophagitis. There were strong tertiary contractions and evidence of moderate esophageal dysmotility. The entire esophagus was dilated to 60 Syrian/20 mm with a TTS hydrostatic balloon. There was minimal resistance. The remainder of the esophageal mucosa was normal. Impression: 1. Moderate esophageal dysmotility with nonerosive GERD 2. Bile reflux with moderate linear reactive gastropathy 3. 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 Today we will discuss treatment options. I would continue Creon and we will discuss treatment for functional abdominal pain/hepatic flexure syndrome. I would also add OTC herbal Iberogast twice daily.
--- NOTE | 2025-08-06 13:30 | EXP.ANES.CKL ---
[facility] Disclaimer: The information contained in this section may have been updated after the patient was seen, as this information can be updated by other users. Medical History Cervical spinal stenosis History of colon polyps CVA (cerebral vascular accident) TIA (transient ischemic attack) Transient cerebral ischemia Seizures Urinary tract infection History of stroke COPD (chronic obstructive pulmonary disease) Hyperlipidemia Surgical History History of cholecystectomy History of cardiac catheterization Family History Sister Colon cancer Social History Smoking Status: Never smoker second hand exposure: No alcohol intake: never substance use type: denies use current occupational status: retired Travel in the last 8 weeks?: None household members: spouse housing: house Have you lived/traveled outside US in past 30 days?: No Contact w/someone who lives/traveled outside US past 30 days?: No Exposure to someone with infectious disease in past 14 days?: No Do you have a fever (greater than 100.4 F or 38 C)?: No Have you tested positive for COVID-19?: No Exposed to someone with COVID-19 in past 14 days?: No Do you have a sore throat?: No Do you have a cough?: No Do you have any weakness?: No Do you have any diarrhea?: No Are you experiencing any unusual bleeding?: No Do you have any muscle aches/pain?: No Do you have any abdominal pain?: No Are you experiencing loss of taste or smell?: No [facility] Anesthesia Checklist Patient Identification Patient Identification: Verbal (Name & ) Structural Data Admitted From: Home Planned Operative Procedure/s: egd Consent for Planned Operative Procedure(s) Verified: Yes NPO Status Verified Time NPO: 00:00 Airway Assessment Mallampati Score:: Class II C-Spine Mobility Assessed: Yes TMJ Mobility Assessed: Yes Dentition: Good Dentition Neurological Assessment Level of Consciousness: Awake, Alert and Appropriate Anesthesia Plan Anesthesia Risk discussed: Yes Anesthesia Plan: Verified ASA Class: II Anesthesia Type: MAC
[2025-08-06 13:46] VITALS: BP 122/60; PULSE 59; RESP 16; TEMP 36.1; O2SAT 96
[2025-08-06 13:56] VITALS: BP 132/64; PULSE 58; RESP 16; O2SAT 97
[2025-08-06 14:06] VITALS: BP 118/67; PULSE 58; RESP 16; O2SAT 98
[2025-08-06 14:16] VITALS: BP 125/68; PULSE 56; RESP 18; O2SAT 99
[2025-08-06 14:40] VITALS: BP 151/81; PULSE 54; RESP 18; TEMP 36.1; O2SAT 99
[2025-08-11 16:59] LABS: Interpretation Notes (.); Lactase 39.53 (>/= 14.0); Maltase 182.71 (>/= 110.0); Palatinase 12.95 (>/= 8.5); Reference Notes (.); Sucrase 37.52 (>/= 25.0)
== END 2025-08-06 14:40 | disposition home or self-care (01) ==
PROVIDERS: PCP Nurse Practitioner; Visit Provider Internal Medicine Gastroenterology
PROC: 0DJ08ZZ Inspection of Upper Intestinal Tract, Via Natural or Artificial Opening Endoscopic (ICD-10-PCS; CPT 43239; principal; 2025-08-06 13:00)
DX: K57.10 Diverticulosis of small intestine without perforation or abscess without bleeding (principal); K22.4 Dyskinesia of esophagus; K31.89 Other diseases of stomach and duodenum; K21.9 Gastro-esophageal reflux disease without esophagitis; E78.5 Hyperlipidemia, unspecified; Z79.02 Long term (current) use of antithrombotics/antiplatelets; Z90.49 Acquired absence of other specified parts of digestive tract
CPT/HCPCS: 43239; 43249; 82657; C1726; J2003; J2704; J7120

== ENCOUNTER 2025-11-02 13:21 | Observation (INO) | payer MEDICARE, SELFPAY ==
[2025-11-02] VITALS (9 sets, daily range): BP systolic 140–211; BP diastolic 62–95; PULSE 50–71; RESP 10–20; TEMP 36.7–36.8; O2SAT 96–99; BMI 22.8; BMI 23.3
--- NOTE | 2025-11-02 13:27 | ECG_ITS ---
APPROVED REPORT Exam: Resting ECG HR:72 bpm ECG Measurements Heart Rate 72 AXES OR 150 P 76 QRSd 90 QRS 28 QT 424 T 71 QTc 448 Conclusion SINUS RHYTHM NORMAL ECG UNCONFIRMED REPORT Electronically signed by : AMY PORTER, 11/03/2025 00:18:44
--- OUTSIDE RECORDS SUMMARY | 2025-11-02 13:27 | XMS_ITS | Encounter Summary ---
Author Organization [facility] Address [address] [place] [address] Care Team Providers Care Manager Nc Name Role Phone Deniz Mathew MD Primary Care Provider [phone] Cherelle Mitchell MD Unavailable [phone] Flavia Azar APRN Primary Care Provider [phone] Paddy Morales MD Unavailable + [phone] Encounter Details Date Type Department Care Team (Late st Contact Info) Description 06/08/2021 Telemedicine [place] [facility] [address] [place] [address] Willy Gonzalez [facility] [address] [place] [address] Social History Tobacco Use Types Packs/Day Years [...] Description 05/05/2026 1:00 PM EDT Office Visit [place] [facility] [address] [place] [address] Paddy Morales MD [address] [place] [phone] documented as of this encounter Visit Diagnoses Not on filedocumented in this encounter Care Teams Manager Nc Relationship Specialty Start Date End Date Deniz Mathew MD [address] [place] [address] PCP - General 04/02/21 10/27/22 Flavia Azar APRN [address] [place] [address] PCP - General 10/28/22 Cherelle Mitchell MD [address] [place] [address] Service Attending Neurology 03/02/22 Paddy Moarles MD [address] [place] [id number] Surgeon Neurosurgery 10/28/22 documented as of this encounter
--- OUTSIDE RECORDS SUMMARY | 2025-11-02 13:27 | XMS_ITS | Encounter Summary ---
Author Organization [facility] Address [address] [place] [address] Care Team Providers Care Events Traffic Controller Name Role Phone Flavia Azar [employer] Primary Care Provider [phone] Reason for Visit * Reason Comments Med Refill Encounter Details Date Type Department Care Team (Late st Contact Info) Description 10/28/2025 Refill [facility] [address] [place] [phone] Flavia Azar, [employer] [address] [place] [address] Social History Tobacco Use Types [...] on filedocumented in this encounter Care Teams Events Traffic Controller Relationship Specialty Start Date End Date Flavia Azar, [employer] [address] [place] [address] PCP - General Family Medicine 10/18/22 documented as of this encounter
--- OUTSIDE RECORDS SUMMARY | 2025-11-02 13:27 | XMS_ITS | Referral Summary ---
Author Organization [employer] ([place], [place], [place], [place], [place]) Address [address] [place] [address] Care Team Providers Care Shift Production Supervisor Name Role Phone Flavia Azar NP Primary Care Provider [phone] Allergies Active Allergy Reactions Criticality Noted Date [...] followed by Dr. Nolen, neurosurgeon at the [facility], with no recommendations for intervention Nocturnal leg [...] performed as ordered by Dr. 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/01/2020 Hyperlipidemia 09/02/2019 Overview (03/07/2023): Last Assessment & Plan: Previously on lipitor changed to crestor by neurology due to ongoing myalgia Stroke 09/02/2019 Acid reflux 12/04/2018 Lung nodule, solitary 04/03/2018 Mediastinal adenopathy 04/03/2018 Immunizations Immunization Administration Dates Next Due Influenza Four-qiv Pf [...] Jose Carlos rded Speak language other than Citizen [place] at home Not on file 12/02/2023 Want [...] EDT Plan of Treatment Not on file Insurance AETNA [facility] ADV Care Teams Shift Production Supervisor Relationship Specialty Start Date End Date Flavia Azar NP [address] [facility] [address] [place] [address] PCP - General Family Medicine 02/27/23
--- OUTSIDE RECORDS SUMMARY | 2025-11-02 13:27 | XMS_ITS | Clinical Summary ---
Author Organization [facility] Address [address] [place] [address] Care Team Providers Care Appraiser Boats And Marine Name Role Phone Cherelle Mitchell MD Unavailable [phone] Flavia Azar APRN Primary Care Provider Paddy Morales MD Unavailable [phone] Allergies Active Allergy Reactions Criticality Noted Date [...] time each day. 5 Active sodium chloride (Concho) 0.65 % nasal spray Administer 1 spray [...] Burning sensation of feet 03/23/2020 Hypercoagulopathy 03/23/2020 Weakness of left arm 03/23/2020 Stenosis, cervical spine 01/10/2020 Anxiety 01/01/2020 Muscle spasms of lower extremity 01/01/2020 Stiffness of neck 01/01/2020 Seizure 01/01/2020 Sensation disturbance of skin 01/01/2020 Vertebral artery occlusion 01/01/2020 Stroke 09/02/2019 Hyperlipidemia 09/02/2019 Acid reflux 12/04/2018 Lung nodule, solitary 04/03/2018 Mediastinal adenopathy 04/03/2018 Resolved Problems Problem Noted Date Diagnosed Date Resolved Date Tingling of both upper extremities 03/23/2020 08/10/2025 Tingling of face 03/23/2020 08/10/2025 Arthritis 01/10/2020 08/10/2025 Immunizations Immunization Administration Dates Next Due Influenza [...] Used Date Smoking Tobacco: Former Cigarettes 1 Q uit: 08/20/2001 Passive Smoke Exposure: Past [...] Visit [place] [facility] [address] [place] [address] Paddy Morales MD [address] [place] [address] Health Maintenance Due Date Last [...] [facility]-Medicare Annual Wellness (AWV) 09/13/2024 09/13/2023, 10/18/2022 HAI-VHTSI-45 Vaccine (1 - 2024- season) 2025 [facility]-Influenza Vaccine (#1) 07/21/202509/22, 08/24/2019, 08/24/2019, Additional history exists [facility]-Diabetes: Hemoglobin A1C 12/16/2025, 07/06/2020, 09/28/2019, Additional history exists [facility]-DTaP,Tdap,and Td Vaccines (3 - Td or Tdap) 09/16/2028 09/16/2018, 08/20/2018 [facility]-RSV Vaccine: 60+ Years or (1 - 1-dose 75+ series) 2028 [facility]-Hepatitis C Screening Completed 2022, 08/26/2020, 08/22/2019 HPV Vaccines (No Doses Required) Completed [facility]-HIB Vaccines Aged Out No longer e [...] ORDERABLES Fi nal Result Performing Organization Address [facility] de Phone Number [facility] * Hemoglobin A1c [...] <6.0% Children and Adolescents <7.5% . Source: [place] [employer]. Standards of medical care in diabetes, 2017. Diabetes Care.2017:40 (suppl 1):S1-S135. . HbA1c assay performed by an ion-exchange chromatography method that is certified traceable to the DCCT. 07/06/2020 9:25 AM EDT 07/06/2020 12:32 PM EDT us Cherelle Mitchell MD LAB BLOOD ORDERABLES Final Re sult [facility] from Last 3 Months or Most Recently Relevant to Health Maintenance Insurance AETNA MEDICARE Advance Directives * Full Code (Latest Code Status on File) Date Activated Date Inactivated Comments 12/15/2023 9:23 AM 12/17/2023 2:51 PM Question Answer Comments Patient has decision-making capacity? Yes Care Teams Appraiser [employer] Relationship Specialty Start Date End Date Flavia Azar APRN [address] [phone] PCP - General 10/28/22 Cherelle Mitchell MD [address] [place] [address] Service Attending Neurology 03/02/22 Paddy Morales MD [address] [place] [address] Surgeon Neurosurgery 10/28/22
--- OUTSIDE RECORDS SUMMARY | 2025-11-02 13:27 | XMS_ITS | Encounter Summary ---
Author Organization [facility] Address [address] [place] [address] Care Team Providers Care Photo Graphics Librarian Name Role Phone Cherelle Mitchell MD Unavailable [phone] Flavia Azar APRN Primary Care Provider Paddy Morales MD Unavailable [phone] Reason for Visit * Reason Comments Med Refill Encounter Details Date Type Department Care Team (Late st Contact Info) Description 12/17/2023 Refill [place] [facility] [address] [place] [address] Cherelle Mitchell MD [address] [place] [address] Abnormal EEG Social History Tobacco [...] Visit [place] [facility] [address] [place] [address] Paddy Morales MD [address] [address] documented as of this encounter Visit Diagnoses Diagnosis Abnormal EEG documented in this encounter Additional Health Concerns Assessment Noted Time A fall risk assessment has been complete d for the patient 04/25/2023 10:45 AM EDT A Body Mass Index follow-up plan has been documented for the patient 12/17/2023 12:35 PM EST documented as of this encounter Care Teams Photo Graphics Librarian Relationship Specialty Start Date End Date Flavia Azar APRN [address] [place] [address] PCP - General 10/28/22 Cherelle Mitchell MD [address] [place] [facility] [address] [place] [address] Service Attending Neurology 03/02/22 Paddy Morales MD [address] [address] Surgeon Neurosurgery 10/28/22 documented as of this encounter
--- OUTSIDE RECORDS SUMMARY | 2025-11-02 13:27 | XMS_ITS | Clinical Summary ---
Author Organization [employer] ([place], [place], [place], [place], [place]) Address [address] [place] [address] Care Team Providers Care Clerical Clerk Name Role Phone Flavia Azar NP Primary Care Provider [phone] Allergies Active Allergy Reactions Criticality Noted Date [...] followed by Dr. Nolen, neurosurgeon at the [facility], with no recommendations for intervention Nocturnal leg [...] performed as ordered by Dr. Tolliver at [facility] for follow-up evaluation Anxiety 01/01/2020 Seizure 01/01/2020 [...] Jose Carlos rded Speak language other than [place] at home Not on file 12/02/2023 Want [...] Pneumococcal 50+ years (2 of 2 - PCV20 or PCV21) 10/23/2016 10/23/2015 Medicare Initial AWV [id number] 11/21/2022 Falls Risk Screening 11/20/2024 COVID-19 VACCINE (1 - season) 2025 Influenza Vaccine (#1) 2025 09/22/2020 Tobacco Cessation Counseling and Screening (12+) 06/18/2026 06/18/2025 DTAP/TDAP/TD VACCINES (3 - Td or Tdap) 09/16/2028, 08/20/2018 Insurance AETNA [facility] ADV Care Teams Clerical Clerk Relationship Specialty Start Date End Date Flavia Azar, TERENCE [address] [place] [address] PCP - General Family Medicine 02/27/23
--- OUTSIDE RECORDS SUMMARY | 2025-11-02 13:27 | XMS_ITS | Clinical Summary ---
Author Organization [facility] Address [address] [place] [address] Care Team Providers Care Line Producer Name Role Phone DoeFlavia duggan Yash VIEYRA [...] Zinc 100 MG tablet Active sodium chloride (Rowan Nasal Torrance) 0.65 % nasal sprayIndicatio ns:Non-seasona l allergic [...] (D3 1999) 50 MCG (1999) capsule Active clopidogrel (PLAVIX) 75 MG tablet TAKE 1 TABLET BY MOUTH DAILY 90 tablet 1 07/31/20 25 Active rosuvastatin (CRESTOR) 20 MG tablet TAKE 1 TABLET BY MOUTH DAILY 90 tablet 1 10/28/20 25 Active rosuvastatin (CRESTOR) 20 MG tablet Take 1 tablet by mouth Daily. 90 tablet 1 04/25/20 25 025 Discontinued [...] seen at the urgent treatment center at [facility] 1 week ago. They sent her to [...] being treated both the emergency department and [facility]. Currently being treated empirically with Bactrim. Hyperlipidemia [...] performed as ordered by Dr. Tolliver at [facility] for follow-up evaluation Assessment & Plan (04/27/2025 8:39 PM EDT): Underwent C4-7 ACDF, 08/26/2020, Dr. Tolliver. Per patient, minimal improvement if any at all, with persisting left upper extremity paresthesias, fine motor incoordination. Patient did have a cervical MRI performed as ordered by Dr. Tolliver at [facility] for follow-up evaluation Assessment & Plan (09/13/2023 12:00 PM EDT): Underwent C4-7 ACDF, 08/26/2020, Dr. Tolliver. Per patient, minimal improvement if any at all, with persisting left upper extremity paresthesias, fine motor incoordination. Patient did have a cervical MRI performed as ordered by Dr. Tolliver at [facility] for follow-up evaluation Assessment & Plan (10/18/2022 3:58 PM EST): Underwent C4-7 ACDF, 08/26/2020, Dr. Tolliver. Per patient, minimal improvement if any at all, with persisting left upper extremity paresthesias, fine motor incoordination. Patient did have a cervical MRI performed as ordered by Dr. Tolliver at [facility] for follow-up evaluation History of recurrent TIAs [...] complaints of myalgia 4. Continue follow-up at [facility] Cerebral aneurysm 10/18/2022 Assessment & Plan (04/27/2025 8:39 PM EDT): 2 mm involving supraclinoid segment of the left internal carotid artery; followed by Dr. Nolen, neurosurgeon at the [facility], with no recommendations for intervention Assessment & Plan (09/13/2023 12:00 PM EDT): 2 mm involving supraclinoid segment of the left internal carotid artery; followed by Dr. Nolen, neurosurgeon at the [facility], with no recommendations for intervention Assessment & Plan (10/18/2022 3:58 PM EST): 2 mm involving supraclinoid segment of the left internal carotid artery; followed by Dr. Nolen, neurosurgeon at the [facility], with no recommendations for intervention History of smoking 10/18/2022 Assessment & Plan (05/12/2025 12:30 PM EDT): Patient with 92-weex-gefp cigarette history. Assessment & Plan (12/19/2024 5:51 PM EST): Patient with 03-bxef-ezpn cigarette history. Currently due for annual low-dose CT lung cancer screening. Order placed Assessment & Plan (09/13/2023 11:57 AM EDT): Patient with 71-gvpc-xuit cigarette history. Currently due for annual low-dose CT lung cancer screening Assessment & Plan (08/29/2023 5:07 PM EDT): Past history of cigarette abuse, 54-mkpy-xlsr history. Assessment & Plan (10/18/2022 3:59 PM EST): Past history of cigarette abuse, 28-hagz-qoad history. LDLCT scan 08/23/2021 satisfactory, 1 year follow-up recommended in August 2022 Plan: 1. LDLC to be coordinated at [facility] Paresthesia of bilateral legs 10/18/2022 Assessment & [...] Encounters Date Type Department Care Team Description 10/28/2025 Refill [facility] [address] [place] [address] DR COLEMAN, CARLOS [address] Flavia Azar, WORKFORCE DEVELOPMENT ASSISTANT from Last 3 Months Immunizations Immunization Administration [...] 1998 LIPID PANEL 09/13/2024 09/13/2023 INFLUENZA VACCINE 06/20/2025 09/22/2020, , 08/24/2019, Additional history exists ZOSTER VACCINE (2 of 3) 11/08/2025 11/01/2015 Post poned from 12/27/2015 (Patient Refused) COVID-19 Vaccine (#1) 11/11/2025 Postpo smita from 1960 (Patient Refused) MAMMOGRAM 11/16/2025 11/30/2023, 10/21, 08/05/2021 Pneumococcal Vaccine 50+ (2 of 2 - PCV20 or PCV21) 12/16/2025 10/23/2015 Postponed from 10/23/2016 (Patient Refused) [...] treatment for conditions other than malignant neoplasm SCANNED - MAMMO 11/16/2023 LIPID PANEL Routine 09/13/2023 11:50 AM EDT Hyperlipidemia, unspecified hyperlipidemia type HEPATITIS C ANTIBODY Routine 09/13/2023 11:50 AM EDT Need for hepatitis C screening test from Last 3 Months or Most Recently Relevant to Health Maintenance Results * DEXA Bone Density Axial (05/26/2025) Anatomical Region Laterality Modality Wrist, Hip, L-spine N/A Radiographic Imaging us Flavia Azar APRN [facility] DXA ORDERABLES Final Re sult * SCANNED - MAMMO (11/16/2023) Anatomical Region [...] 11:50 AM EDT 09/14/2023 Comment:[facility] to [facility] - 09/14/2023 1:06 PM EDT Performed at: 01 - [address] [id number] Community Health Nursing Director: Nabil Perez PhD, Phone: [phone] Flavia Azar APRN LAB BLOOD ORDERABLES Final Result Performing Organization Address City/[facility]/ZIP Co de Phone Number [facility] ([facility] [address] [place] [address], [place] [phone] [facility] [address] [place] [address], [place] [phone] * (ABNORMAL) Lipid Panel (09/13/2023 11:50 AM EDT) Pathologist [facility] Total Cholesterol 243(H) 100 - 199 mg/dL [facility] Triglycerides 115 0 - 149 mg/dL [facility] HDL Cholesterol 61 >39 mg/dL [facility] VLDL Cholesterol Errol 20 5 - 40 mg/dL [facility] LDL Chol Calc (NIH) 162(H) 0 - 99 mg/dL [facility] Blood Structure of left upper limb / Unknown 09/13/2023 11:50 AM EDT 09/14/2023 Comment:Blood Release to [facility] (AMBULATORY) - 09/14/2023 1:06 PM EDT Performed at: 01 - [address] [id number] Community Health Nursing Director: Nabil Perez PhD, Phone: [phone] Flavia Azar APRN LAB BLOOD ORDERABLES Final Result Performing Organization Address City/[facility]/ZIP Co de Phone Number [facility] ([facility]BUL[facility]) [address] [place] [address], [facility] [address] [place] [address], from Last 3 Months or Most Recently Relevant to Health Maintenance Insurance [employer] MEDICARE ADVANTAGE Care Teams Line Producer Relationship Specialty Start Date End Date Flavia Azar, WORKFORCE DEVELOPMENT ASSISTANT [address] [place] [address] PCP - General Family Medicine 10/18/22
--- OUTSIDE RECORDS SUMMARY | 2025-11-02 13:27 | XMS_ITS | Encounter Summary ---
Author Organization Healthcare Address [address] [place] [address] Care Team Providers Care Special Education Science Teacher Name Role Phone Cherelle Mitchell MD Unavailable Flavia Azar APRN Primary Care Provider [phone] Paddy Morales MD Unavailable [phone] Encounter Details Date Type Department Care Team (Late st Contact Info) Description 11/04/2022 Ophth Exam [facility] [address] [place] [phone] Brad Piña MD [address], [place] [id number] Social History Tobacco Use Types Packs/Day Years Used Date Smoking Tobacco: Former Cigarettes 1 Q uit: 08/20/2001 Smokeless Tobacco: Never Alcohol [...] Description 05/05/2026 1:00 PM EDT [facility] Visit [facility] [address], [address] [place] [address] Paddy Morales MD [address] [place] [address] documented as of this encounter Visit Diagnoses Not on filedocumented in this encounter Additional Health Concerns Assessment Noted Time A fall risk assessment has been complete d for the patient 10/28/2022 1:23 PM EST documented as of this encounter Care Teams Special Education Science Teacher Relationship Specialty Start Date End Date Flavia Azar APRN [address] [phone] PCP - General 10/28/22 Cherelle Mitchell MD [address] [place] [address] Service Attending Neurology 03/02/22 Paddy Morales MD [address] [place] [address] Surgeon Neurosurgery 10/28/22 documented as of this encounter
--- OUTSIDE RECORDS SUMMARY | 2025-11-02 13:27 | XMS_ITS | Data Portability ---
Author Organization [facility] [place] [facility] Address [address] [facility] [address] [place] [address] Care Team Providers Care Piercing Machine Operator Name Role Phone BRAVO STROUD Primary Care Provider Assessment Encounter Date Assessment Date Assessment LastModified by Organization Details LastModified Time 08/31/2023 08/31/2023 We discussed UTI prevention with adequate hydration, timed and double voids, enxy-xzl-zekoa er suppressive medications such as cranberry tablets and d-mannose. Medical management lower urinary symptoms and UTI prevention with suppressive methenamine and treatment of atrophic vaginitis with topical vaginal estrogen creams. We discussed need for adequate hydration with timed and double voids. [email or web address] Not available 09/06/2023 19:10:05 Plan of Treatment Reminders Order Date Submit Date Provider Last Modified By Organization Details Last Modified Time Details Appointments None recorded. Lab urinalysis panel, auto 2022 023 [email or web address] [facility] [place] [facility], [address] , [address], [place], [address], 14:55:59 culture, urine 2022 023 [facility], [address] [facility], [place], [address], 11:46:28 Referral None recorded. Procedures None recorded. Surgeries None recorded. Imaging None recorded. Medication Orders estradiol 0.01% (0.1 mg/gram) vaginal cream [address] [id number], [address] [facility] [facility] [address] [place], [phone], 14:56:10 methenamine hippurate 1 gram tablet 2022 023 ANA ROSA [facility][id number], [address] [facility] [facility] [address] [place], [phone], 14:56:07 Patient TargetsNo targets recorded. Patient InstructionsNo instructions recorded. Reason for Referral None Reported. Results Created Date Observation Date Name Description Value Unit Range Abnormal Flag Note LastModifiedBy Organization Detail LastModifiedTime 08/31/2009/04/2023 URINE CULTU RE urine culture No growth day 4. Not Available [facility] [address] [place], [address], 09/04/2023 08:34:57 08/31/2008/31/2023 urina lysis panel , auto Unknown Analyte Clean Catch Not Available [facility] [place] [facility] [address] Foy F, [place], [address], 08/31/2023 14:52:45 08/31/2008/31/2023 urina lysis panel , auto Unknown Analyte Yellow Not Available [facility] [place] [facility] [address] Danii Kumar, [place], [address], 08/31/2023 14:52:45 08/31/2008/31/2023 urina lysis panel , auto Unknown Analyte Clear Not Available [facility] [place] [facility] [address] Foy F, [place], [address], 08/31/2023 14:52:45 08/31/2008/31/2023 urina lysis panel , auto Unknown Analyte 1.020 Not Available [facility] [place] [facility] [address] Danii Kumar, [place], [address], 08/31/2023 14:52:45 08/31/2008/31/2023 urina lysis panel , auto Unknown Analyte 1.003- 1.035 Not Available [facility] With [address] Danii Kumar, [place], [address], 08/31/2023 14:52:45 08/31/2008/31/2023 urina lysis panel , auto Unknown Analyte 6.0 Not Available [facility] With [address] Danii Kumar, [place], [address], 08/31/2023 14:52:45 08/31/2008/31/2023 urina lysis panel , auto Unknown Analyte 5.0-8. 0 Not Available [facility] With [address] Dan[address] Kumar, [place], [address], 08/31/2023 14:52:45 08/31/2008/31/2023 urina lysis panel , auto Unknown Analyte 25 Ekaterina/ul Trace Not Available [facility] With [address] Dan[address] Kumar, [place], [address], 08/31/2023 14:52:45 08/31/2008/31/2023 urina lysis panel , auto Unknown Analyte Negati ve Not Available [facility] With [address], [place], [address], 08/31/2023 14:52:45 08/31/2008/31/2023 urina lysis panel , auto Unknown Analyte Negati ve Not Available [facility] With [address], [place], [address], 08/31/2023 14:52:45 08/31/2008/31/2023 urina lysis panel , auto Unknown Analyte Negati ve Not Available [facility] With [address], [place], [address], 08/31/2023 14:52:45 08/31/2008/31/2023 urina lysis panel , auto Unknown Analyte Trace Not Available [facility] With [address], [place], [address], 08/31/2023 14:52:45 08/31/2008/31/2023 urina lysis panel , auto Unknown Analyte Negati ve Not Available [facility] With [address], [place], [address], 08/31/2023 14:52:45 08/31/2008/31/2023 urina lysis panel , auto Unknown Analyte Normal Not Available [facility] With [address], [place], [address], 08/31/2023 14:52:45 08/31/2008/31/2023 urina lysis panel , auto Unknown Analyte Normal Not Available [facility] With [address], [place], [address], 08/31/2023 14:52:45 08/31/2008/31/2023 urina lysis panel , auto Unknown Analyte 15 mg/dl (Sm) Not Available [facility] With [address], [place], [address], 08/31/2023 14:52:45 08/31/2008/31/2023 urina lysis panel , auto Unknown Analyte Negati ve Not Available [facility] With [address], [place], [address], 08/31/2023 14:52:45 08/31/2008/31/2023 urina lysis panel , auto Unknown Analyte 1 mg/dl Not Available [facility] With [address] Kumar, [place], [address], 08/31/2023 14:52:45 08/31/2008/31/2023 urina lysis panel , auto Unknown Analyte Normal 1 mg/dl Not Available [facility] With [address], [place], [address], 08/31/2023 14:52:45 08/31/2008/31/2023 urina lysis panel , auto Unknown Analyte 1 mg/dl (+) Not Available [facility] With [address], [place], [address], 08/31/2023 14:52:45 08/31/2008/31/2023 urina lysis panel , auto Unknown Analyte Negati ve Not Available [facility] With [address], [place], [address], 08/31/2023 14:52:45 08/31/2008/31/2023 urina lysis panel , auto Unknown Analyte Negati ve Not Available [facility] With [address], [place], [address], 08/31/2023 14:52:45 08/31/2008/31/2023 urina lysis panel , auto Unknown Analyte Negati ve Not Available [facility] With [address], [place], [address], 08/31/2023 14:52:45 Result Notes None recorded. Medical [...] Not Available Not Avai lable Not Available D3-1999 active Not Available Not Avail able Not Available zinc (glycinate) 20 mg capsule Take by oral route. active Not Available Not Available No t Available Vitals Date Recorded Body height Body mass index (BMI) Body weight Provider Name and Address Organization Details Last Updated DateTime 08/31/2023 172.72 cm 21 kg/m2 28880.75 g Batsheva Mcclellandt [facility] 08/31/2023 14:39:06 Social History Question Answer Notes LastModified by Organizat ion Details LastModified Time Tobacco Smoking Status Former Smoker Batsheva Gutierrez [facility] 08/31/2023 14:50:21 What Was The Date [...] Diagnosis SNOMED-CT Code Diagnosis ICD10 Code Diagnosis IMO Codes Diagnosis Note [id number] ANAYELI GOULD MD [facility] [address] [place] [address] ,[place] [address] 08/31/2023 13:48:34 08/31/2023 15:08:18 Urinary tract infectious disease 53984335 N39.0 Recurrent urinary tract infection 430415666 N39.0 Atrophic vaginitis 20973 000 N95.2 Health Concerns Section Related Observation LastModified by Organization Detai ls LastModified Time None Recorded Concern Status LastModified by Organization Details LastModified Time None Recorded Advance Directives Directive None Recorded Payers Insurance Date Sequence Insurance Name Policy Number Policy Landers Covered Member ID Landers Member ID Guarantor Name 09/04/2023 1 [facility] [id number] Howard Burrell [id number] Lisandra Burrell 09/05/2023 GENERIC INSURANCE - MOVED-HOLD Lisandra Fry Indra 10/23/2023 1 [employer] (MEDICARE REPLACEMENT /ADVANTAGE - PPO) [id number] Lisandra Ruiz Indra [id number] Lisandra Burrell Notes Date Note Type Note Provider Name and Address Organization Details Recorded Time 08/31/2023 text/html 67-year-old female in the office for my initial evaluation [...] ago and Bactrim now. ANAYELI GOULD MD [facility] [place], [address], [facility] 09/06/2023 19:10:20 OBGyn Episode No OBEpisode recorded.
--- OUTSIDE RECORDS SUMMARY | 2025-11-02 13:27 | XMS_ITS | Encounter Summary ---
Author Organization [facility] Address [address] [place] [address] Care Team Providers Care Die Maintenance Technician Name Role Phone Cherelle Mitchell MD Unavailable Flavia Azar APRN Primary Care Provider Paddy Morales MD Unavailable [phone] Reason for Visit * Reason Comments Med Refill Encounter Details Date Type Department Care Team (Late st Contact Info) Description 04/25/2025 [place]ill [place] [facility] [address], [address] [place] [address] Cherelle Mitchell MD [address] [place] [address] Social History Tobacco Use Types [...] Visit [place] [facility] [address], [address] [place] [address] Paddy Morales MD [address] [place] [address] documented as of this encounter Visit Diagnoses Not on filedocumented in this encounter Additional Health Concerns Assessment Noted Time A fall risk assessment has been complete d for the patient 01/30/2025 8:26 AM EDT A Body Mass Index follow-up plan has been documented for the patient 04/24/2025 4:27 PM EDT documented as of this encounter Care Teams Die Maintenance Technician Relationship Specialty Start Date End Date Flavia Azar APRN [address] [phone] PCP - General 10/28/22 Cherelle Mitchell MD [address] [place] [address] Service Attending Neurology 03/02/22 Paddy Morales MD [address] [place] [address] Surgeon Neurosurgery 10/28/22 documented as of this encounter
--- NOTE | 2025-11-02 13:39 | CT_ITS ---
PROCEDURE INFORMATION: Exam: CTA Neck With Contrast Exam date and time: 11/02/2025 1:43 PM Age: 69 years old Clinical indication: Stroke-like symptoms; Generalized weakness; Additional info: Possible stroke TECHNIQUE: Imaging protocol: Computed tomographic angiography of the neck with contrast. Exam focused on the cervical segments of the vasculature. 3D rendering (Not supervised by radiologist): MIP and/or 3D reconstructed images were created by the technologist. Radiation optimization: All CT scans at this facility use at least one of these dose optimization techniques: automated exposure control; mA and/or kV adjustment per patient size (includes targeted exams where dose is matched to clinical indication); or iterative reconstruction. Contrast material: ISOVUE; Contrast volume: 80 ml; Contrast route: INTRAVENOUS (IV); COMPARISON: CT ANGIO NECK 01/16/2024 3:22 PM FINDINGS: Right common carotid artery: There is stenosis of the distal right common carotid artery measuring less than 50% secondary to soft and calcified plaque. Right internal carotid artery: There is stenosis at the origin of the right internal carotid artery measuring less than 50% secondary to soft and calcified plaque. Otherwise the remainder appears patent. Right external carotid artery: No occlusion or stenosis of the origin. Left common carotid artery: There is stenosis of the distal left common carotid artery measuring less than 50% secondary to calcified plaque. Left internal carotid artery: There is stenosis at the origin of the left internal carotid artery measuring less than 50% secondary to calcified plaque. The remainder appears patent. Left external carotid artery: No occlusion or stenosis of the origin. Right vertebral artery: No stenosis. No dissection or occlusion. Left vertebral artery: The origin is poorly visualized. The remainder is hypoplastic but appears patent. Left subclavian artery: There is mild stenosis at the origin of the left subclavian artery secondary to soft and calcified plaque. Soft tissues: Normal. No significant soft tissue swelling. Bones/joints: No acute fracture. IMPRESSION: 1. Mild bilateral distal common carotid artery stenosis. Mild stenosis at the origins of the internal carotid arteries. 2. Hypoplastic left vertebral artery. The origin is poorly visualized. The remainder appears patent. REFERENCES: NASCET CRITERIA. The degree of stenosis in the cervical segment of the internal carotid artery is based on NASCET criteria. Normal is no stenosis. Mild is less than 50% stenosis. Moderate is 50-69% stenosis. Severe is 70% to 99% stenosis. Total occlusion is no detectable patent lumen.
--- NOTE | 2025-11-02 13:39 | CT_ITS ---
PROCEDURE INFORMATION: Exam: CT Head Without Contrast Exam date and time: 11/02/2025 1:41 PM Age: 69 years old Clinical indication: Stroke-like symptoms; Other: Possible stroke TECHNIQUE: Imaging protocol: Computed tomography of the head without contrast. Radiation optimization: All CT scans at this facility use at least one of these dose optimization techniques: automated exposure control; mA and/or kV adjustment per patient size (includes targeted exams where dose is matched to clinical indication); or iterative reconstruction. Other technique: STROKE PROTOCOL was implemented. COMPARISON: CT ANGIO HEAD 01/16/2024 3:22 PM FINDINGS: Brain: There is no evidence of acute parenchymal hemorrhage, extra-axial collection, or acute infarction. There is no mass effect, midline shift, or downward herniation. Cerebral ventricles: No ventriculomegaly. Paranasal sinuses: Visualized sinuses are unremarkable. No fluid levels. Mastoid air cells: Visualized mastoid air cells are well aerated. Bones: Unremarkable. No acute fracture. Soft tissues: Unremarkable. IMPRESSION: No acute intracranial abnormality. ASSESSMENT: ASPECTS ([facility] Stroke Program Early CT Score) is 10.
--- NOTE | 2025-11-02 13:39 | CT_ITS ---
PROCEDURE INFORMATION: Exam: CTA Head With Contrast, Arteriography Exam date and time: 11/02/2025 1:43 PM Age: 69 years old Clinical indication: Stroke-like symptoms; Generalized weakness; Additional info: Possible stroke TECHNIQUE: Imaging protocol: Computed tomographic angiography of the head with contrast. Exam focused on the arteries. 3D rendering (Not supervised by radiologist): MIP and/or 3D reconstructed images were created by the technologist. Radiation optimization: All CT scans at this facility use at least one of these dose optimization techniques: automated exposure control; mA and/or kV adjustment per patient size (includes targeted exams where dose is matched to clinical indication); or iterative reconstruction. Contrast material: ISOVUE; Contrast volume: 80 ml; Contrast route: INTRAVENOUS (IV); COMPARISON: CT ANGIO HEAD 01/16/2024 3:22 PM FINDINGS: ANTERIOR CIRCULATION: Right internal carotid artery: Mild stenosis secondary to calcified plaque. Right middle cerebral artery: No occlusion or significant stenosis. No aneurysm. Right anterior cerebral artery: No occlusion or significant stenosis. No aneurysm. Left internal carotid artery: Mild stenosis secondary to calcified plaque. Left middle cerebral artery: No occlusion or significant stenosis. No aneurysm. Left anterior cerebral artery: No occlusion or significant stenosis. No aneurysm. POSTERIOR CIRCULATION: Right vertebral artery: No occlusion or significant stenosis. No aneurysm. Left vertebral artery: No occlusion or significant stenosis. No aneurysm. Basilar artery: No occlusion or significant stenosis. No aneurysm. Right posterior cerebral artery: No occlusion or significant stenosis. No aneurysm. Left posterior cerebral artery: No occlusion or significant stenosis. No aneurysm. Brain: No definite mass, mass effect, or midline shift. Cerebral ventricles: No ventriculomegaly. Bones/joints: Unremarkable. No acute fracture. Soft tissues: Unremarkable. IMPRESSION: Mild bilateral internal carotid artery stenosis. Otherwise patent [id number].
[2025-11-02] MEDS: 0.9 % SODIUM CHLORIDE 50 ML VIAL IV (13:43)
[2025-11-02] MEDS: IOPAMIDOL-370 (76%);100ML BOTTLE 80 ML IV (13:43)
[2025-11-02] MEDS: SODIUM CHLORIDE 0.9% 10ML SYR (RAD ONLY) 10 ML IV (13:43)
[2025-11-02 13:51] LABS: Albumin Level 4.7 g/dl (3.5-5.0); Chloride 105 mmol/L (98-107)
[2025-11-02 13:52] LABS: Potassium 3.7 mmoL/L (3.5-5.1); Sodium 138 mmol/L (136-145)
[2025-11-02 13:53] LABS: Hematocrit 40.3 % (37.0-47.0); Hemoglobin 13.2 g/dL (12.2-16.2); Immature Granulocytes % 0.1 %; Mean Corpuscular HGB Conc 32.8 g/dL (31.8-35.4); Mean Corpuscular Hemoglobin 29.2 pg (27.0-31.2); Mean Corpuscular Volume 89.2 fl (81-99); Nucleated Red Blood Cells % 0 %; Platelet Count 264 K/mm3 (142-424); Red Blood Count 4.52 M/mm3 (4.20-5.40); Red Cell Distribution Width-SD 44.2 fL; White Blood Count 7.1 K/mm3 (4.8-10.8)
[2025-11-02 13:54] LABS: Alanine Aminotransferase 21 U/L (12-78); Albumin/Globulin Ratio 1.3 (1.1-1.8); Alkaline Phosphatase 96 U/L (38-126); Anion Gap 8.7 mEq/L (5-15); Aspartate Amino Transferase 28 U/L (14-36); Bilirubin,Total 0.5 mg/dl (0.2-1.3); Blood Urea Nitrogen 14 mg/dl (7-17); Carbon Dioxide 28 mmol/L (22.0-30.0); Creatinine Clearance Estimated 52 mL/min (50-200); Creatinine,Serum 0.70 mg/dl (0.52-1.04); Estimated Glomerular Filt Rate 82 ml/min (>60); GFR (African American) 100 ML/MIN (>60); Globulin 3.5 g/dL (1.3-3.2); Total Protein,Serum 8.2 g/dl (6.3-8.2)
[2025-11-02 13:55] LABS: Calcium 9.5 mg/dl (8.4-10.2); Glucose 96 mg/dl (74-100)
--- NOTE | 2025-11-02 14:02 | ED_ITS ---
<Statement entered by Gustabo Jack MD - 11/02/25 15:48> I was consulted by the MISHEL, and we discusssed the complexity of the problems being adressed. I approved the treatment and management plan for this patient's care in the Emergency Department, thus performing a substantive portion of the medical decision making. Gustabo Jack MD Discharge Plan Disposition Chief Complaint: Neuro Symptoms/Deficit Prescriptions Prescriptions: No Action cholecalciferol (vitamin D3) 25 mcg (1,000 unit) capsule 25 mcg PO DAILY Creon 36,000-114,000- 180,000 unit capsule,delayed release(DR/EC) 1 cap PO .With meals Qty: 100 12RF Rx Instructions: Please take 1 capsule by mouth with meals and administer with meals and/or snacks sulfamethoxazole-trimethoprim [Bactrim DS] 800-160 mg tablet 1 tab PO BID phenazopyridine [Pyridium] 100 mg tablet 100 mg PO TID PRN (Reason: pain) zinc 10 mg Tablet 10 mg PO DAILY buspirone 10 mg tablet 10 mg PO BID Qty: 60 12RF Rx Instructions: Please take 1 tablet by mouth twice daily clopidogrel 75 MG tablet 75 mg PO DAILY rosuvastatin 20 mg tablet 20 mg PO DAILY Referrals Follow up/Referrals: Flavia Azar APRN [Primary Care Provider, Medical] - See instructions Print Language Print Language: Prydeinig Discharge ED Provider: Gustabo Jack General Adult HPI General Chief complaint: Neuro Symptoms/Deficit Stated complaint: Chest pain Time Seen by Provider: 11/02/25 13:31 Mode of Arrival: Ambulatory Source of Information: Patient and Relative Description of Symptoms (Recalled from ER Triage Doc. by RN): patient presents with cheif complaint for chest pain but on initial assessment her complaints are left arm tingling as well as bilateral lower leg tingling that began around 11:30 this morning. she is not currently having chest pain, no cardiac history. she does have a hx of TIA's and a stroke. takes plavix daily. History of Present Illness HPI narrative: Patient presents complaining of intermittent chest pain since last night. She also that since around 11 AM she has had some left arm and roll leg heaviness. She reports that she did have a history of a CVA and TIA, reports that the symptoms do feel similar. complaint: Chest pain, arm heaviness Onset (ago): hour(s) Location: left and upper extremity Radiation: non-radiation Severity: moderate Consistency: intermittent Relieving factors: none Exacerbating factors: none Associated symptoms: chest pain and weakness Treatments prior to arrival: none Related Data Home Medications ?Medication ?Instructions ?Recorded ?Confirmed clopidogrel 75 mg tablet 75 mg PO DAILY STROKE 08/06/25 rosuvastatin 20 mg tablet 20 mg PO DAILY 07/25/2407/21 cholecalciferol (vitamin D3) 25 25 mcg PO DAILY 08/06/25 mcg (1,000 unit) capsule phenazopyridine 100 mg tablet 100 mg PO TID PRN pain 0 08/06/25 08/06/25 (Pyridium) sulfamethoxazole 800 1 tab PO BID 08/06/25 mg-trimethoprim 160 mg tablet (Bactrim DS) zinc 10 mg tablet 10 mg PO DAILY 08/06/2507/21 Previous Rx's ?Medication ?Instructions ?Recorded Creon 36,000 unit-114,000 1 cap PO .With meals #100 ca ps 06/10/25 unit-180,000 unit capsule,delayed release (qjsihu-wwbrsiut-zslwuis (pork)) buspirone 10 mg tablet 10 mg PO BID #60 tabs Allergies Allergy/AdvReac Type Severity Reaction Status Date / Time No Known Allergies Allergy Verified 08/06/25 11:52 [facility] Disclaimer: The information contained in this section may have been updated after the patient was seen, as this information can be updated by other users. Medical History Cervical spinal stenosis History of colon polyps CVA (cerebral vascular accident) TIA (transient ischemic attack) Transient cerebral ischemia Seizures Urinary tract infection History of stroke COPD (chronic obstructive pulmonary disease) Hyperlipidemia Surgical History History of cholecystectomy History of cardiac catheterization Family History Colon cancer Sister Social History Smoking Status: Never smoker second hand exposure: No alcohol intake: never substance use type: denies use current occupational status: retired Travel in the last 8 weeks?: None household members: spouse housing: house Have you lived/traveled outside US in past 30 days?: No Contact w/someone who lives/traveled outside US past 30 days?: No Exposure to someone with infectious disease in past 14 days?: No Do you have a fever (greater than 100.4 F or 38 C)?: No Have you tested positive for COVID-19?: No Exposed to someone with COVID-19 in past 14 days?: No Do you have a sore throat?: No Do you have a cough?: No Do you have any weakness?: No Do you have any diarrhea?: No Are you experiencing any unusual bleeding?: No Do you have any muscle aches/pain?: No Do you have any abdominal pain?: No Are you experiencing loss of taste or smell?: No Other Medical History Have you received the Flu Vaccine for this season: No Have you received the Pneumonia Vaccine: Yes ROS Obtained: Yes Systems reviewed as appropriate & no additional complaints except as documented Physical Exam General General appearance: alert and in no apparent distress Head Head exam: atraumatic and normocephalic Eye Eye exam: Present normal appearance and EOMI Chest Chest inspection: Present symmetric chest wall rise Respiratory Respiratory exam: Present normal lung sounds bilaterally; Absent wheezes or stridor Cardiovascular Cardiovascular exam: Present regular rate and normal rhythm; Absent systolic murmur Extremities Exam Extremities exam: Present full ROM Neurological Exam Neurological exam: Present alert, oriented X3 and other (NIHSS 0); Absent CN II- XII intact or motor sensory deficit Psychiatric Psychiatric exam: Present normal affect and normal mood Skin Skin exam: Present warm, dry and intact Medical Decision Making Medical Records Screening: Per USPSTF and CDC recommendations, given the prevalence of disease in our region, it is our hospital?s policy to screen for HIV and viral Hepatitis for all patients aged 18 and over and those with ongoing risk factors. Jose Inquiry Pt receiving controlled substance: No Vital Signs: 11/02/25 13:25 11/02/25 13:30 11/02/25 13:30 Temperature 98.2 F Temperature Source Oral Pulse Rate 69 59 L Pulse Rate [Right Radial] 71 Respiratory Rate 20 17 Blood Pressure 211/88 H 190/86 H Blood Pressure [Right Arm] 211/88 H Blood Pressure Mean [Right Arm] 129 Blood Pressure Source [Right Arm] Automatic Cuff Blood Pressure Position [Right Arm] Sitting 02 Sat by Pulse Oximetry 98 98 99 Oxygen Delivery Method Room Air Room Air Room Air 11/02/25 14:00 11/02/25 14:30 Temperature Temperature Source Pulse Rate 63 61 Pulse Rate [Right Radial] Respiratory Rate 17 10 L Blood Pressure 181/85 H 186/95 H Blood Pressure [Right Arm] Blood Pressure Mean [Right Arm] Blood Pressure Source [Right Arm] Blood Pressure Position [Right Arm] 02 Sat by Pulse Oximetry 99 96 Oxygen Delivery Method Room Air Room Air Lab Data Lab Results 11/02/25 13:27: WBC 7.1, RBC 4.52, Hgb 13.2, Hct 40.3, MCV 89.2, MCH 29.2, MCHC 32.8, RDW 13.5, Plt Count 264, MPV 10.1, Neut % (Auto) 57.0, Lymph % (Auto) 32.1, [place] % (Auto) 8.1, Eos % (Auto) 2.3, Baso % (Auto) 0.4, Neut # (Auto) 4.0, Lymph # (Auto) 2.3, [place] # (Auto) 0.6, Eos # (Auto) 0.2, Baso # (Auto) 0.0, PT 10.7, INR 0.96, APTT 29.2, Sodium 138, Potassium 3.7, Chloride 105, Carbon Dioxide 28, Anion Gap 8.7, BUN 14, Creatinine 0.70, Estimated Creat Clear 52, Estimated GFR 82, Est GFR ( Amer) 100, Glucose 96, Calcium 9.5, Total Bilirubin 0.5, AST 28, ALT 21, Alkaline Phosphatase 96, Troponin I < 0.01, Total Protein 8.2 D, Albumin 4.7, Globulin 3.5 H, Albumin/Globulin Ratio 1.3 11/02/25 13:27 11/02/25 13:27 Orders (Tests/Meds): ED MEDICATIONS Generic Name Dose Route Start Last Admin Trade Name Freq PRN Reason Stop Dose Admin Acetaminophen 650 mg 11/02/25 15:01 Acetaminophen 325mg Tab PO 12/02/25 15:00 Q4HP PRN Fever or Mild Pain (1-3) Aspirin 325 mg 11/02/25 15:05 Aspirin 325mg Tablet PO 11/02/25 15:06 ONCE ONE Aspirin 81 mg 11/03/25 09:00 Aspirin Ec 81mg Tablet PO 12/03/25 08:59 DAILY [facility] Atorvastatin Calcium 40 mg 11/02/25 21:00 Atorvastatin 40mg Tablet PO 12/02/25 20:59 HS [facility] Clopidogrel Bisulfate 75 mg 11/03/25 09:00 Clopidogrel 75mg Tab PO 12/03/25 08:59 DAILY [facility] Enoxaparin Sodium 40 mg 11/03/25 09:00 Enoxaparin 40mg/0.4ml Syringe SUBCUT 12/03/25 08:59 DAILY [facility] Irbesartan 37.5 mg 11/02/25 18:00 Irbesartan 75mg Tablet PO 12/02/25 17:59 1800 [facility] Sodium Chloride 10 ml 11/02/25 13:38 Sodium Chloride 0.9% 10ml Flush Syringe IV 12/02/25 13:37 NEEDED PRN Maintain IV Site Sodium Chloride 10 ml 11/02/25 13:42 11/02/25 13:43 Sodium Chloride 0.9% 10ml Syr (Rad Only) IV 12/02/25 13:41 10 ml NEEDED PRN Administration Maintain IV Site Discontinued Medications Generic Name Dose Route Start Last Admin Trade Name Freq PRN Reason Stop Dose Admin Iopamidol 80 ml 11/02/25 13:42 11/02/25 13:43 Iopamidol-370 (76%);100ml Bottle IV 11/02/25 13:43 80 ml ONCE ONE Administration Sodium Chloride 50 ml 11/02/25 13:42 11/02/25 13:43 0.9 % Sodium Chloride 50 Ml Vial IV 11/02/25 13:43 50 ml ONCE ONE Administration ORDERS Category Date Time Status CT angio head Stat Cat Scan 11/02/25 13:[address] angio neck Stat Cat Scan 11/02/25 13:[address] head/brain wo con Stat Cat Scan 11/02/25 13:39 Completed Chest XR -- portable [XR chest portable] Stat Exams 11/02/25 14:04 Completed Activated Partial Thrombo Time Stat Lab 11/02/25 13:27 Completed Complete Blood Count Auto Diff AMLAB Lab 11/03/25 06:00 Ordered Complete Blood Count Auto Diff Stat Lab 11/02/25 13:27 Completed Comprehensive Metabolic Panel AMLAB Lab 11/03/25 06:00 Ordered Comprehensive Metabolic Panel Stat Lab 11/02/25 13:27 Completed Lipid Panel AMLAB Lab 11/03/25 06:00 Ordered Magnesium AMLAB Lab 11/03/25 06:00 Ordered Prothrombin Time INR Stat Lab 11/02/25 13:27 Completed Troponin I Q3H Lab 11/02/25 16:45 Ordered Troponin I Q3H Lab 11/02/25 19:45 Ordered Troponin I Stat Lab 11/02/25 13:27 Completed Urinalysis and Microscopic Stat Lab 11/02/25 13:39 Ordered ECG Request Stat Y 11/02/25 13:39 Ordered Medical Decision Narrative: In summary patient is a 69-year-old who presents the emergency department for evaluation of chest pain, weakness. Patient is hypertensive upon arrival upon arrival, afebrile. Unremarkable physical exam. Differential diagnosis includes TIA, CVA, ACS. Initial workup will be conducted with hematologic labs, CT brain, CTA head and neck, EKG. Initial workup reviewed by ct hematologic labs are unremarkable with the exception of some carotid artery stenosis. Blood pressure has improved some without intervention. Given this patient to be admitted for TIA/possible MRI tomorrow. Critical Care Critical Care Time Critical Care Time: No
--- NOTE | 2025-11-02 14:04 | XR_ITS ---
PROCEDURE INFORMATION: Exam: XR Chest Exam date and time: 11/02/2025 2:07 PM Age: 69 years old Clinical indication: Pain; Chest pressure; Additional info: Chest pain TECHNIQUE: Imaging protocol: Radiologic exam of the chest. Views: 1 view. COMPARISON: CR XR CHEST 2V 03/25/2025 11:46 AM FINDINGS: Tubes, catheters and devices: There is a left chest wall pacer device noted. Lungs: Unremarkable. No consolidation. Pleural spaces: Unremarkable. No pleural effusion. No pneumothorax. Heart/Mediastinum: Unremarkable. No cardiomegaly. Bones/joints: Unremarkable. IMPRESSION: No acute findings.
[2025-11-02 14:06] LABS: Troponin I < 0.01 ng/ml (0.00-0.034)
[2025-11-02 14:21] LABS: Activated Partial Thrombo Time 29.2 seconds (22.8-30.6); INR 0.96 (0.9-1.1); Prothrombin Time 10.7 seconds (10.1-12.5)
--- NOTE | 2025-11-02 15:08 | EXP.HP ---
History of Present Illness *Admission Date: 11/02/25 *Reason for visit:: Tingling in left arm and legs. *History of present illness: 69-year-old female who states that she woke up this morning with a twinge in her chest and tingling in her left arm as well as tingling in her face. Left arm felt heavy. Symptoms did not improve. Her daughter came over and checked her blood pressure and her systolic was in the 190s. She came to the ER for further evaluation due to her symptoms. On workup in the ER, CT unremarkable with no acute stroke. White count normal. Kidney function normal. Blood pressure severely elevated with systolics in the 220s however. As her blood pressure improved her symptoms showed some improvement but given the nature of her symptoms and concern for TIA along with history of TIAs, medicine was consulted for evaluation and further management. On my evaluation after arriving to the floor, patient's blood pressure is doing better. Most recent blood pressure was 180s systolic. She states that her left arm heaviness and tingling in her face have resolved at this time. No focal neurologic deficits on exam. Stable on room air. Denies any nausea or vomiting. Denies any confusion. Not on any blood pressure medication at home. [facility] Disclaimer: The information contained in this section may have been updated after the patient was seen, as this information can be updated by other users. Medical History Cervical spinal stenosis History of colon polyps CVA (cerebral vascular accident) TIA (transient ischemic attack) Transient cerebral ischemia Seizures Urinary tract infection History of stroke COPD (chronic obstructive pulmonary disease) Hyperlipidemia Surgical History History of cholecystectomy History of cardiac catheterization Family History Sister Colon cancer Social History Smoking Status: Never smoker second hand exposure: No alcohol intake: never substance use type: denies use current occupational status: retired Travel in the last 8 weeks?: None household members: spouse housing: house Have you lived/traveled outside US in past 30 days?: No Contact w/someone who lives/traveled outside US past 30 days?: No Exposure to someone with infectious disease in past 14 days?: No Do you have a fever (greater than 100.4 F or 38 C)?: No Have you tested positive for COVID-19?: No Exposed to someone with COVID-19 in past 14 days?: No Do you have a sore throat?: No Do you have a cough?: No Do you have any weakness?: No Do you have any diarrhea?: No Are you experiencing any unusual bleeding?: No Do you have any muscle aches/pain?: No Do you have any abdominal pain?: No Are you experiencing loss of taste or smell?: No Other Medical History Have you received the Flu Vaccine for this season: No Have you received the Pneumonia Vaccine: Yes Review of Systems Review of Systems Review of systems (narrative): 14 point review of systems performed, pertinent positives and negatives as per HPI Meds Home Medications and Allergies Home Medications ?Medication ?Instructions ?Recorded ?Confirmed ?Type clopidogrel 75 mg tablet 75 mg PO DAILY STROKE 10/09/19 11/02/25 History rosuvastatin 20 mg tablet 20 mg PO DAILY 07/25/24 11/02/25 History cholecalciferol (vitamin D3) 25 25 mcg PO DAILY 06/10/25 11/02/25 History mcg (1,000 unit) capsule buspirone 10 mg tablet 10 mg PO BID #60 tabs 08/06/25 11/02/25 Rx vimktw-ldfetetr-yyhhenj 1 cap PO TID 11/02/25 11/02/25 History (pork)36,000-114,000-180k unit capsule,del rel (Creon) New Prescriptions to Start Prescriptions: Allergies Allergy/AdvReac Type Severity Reaction Status Date / Time No Known Allergies Allergy Verified 08/06/25 11:52 Exam Data for Last 24 hours Vital signs and Labs for Last 24 Hours: Temp Pulse Resp BP Pulse Ox O2 Del Method 98.2 F 61 10 L 186/95 H 96 Room Air 11/02/25 13:30 11/02/25 14:30 11/02/25 14:30 11/02/25 14:30 11/02/25 14:30 11/02/25 14:30 Laboratory Results - last 24 hr 11/02/25 13:27: WBC 7.1, RBC 4.52, Hgb 13.2, Hct 40.3, MCV 89.2, MCH 29.2, MCHC 32.8, RDW 13.5, Plt Count 264, MPV 10.1, Neut % (Auto) 57.0, Lymph % (Auto) 32.1, [place] % (Auto) 8.1, Eos % (Auto) 2.3, Baso % (Auto) 0.4, Neut # (Auto) 4.0, Lymph # (Auto) 2.3, [place] # (Auto) 0.6, Eos # (Auto) 0.2, Baso # (Auto) 0.0, PT 10.7, INR 0.96, APTT 29.2, Sodium 138, Potassium 3.7, Chloride 105, Carbon Dioxide 28, Anion Gap 8.7, BUN 14, Creatinine 0.70, Estimated Creat Clear 52, Estimated GFR 82, Est GFR ( Amer) 100, Glucose 96, Calcium 9.5, Total Bilirubin 0.5, AST 28, ALT 21, Alkaline Phosphatase 96, Troponin I < 0.01, Total Protein 8.2 D, Albumin 4.7, Globulin 3.5 H, Albumin/Globulin Ratio 1.3 I & O for Last 24 hours: Intake & Output 10/30/25 10/31/25 11/01/25 11/02/25 23:59 23:59 23:59 23:59 Weight 64.41 kg Constitutional Constitutional: no acute distress, thin and cooperative *Routine HEENT Exam Head: Present normocephalic Eye: Present EOMI and PERRL ENT: Present mucous membranes moist *Routine Neck Exam Neck: Present supple *Routine Respiratory Exam Respiratory: Present CTA bilaterally; Absent respiratory distress *Routine Cardiovascular Exam Cardiovascular: Present RRR *Routine Abdominal Exam Abdominal: Present soft and normoactive bowel sounds; Absent tenderness *Routine Rectal Exam Rectal:: deferred *Routine Genitalia Exam Genitalia:: deferred *Routine Extremities Exam Extremities: Absent cyanosis, clubbing or edema *Routine Skin Exam Skin: Present warm; Absent rash *Routine Neurological Exam Neurological: Present alert, oriented X3, CN II-XII intact, moving all extremities and normal tone; Absent sensory deficit, motor deficit or altered mental status Assessment and Plan *Assessment and plan (1) TIA (transient ischemic attack): Status: Acute Category: Medical Code(s): G45.9 - Transient cerebral ischemic attack, unspecified (2) Hypertensive emergency: Status: Acute Category: Medical Code(s): I16.1 - Hypertensive emergency (3) Exocrine pancreatic insufficiency: Status: Acute Category: Medical Code(s): K86.81 - Exocrine pancreatic insufficiency (4) GERD (gastroesophageal reflux disease): Status: Acute Category: Medical Code(s): K21.9 - Gastro-esophageal reflux disease without esophagitis Plan 69-year-old female with previous history of TIAs who presents with facial tingling and heaviness in her left arm. CT unremarkable. Blood pressure severely elevated with systolic above 200 on presentation. Discussed case with ER physician, request admission for treatment of hypertension and suspected TIA. I agreed to admit. Concern for hypertensive emergency given neurologic symptoms and elevated blood pressure. Blood pressure showing improvement without treatment. At this time her blood pressure is improved to systolic of 180 at the time of arriving to the floor. Repeat blood pressure check shows systolic in the mid 140s and neurologic symptoms are resolved. Will hold on blood pressure treatment in the setting of possible TIA versus hypertensive emergency. MRI ordered for the morning. Problems addressed as follows: TIA Hypertensive emergency -Goal blood pressure less than 180/100. Symptoms appear to have resolved at this time. Consider irbesartan 37-1/2 mg if blood pressure continues to elevate. - MRI scheduled for the morning. CT per my review with no acute abnormalities or ischemic changes - Labs unremarkable with white count of 7.1, hemoglobin 13.2. Kidney function normal with BUN 14, creatinine 0.7. Repeat CBC, CMP, magnesium ordered for the morning. - Initiate aspirin 81 mg daily, Plavix 75 mg daily, continue home Crestor 20 mg daily - Serial troponins less than 0.01 - Lipid panel ordered for the morning Pancreatic insufficiency: Continue home Creon 3 times a day with meals Anxiety/functional abdominal pain syndrome: Continue BuSpar 10 mg twice daily Full code Regular diet Prophylaxis Lovenox
[2025-11-02] MEDS: ASPIRIN 325MG TABLET 325 MG PO (15:51)
[2025-11-02 17:33] LABS: Troponin I < 0.01 ng/ml (0.00-0.034)
--- NOTE | 2025-11-02 18:04 | PC.NURSE ---
Holding irbesartan at this time. Per Phyllis CHAIDEZ orders: Give if SBP above 150.
[2025-11-02 19:11] LABS: Microscopic, Urine URINE MICROSCOPIC (MICROSCOPIC)
[2025-11-02 19:17] LABS: Bilirubin,Urine Negative (Negative); Color,Urine YELLOW (Yellow); Glucose,Urine (UA) Negative (Negative); Ketones,Urine Negative (Negative); Leukocyte Esterase,Urine Negative (Negative); PH,Urine 6.5 (5.0-8.5); Protein,Urine Negative (Negative); Specific Gravity, Urine 1.015 (1.005-1.030); Urobilinogen,Urine 0.2 EU/dl (0.2)
[2025-11-02 19:42] LABS: Bacteria,Urine 1+ /lpf
[2025-11-02] MEDS: BUSPIRONE HCL 10 MG TABLET PO (21:04)
[2025-11-02] MEDS: CLOPIDOGREL 75MG TAB 75 MG PO (21:04)
[2025-11-02] MEDS: ATORVASTATIN 40MG TABLET 40 MG PO (21:13)
[2025-11-03] VITALS: BP 144/71; PULSE 60; PULSE 62; RESP 16; TEMP 36.7; O2SAT 98
[2025-11-03 04:00] VITALS: BP 150/74; PULSE 58; PULSE 60; RESP 16; TEMP 36.6; O2SAT 98; BMI 23.3
--- NOTE | 2025-11-03 06:00 | MR_ITS ---
PROCEDURE INFORMATION: Exam: MR Head Without Contrast Exam date and time: 11/03/2025 11:00 AM Age: 69 years old Clinical indication: Weakness, extremity; Left; Additional info: TIA vs CVA, left arm and leg numbness TECHNIQUE: Imaging protocol: Magnetic resonance imaging of the head without contrast. COMPARISON: CT ANGIO HEAD 11/02/2025 1:43 PM FINDINGS: Brain: No acute intraparenchymal hemorrhage, territorial infarct or mass lesion. There are minimal T2 hyperintensities in the periventricular and subcortical white matter. The appearance is nonspecific, but most likely represents chronic small vessel disease in a person of this age. Cerebral ventricles: The ventricles, sulci and cisterns are normal in size and configuration. No hydrocephalus or midline structure shift Bones: Unremarkable. Paranasal sinuses: Normal as visualized. No acute sinusitis. Mastoid air cells: Normal as visualized. No mastoid effusion. Orbital cavities: Unremarkable. Vasculature: Flow voids of the major vascular structures are intact. Soft tissues: Unremarkable. IMPRESSION: No acute intraparenchymal hemorrhage, territorial infarct or mass lesion.
--- NOTE | 2025-11-03 06:01 | PC.NURSE ---
Aox 4, up with assistance times one, on RA, on tele, 18g L AC SL, plavix for vte, regular diet, family present in room, MRI ordered for this am.
[2025-11-03 06:48] LABS: Hematocrit 38.3 % (37.0-47.0); Hemoglobin 12.7 g/dL (12.2-16.2); Immature Granulocytes % 0.4 %; Mean Corpuscular HGB Conc 33.2 g/dL (31.8-35.4); Mean Corpuscular Hemoglobin 29.4 pg (27.0-31.2); Mean Corpuscular Volume 88.7 fl (81-99); Nucleated Red Blood Cells % 0 %; Platelet Count 233 K/mm3 (142-424); Red Blood Count 4.32 M/mm3 (4.20-5.40); Red Cell Distribution Width-SD 43.4 fL; White Blood Count 5.5 K/mm3 (4.8-10.8)
[2025-11-03 07:14] LABS: Albumin Level 4.1 g/dl (3.5-5.0); Chloride 106 mmol/L (98-107); Potassium 4.0 mmoL/L (3.5-5.1); Sodium 138 mmol/L (136-145)
[2025-11-03 07:16] LABS: Alanine Aminotransferase 19 U/L (12-78); Blood Urea Nitrogen 20 mg/dl (7-17); Creatinine Clearance Estimated 54 mL/min (50-200); Creatinine,Serum 0.70 mg/dl (0.52-1.04); Estimated Glomerular Filt Rate 82 ml/min (>60); GFR (African American) 100 ML/MIN (>60)
[2025-11-03 07:17] LABS: Albumin/Globulin Ratio 1.4 (1.1-1.8); Alkaline Phosphatase 74 U/L (38-126); Anion Gap 7.0 mEq/L (5-15); Aspartate Amino Transferase 35 U/L (14-36); Bilirubin,Total 0.5 mg/dl (0.2-1.3); Calcium 9.1 mg/dl (8.4-10.2); Carbon Dioxide 29 mmol/L (22.0-30.0); Cholesterol 140 mg/dl (140-200); Globulin 2.9 g/dL (1.3-3.2); Glucose 86 mg/dl (74-100); Magnesium 2.1 mg/dl (1.6-2.3); Total Protein,Serum 7.0 g/dl (6.3-8.2); Triglycerides 62 mg/dl (30-150)
[2025-11-03 07:18] LABS: HDL Cholesterol 61 mg/dl (40-60)
[2025-11-03 08:00] VITALS: BP 137/73; PULSE 64; PULSE 70; RESP 12; TEMP 36.7; O2SAT 95
[2025-11-03] MEDS: BUSPIRONE HCL 10 MG TABLET PO (08:41)
[2025-11-03] MEDS: LIPASE/PROTEASE/AMYLASE 1 EACH CAPSULE.DR PO (08:41)
[2025-11-03] MEDS: ASPIRIN EC 81MG TABLET 81 MG PO (08:41)
--- NOTE | 2025-11-03 09:01 | HMH.PTEV ---
Physical Therapy Evaluation Rehab PT IP Evaluation Start: 11/02/25 15:06 Freq: ONCE Status: Active Protocol: Document 11/03/25 08:57 ARASH (Rec: 11/03/25 09:00 ARASH [id number]) Subjective/History History History Per H&P: 69-year-old female who states that she woke up this morning with a twinge in her chest and tingling in her left arm as well as tingling in her face. Left arm felt heavy. Symptoms did not improve. Her daughter came over and checked her blood pressure and her systolic was in the 190s. She came to the ER for further evaluation due to her symptoms. On workup in the ER, CT unremarkable with no acute stroke. White count normal. Kidney function normal. Blood pressure severely elevated with systolics in the 220s however. As her blood pressure improved her symptoms showed some improvement but given the nature of her symptoms and concern for TIA along with history of TIAs, medicine was consulted for evaluation and further management. On my evaluation after arriving to the floor, patient's blood pressure is doing better. Most recent blood pressure was 180s systolic. She states that her left arm heaviness and tingling in her face have resolved at this time. No focal neurologic deficits on exam. Stable on room air. Denies any nausea or vomiting. Denies any confusion. Not on any blood pressure medication at home. Subjective Subjective PLOF: IND with all mobility without AD use. Still drives. 1 reported fall in past 2 months d/t knee pain. HOME: Lives with her in a home with 2 ALESHA. ASSIST: Pt usually assists her 12/06. [facility] How much help from another person do you currently need... Turning from your None back to your side while in a flat bed without using bedrails? Moving from lying on None back to sitting on the side of a flat bed without using bedrails? Moving to and from a None bed to a chair ( including a wheelchair)? Standing up from a None chair using your arms? (e.g., wheelchair, bedside chair) Walking in hospital None room? Climbing 3-5 steps None with a railing? Mobility Score 24 Mobility Level [facility] Mobility Walk 250 feet or more Mobility Calculator Rehab PT IP Eval Objective Appearance Patient Behavior Appropriate,Cooperative Patient Orientation Person,Place Difficulty following none instructions Speech Pattern Clear Ambulation Patient Able to Yes Ambulate Ambulation Observation IP General Gait No Deviations/Normal Pattern Observation Ambulation Distance 35 (feet) Ambulation Assistive None Device Ambulation Ability Independent Balance Ability to Arise Able, uses arms to help Sitting Balance Steady, safe Standing Balance Narrow stance w/o support Dynamic Sitting Normal Balance Ability Dynamic Standing Normal Balance Ability Transfers Bed Transfer Ability Independent Sit to Stand Bed Independent Transfer Ability Rehab PT IP prob,goals,plan Problems Date of Evaluation: 11/03/25 Rehab Potential Rehab Potential Innapropriate for Skilled Therapy Discharge Plan PT Discharge Plan Pt is IND with mobility and is not appropriate for skilled PT at this time. Eval Complexity Eval Charge Codes 78918 - Moderate Complexity PHYSICIAN CERTIFICATION: I certify the specified therapy services for Lisandra Burrell are required, authorized, and reviewed every 30 days.
[2025-11-03] MEDS: IRBESARTAN 75MG TABLET 37.5 MG PO (10:48)
--- NOTE | 2025-11-03 11:15 | EXP.DC.SUM ---
General Admission date:: 11/02/25 Discharge date: 11/03/25 HPI HPI HPI: 69-year-old female who states that she woke up this morning with a twinge in her chest and tingling in her left arm as well as tingling in her face. Left arm felt heavy. Symptoms did not improve. Her daughter came over and checked her blood pressure and her systolic was in the 190s. She came to the ER for further evaluation due to her symptoms. On workup in the ER, CT unremarkable with no acute stroke. White count normal. Kidney function normal. Blood pressure severely elevated with systolics in the 220s however. As her blood pressure improved her symptoms showed some improvement but given the nature of her symptoms and concern for TIA along with history of TIAs, medicine was consulted for evaluation and further management. On my evaluation after arriving to the floor, patient's blood pressure is doing better. Most recent blood pressure was 180s systolic. She states that her left arm heaviness and tingling in her face have resolved at this time. No focal neurologic deficits on exam. Stable on room air. Denies any nausea or vomiting. Denies any confusion. Not on any blood pressure medication at home. Hospital Course Hospital Course Hospital Course: 69-year-old female with previous history of TIAs who presents with facial tingling and heaviness in her left arm. CT unremarkable. Blood pressure severely elevated with systolic above 200 on presentation. Discussed case with ER physician, request admission for treatment of hypertension and suspected TIA. I agreed to admit. Concern for hypertensive emergency given neurologic symptoms and elevated blood pressure. Blood pressure showing improvement without treatment. At this time her blood pressure is improved to systolic of 180 at the time of arriving to the floor. Repeat blood pressure check shows systolic in the mid 140s and neurologic symptoms are resolved. Will hold on blood pressure treatment in the setting of possible TIA versus hypertensive emergency. MRI ordered for the morning. MRI returned negative. Patient symptoms resolved. Feeling better by morning. Addressing blood pressure. Stable to discharge home with close follow-up as an outpatient. Problems addressed as follows: TIA Hypertensive emergency - Presented with severely elevated blood pressure with systolic above 200. Having facial tingling and left arm heaviness. CT was negative. MRI obtained the following morning showing no acute process, TIA, stroke. Patient's blood pressure showed improvement without treatment but still marginally elevated with systolic 130-150. Initiated on irbesartan 37.5 mg daily. Goal blood pressure less than 130/90. Labs during admission were unremarkable. Patient was also initiated on aspirin 81 mg daily, Crestor 20 mg daily, and Plavix 75 mg daily for 21 days. De-escalate to aspirin and Crestor only after that. Patient with no dizziness. Evaluated by therapy and independently mobile. Pancreatic insufficiency: Continue home Creon 3 times a day with meals Anxiety/functional abdominal pain syndrome: Continue BuSpar 10 mg twice daily Exam Data for Last 24 hours Vital signs and Labs for Last 24 Hours: Temp Pulse Resp BP Pulse Ox O2 Del Method 98.0 F 64 12 137/73 95 Room Air 11/03/25 08:00 11/03/25 08:00 11/03/25 08:00 11/03/25 08:00 11/03/25 08:00 11/03/25 09:00 Laboratory Results - last 24 hr 11/02/25 13:27: WBC 7.1, RBC 4.52, Hgb 13.2, Hct 40.3, MCV 89.2, MCH 29.2, MCHC 32.8, RDW 13.5, Plt Count 264, MPV 10.1, Neut % (Auto) 57.0, Lymph % (Auto) 32.1, [place] % (Auto) 8.1, Eos % (Auto) 2.3, Baso % (Auto) 0.4, Neut # (Auto) 4.0, Lymph # (Auto) 2.3, [place] # (Auto) 0.6, Eos # (Auto) 0.2, Baso # (Auto) 0.0, PT 10.7, INR 0.96, APTT 29.2, Sodium 138, Potassium 3.7, Chloride 105, Carbon Dioxide 28, Anion Gap 8.7, BUN 14, Creatinine 0.70, Estimated Creat Clear 52, Estimated GFR 82, Est GFR ( Amer) 100, Glucose 96, Calcium 9.5, Total Bilirubin 0.5, AST 28, ALT 21, Alkaline Phosphatase 96, Troponin I < 0.01, Total Protein 8.2 D, Albumin 4.7, Globulin 3.5 H, Albumin/Globulin Ratio 1.3 11/02/25 17:00: Troponin I < 0.01 11/02/25 19:07: Urine Color Yellow, Urine Appearance Clear, Urine pH 6.5, Ur Specific [place] 1.015, Urine Protein Negative, Urine Glucose (UA) Negative, Urine Ketones Negative, Urine Blood Negative, Urine Nitrate Negative, Urine Bilirubin Negative, Urine Urobilinogen 0.2, Ur Leukocyte Esterase Negative, Urine RBC 3-5, Urine WBC 5-10, Ur Squamous Epith Cells 3-5, Urine Bacteria 1+ 11/03/25 05:47: WBC 5.5, RBC 4.32, Hgb 12.7, Hct 38.3, MCV 88.7, MCH 29.4, MCHC 33.2, RDW 13.3, Plt Count 233, MPV 10.3, Neut % (Auto) 53.8, Lymph % (Auto) 32.7, [place] % (Auto) 9.6 H, Eos % (Auto) 3.1, Baso % (Auto) 0.4, Neut # (Auto) 3.0, Lymph # (Auto) 1.8, [place] # (Auto) 0.5, Eos # (Auto) 0.2, Baso # (Auto) 0.0, Sodium 138, Potassium 4.0, Chloride 106, Carbon Dioxide 29, Anion Gap 7.0, BUN 20 H D, Creatinine 0.70, Estimated Creat Clear 54, Estimated GFR 82, Est GFR ( Amer) 100, Glucose 86, Calcium 9.1, Magnesium 2.1, Total Bilirubin 0.5, AST 35, ALT 19, Alkaline Phosphatase 74, Total Protein 7.0, Albumin 4.1 D, Globulin 2.9, Albumin/Globulin Ratio 1.4, Triglycerides 62, Cholesterol 140, LDL Cholesterol Direct 64.83 L, VLDL Cholesterol 12, HDL Cholesterol 61 H, Cholesterol/HDL Ratio 2.3 I & O for Last 24 hours: Intake & Output 10/31/25 11/01/25 11/02/25 11/03/25 23:59 23:59 23:59 23:59 Intake Total 120 / 120 Output Total 0 / 0 0 / 0 Balance 120 / 120 0 / 0 Weight 65.487 kg 65.726 kg Constitutional Constitutional: no acute distress, average body habitus and cooperative *Routine HEENT Exam Head: Present normocephalic Eye: Present EOMI and PERRL ENT: Present mucous membranes moist *Routine Neck Exam Neck: Present supple; Absent lymphadenopathy *Routine Respiratory Exam Respiratory: Present CTA bilaterally *Routine Cardiovascular Exam Cardiovascular: Present RRR *Routine Abdominal Exam Abdominal: Present soft and normoactive bowel sounds; Absent tenderness *Routine Rectal Exam Patient deferred: visual exam *Routine Exam Patient deferred: external exam *Routine Extremities Exam Extremities: Absent cyanosis, clubbing or edema *Routine Skin Exam Skin: Present warm; Absent rash *Routine Neurological Exam Neurological: Present alert, oriented X3, CN II-XII intact and moving all extremities; Absent sensory deficit, motor deficit or altered mental status Results Data Completed and Pending Labs on day of discharge: Labs from last 24 hours 11/03/25 11/02/25 11/02/25 05:47 19:07 17:00 WBC 5.5 RBC 4.32 Hgb 12.7 Hct 38.3 MCV 88.7 MCH 29.4 MCHC 33.2 RDW 13.3 Plt Count 233 MPV 10.3 Neut % (Auto) 53.8 Lymph % (Auto) 32.7 [place] % (Auto) 9.6 H Eos % (Auto) 3.1 Baso % (Auto) 0.4 Neut # (Auto) 3.0 Lymph # (Auto) 1.8 [place] # (Auto) 0.5 Eos # (Auto) 0.2 Baso # (Auto) 0.0 PT INR APTT Sodium 138 Potassium 4.0 Chloride 106 Carbon Dioxide 29 Anion Gap 7.0 BUN 20 H D Creatinine 0.70 Estimated Creat Clear 54 Estimated GFR 82 Est GFR ( Amer) 100 Glucose 86 Calcium 9.1 Magnesium 2.1 Total Bilirubin 0.5 AST 35 ALT 19 Alkaline Phosphatase 74 Troponin I < 0.01 Total Protein 7.0 Albumin 4.1 D Globulin 2.9 Albumin/Globulin Ratio 1.4 Triglycerides 62 Cholesterol 140 LDL Cholesterol Direct 64.83 L VLDL Cholesterol 12 HDL Cholesterol 61 H Cholesterol/HDL Ratio 2.3 Urine Color Yellow Urine Appearance Clear Urine pH 6.5 Ur Specific [place] 1.015 Urine Protein Negative Urine Glucose (UA) Negative Urine Ketones Negative Urine Blood Negative Urine Nitrate Negative Urine Bilirubin Negative Urine Urobilinogen 0.2 Ur Leukocyte Esterase Negative Urine RBC 3-5 Urine WBC 5-10 Ur Squamous Epith Cells 3-5 Urine Bacteria 1+ 11/02/25 13:27 WBC 7.1 RBC 4.52 Hgb 13.2 Hct 40.3 MCV 89.2 MCH 29.2 MCHC 32.8 RDW 13.5 Plt Count 264 MPV 10.1 Neut % (Auto) 57.0 Lymph % (Auto) 32.1 [place] % (Auto) 8.1 Eos % (Auto) 2.3 Baso % (Auto) 0.4 Neut # (Auto) 4.0 Lymph # (Auto) 2.3 [place] # (Auto) 0.6 Eos # (Auto) 0.2 Baso # (Auto) 0.0 PT 10.7 INR 0.96 APTT 29.2 Sodium 138 Potassium 3.7 Chloride 105 Carbon Dioxide 28 Anion Gap 8.7 BUN 14 Creatinine 0.70 Estimated Creat Clear 52 Estimated GFR 82 Est GFR ( Amer) 100 Glucose 96 Calcium 9.5 Magnesium Total Bilirubin 0.5 AST 28 ALT 21 Alkaline Phosphatase 96 Troponin I < 0.01 Total Protein 8.2 D Albumin 4.7 Globulin 3.5 H Albumin/Globulin Ratio 1.3 Triglycerides Cholesterol LDL Cholesterol Direct VLDL Cholesterol HDL Cholesterol Cholesterol/HDL Ratio Urine Color Urine Appearance Urine pH Ur Specific [place] Urine Protein Urine Glucose (UA) Urine Ketones Urine Blood Urine Nitrate Urine Bilirubin Urine Urobilinogen Ur Leukocyte Esterase Urine RBC Urine WBC Ur Squamous Epith Cells Urine Bacteria DS: Diagnosis Discharge Diagnosis (1) TIA (transient ischemic attack): Status: Acute Code(s): G45.9 - Transient cerebral ischemic attack, unspecified (2) Hypertensive emergency: Status: Acute Code(s): I16.1 - Hypertensive emergency (3) Exocrine pancreatic insufficiency: Status: Acute Code(s): K86.81 - Exocrine pancreatic insufficiency (4) GERD (gastroesophageal reflux disease): Status: Acute Code(s): K21.9 - Gastro-esophageal reflux disease without esophagitis Meds Home Medications and Allergies Home Medications ?Medication ?Instructions ?Recorded ?Confirmed ?Type clopidogrel 75 mg tablet 75 mg PO DAILY STROKE 10/09/19 11/04/25 History rosuvastatin 20 mg tablet 20 mg PO DAILY 07/25/24 11/04/25 History cholecalciferol (vitamin D3) 25 25 mcg PO DAILY 06/10/25 11/04/25 History mcg (1,000 unit) capsule buspirone 10 mg tablet 10 mg PO BID #60 tabs 08/06/25 11/04/25 Rx [id number] 1 cap PO TID 11/02/25 11/04/25 History (pork)36,000-114,000-180k unit capsule,del rel (Creon) aspirin 81 mg tablet,delayed 81 mg PO DAILY 30 days #30 tabs 11/03/25 11/04/25 Rx release irbesartan 75 mg tablet 37.5 mg (1/2 x 75 mg) PO DAILY 30 11/03/25 11/04/25 Rx days #15 tabs Iberogast PO 11/04/25 11/04/25 History zinc 50 mg capsule 50 mg PO DAILY 11/04/25 11/04/25 History New Prescriptions to Start Prescriptions: Michael Schneider irbesartan Michael Ferguson Allergies Allergy/AdvReac Type Severity Reaction Status Date / Time No Known Allergies Allergy Verified 11/04/25 13:30 Discharge Plan Disposition Patient Disposition: Home, Self-Care Condition: Good Follow up Plan Follow up with: Flavia Azar APRN [Primary Care Provider, Medical] - 11/10/25 11:30 am Prescriptions/Medication Reconciliation: New aspirin 81 mg Tablet,Delayed Release (Dr/Ec) 81 mg PO DAILY 30 Days Qty: 30 0RF irbesartan 75 mg Tablet 37.5 mg PO DAILY 30 Days Qty: 15 0RF Continued cholecalciferol (vitamin D3) 25 mcg (1,000 unit) capsule 25 mcg PO DAILY buspirone 10 mg tablet 10 mg PO BID Qty: 60 12RF Rx Instructions: Please take 1 tablet by mouth twice daily clopidogrel 75 MG tablet 75 mg PO DAILY rosuvastatin 20 mg tablet 20 mg PO DAILY Creon 36,000-114,000- 180,000 unit capsule,delayed release(DR/EC) 1 cap PO TID No Action zinc 50 mg capsule 50 mg PO DAILY Iberogast PO Problem Reconciliation Problems Reviewed?: Yes Patient Discharge Instructions ACTIVITY: Continue current activity DIET: continue same diet Patient Instructions: Transient Ischemic Attack Print Language: Haitian Providers Primary Care Provider: Flavia Azar Admit Provider: Michael Ferguson Attending Provider: Michael Ferguson
[2025-11-03 12:00] VITALS: BP 131/64; PULSE 56; RESP 15; TEMP 36.6; O2SAT 94
--- NOTE | 2025-11-03 12:13 | SW/DCPLANNER ---
Per PT no needs at this time.
--- NOTE | 2025-11-04 10:31 | SW/DCPLANNER ---
Spoke with patient on the phone. Patient stated that she is doing good. Patient stated that she is aware of her upcoming appointment. Patient stated that she was able to get her new medicine picked up. Patient stated that her blood pressure was 108/58 and was afraid to take her blood pressure medicine and i suggested that she call her primary care provider. Patient stated that she has no concerns or questions at this time. Gurwinder Yung
== END 2025-11-03 13:09 | disposition home or self-care (01) ==
LOC: ER 14:13 → 2ND 15:14
PROVIDERS: Physician Assistant; Admitting Provider Internal Medicine Adolescent Medicine; Emergency Provider Student in an Organized Health Care Education/Training Program; PCP Nurse Practitioner; Visit Provider Internal Medicine Adolescent Medicine
DX: G45.9 Transient cerebral ischemic attack, unspecified (principal); I16.1 Hypertensive emergency; K86.81 Exocrine pancreatic insufficiency; K21.9 Gastro-esophageal reflux disease without esophagitis; J44.9 Chronic obstructive pulmonary disease, unspecified; E78.5 Hyperlipidemia, unspecified; Z90.49 Acquired absence of other specified parts of digestive tract; Z79.899 Other long term (current) drug therapy; Z86.0101 Personal history of adenomatous and serrated colon polyps; Q27.8 Other specified congenital malformations of peripheral vascular system
CPT/HCPCS: 32554; 36415; 70450; 70496; 70498; 70551; 71045; 80053; 80061; 81001; 83735; 84484; 85025; 85610; 85730; 93005; 97162; 97165; 99285; G0378; J1650; Q9967